=== PATIENT | male | born 1960 | race Caucasian/White ===

== ENCOUNTER 2020-03-31 14:27 | Outpatient (REF) | payer OTHER, SELFPAY | END 2020-03-31 14:28 | disposition home or self-care (01) | LOC: HO.HOSX 14:27 | PROVIDERS: Visit Provider Orthopaedic Surgery | DX: Z13.89 Encounter for screening for other disorder (principal) ==

== ENCOUNTER 2020-04-01 11:14 | Outpatient (REF) | payer OTHER, SELFPAY ==
--- NOTE | 2020-04-01 11:20 | XR_ITS ---
EXAMINATION: XR KNEE, STANDING AP, BILATERAL XR KNEE, LEFT CLINICAL INFORMATION: Bilateral knee pain. COMPARISON: Standing AP knees and left knee 06/15/2016 TECHNIQUE: Standing AP view of both knees is performed along with lateral and axial patellar views of the left knee. FINDINGS: Left knee: There is narrowing medial knee joint compartment with marginal osteophytes medial femoral condyle and tibial plateau. There is no erosive change or chondrocalcinosis. Mild degenerative change present medial patellofemoral joint. No lateralization patella or erosive change. No suprapatellar effusion. No bony destructive process. There is a tiny bone island lateral femoral condyle, stable from prior study. Right knee: No definite knee joint compartment narrowing. No erosive change or chondrocalcinosis. No destructive process. Small bone island medial femoral condyle, stable from prior study 2016. XR/XR knee standing BI IMPRESSION: 1. Left: Osteoarthritis greatest medial knee joint compartment with joint narrowing and osteophytes. No effusion or erosive change. 2. Right: No joint narrowing or erosive change.
--- NOTE | 2020-04-01 11:20 | XR_ITS ---
EXAMINATION: XR KNEE, STANDING AP, BILATERAL XR KNEE, LEFT CLINICAL INFORMATION: Bilateral knee pain. COMPARISON: Standing AP knees and left knee 06/15/2016 TECHNIQUE: Standing AP view of both knees is performed along with lateral and axial patellar views of the left knee. FINDINGS: Left knee: There is narrowing medial knee joint compartment with marginal osteophytes medial femoral condyle and tibial plateau. There is no erosive change or chondrocalcinosis. Mild degenerative change present medial patellofemoral joint. No lateralization patella or erosive change. No suprapatellar effusion. No bony destructive process. There is a tiny bone island lateral femoral condyle, stable from prior study. Right knee: No definite knee joint compartment narrowing. No erosive change or chondrocalcinosis. No destructive process. Small bone island medial femoral condyle, stable from prior study 2016. XR/XR knee LT 2V IMPRESSION: 1. Left: Osteoarthritis greatest medial knee joint compartment with joint narrowing and osteophytes. No effusion or erosive change. 2. Right: No joint narrowing or erosive change.
== END 2020-04-01 11:15 | disposition home or self-care (01) ==
LOC: HO.HOSX 11:14
PROVIDERS: PCP Internal Medicine; Visit Provider Orthopaedic Surgery
DX: M17.12 Unilateral primary osteoarthritis, left knee (principal); M25.562 Pain in left knee; M25.561 Pain in right knee
CPT/HCPCS: 20610; 73560; 73565

== ENCOUNTER 2020-05-06 10:30 | Outpatient (REF) | payer OTHER, SELFPAY ==
[2020-05-06 14:08] LABS: Hematocrit 46.3 % (42-52); Hemoglobin 15.7 g/dl (14.0-18.0)
[2020-05-06 14:14] LABS: Estimated Average Glucose 131 mg/dL; Hemoglobin A1c % 6.2 %
[2020-05-06 14:30] LABS: Alanine Aminotransferase 41 U/L (0-40); Albumin Level 4.5 g/dL (3.5-5.0); Alkaline Phosphatase 80 U/L (39-117); Anion Gap 14 (12-20); Aspartate Amino Transferase 25 U/L (5-37); Bilirubin Direct 0.3 mg/dL (0.0-0.5); Bilirubin Total 0.9 mg/dL (0.0-1.0); Blood Urea Nitrogen 18 mg/dL (9-16); Calcium 9.2 mg/dL (8.4-10.2); Carbon Dioxide 25 mmol/L (22-29); Chloride 105 mmol/L (96-108); Cholesterol 166 mg/dL; Estimated Glomerular Filt Rate > 60; Glucose Fasting 152 mg/dL (60-99); HDL Cholesterol 43 mg/dL; LDL Cholesterol Calculated 90 mg/dl; Potassium 4.2 mmol/L (3.3-5.1); Sodium 140 mmol/L (135-145); Total Protein 6.9 g/dL (6.5-8.0); Triglycerides 168 mg/dL
[2020-05-06 14:36] LABS: Microalbum/Creatinine Ratio Ur 6.9 ug/mg cr
[2020-05-06 14:40] LABS: TSH reflex Free T4 0.57 uIU/mL (0.32-4.0)
== END 2020-05-06 10:31 | disposition home or self-care (01) ==
LOC: HO.HMGCLDS 10:30
PROVIDERS: PCP Internal Medicine; Visit Provider Internal Medicine
DX: E66.9 Obesity, unspecified (principal); R73.9 Hyperglycemia, unspecified; E78.9 Disorder of lipoprotein metabolism, unspecified; J45.40 Moderate persistent asthma, uncomplicated; R00.0 Tachycardia, unspecified; H53.8 Other visual disturbances
CPT/HCPCS: 36415; 80048; 80061; 80076; 82043; 83036; 84443; 85014; 85018

== ENCOUNTER → 2020-08-05 09:59 | Outpatient (BNVA) | payer OTHER, SELFPAY | PROVIDERS: PCP Internal Medicine; Visit Provider Orthopaedic Surgery ==

== ENCOUNTER → 2020-09-09 12:22 | Outpatient (BNVA) | payer OTHER, SELFPAY | PROVIDERS: PCP Internal Medicine; Visit Provider Physician Assistant ==

== ENCOUNTER 2020-09-14 06:01 | Day surgery (SDC) | payer OTHER, SELFPAY ==
--- NOTE | 2020-08-12 12:12 | ECG_ITS ---
Test Reason : PREOP Z01.810 Blood Pressure : / mmHG Vent. Rate : 099 BPM Atrial Rate : 099 BPM P-R Int : 148 ms QRS Dur : 094 ms QT Int : 354 ms P-R-T Axes : 041 -12 072 degrees QTc Int : 454 ms Normal sinus rhythm Nonspecific ST and T wave abnormality Abnormal ECG When compared with ECG of 23-JAN-2013 08:50, No significant change was found Referred By: Megan Banuelos Electronically Signed By:ELMER TATUM MD
[2020-08-12 13:19] LABS: MANUAL DIFF FLAG NO
[2020-08-12 13:22] LABS: Basophils Percent Auto 0.7 % (0-2); Eosinophils Absolute Auto 0.1 X10*3/uL (0.0-0.4); Eosinophils Percent Auto 1.6 % (0-4); Hematocrit 45.3 % (42-52); Hemoglobin 15.5 g/dl (14.0-18.0); Imm Gran Abs Auto 0.01 X10*3/uL (0.00-0.03); Imm Gran Pct Auto 0.2 % (0.0-0.4); Lymphocytes Percent Auto 35.6 % (20-40); Mean Corpuscular HGB Conc 34.2 g/dl (31.0-36.0); Mean Corpuscular Hemoglobin 29.8 pg (27.0-33.0); Mean Corpuscular Volume 86.9 fL (80-98); Mean Platelet Volume 9.6 fL (9.4-12.4); Monocytes Absolute Auto 0.5 X10*3/uL (0.1-1.2); Neutrophils Absolute Auto 3.1 X10*3/uL (2.0-8.3); Neutrophils Percent Auto 53.9 % (45-73); Platelet Count 281 X10*3/uL (160-400); Red Blood Count 5.21 X10*6/uL (4.60-5.80); Red Cell Distribution Width 12.1 % (11.0-16.0); White Blood Count 5.7 X10*3/uL (4.8-10.8)
[2020-08-12 13:45] LABS: Anion Gap 14 (12-20); Blood Urea Nitrogen 18 mg/dL (9-16); Calcium 9.8 mg/dL (8.4-10.2); Carbon Dioxide 28 mmol/L (22-29); Chloride 102 mmol/L (96-108); Estimated Glomerular Filt Rate > 60; Glucose Random 166 mg/dL (60-115); Potassium 3.8 mmol/L (3.3-5.1); Sodium 140 mmol/L (135-145)
[2020-09-03 11:54] VITALS: BP 120/77; PULSE 105; RESP 20; O2SAT 95; BMI 40.1
--- NOTE | 2020-09-03 12:25 | HO.ANESPROP2 ---
Documented by User: Suma Streeter 09/03/20 12:41 HPI - Anesthesia Eval Consult details Narrative: 59yo M for Left TKA PCP cleared - notes abnormal EKG, but no changes from previous [facility] Active Problems Active Problems: All Active Problems (Updated 09/03/20 @ 12:14 by Jacquelin Borrero) Primary osteoarthritis of left knee (Acute) Lipid disorder (Acute) Asthma, moderate (Acute) Elevated blood sugar (Acute) Tachycardia (Acute) Blurring of vision (Acute) Obesity (Acute) Hypertension, essential (Acute) Encounter for general adult medical examination with abnormal findings (Acute) Morbid obesity (Acute) Osteoarthritis of knees, bilateral (Acute) Pre-op evaluation (Acute) Past Medical History Medical History (Updated 09/14/20 @ 09:06 by Taniya Connell) Asthma COVID-19 vaccine series completed Fuchs' syndrome II HTN (hypertension) COLETTE (obstructive sleep apnea) Osteoarthritis of both knees Raynauds disease Rheumatoid arthritis Snores Family History Family History Father Colon cancer Myocardial infarction Mother Colon cancer HTN (hypertension) Diabetes mellitus Sister Breast cancer Crohn's disease Sister Breast cancer Crohn's disease Brother CHF (congestive heart failure) Smoker Rheumatic fever Maternal Grandmother No problems noted. Maternal Grandfather No problems noted. Paternal Grandmother No problems noted. Paternal Grandfather Emphysema, unspecified Brother No problems noted. Sister No problems noted. Daughter No problems noted. Daughter No problems noted. Daughter No problems noted. Daughter No problems noted. Family history of problems with anesthesia: No Surgical History Surgical History History of colonoscopy History of knee surgery History of lipoma History of removal of testicle History of trigger finger History of Problems with Anesthesia: No Social History Social History Are you a primary medicare sales representative to a significant other at home: No Do you presently have visiting nurse or other home services: No Alcohol intake: current Alcohol intake frequency: former alcohol drinker Patient Tobacco Use Status: Former Tobacco user Quit Date: 2000 Tobacco use type: Cigarette Use of substances other than those prescribed or required for medical reasons: No Have you been hit, kicked, punched, or otherwise hurt by someone within the past year? 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 Activity limited to pain. 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 Meds Allergies Allergy/AdvReac Type Severity Reaction Status Date / Time amoxicillin [Augmentin] Allergy Unknown rash Verified 09/09/20 12:38 aspirin [ASPIRIN] Allergy Unknown WHEEZING Verified 09/09/20 12:38 clavulanic acid [Augmentin] Allergy Unknown rash Verified 09/09/20 12:38 Iodinated Contrast Media Allergy Unknown NAUSEA Verified 09/09/20 12:38 [IODINATED CONTRAST MEDIA - IV DYE] shellfish dye Allergy Unknown nausea, Uncoded 09/09/20 12:38 wheezing Home Medications Medication Instructions Recorded Confirmed Last Taken Type cetirizine [Zyrtec] 10 mg PO DAILY 09/03/20 09/03/20 Unknown History fluticasone propion-salmeterol 1 inh INHALATION BID 09/03/20 09/03/20 Unknown History [Advair Diskus] Exam Exam Date and Time: September 03, 2020 1225 Height,Weight and Vital Signs: Height 5 ft 10 in Weight 127.006 kg Last Vital Signs Pulse 105 H 09/03/20 11:54 Resp 20 09/03/20 11:54 BP 120/77 09/03/20 11:54 Pulse Ox 95 09/03/20 11:54 Pertinent Lab Results Pertinent Lab Results: Laboratory Tests 08/12/20 08/12/20 12:15 12:15 WBC 5.7 RBC 5.21 Hgb 15.5 Hct 45.3 MCV 86.9 MCH 29.8 MCHC 34.2 RDW 12.1 Plt Count 281 MPV 9.6 Immature Gran % (Auto) 0.2 Neut % (Auto) 53.9 Lymph % (Auto) 35.6 [place] % (Auto) 8.0 Eos % (Auto) 1.6 Baso % (Auto) 0.7 Lymph # (Auto) 2.0 [place] # (Auto) 0.5 Eos # (Auto) 0.1 Baso # (Auto) 0.0 Abs Immat Gran (auto) 0.01 Absolute Neuts (auto) 3.1 Absolute Nucleated RBC 0.000 Nucleated RBC % (auto) 0.0 Sodium 140 Potassium 3.8 Chloride 102 Carbon Dioxide 28 Anion Gap 14 BUN 18 H Creatinine 0.99 Estim Creat Clear Calc TNP Estimated GFR > 60 Random Glucose 166 H Calcium 9.8 D Narrative Narrative: EKG 07/2020 Vent. Rate : 099 BPM Atrial Rate : 099 BPM P-R Int : 148 ms QRS Dur : 094 ms QT Int : 354 ms P-R-T Axes : 041 -12 072 degrees QTc Int : 454 ms Normal sinus rhythm Nonspecific ST and T wave abnormality Abnormal ECG When compared with ECG of 23-JAN-2013 08:50, No significant change was found Airway Mallampati Class: IV (small mouth, +snores. encouraged COLETTE w/u with PCP) TM Dist: >3cm Neck ROM: Full Loose/Missing/Broken Teeth: Yes (#6 missing) Heart: tachy, RR Lungs: CTAB Assessment and Plan Assessment Anesthesia Assessment: Anesthesia Plan Discussed and PAT Visit Documented by User: Taniya Connell 09/14/20 09:09 [facility] Past Medical History Medical History (Updated 09/14/20 @ 09:06 by Taniya Connell) Asthma COVID-19 vaccine series completed Fuchs' syndrome II HTN (hypertension) COLETTE (obstructive sleep apnea) Osteoarthritis of both knees Raynauds disease Rheumatoid arthritis Snores Family History Family History Father Colon cancer Myocardial infarction Mother Colon cancer HTN (hypertension) Diabetes mellitus Sister Breast cancer Crohn's disease Sister Breast cancer Crohn's disease Brother CHF (congestive heart failure) Smoker Rheumatic fever Maternal Grandmother No problems noted. Maternal Grandfather No problems noted. Paternal Grandmother No problems noted. Paternal Grandfather Emphysema, unspecified Brother No problems noted. Sister No problems noted. Daughter No problems noted. Daughter No problems noted. Daughter No problems noted. Daughter No problems noted. Surgical History Surgical History History of colonoscopy History of knee surgery History of lipoma History of removal of testicle History of trigger finger Social History Social History Are you a primary medicare sales representative to a significant other at home: No Do you presently have visiting nurse or other home services: No Alcohol intake: current Alcohol intake frequency: former alcohol drinker Patient Tobacco Use Status: Former Tobacco user Quit Date: 2000 Tobacco use type: Cigarette Use of substances other than those prescribed or required for medical reasons: No Have you been hit, kicked, punched, or otherwise hurt by someone within the past year? 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 Allergies Allergy/AdvReac Type Severity Reaction Status Date / Time amoxicillin [Augmentin] Allergy Unknown rash Verified 09/09/20 12:38 aspirin [ASPIRIN] Allergy Unknown WHEEZING Verified 09/09/20 12:38 clavulanic acid [Augmentin] Allergy Unknown rash Verified 09/09/20 12:38 Iodinated Contrast Media Allergy Unknown NAUSEA Verified 09/09/20 12:38 [IODINATED CONTRAST MEDIA - IV DYE] shellfish dye Allergy Unknown nausea, Uncoded 09/09/20 12:38 wheezing Home Medications Medication Instructions Recorded Confirmed Last Taken Type cetirizine [Zyrtec] 10 mg PO DAILY 09/03/20 09/03/20 Unknown History fluticasone propion-salmeterol 1 inh INHALATION BID 09/03/20 09/03/20 Unknown History [Advair Diskus] Exam Height,Weight and Vital Signs: Vital Signs Temp Pulse Resp BP Pulse Ox 09/14/20 06:55 98.0 F 89 16 124/79 94 Pertinent Lab Results Pertinent Lab Results: Lab Results 08/12/20 08/12/20 09/03/20 Range/Units 12:15 12:15 00:00 WBC 5.7 (4.8-10.8) X10*3/uL RBC 5.21 (4.60-5.80) X10*6/uL Hgb 15.5 (14.0-18.0) g/dl Hct 45.3 (42-52) % MCV 86.9 (80-98) fL MCH 29.8 (27.0-33.0) pg MCHC 34.2 (31.0-36.0) g/dl RDW 12.1 (11.0-16.0) % Plt Count 281 (160-400) X10*3/uL MPV 9.6 (9.4-12.4) fL Immature Gran % (Auto) 0.2 (0.0-0.4) % Neut % (Auto) 53.9 (45-73) % Lymph % (Auto) 35.6 (20-40) % [place] % (Auto) 8.0 (2-11) % Eos % (Auto) 1.6 (0-4) % Baso % (Auto) 0.7 (0-2) % Lymph # (Auto) 2.0 (1.2-4.9) X10*3/uL [place] # (Auto) 0.5 (0.1-1.2) X10*3/uL Eos # (Auto) 0.1 (0.0-0.4) X10*3/uL Baso # (Auto) 0.0 (0.0-0.2) X10*3/uL Abs Immat Gran (auto) 0.01 (0.00-0.03) X10*3/uL Absolute Neuts (auto) 3.1 (2.0-8.3) X10*3/uL Absolute Nucleated RBC 0.000 (0.0-0.012) X10*3/uL Nucleated RBC % (auto) 0.0 (0.0-0.2) /100WBC Sodium 140 (135-145) mmol/L Potassium 3.8 (3.3-5.1) mmol/L Chloride 102 (96-108) mmol/L Carbon Dioxide 28 (22-29) mmol/L Anion Gap 14 (12-20) BUN 18 H (9-16) mg/dL Creatinine 0.99 (0.5-1.4) mg/dL Estim Creat Clear Calc TNP Estimated GFR > 60 Random Glucose 166 H (60-115) mg/dL Fasting Glucose (60-99) mg/dL Estimat Average Glucose mg/dL Hemoglobin A1c % % Calcium 9.8 D (8.4-10.2) mg/dL Total Bilirubin (0.0-1.0) mg/dL AST (5-37) U/L ALT (0-40) U/L Alkaline Phosphatase (39-117) U/L Total Protein (6.5-8.0) g/dL Albumin (3.5-5.0) g/dL Triglycerides mg/dL Cholesterol mg/dL LDL Cholesterol, Calc mg/dl HDL Cholesterol mg/dL Nasal Screen MRSA (PCR) NEGATIVE (Negative) Nasal S. aureus Screen NEGATIVE (Negative) Nasal MRSA/S.aureus Interp SEE NOTE COVID-19 (STEVIE) (Negative) COVID-19 Clin Com Blood Type Antibody Screen 09/03/20 09/03/20 09/03/20 Range/Units 13:09 13:09 13:09 WBC 7.2 (4.8-10.8) X10*3/uL RBC 5.15 (4.60-5.80) X10*6/uL Hgb 15.3 (14.0-18.0) g/dl Hct 45.2 (42-52) % MCV 87.8 (80-98) fL MCH 29.7 (27.0-33.0) pg MCHC 33.8 (31.0-36.0) g/dl RDW 12.3 (11.0-16.0) % Plt Count 282 (160-400) X10*3/uL MPV 9.5 (9.4-12.4) fL Immature Gran % (Auto) 0.3 (0.0-0.4) % Neut % (Auto) 59.1 (45-73) % Lymph % (Auto) 28.7 (20-40) % [place] % (Auto) 9.5 (2-11) % Eos % (Auto) 1.8 (0-4) % Baso % (Auto) 0.6 (0-2) % Lymph # (Auto) 2.1 (1.2-4.9) X10*3/uL [place] # (Auto) 0.7 (0.1-1.2) X10*3/uL Eos # (Auto) 0.1 (0.0-0.4) X10*3/uL Baso # (Auto) 0.0 (0.0-0.2) X10*3/uL Abs Immat Gran (auto) 0.02 (0.00-0.03) X10*3/uL Absolute Neuts (auto) 4.3 (2.0-8.3) X10*3/uL Absolute Nucleated RBC 0.000 (0.0-0.012) X10*3/uL Nucleated RBC % (auto) 0.0 (0.0-0.2) /100WBC Sodium 138 (135-145) mmol/L Potassium 3.7 (3.3-5.1) mmol/L Chloride 104 (96-108) mmol/L Carbon Dioxide 26 (22-29) mmol/L Anion Gap 12 (12-20) BUN 17 H (9-16) mg/dL Creatinine 0.97 (0.5-1.4) mg/dL Estim Creat Clear Calc 112.4 Estimated GFR > 60 Random Glucose (60-115) mg/dL Fasting Glucose 159 H (60-99) mg/dL Estimat Average Glucose 126 mg/dL Hemoglobin A1c % 6.0 % Calcium 10.2 (8.4-10.2) mg/dL Total Bilirubin 0.4 (0.0-1.0) mg/dL AST 35 (5-37) U/L ALT 56 H (0-40) U/L Alkaline Phosphatase 85 (39-117) U/L Total Protein 6.9 (6.5-8.0) g/dL Albumin 4.6 (3.5-5.0) g/dL Triglycerides 269 mg/dL Cholesterol 170 mg/dL LDL Cholesterol, Calc 75 mg/dl HDL Cholesterol 42 mg/dL Nasal Screen MRSA (PCR) (Negative) Nasal S. aureus Screen (Negative) Nasal MRSA/S.aureus Interp COVID-19 (STEVIE) (Negative) COVID-19 Clin Com Blood Type Antibody Screen 06/10/21 06/21/21 Range/Units 13:26 06:07 WBC (4.8-10.8) X10*3/uL RBC (4.60-5.80) X10*6/uL Hgb (14.0-18.0) g/dl Hct (42-52) % MCV (80-98) fL MCH (27.0-33.0) pg MCHC (31.0-36.0) g/dl RDW (11.0-16.0) % Plt Count (160-400) X10*3/uL MPV (9.4-12.4) fL Immature Gran % (Auto) (0.0-0.4) % Neut % (Auto) (45-73) % Lymph % (Auto) (20-40) % [place] % (Auto) (2-11) % Eos % (Auto) (0-4) % Baso % (Auto) (0-2) % Lymph # (Auto) (1.2-4.9) X10*3/uL [place] # (Auto) (0.1-1.2) X10*3/uL Eos # (Auto) (0.0-0.4) X10*3/uL Baso # (Auto) (0.0-0.2) X10*3/uL Abs Immat Gran (auto) (0.00-0.03) X10*3/uL Absolute Neuts (auto) (2.0-8.3) X10*3/uL Absolute Nucleated RBC (0.0-0.012) X10*3/uL Nucleated RBC % (auto) (0.0-0.2) /100WBC Sodium (135-145) mmol/L Potassium (3.3-5.1) mmol/L Chloride (96-108) mmol/L Carbon Dioxide (22-29) mmol/L Anion Gap (12-20) BUN (9-16) mg/dL Creatinine (0.5-1.4) mg/dL Estim Creat Clear Calc Estimated GFR Random Glucose (60-115) mg/dL Fasting Glucose (60-99) mg/dL Estimat Average Glucose mg/dL Hemoglobin A1c % % Calcium (8.4-10.2) mg/dL Total Bilirubin (0.0-1.0) mg/dL AST (5-37) U/L ALT (0-40) U/L Alkaline Phosphatase (39-117) U/L Total Protein (6.5-8.0) g/dL Albumin (3.5-5.0) g/dL Triglycerides mg/dL Cholesterol mg/dL LDL Cholesterol, Calc mg/dl HDL Cholesterol mg/dL Nasal Screen MRSA (PCR) (Negative) Nasal S. aureus Screen (Negative) Nasal MRSA/S.aureus Interp COVID-19 (STEVIE) Negative (Negative) COVID-19 Clin Com See Note Blood Type O Positive Antibody Screen NEGATIVE Airway Mallampati Class: III TM Dist: >3cm Neck ROM: Full Loose/Missing/Broken Teeth: Yes (Missing bottom right) Heart: RRR Lungs: CTAB Assessment and Plan Assessment Anesthesia Assessment: Anesthesia Plan Discussed and Chart Reviewed Final Anesthetic Review NPO: Yes ASA Class: III Final Preanesthetic Review: No Changes in Pt Med Stat, Meds/Allgs Chart Reviewed, Consent Obtained/Reviewed and Anes Risks/Benef Reviewed Patient Risk: Intermediate Procedure Risk: Intermediate Assessment/Block/Sedation in SS: Assess/Block/Sedation-SS Anesthetic Plan Anesthetic Plan: Spinal and Regional Block Disposition: Inp. Admit - Standard Bed
[2020-09-03 13:38] LABS: MANUAL DIFF FLAG NO
[2020-09-03 13:44] LABS: Basophils Percent Auto 0.6 % (0-2); Eosinophils Absolute Auto 0.1 X10*3/uL (0.0-0.4); Eosinophils Percent Auto 1.8 % (0-4); Hematocrit 45.2 % (42-52); Hemoglobin 15.3 g/dl (14.0-18.0); Imm Gran Abs Auto 0.02 X10*3/uL (0.00-0.03); Imm Gran Pct Auto 0.3 % (0.0-0.4); Lymphocytes Absolute Auto 2.1 X10*3/uL (1.2-4.9); Lymphocytes Percent Auto 28.7 % (20-40); Mean Corpuscular HGB Conc 33.8 g/dl (31.0-36.0); Mean Corpuscular Hemoglobin 29.7 pg (27.0-33.0); Mean Corpuscular Volume 87.8 fL (80-98); Mean Platelet Volume 9.5 fL (9.4-12.4); Monocytes Absolute Auto 0.7 X10*3/uL (0.1-1.2); Monocytes Percent Auto 9.5 % (2-11); Neutrophils Absolute Auto 4.3 X10*3/uL (2.0-8.3); Neutrophils Percent Auto 59.1 % (45-73); Platelet Count 282 X10*3/uL (160-400); Red Blood Count 5.15 X10*6/uL (4.60-5.80); Red Cell Distribution Width 12.3 % (11.0-16.0); White Blood Count 7.2 X10*3/uL (4.8-10.8)
[2020-09-03 13:55] LABS: Estimated Average Glucose 126 mg/dL
[2020-09-03 14:09] LABS: Alanine Aminotransferase 56 U/L (0-40); Albumin Level 4.6 g/dL (3.5-5.0); Alkaline Phosphatase 85 U/L (39-117); Anion Gap 12 (12-20); Aspartate Amino Transferase 35 U/L (5-37); Bilirubin Total 0.4 mg/dL (0.0-1.0); Blood Urea Nitrogen 17 mg/dL (9-16); Calcium 10.2 mg/dL (8.4-10.2); Carbon Dioxide 26 mmol/L (22-29); Chloride 104 mmol/L (96-108); Cholesterol 170 mg/dL; Creatinine Clr Calc Pharmacy 112.4; Estimated Glomerular Filt Rate > 60; Glucose Fasting 159 mg/dL (60-99); HDL Cholesterol 42 mg/dL; LDL Cholesterol Calculated 75 mg/dl; Potassium 3.7 mmol/L (3.3-5.1); Sodium 138 mmol/L (135-145); Total Protein 6.9 g/dL (6.5-8.0); Triglycerides 269 mg/dL
[2020-09-04 08:42] LABS: MRSA Nasal PCR NEGATIVE (Negative); SA Nasal PCR NEGATIVE (Negative)
[2020-09-14] VITALS (13 sets, daily range): BP systolic 92–124; BP diastolic 49–79; PULSE 78–89; RESP 16–20; TEMP 36–36.8; O2SAT 92–95
--- NOTE | ~2020-09-14 | XR_ITS ---
EXAMINATION: XR KNEE, LEFT CLINICAL INFORMATION: Postop left knee COMPARISON: Radiographs left knee 04/01/2020 TECHNIQUE: Portable AP and lateral views of the left knee. FINDINGS: There is been total knee arthroplasty. The hardware is intact. There is no fracture or dislocation or destructive process. As expected, there are overlying skin valerie, anterior soft tissue swelling, effusion, and subcutaneous emphysema. XR/XR knee LT 2V IMPRESSION: Status post total knee arthroplasty. Hardware intact.
[2020-09-14 06:43] LABS: COVID-19 Test Negative (Negative); IDNOW Serial# 08D9AD1C
--- NOTE | 2020-09-14 07:28 | MHC.SHP ---
Pre-Procedural Eval Section A The patient is an INPATIENT: No Changes since office visit: No Cold of Flu in the past 2 weeks, No New Medical Problems, No Changes in Medication and No Patient answered all questions The History & Physical has been completed within 30 days and I have reviewed it.: Yes Section B Chief Complaint: Left Knee Osteoarthritis Allergies: Allergies Allergy/AdvReac Type Severity Reaction Status Date / Time amoxicillin [Augmentin] Allergy Unknown rash Verified 09/09/20 12:38 aspirin [ASPIRIN] Allergy Unknown WHEEZING Verified 09/09/20 12:38 clavulanic acid [Augmentin] Allergy Unknown rash Verified 09/09/20 12:38 Iodinated Contrast Media Allergy Unknown NAUSEA Verified 09/09/20 12:38 [IODINATED CONTRAST MEDIA - IV DYE] shellfish dye Allergy Unknown nausea, Uncoded 09/09/20 12:38 wheezing Plan I have reviewed the history and physical and performed a pertinent physical examination on my patient. No changes have occurred unless specified.
[2020-09-14] MEDS: Lactated Ringers 1,000 ML 80 ML IVCONT ×2 (07:29→15:36)
--- NOTE | 2020-09-14 09:23 | P.OP_ITS ---
Operative Note Operative Note Date of Service: 09/14/20 Narrative: SURGEON: Dr Megan Sparrow) Lakisha FLOWER [employer] FLOOR INSTALLER: Patricia Turner PAC PREOP DIAGNOSIS: OA left knee POSTOP DIAGNOSIS: same OPERATIVE PROCEDURE: Left Total knee arthroplasty - SOWMYA NEXGEN CRFlex size F left femoral component, 6 x 10mm monoblock tibial component, 32m monobock patella component CLINICAL NOTE: This individual comes in today in regards to their knee. Has osteoarthritis. Has failed non operative management. Therefore after explaining the risks benefits and alternatives and answering all the questions it was mutually agreed upon care following procedure OPERATIVE DETAILS With of regional and spinal anesthetic the patient was placed supine on the operating table. Pneumatic tourniquet cuff was placed around the upper thigh and inflated to 300 mm of mercury at the beginning of the case. The leg was then prepped and draped in standard fashion with the leg free. Surgical time-out was then performed. The patient was identified. Procedure confirmed. Site confirmed. Medical and allergy history reviewed. Preoperative antibiotics were given. Standard DVT prophylaxis in place. Tranexamic acid was given as well. All other items were discussed and agreed upon. Standard small midline incision was made. Was taken down through the subcutaneous tissues. Hemostasis achieved along the way using electrocautery. This brought us to the extensor mechanism where a medial parapatellar arthrotomy in a subvastus technique was performed. The patella was retracted into the lateral gutter. The soft tissues were elevated from the anterior aspect of the femur. At the level of the tibia the soft tissue elevated medially excising a portion of the meniscus as well as protecting the medial-sided soft tissues. Similarly on the lateral side a portion of the fat pad, portion of the meniscus were excised. The lateral-sided soft tissues were elevated protecting them as well. The ACL was resected. We turned our attention then to the femur. Standard ex to medullary hole was established. The cutting guide was set for 5 degrees of valgus with a standard cut. It was held in place with pins and the surface resected flat. The sizing guide was then used. The femur was sized to a F. The 3 degree external rotation pins were set. The all in 1 cutting guide for this size was placed the pins and centered over the distal cut. Following this the anterior and anterior chamfer cuts, the posterior and posterior chamfer cuts, the patellar recess cuts, as well as the lug holes were made. The guide was removed. The bony fragments removed and we turned our attention to the tibia. The remainder of the medial and lateral menisci were excised. The extramedullary guide was then used in standard fashion referencing the tibial tubercle, the subcutaneous border of the tibia, and the middle of the ankle. The slope was then set. The cut was referenced from the more worn size for a minimal cut. The surface was then resected. The bony segment removed. The tibia was then trialed to a size 6. It was aligned as the extra medullary guide had been. A 10 mm trial insert was put into place. The femoral trial was also applied with good fit. The alignment of the leg was excellent. The knee was then placed through a range of motion which demonstrated full extension full flexion stable medially and laterally at 0, 30, 60, and 90 degrees of flexion. Patella tracked centrally. Turning our attention to the patella. The soft tissues were elevated circumferentially. The surface was resected flat. It sized to a32mm. A local drilled in standard The trial component was put into place with excellent fit. It tracked nicely through flexion extension. Therefore the trial sizes were appropriate and therefore the permanent components were selected and brought up onto the table. The trial components were then all removed after the peg holes for the tibia were made. The tourniquet was then let down with total tourniquet time of 46 minutes. The area of the lateral geniculate artery was identified and cauterized. Any excessive bleeding points were also cauterized. The knee was then thoroughly irrigated. The permanent components were brought up onto the table. The tibia followed by the femur followed by the patella were all Press- Fit into place. The knee was placed through range of motion. It had full flexion and extension. He was stable medial laterally in all positions. Patella tracked centrally. And therefore we proceeded to closure. Wound was thoroughly irrigated. The extensor mechanism was closed with #2 Quill suture. The skin was approximated with 2-0 Polysorb suture. The skin was closed with valerie. Sterile dressing was then applied. The patient was then transferred supine to the room bed and taken to the recovery room in good condition. Intraoperatively a 2nd unit a transemic acid was given at the time of closure. There was approximately 50mm a blood loss. No intraop transfusions or complications. .
[2020-09-14] MEDS: oxyCODONE HCl Immed Release 5 MG TABLET 10 MG PO ×3 (11:04→22:54)
[2020-09-14] MEDS: Ketorolac Tromethamine 15 MG/ML VIAL IVPUSH ×3 (11:05→22:54)
[2020-09-14] MEDS: Acetaminophen 325 MG TABLET 650 MG PO ×3 (11:05→22:54)
[2020-09-14] MEDS: ceFAZolin Sodium/Dextrose,Iso 2 GM/50 ML PIGGYBACK IV (13:39)
[2020-09-14] MEDS: Morphine Sulfate 4 MG/ML CARTRIDGE 3 MG IVPUSH (14:21)
[2020-09-14] MEDS: 0.9 % Sodium Chloride Flush 3 ML SYRINGE IVFLUSH ×2 (15:36→22:54)
--- NOTE | 2020-09-14 16:19 | PM.IMCN ---
History of Present Illness Data of Consult Service Date: 09/14/20 Requesting physician: Megan Banuelos Primary Care Provider: Papito Dawn MD [facility] Reason for consult: Medical management 59-year-old man admitted by Orthopedic surgery and is status post left total knee arthroplasty. Surgery was unremarkable. he was able to eat and drink without any nausea vomiting. Patient's vital signs are stable. He has no acute medical complaints at this time. Review of Systems Review of Systems: Denies any recent fever chills or decrease in appetite respiratory denies any shortness of breath coverage production cardiovascular is adjustment of any PND or edema gastrointestinal denies any dysphagia abdominal pain nausea vomiting or diarrhea genitourinary denies any dysuria frequency or hematuria musculoskeletal left knee pain, surgical dressing intact neuropsych denies any weakness or seizures all other systems reviewed are negative [facility] Medical History (Updated 09/14/20 @ 09:06 by Taniya Connell) Asthma COVID-19 vaccine series completed Fuchs' syndrome II HTN (hypertension) COLETTE (obstructive sleep apnea) Osteoarthritis of both knees Raynauds disease Rheumatoid arthritis Snores Family History Father Colon cancer Myocardial infarction Mother Colon cancer HTN (hypertension) Diabetes mellitus Sister Breast cancer Crohn's disease Sister Breast cancer Crohn's disease Brother CHF (congestive heart failure) Smoker Rheumatic fever Maternal Grandmother No problems noted. Maternal Grandfather No problems noted. Paternal Grandmother No problems noted. Paternal Grandfather Emphysema, unspecified Brother No problems noted. Sister No problems noted. Daughter No problems noted. Daughter No problems noted. Daughter No problems noted. Daughter No problems noted. Surgical History History of colonoscopy History of knee surgery History of lipoma History of removal of testicle History of trigger finger Social History Are you a primary intensive care unit registered nurse to a significant other at home: No Do you presently have visiting nurse or other home services: No Alcohol intake: current Alcohol intake frequency: former alcohol drinker Patient Tobacco Use Status: Former Tobacco user Quit Date: 2000 Tobacco use type: Cigarette Use of substances other than those prescribed or required for medical reasons: No Currently Displaying Signs/Symptoms of Drug Intoxication Withdrawal: No Have you been hit, kicked, punched, or otherwise hurt by someone within the past year? 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 Allergies Allergy/AdvReac Type Severity Reaction Status Date / Time amoxicillin [Augmentin] Allergy Unknown rash Verified 09/09/20 12:38 aspirin [ASPIRIN] Allergy Unknown WHEEZING Verified 09/09/20 12:38 clavulanic acid [Augmentin] Allergy Unknown rash Verified 09/09/20 12:38 Iodinated Contrast Media Allergy Unknown NAUSEA Verified 09/09/20 12:38 [IODINATED CONTRAST MEDIA - IV DYE] shellfish dye Allergy Unknown nausea, Uncoded 09/09/20 12:38 wheezing Active Medications: Current Medications Generic Name Dose Route Start Last Admin Trade Name Freq PRN Reason Stop Dose Admin Acetaminophen 650 mg 09/14/20 12:00 09/14/20 11:05 Acetaminophen 325 Mg Tablet PO 650 mg Q6H CARLOS Administration Aspirin 325 mg 09/15/20 22:00 Aspirin 325 Mg Tablet PO BID CARLOS Fentanyl 25 mcg 09/14/20 09:23 Fentanyl Citrate/Pf 100 Mcg/2 Ml Vial IVPUSH Q5M PRN Pain, Moderate (Pain Scale 4-6 Hydromorphone HCl 0.25 mg 09/14/20 09:23 Hydromorphone Hcl 0.5 Mg/0.5 Ml Syringe IVPUSH Q5M PRN Pain, Severe (Pain Scale 7-10) Lactated Ringer's 1,000 mls @ 80 mls/hr 09/14/20 06:00 09/14/20 15:36 Lr IVCONT 80 mls/hr .[id number] CARLOS Administration Ketorolac Tromethamine 15 mg 09/14/20 12:00 09/14/20 11:05 Ketorolac Tromethamine 15 Mg/Ml Vial IVPUSH 15 mg Q6H CARLOS Administration Morphine Sulfate 3 mg 09/14/20 10:23 09/14/20 14:21 Morphine Sulfate 4 Mg/Ml Cartridge IVPUSH 3 mg Q2H PRN Administration Pain, Severe (Pain Scale 7-10) Naloxone HCl 0.2 mg 09/14/20 10:23 Naloxone Hcl 0.4 Mg/Ml Vial IVPUSH Q2M PRN Excessive sedation or RR < 8 Ondansetron HCl 4 mg 09/14/20 09:23 Ondansetron Hcl 4 Mg/2 Ml Vial IVPUSH ONCE PRN Nausea and Vomiting Ondansetron HCl 4 mg 09/14/20 10:23 Ondansetron Hcl 4 Mg/2 Ml Vial IVPUSH Q8H PRN Nausea and Vomiting Oxycodone HCl 5 mg 09/14/20 09:23 Oxycodone Hcl Immed Release 5 Mg Tablet PO ONCE PRN Pain, Severe (Pain Scale 7-10) Oxycodone HCl 10 mg 09/14/20 12:00 09/14/20 11:04 Oxycodone Hcl Immed Release 5 Mg Tablet PO 10 mg Q6H CARLOS Administration Sodium Chloride 3 ml 09/14/20 16:00 09/14/20 15:36 0.9 % Sodium Chloride Flush 3 Ml Syringe IVFLUSH 3 ml QSHIFT CARLOS Administration Home Medications Medication Instructions Recorded Confirmed Last Taken Type cetirizine [Zyrtec] 10 mg PO DAILY 09/03/20 09/03/20 Unknown History fluticasone propion-salmeterol 1 inh INHALATION BID 09/03/20 09/03/20 Unknown History [Advair Diskus] Physical Exam Vital Signs and Narrative: Vital Signs: Last Vital Signs Temp 97.6 F 09/14/20 15:24 Pulse 78 09/14/20 15:24 Resp 16 09/14/20 15:24 BP 111/66 09/14/20 15:24 Pulse Ox 93 09/14/20 15:24 Body Mass Index 40.1 Appearing in no acute distress head is normocephalic atraumatic eyes pupils are PERRLA sclera is anicteric mouth throat mucous membranes are intact and moist neck is supple no lymphadenopathy, no JVD noted lung sounds are clear to auscultation heart regular rate rhythm, clear S1, S2 positive bowel sounds, abdomen is soft, nontender neuro patient is alert x3, no focal deficits Results Labs CBC and Chem 7: 09/03/20 13:09 09/03/20 13:09 Labs: Laboratory Results - last 24 hr 09/14/20 06:07 COVID-19 (STEVIE) Negative COVID-19 Clin Com See Note Assessment and Plan (1) Primary osteoarthritis of left knee: Status: Acute 59-year-old man admitted by Orthopedic surgery and is status post left total knee arthroplasty. Left total knee arthroplasty. management as per surgical team - Pain management Hypertension. blood pressure on the softer side -hold medications Obstructive sleep apnea. Asthma. -albuterol as needed DVT prophylaxis with full-dose aspirin Attending: Dr. Mas Full code
[2020-09-14] MEDS: Fluticasone/Vilanterol 100/25 BLST.W.DEV 1 PUFF INHALE (20:10)
[2020-09-15] VITALS (7 sets, daily range): BP systolic 95–137; BP diastolic 66–71; PULSE 78–94; RESP 18–20; TEMP 36.1–36.8; O2SAT 90–95
[2020-09-15] MEDS: Lactated Ringers 1,000 ML 80 ML IVCONT ×2 (03:15→16:32)
[2020-09-15] MEDS: Acetaminophen 325 MG TABLET 650 MG PO ×3 (05:04→17:27)
[2020-09-15] MEDS: Ketorolac Tromethamine 15 MG/ML VIAL IVPUSH ×3 (05:04→17:27)
[2020-09-15] MEDS: oxyCODONE HCl Immed Release 5 MG TABLET 10 MG PO ×3 (05:04→17:27)
[2020-09-15] MEDS: Famotidine 20 MG TABLET PO ×2 (06:20→21:16)
--- NOTE | 2020-09-15 07:32 | P.PNOP_ITS ---
Subjective Subjective Date of Service: 09/15/20 Interval history: POD 1 s/p LT TKA No overnight events Has been out of bed, walking down bae Tolerating pain and meds well Denies cp, sob , palpitations Physical Exam Vital Signs: Vital Signs: Last Vital Signs Temp 97.9 F 09/15/20 03:22 Pulse 93 09/15/20 03:22 Resp 20 09/15/20 03:22 BP 95/66 09/15/20 03:22 Pulse Ox 95 09/15/20 03:23 Body Mass Index 40.1 Const: General: cooperative, healthy appearing and no acute distress Resp: Effort & Inspection: normal respiratory effort and able to speak in complete sentences Cardio: Rate: regular rate Peripheral pulses: Peripheral pulses 2+ thr oughout GI: Palpation (GI): Soft to palpation Skin: General skin exam: no rashes or lesions noted Extrem: Other: bandage clean dry and intact. [place] intact. No erythema or joint effusion. Calf supple nontender. Neurovascularly intact. Progress Note: A&P Assessment and plan (1) Status post total left knee replacement: Status: Acute Assessment and Plan: * Continue pain mgmnt * Begin Lovenox for dvt ppx * begin PT for LT TKA * Dispo planning-Pending PT eval, pain mgmnt Fall Risk Details Current Medications: Current Medications Generic Name Dose Route Start Last Admin Trade Name Freq PRN Reason Stop Dose Admin Acetaminophen 650 mg 09/14/20 12:00 09/15/20 05:04 Acetaminophen 325 Mg Tablet PO 650 mg Q6H CARLOS Administration Albuterol Sulfate 1 puff 09/14/20 17:36 Albuterol Sulfate 90 Mcg 8 Gm Inhaler INHALE QID PRN shortness of breath or wheezing Aspirin 325 mg 09/15/20 22:00 Aspirin 325 Mg Tablet PO BID CARLOS Famotidine 20 mg 09/15/20 09:00 09/15/20 06:20 Famotidine 20 Mg Tablet PO 20 mg BID CARLOS Administration Fentanyl 25 mcg 09/14/20 09:23 Fentanyl Citrate/Pf 100 Mcg/2 Ml Vial IVPUSH Q5M PRN Pain, Moderate (Pain Scale 4-6 Fluticasone/Vilanterol 1 puff 09/14/20 21:00 09/14/20 20:10 Fluticasone/Vilanterol 100/25 Blst.W.Dev INHALE 1 puff DAILY CARLOS Administration Hydromorphone HCl 0.25 mg 09/14/20 09:23 Hydromorphone Hcl 0.5 Mg/0.5 Ml Syringe IVPUSH Q5M PRN Pain, Severe (Pain Scale 7-10) Lactated Ringer's 1,000 mls @ 80 mls/hr 09/14/20 06:00 09/15/20 03:15 Lr IVCONT 80 mls/hr .[id number] CARLOS Administration Ketorolac Tromethamine 15 mg 09/14/20 12:00 09/15/20 05:04 Ketorolac Tromethamine 15 Mg/Ml Vial IVPUSH 15 mg Q6H CARLOS Administration Loratadine 10 mg 09/15/20 09:00 Loratadine 10 Mg Tablet PO DAILY CARLOS Morphine Sulfate 3 mg 09/14/20 10:23 09/14/20 14:21 Morphine Sulfate 4 Mg/Ml Cartridge IVPUSH 3 mg Q2H PRN Administration Pain, Severe (Pain Scale 7-10) Naloxone HCl 0.2 mg 09/14/20 10:23 Naloxone Hcl 0.4 Mg/Ml Vial IVPUSH Q2M PRN Excessive sedation or RR < 8 Ondansetron HCl 4 mg 09/14/20 09:23 Ondansetron Hcl 4 Mg/2 Ml Vial IVPUSH ONCE PRN Nausea and Vomiting Ondansetron HCl 4 mg 09/14/20 10:23 Ondansetron Hcl 4 Mg/2 Ml Vial IVPUSH Q8H PRN Nausea and Vomiting Oxycodone HCl 5 mg 09/14/20 09:23 Oxycodone Hcl Immed Release 5 Mg Tablet PO ONCE PRN Pain, Severe (Pain Scale 7-10) Oxycodone HCl 10 mg 09/14/20 12:00 09/15/20 05:04 Oxycodone Hcl Immed Release 5 Mg Tablet PO 10 mg Q6H CARLOS Administration Sodium Chloride 3 ml 09/14/20 16:00 09/14/20 22:54 0.9 % Sodium Chloride Flush 3 Ml Syringe IVFLUSH 3 ml QSHIFT CARLOS Administration Time Spent With Patient Time: Total time spent is greater than 50% in coordination of care (as documented) at patient's floor/unit and/or counseling patient: Time with patient: less than 15 minutes Procedures Date of Service Date of Service: 09/15/20 Quality Stroke Does the patient have a stroke diagnosis?: No VTE Prior VTE?: No VTE Risk Level:: Surgical - moderate VTE Device Contraindication: Treatment Not Indicated VTE Drug Contraindication: N/A - Med Ordered
[2020-09-15] MEDS: Fluticasone/Vilanterol 100/25 BLST.W.DEV 1 PUFF INHALE (08:20)
[2020-09-15 08:59] LABS: Hematocrit 36.3 % (42-52); Hemoglobin 12.2 g/dl (14.0-18.0)
[2020-09-15] MEDS: Morphine Sulfate 4 MG/ML CARTRIDGE 3 MG IVPUSH (09:10)
--- NOTE | 2020-09-15 11:11 | HO.POSTANES ---
Post Anesthesia Evaluation Post Anesthesia Evaluation Vital Signs: Vital Signs Temp Pulse Resp BP Pulse Ox 09/15/20 08:21 78 09/15/20 08:00 96.9 F 94 19 109/70 93 09/15/20 03:23 95 09/15/20 03:22 97.9 F 93 20 95/66 90 L Anesthesia: Spinal and Nerve Block (Adductor canal block) Mental Status: Awake Pain Control: Satisfactory (C/o pain) Nausea/Vomiting: None Hydration: Adequate Anesthesia-Related Issues: No Anes. Related Issues
--- NOTE | 2020-09-15 13:58 | P.PNIM_ITS ---
Subjective Subjective Date of Service: 09/15/20 Interval History: Complaining of pain in his left knee after surgery denies any difficulty breathing or cough Physical Exam Vital Signs: Vital Signs: Last Vital Signs Temp 97.0 F 09/15/20 11:46 Pulse 79 09/15/20 11:46 Resp 18 09/15/20 11:46 BP 114/71 09/15/20 11:46 Pulse Ox 93 09/15/20 11:46 Body Mass Index 40.1 Const: Other: Constitutional : Alert, oriented, not in distress Neck : Normal inspection, Supple Cardiovascular : RRR, S1 S2, no lower extremity edema Respiratory : Good bilateral air entry, no crackles, wheezes or rhonchi Gastrointestinal: soft, lax, Normal bowel sounds, Non tender Skin : Warm/Dry, knee in dressing with noticeable swelling and tenderness Neurological : Alert & oriented x3, No focal deficit Objective Data Current Medications Generic Name Dose Route Start Last Admin Trade Name Freq PRN Reason Stop Dose Admin Acetaminophen 650 mg 09/14/20 12:00 09/15/20 11:48 Acetaminophen 325 Mg Tablet PO 650 mg Q6H CARLOS Administration Albuterol Sulfate 1 puff 09/14/20 17:36 Albuterol Sulfate 90 Mcg 8 Gm Inhaler INHALE QID PRN shortness of breath or wheezing Aspirin 325 mg 09/15/20 10:00 09/15/20 09:16 Aspirin 325 Mg Tablet PO Not Given BID CARLOS Famotidine 20 mg 09/15/20 09:00 09/15/20 06:20 Famotidine 20 Mg Tablet PO 20 mg BID CARLOS Administration Fentanyl 25 mcg 09/14/20 09:23 Fentanyl Citrate/Pf 100 Mcg/2 Ml Vial IVPUSH Q5M PRN Pain, Moderate (Pain Scale 4-6 Fluticasone/Vilanterol 1 puff 09/14/20 21:00 09/15/20 08:20 Fluticasone/Vilanterol 100/25 Blst.W.Dev INHALE 1 puff DAILY CARLOS Administration Hydromorphone HCl 0.25 mg 09/14/20 09:23 Hydromorphone Hcl 0.5 Mg/0.5 Ml Syringe IVPUSH Q5M PRN Pain, Severe (Pain Scale 7-10) Lactated Ringer's 1,000 mls @ 80 mls/hr 09/14/20 06:00 09/15/20 03:15 Lr IVCONT 80 mls/hr .[id number] CARLOS Administration Ketorolac Tromethamine 15 mg 09/14/20 12:00 09/15/20 11:49 Ketorolac Tromethamine 15 Mg/Ml Vial IVPUSH 15 mg Q6H CARLOS Administration Loratadine 10 mg 09/15/20 09:00 09/15/20 09:16 Loratadine 10 Mg Tablet PO Not Given DAILY [facility] Morphine Sulfate 3 mg 09/14/20 10:23 09/15/20 09:10 Morphine Sulfate 4 Mg/Ml Cartridge IVPUSH 3 mg Q2H PRN Administration Pain, Severe (Pain Scale 7-10) Naloxone HCl 0.2 mg 09/14/20 10:23 Naloxone Hcl 0.4 Mg/Ml Vial IVPUSH Q2M PRN Excessive sedation or RR < 8 Ondansetron HCl 4 mg 09/14/20 09:23 Ondansetron Hcl 4 Mg/2 Ml Vial IVPUSH ONCE PRN Nausea and Vomiting Ondansetron HCl 4 mg 09/14/20 10:23 Ondansetron Hcl 4 Mg/2 Ml Vial IVPUSH Q8H PRN Nausea and Vomiting Oxycodone HCl 5 mg 09/14/20 09:23 Oxycodone Hcl Immed Release 5 Mg Tablet PO ONCE PRN Pain, Severe (Pain Scale 7-10) Oxycodone HCl 10 mg 09/14/20 12:00 09/15/20 11:49 Oxycodone Hcl Immed Release 5 Mg Tablet PO 10 mg Q6H CARLOS Administration Sodium Chloride 3 ml 09/14/20 16:00 09/15/20 07:45 0.9 % Sodium Chloride Flush 3 Ml Syringe IVFLUSH Not Given QSHIFT [facility] Labs CBC & Chem 7: 09/15/20 08:32 09/03/20 13:09 Labs: Laboratory Results - last 24 hr 09/15/20 08:32 Hgb 12.2 L D Hct 36.3 L Quality Stroke Does the patient have a stroke diagnosis?: No VTE Prior VTE?: No VTE Risk Level:: Surgical - moderate VTE Device Contraindication: Treatment Not Indicated VTE Drug Contraindication: N/A - Med Ordered Assessment and Plan (1) Primary osteoarthritis of left knee: Status: Acute Assessment and Plan: 59-year-old man admitted by Orthopedic surgery and is status post left total knee arthroplasty. Left total knee arthroplasty management as per surgical team Pain management Hypertension blood pressure on the softer side Continue to hold medications Obstructive sleep apnea. Not on CPAP at home, has to follow-up for outpatient sleep study Asthma. albuterol as needed DVT prophylaxis full-dose aspirin
--- NOTE | 2020-09-15 15:06 | MHC.CM.PN ---
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 HE IS SELF EMPLOYED AND DENIES ANY FINANCAIL BURDENES IN GETTING HIS SCRIPT FILLED AT THE PHARMACY. HIS CARRIES THE HEALTH INSURANCE.. REVIEWED NURSING AGENCIES WITH HIM AND HE CHOSE THE [facility] DISCHARGE PLAN HOME WITH NEW REFERRAL TO THE [facility] FOR( POSSIBLE RN ) AND HOME PHYSICAL THEAPRY , CAlled to DAVIAN AT THE [facility] FOR REFERRAL PCP DR DONA LUNOG PATIENT TO CALL FOR [facility] FOLLOW UP 'ORTHOPEDIC SURGICAL FOLLOW UP PER DISCHARGE INSTRUCTIONS TRANSPORTATION FAMILY CONFIRMED HE HAS HEALTH CARE PROXY NAMING HIS HIS AGENT , COPY REQUESTED TO BE BROUGHT IN
[2020-09-16] VITALS: BP 118/64; PULSE 88; RESP 18; TEMP 37; O2SAT 94
[2020-09-16] MEDS: Acetaminophen 325 MG TABLET 650 MG PO ×3 (00:08→11:10)
[2020-09-16] MEDS: oxyCODONE HCl Immed Release 5 MG TABLET 10 MG PO ×3 (00:08→11:09)
[2020-09-16] MEDS: Ketorolac Tromethamine 15 MG/ML VIAL IVPUSH ×2 (00:09→05:09)
[2020-09-16 03:49] VITALS: BP 114/62; PULSE 85; RESP 18; TEMP 36.5; O2SAT 93
[2020-09-16 07:54] VITALS: BP 117/69; PULSE 84; RESP 19; TEMP 36.1; O2SAT 92
[2020-09-16] MEDS: Fluticasone/Vilanterol 100/25 BLST.W.DEV 1 PUFF INHALE (08:29)
[2020-09-16 08:30] VITALS: PULSE 84; O2SAT 93
[2020-09-16] MEDS: Famotidine 20 MG TABLET PO (08:50)
[2020-09-16 09:00] VITALS: O2SAT 93
[2020-09-16 09:04] LABS: Hematocrit 34.8 % (42-52); Hemoglobin 11.6 g/dl (14.0-18.0)
--- NOTE | 2020-09-16 10:54 | HO.PM.IMPN ---
Subjective Subjective Date of Service: 09/16/20 Interval History: left knee pain Cardiovascular Cardiovascular: Reports no additional cardiovascular complaints Respiratory Respiratory: Reports no additional respiratory complaints Physical Exam Vital Signs: Vital Signs: Last Vital Signs Temp 97.0 F 09/16/20 07:54 Pulse 84 09/16/20 08:30 Resp 19 09/16/20 07:54 BP 117/69 09/16/20 07:54 Pulse Ox 93 09/16/20 09:00 Body Mass Index 40.1 General: AO X 3, no acute distress Resp: CTA bilateral CVS: S1,S2,RRR GI: soft, non tender, non distended Neuro: motor grossly intact Psych: appropriate affect Objective Data Current Medications Generic Name Dose Route Start Last Admin Trade Name Freq PRN Reason Stop Dose Admin Acetaminophen 650 mg 09/14/20 12:00 09/16/20 05:10 Acetaminophen 325 Mg Tablet PO 650 mg Q6H CARLOS Administration Albuterol Sulfate 1 puff 09/14/20 17:36 Albuterol Sulfate 90 Mcg 8 Gm Inhaler INHALE QID PRN shortness of breath or wheezing Aspirin 325 mg 09/15/20 10:00 09/16/20 08:46 Aspirin 325 Mg Tablet PO Not Given BID CARLOS Atorvastatin Calcium 20 mg 09/16/20 21:00 Atorvastatin Calcium 20 Mg Tablet PO BEDTIME CARLOS Famotidine 20 mg 09/15/20 09:00 09/16/20 08:50 Famotidine 20 Mg Tablet PO 20 mg BID CARLOS Administration Fentanyl 25 mcg 09/14/20 09:23 Fentanyl Citrate/Pf 100 Mcg/2 Ml Vial IVPUSH Q5M PRN Pain, Moderate (Pain Scale 4-6 Fluticasone/Vilanterol 1 puff 09/14/20 21:00 09/16/20 08:29 Fluticasone/Vilanterol 100/25 Blst.W.Dev INHALE 1 puff DAILY CARLOS Administration Hydromorphone HCl 0.25 mg 09/14/20 09:23 Hydromorphone Hcl 0.5 Mg/0.5 Ml Syringe IVPUSH Q5M PRN Pain, Severe (Pain Scale 7-10) Ketorolac Tromethamine 15 mg 09/14/20 12:00 09/16/20 05:09 Ketorolac Tromethamine 15 Mg/Ml Vial IVPUSH 15 mg Q6H CARLOS Administration Loratadine 10 mg 09/15/20 09:00 09/16/20 08:40 Loratadine 10 Mg Tablet PO Not Given DAILY [facility] Morphine Sulfate 3 mg 09/14/20 10:23 09/15/20 09:10 Morphine Sulfate 4 Mg/Ml Cartridge IVPUSH 3 mg Q2H PRN Administration Pain, Severe (Pain Scale 7-10) Naloxone HCl 0.2 mg 09/14/20 10:23 Naloxone Hcl 0.4 Mg/Ml Vial IVPUSH Q2M PRN Excessive sedation or RR < 8 Ondansetron HCl 4 mg 09/14/20 09:23 Ondansetron Hcl 4 Mg/2 Ml Vial IVPUSH ONCE PRN Nausea and Vomiting Ondansetron HCl 4 mg 09/14/20 10:23 Ondansetron Hcl 4 Mg/2 Ml Vial IVPUSH Q8H PRN Nausea and Vomiting Oxycodone HCl 5 mg 09/14/20 09:23 Oxycodone Hcl Immed Release 5 Mg Tablet PO ONCE PRN Pain, Severe (Pain Scale 7-10) Oxycodone HCl 10 mg 09/14/20 12:00 09/16/20 05:19 Oxycodone Hcl Immed Release 5 Mg Tablet PO 10 mg Q6H [facility] Administration Sodium Chloride 3 ml 09/14/20 16:00 09/16/20 08:42 0.9 % Sodium Chloride Flush 3 Ml Syringe IVFLUSH Not Given QSHIFT [facility] Labs CBC & Chem 7: 09/16/20 08:35 09/03/20 13:09 Labs: Laboratory Results - last 24 hr 09/16/20 08:35 Hgb 11.6 L Hct 34.8 L Quality Stroke Does the patient have a stroke diagnosis?: No VTE Prior VTE?: No VTE Risk Level:: Surgical - moderate VTE Device Contraindication: Treatment Not Indicated VTE Drug Contraindication: N/A - Med Ordered Assessment and Plan (1) Primary osteoarthritis of left knee: Status: Acute Assessment and Plan: 59-year-old man admitted by Orthopedic surgery and is status post left total knee arthroplasty. Left total knee arthroplasty management as per surgical team Pain management Hypertension blood pressure on the softer side Continue to hold losartan/hctz Obstructive sleep apnea. Not on CPAP at home, has to follow-up for outpatient sleep study Asthma. albuterol as needed HLD statin DVT prophylaxis full-dose aspirin
--- NOTE | 2020-09-16 11:37 | MHC.INPTTRAN ---
ambulating with walker. VSS. Rj diet. No BM yet, voiding qs. Keep dsg clean and dry until follow up appt. Cont using incentive spir.
--- NOTE | 2020-09-16 12:21 | MHC.CM.PN ---
NURSE CAEE VEGETABLE BUNCHER NOTE ELECTRONIC MEDCIAL RECORD REVIEWED AND VIA TEXT TO [facility]. MET WITH PATIENT HE WILL BE DISCHARGED HOME TODAY DISCHARGE PLAN HOME WITH THE [facility] FOR HOME PHYSICAL THERAPY (NO NURSING IS NEEDED HE IS GOING HOME ON ASA-THIS WAS DISCUSSED WITH ORTHOPEDIC SURGICAL PA)D/C PAPERWORK SENT VIA ALL SCRIPT TO [facility] THEY WILL BE OUT TOMORROW PCP INSTRUCTED PATIENT TO CALL PCP FOR POST HOSPITAL DISCHARGE FOLLOW UP ORTHOPEDIC SURGICAL FOLLOW UP PER DISCHARGE INSTRUCTIONS TRANSPORTATION FAMILY
[2020-09-16] MEDS: Enoxaparin Sodium 40 MG/0.4 ML SYRINGE SUBCUT (13:01)
--- NOTE | 2020-09-16 13:31 | PC.NURSE ---
refusing ASA, THALIA Kenyon aware. Lovenox ordered for discharge. First dose given now. Verbalizes understanding of technique and use. Will get VNA.as well.
--- NOTE | 2020-09-16 14:16 | PC.NURSE ---
Understands discharge instructions. IV removed. Understands Lovenox injection. scripts sent electronically
== END 2020-09-16 14:16 | disposition home or self-care (01) ==
LOC: HO.S3 09-15 08:52 → HO.SSS 09-15 08:52 → HO.SSSA 09-15 08:52
PROVIDERS: Physician Assistant; PCP Internal Medicine; Visit Provider Orthopaedic Surgery
PROC: (CPT 27447; principal; 2020-09-14 07:30)
DX: M17.12 Unilateral primary osteoarthritis, left knee (principal); Z20.822 Contact with and (suspected) exposure to COVID-19; H20.8 Other iridocyclitis; J45.909 Unspecified asthma, uncomplicated; I10 Essential (primary) hypertension; G47.33 Obstructive sleep apnea (adult) (pediatric); E66.9 Obesity, unspecified; M06.9 Rheumatoid arthritis, unspecified; I73.00 Raynaud's syndrome without gangrene; Z79.51 Long term (current) use of inhaled steroids; Z79.899 Other long term (current) drug therapy; Z88.0 Allergy status to penicillin; Z88.8 Allergy status to other drugs, medicaments and biological substances; Z91.041 Radiographic dye allergy status; Z87.891 Personal history of nicotine dependence
CPT/HCPCS: 27447; 36415; 73560; 80048; 80053; 80061; 83036; 85014; 85018; 85025; 86850; 86900; 86901; 87635; 87640; 87641; 88305; 88311; 93005; 94640; 97110; 97116; 97161; 97165; 97530; 97535; C1776; J0690; J1650; J1885; J2250; J2270; J2370; J3010

== ENCOUNTER → 2020-09-30 12:53 | Outpatient (BNVA) | payer OTHER, SELFPAY | PROVIDERS: PCP Internal Medicine; Visit Provider Physician Assistant ==

== ENCOUNTER → 2020-11-03 10:51 | Outpatient (BNVA) | payer OTHER, SELFPAY | PROVIDERS: PCP Internal Medicine; Visit Provider Orthopaedic Surgery ==

== ENCOUNTER 2020-12-01 13:00 | Outpatient (RCR) | payer OTHER, SELFPAY ==
--- NOTE | 2020-10-08 09:40 | MHC.PT.EP ---
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 Pt is deemed an appropriate candidate to receive skilled PT in order to address his physical limitations to improve his functional ability. Frequency and Duration: The patient will be seen 2 x / wk x 8 wks. Short Term Goals: Initiate HEP. L knee extension to neutral achieved; initial 6 degrees flexion. L knee flexion > 124 degrees achieved; initial 110 degrees. Aircraft Electrician Goals: I with HEP. Symmetrical gait achieved. Pt will be able to tolerate walking 1 mile with at most a little difficulty; initial: unable. Treatment Plan: Modalities to reduce pain, spasms and effusion. Manual therapy to restore motion and function. Therapeutic exercise to improve strength and flexibility. Neuromuscular re-education for posture and balance. Therapeutic activities to return to functional activities of daily living. Electronically signed by: Carlos Chan PT. Please sign and return to therapist. Thank you for your referral.
--- NOTE | 2021-07-28 13:40 | MHC.PT.DC ---
[facility] [place] Office [place] [facility] [place] Office [address] Aubrey Pryor [address] [phone] F: [phone] F: [phone] F: [phone] F: [phone] Physical Therapy Discharge Report Diagnosis: L TKA Date of Surgery: 09/14/20 Date of Evaluation: 10/07/20 Date of Discharge: 12/01/20 Treatments to Date: 11 Cancellations to Date: 1 No Shows to Date: Discharge Status: Patient Elected to Stop Discharge Summary: 12/01: pt performed Bike for 15 mins though reports starting to feel minor discomfort/pain towards the end of 15 mins. When asked about which activity has been beneficial to him, pt expressed that bike was helpful. pt expressed concern about still experiencing his pain even though the surgery was on 09/14/20, concern over not being able to return to work, and of his surgeon recently leaving his practice leading it to cancellation of his f/u orthopedic visit. pt states therapy is not working for me and I'm gonna cancel rest of my visits. As he was leaving the clinic pt stated, it's not physical therapy, it's me, something doesn't feel right. 11/24: Pt able to perf full rev on rec bike; tisha lower level exercises well w/o inc sx. no adverse effects; progress tisha for wb exercise. Electronically signed by: Please sign and return to therapist. Thank you for your referral.
== END 2021-07-28 13:40 | disposition home or self-care (01) ==
LOC: HO.PTCHIC 13:00
PROVIDERS: PCP Internal Medicine; Visit Provider Physician Assistant
DX: Z96.652 Presence of left artificial knee joint (principal)
CPT/HCPCS: 97014; 97110; 97140; 97161; 97530

== ENCOUNTER 2020-12-02 08:54 | Outpatient (REF) | payer OTHER, SELFPAY ==
[2020-12-02 11:16] LABS: Hematocrit 44.2 % (42-52); Hemoglobin 14.7 g/dl (14.0-18.0)
[2020-12-02 11:46] LABS: Alanine Aminotransferase 33 U/L (0-40); Albumin Level 4.4 g/dL (3.5-5.0); Alkaline Phosphatase 88 U/L (39-117); Anion Gap 13 (12-20); Aspartate Amino Transferase 24 U/L (5-37); Bilirubin Total 0.8 mg/dL (0.0-1.0); Blood Urea Nitrogen 18 mg/dL (9-16); Calcium 9.7 mg/dL (8.4-10.2); Carbon Dioxide 26 mmol/L (22-29); Chloride 104 mmol/L (96-108); Estimated Glomerular Filt Rate > 60; Glucose Random 115 mg/dL (60-115); Potassium 4.1 mmol/L (3.3-5.1); Sodium 139 mmol/L (135-145); Total Protein 6.9 g/dL (6.5-8.0)
[2020-12-02 12:09] LABS: Ferritin 193 ng/mL (20-250)
== END 2020-12-02 08:55 | disposition home or self-care (01) ==
LOC: HO.HMGCLDS 08:54
PROVIDERS: PCP Internal Medicine; Visit Provider Internal Medicine
DX: D64.9 Anemia, unspecified (principal); E66.9 Obesity, unspecified; I10 Essential (primary) hypertension; J45.909 Unspecified asthma, uncomplicated; M17.0 Bilateral primary osteoarthritis of knee; R73.03 Prediabetes
CPT/HCPCS: 36415; 80053; 82728; 85014; 85018

== ENCOUNTER 2020-12-18 07:58 | Outpatient (REF) | payer OTHER, SELFPAY ==
--- NOTE | ~2020-12-18 | XR_ITS ---
EXAMINATION: X-RAY OF THE LEFT KNEE CLINICAL INFORMATION: 60-year-old male patient with pain in the left knee. COMPARISON: Last x-ray of the left knee done postop on 09/15/2020. TECHNIQUE: AP weightbearing views of both knees, lateral and sunrise views of the left knee. FINDINGS: The total knee arthroplasty on the left is in place. There is no sign of hardware failure. Alignment is well maintained. No joint effusion is seen. The right knee is normal. XR/XR knee LT 2V IMPRESSION: Intact total left knee arthroplasty.
--- NOTE | ~2020-12-18 | XR_ITS ---
EXAMINATION: X-RAY OF THE LEFT KNEE CLINICAL INFORMATION: 60-year-old male patient with pain in the left knee. COMPARISON: Last x-ray of the left knee done postop on 09/15/2020. TECHNIQUE: AP weightbearing views of both knees, lateral and sunrise views of the left knee. FINDINGS: The total knee arthroplasty on the left is in place. There is no sign of hardware failure. Alignment is well maintained. No joint effusion is seen. The right knee is normal. XR/XR knee standing BI IMPRESSION: Intact total left knee arthroplasty.
== END 2020-12-18 07:59 | disposition home or self-care (01) ==
LOC: HO.HOSX 07:58
PROVIDERS: Visit Provider Physician Assistant
DX: Z47.1 Aftercare following joint replacement surgery (principal); Z96.652 Presence of left artificial knee joint; M25.561 Pain in right knee
CPT/HCPCS: 73560; 73565

== ENCOUNTER 2021-05-31 09:48 | Outpatient (REF) | payer BC, SELFPAY ==
[2021-05-31 11:27] LABS: MANUAL DIFF FLAG NO
[2021-05-31 11:39] LABS: Basophils Percent Auto 0.7 % (0-2); Eosinophils Absolute Auto 0.2 X10*3/uL (0.0-0.4); Eosinophils Percent Auto 2.9 % (0-4); Hematocrit 43.6 % (42.0-52.0); Hemoglobin 14.7 g/dl (14.0-18.0); Imm Gran Abs Auto 0.01 X10*3/uL (0.00-0.03); Imm Gran Pct Auto 0.2 % (0.0-0.4); Lymphocytes Absolute Auto 1.7 X10*3/uL (1.2-4.9); Lymphocytes Percent Auto 30.6 % (20-40); Mean Corpuscular HGB Conc 33.7 g/dl (31.0-36.0); Mean Corpuscular Hemoglobin 29.7 pg (27.0-33.0); Mean Corpuscular Volume 88.1 fL (80.0-98.0); Mean Platelet Volume 9.7 fL (9.4-12.4); Monocytes Absolute Auto 0.5 X10*3/uL (0.1-1.2); Monocytes Percent Auto 9.5 % (2-11); Neutrophils Absolute Auto 3.1 x10*3/uL (2.0-8.3); Neutrophils Percent Auto 56.1 % (45-73); Platelet Count 308 X10*3/uL (160-400); Red Blood Count 4.95 X10*6/uL (4.60-5.80); Red Cell Distribution Width 12.1 % (11.0-16.0); White Blood Count 5.6 X10*3/uL (4.8-10.8)
[2021-05-31 11:55] LABS: Alanine Aminotransferase 43 U/L (0-40); Albumin Level 4.3 g/dL (3.5-5.0); Alkaline Phosphatase 76 U/L (39-117); Anion Gap 12 (12-20); Aspartate Amino Transferase 26 U/L (5-37); Bilirubin Total 0.7 mg/dL (0.0-1.0); Blood Urea Nitrogen 14 mg/dL (9-16); Calcium 9.4 mg/dL (8.4-10.2); Carbon Dioxide 29 mmol/L (22-29); Chloride 102 mmol/L (96-108); Cholesterol 159 mg/dL; Estimated Glomerular Filt Rate > 60; Glucose Fasting 154 mg/dL (60-99); HDL Cholesterol 46 mg/dL; LDL Cholesterol Calculated 82 mg/dl; Sodium 139 mmol/L (135-145); Total Protein 6.7 g/dL (6.5-8.0); Triglycerides 156 mg/dL
[2021-05-31 12:15] LABS: Estimated Average Glucose 128 mg/dL; Hemoglobin A1c % 6.1 %
== END 2021-05-31 09:49 | disposition home or self-care (01) ==
LOC: HO.HMGCLDS 09:48
PROVIDERS: PCP Internal Medicine; Visit Provider Internal Medicine
DX: I10 Essential (primary) hypertension (principal); J45.40 Moderate persistent asthma, uncomplicated; E78.9 Disorder of lipoprotein metabolism, unspecified; E66.09 Other obesity due to excess calories; R73.03 Prediabetes; Z91.09 Other allergy status, other than to drugs and biological substances
CPT/HCPCS: 36415; 80053; 80061; 83036; 85025

== ENCOUNTER 2021-07-19 10:45 | Day surgery (SDC) | payer BC, SELFPAY ==
[2021-07-14 10:14] VITALS: BMI 39.3
--- NOTE | 2021-07-19 09:31 | HE.PHANOTE ---
contacted ; confirmed he wants gentamicin and vanco x 1 preop for enterococcus coverage
[2021-07-19 10:51] VITALS: BP 156/87; PULSE 92; RESP 19; TEMP 36.6; O2SAT 96
[2021-07-19] MEDS: Gentamicin Sulfate/NaCl 80 MG/100 ML PIGGYBACK 100 MG IV (11:05)
[2021-07-19] MEDS: vancomycin HCL 1,500 MG in 0.9 % Sodium Chloride 500 ML 333.33 MG IV (11:26)
--- NOTE | 2021-07-19 13:07 | P.CONAN_ITS ---
[facility] Active Problems Active Problems: All Active Problems (Updated 06/01/21 @ 11:20 by Papito Dawn MD) Lipid disorder (Acute) Asthma, moderate (Acute) Elevated blood sugar (Acute) Tachycardia (Acute) Blurring of vision (Acute) Obesity (Acute) Hypertension, essential (Acute) Encounter for general adult medical examination with abnormal findings (Acute) Morbid obesity (Acute) Osteoarthritis of knees, bilateral (Acute) Pre-op evaluation (Acute) Status post total left knee replacement (Acute) Pre-diabetes (Acute) Low hemoglobin (Acute) Obesity due to excess calories (Acute) Environmental allergies (Acute) Sinusitis (Acute) Colon cancer screening (Acute) Knee pain, left (Acute) [place] (obstructive sleep apnea) (Acute) Past Medical History Medical History Asthma COVID-19 vaccine series completed Fuchs' syndrome II HTN (hypertension) [place]TTE (obstructive sleep apnea) Osteoarthritis of both knees Primary osteoarthritis of left knee Raynauds disease Rheumatoid arthritis Snores Functional capacity: independent ambulation Family History Family History Father Colon cancer Myocardial infarction Mother Colon cancer HTN (hypertension) Diabetes mellitus Sister Breast cancer Crohn's disease Sister Breast cancer Crohn's disease Brother CHF (congestive heart failure) Smoker Rheumatic fever Maternal Grandmother No problems noted. Maternal Grandfather No problems noted. Paternal Grandmother No problems noted. Paternal Grandfather Emphysema, unspecified Brother No problems noted. Sister No problems noted. Daughter No problems noted. Daughter No problems noted. Daughter No problems noted. Daughter No problems noted. Family history of problems with anesthesia: No Surgical History Surgical History History of colonoscopy History of knee surgery History of lipoma History of removal of testicle History of trigger finger Hx of total knee replacement History of Problems with Anesthesia: No Social History Social History Housing: House Are you a primary day care home mother to a significant other at home: No Do you presently have visiting nurse or other home services: No Alcohol intake: current Alcohol intake frequency: holidays/special occasions only Patient Tobacco Use Status: Former Tobacco user Quit Date: 2000 Tobacco use type: Cigarette Advance Directives: No (unknown) Advance Directives Information Provided: Yes (brochure mailed) service: No Current occupational status: employed 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 [employer] Meds Allergies Allergy/AdvReac Type Severity Reaction Status Date / Time amoxicillin [Augmentin] Allergy Intermediate rash Verified 07/14/21 10:09 aspirin [ASPIRIN] Allergy Intermediate WHEEZING Verified 07/14/21 10:09 clavulanic acid [Augmentin] Allergy Intermediate rash Verified 07/14/21 10:09 Iodinated Contrast Media Allergy Intermediate NAUSEA Verified 07/14/21 10:09 [IODINATED CONTRAST MEDIA - IV DYE] shellfish dye Allergy Intermediate nausea, Uncoded 07/14/21 10:09 wheezing Active Medications: Current Medications Sodium Biphosphate/Sodium Phosphate (Sodium Phosphate,[place]-Dibasic 133 Ml Enema) 133 ml MN ONCE PRN PRN Reason: Poor Colonoscopy Prep Results Home Medications Medication Instructions Recorded Confirmed Last Taken Type cetirizine 10 mg tablet (Zyrtec) 10 mg PO DAILY 09/03/20 06/01/21 Unknown History clindamycin HCl 300 mg capsule 300 mg PO TID 05/17/21 Unknown History Exam Exam Date and Time: July 19, 2021 1307 Height,Weight and Vital Signs: Height 5 ft 10 in Weight 124.284 kg Last Vital Signs Temp 98 F 07/19/21 10:51 Pulse 92 07/19/21 10:51 Resp 19 07/19/21 10:51 BP 156/87 H 07/19/21 10:51 Pulse Ox 96 07/19/21 10:51 Airway Mallampati Class: IV TM Dist: >3cm Neck ROM: Full Heart: RRR Lungs: CTA Assessment and Plan Final Anesthetic Review Family History of Problems with Anesthesia: No History of Problems with Anesthesia: No ASA Class: III Final Preanesthetic Review: No Changes in Pt Med Stat, Meds/Allgs Chart Reviewed and Consent Obtained/Reviewed Patient Risk: Intermediate Procedure Risk: Low Anesthetic Plan Anesthetic Plan: MAC: Disposition: Standard PACU
[2021-07-19 14:48] VITALS: BP 141/83; PULSE 92; RESP 20; TEMP 36.4; O2SAT 98
--- NOTE | 2021-07-19 14:50 | PM.OP ---
Brief Operative Note Date of Service: 07/19/21 Pre-op diagnosis: Screening Post-op diagnosis: other (Colon polyps) Procedure: Colonoscopy to the cecum with bx/removal of polyps Surgeon: Nino Jewell Anesthesia: MAC Was an Immigration Case Worker used for this Procedure?: No Estimated blood loss (mL): 2.0 Pathology: other (A. Ascending colon polyps) Condition: stable Disposition: PACU
[2021-07-19 15:03] VITALS: BP 132/86; PULSE 77; RESP 20; O2SAT 95
--- NOTE | 2021-07-20 01:35 | OP_ITS ---
SURGEON: Nino Jewell MD INDICATIONS: The patient presents for evaluation of personal history of tubular adenoma of the colon, colorectal cancer screening, family history of colon cancer. Full consent is obtained from him for this, including risks of bleeding and perforation. PREOPERATIVE DIAGNOSIS: POSTOPERATIVE DIAGNOSIS: PROCEDURE PERFORMED: Colonoscopy to the cecum with biopsy and removal of polyps. ESTIMATED BLOOD LOSS: COMPLICATIONS: ANESTHESIA: Monitored anesthesia care. ASSISTANTS: SPECIMENS: PREOPERATIVE DIAGNOSES: Colorectal cancer screening, family history of colon cancer, personal history of tubular adenoma of the colon. POSTOPERATIVE DIAGNOSES: Colorectal cancer screening, family history of colon cancer, personal history of tubular adenoma of the colon, colon polyps, diverticulosis, and internal hemorrhoids. DESCRIPTION OF PROCEDURE: The patient was placed in the left lateral decubitus position. The digital rectal exam revealed no abnormalities. The Olympus video pediatric colonoscope was entered into the rectum and advanced to the cecum with the assistance of abdominal wall pressure. Once in the cecum, I did identify normal-appearing cecal pouch with appendiceal orifice and a normal-appearing ileocecal valve. The entire cecum and ileocecal valve appeared normal. The scope was slowly withdrawn assessing all mucosal surfaces carefully. Preparation was excellent. In the ascending colon were 2 flat, less than 5 mm polyps, which were each biopsied and completely removed and placed in the same container. I did not visualize any other polyps, colitis, nor angiodysplasia. There is a mild amount of sigmoid diverticulosis. At approximately 25-30 cm was an area of previously placed submucosal ink. There was no sign of any lesion in this area. There was a mild amount of sigmoid diverticulosis. In the rectum, the scope was retroflexed visualizing some small internal hemorrhoids, but no other pathology. The rectal mucosa appeared normal. Scope was straightened and withdrawn from the patient. He tolerated the procedure well and was returned to the recovery area in stable condition. IMPRESSION: 1. Small colon polyps, status post biopsy removal. 2. Diverticulosis. 3. Internal hemorrhoids. PLAN: The results of the biopsy will be checked. Given his history and family history, I would recommend a followup colonoscopy in 3 years for further screening purposes. He will otherwise see me on a p.r.n. basis. Nino Jewell MD RMW/MODL / [id number]
== END 2021-07-19 15:38 | disposition home or self-care (01) ==
PROVIDERS: PCP Internal Medicine; Visit Provider Internal Medicine
PROC: 0DJD8ZZ Inspection of Lower Intestinal Tract, Via Natural or Artificial Opening Endoscopic (ICD-10-PCS; CPT 45378; principal; 2021-07-19 12:50)
DX: Z12.11 Encounter for screening for malignant neoplasm of colon (principal); Z86.010 Personal history of colon polyps; Z80.0 Family history of malignant neoplasm of digestive organs; D12.2 Benign neoplasm of ascending colon; K57.30 Diverticulosis of large intestine without perforation or abscess without bleeding; K64.8 Other hemorrhoids; J45.909 Unspecified asthma, uncomplicated; M06.9 Rheumatoid arthritis, unspecified; I10 Essential (primary) hypertension; Z79.1 Long term (current) use of non-steroidal anti-inflammatories (NSAID); Z79.51 Long term (current) use of inhaled steroids; Z79.899 Other long term (current) drug therapy; Z87.891 Personal history of nicotine dependence; Z96.652 Presence of left artificial knee joint
CPT/HCPCS: 45380; 88305; J1580; J3370

== ENCOUNTER 2021-07-26 06:40 | Outpatient (REF) | payer BC, SELFPAY ==
--- NOTE | ~2021-07-26 | XR_ITS ---
EXAMINATION: XR KNEES, STANDING AP XR KNEE, LEFT CLINICAL INFORMATION: Pain knee. M25.569 COMPARISON: Standing AP knees and left knee radiographs 12/18/2020. TECHNIQUE: Standing AP knees is performed along with lateral and axial patella views of the left knee. FINDINGS: Left: Prior total knee arthroplasty. Hardware intact. No fracture, dislocation, osteolysis, or destructive process. Normal bony mineralization. No periostitis. No suprapatellar effusion. Axial view patella again shows borderline lateralization similar to prior axial patella view. Right: No fracture or dislocation or arthropathy. No focal joint narrowing or erosive change or chondrocalcinosis. XR/XR knee standing BI IMPRESSION: Left: -Left total knee arthroplasty. Hardware intact. -Borderline lateralization patella, stable. No effusion. Right: -Unremarkable.
--- NOTE | ~2021-07-26 | XR_ITS ---
EXAMINATION: XR KNEES, STANDING AP XR KNEE, LEFT CLINICAL INFORMATION: Pain knee. M25.569 COMPARISON: Standing AP knees and left knee radiographs 12/18/2020. TECHNIQUE: Standing AP knees is performed along with lateral and axial patella views of the left knee. FINDINGS: Left: Prior total knee arthroplasty. Hardware intact. No fracture, dislocation, osteolysis, or destructive process. Normal bony mineralization. No periostitis. No suprapatellar effusion. Axial view patella again shows borderline lateralization similar to prior axial patella view. Right: No fracture or dislocation or arthropathy. No focal joint narrowing or erosive change or chondrocalcinosis. XR/XR knee LT 2V IMPRESSION: Left: -Left total knee arthroplasty. Hardware intact. -Borderline lateralization patella, stable. No effusion. Right: -Unremarkable.
[2021-07-26 10:43] LABS: Estimated Average Glucose 126 mg/dL; Hemoglobin A1C 161.5131 umol/L
[2021-07-26 10:57] LABS: Alanine Aminotransferase 29 U/L (0-40); Albumin Level 4.2 g/dL (3.5-5.0); Alkaline Phosphatase 79 U/L (39-117); Anion Gap 12 (12-20); Aspartate Amino Transferase 22 U/L (5-37); Bilirubin Total 0.7 mg/dL (0.0-1.0); Blood Urea Nitrogen 15 mg/dL (9-16); C Reactive Protein 0.07 mg/dL (< or = 0.50); Calcium 9.6 mg/dL (8.4-10.2); Carbon Dioxide 27 mmol/L (22-29); Chloride 103 mmol/L (96-108); Estimated Glomerular Filt Rate > 60; Glucose Random 113 mg/dL (60-115); Potassium 4.3 mmol/L (3.3-5.1); Sodium 138 mmol/L (135-145); Total Protein 6.8 g/dL (6.5-8.0)
[2021-07-26 11:07] LABS: Prostate Specific Antigen 0.62 ng/mL (<0.05-4.0)
[2021-07-26 11:16] LABS: Erythrocyte Sedimentation Rate 5 MM/HR (0-15)
== END 2021-07-26 06:41 | disposition home or self-care (01) ==
LOC: HO.HOSX 06:40
PROVIDERS: Internal Medicine; Visit Provider Orthopaedic Surgery
DX: Z00.01 Encounter for general adult medical examination with abnormal findings (principal); Z12.5 Encounter for screening for malignant neoplasm of prostate; Z91.09 Other allergy status, other than to drugs and biological substances; R73.03 Prediabetes; J45.40 Moderate persistent asthma, uncomplicated; E78.9 Disorder of lipoprotein metabolism, unspecified; E66.01 Morbid (severe) obesity due to excess calories; Z96.652 Presence of left artificial knee joint
CPT/HCPCS: 36415; 73560; 73565; 80053; 83036; 84153; 85652; 86140

== ENCOUNTER 2022-06-22 11:52 | Outpatient (REF) | payer BC, SELFPAY ==
--- NOTE | ~2022-06-22 | XR_ITS ---
EXAMINATION: XR CHEST CLINICAL INFORMATION: Unspecified asthma with acute exacerbation. COMPARISON: None available. TECHNIQUE: 2 views of the chest were obtained. FINDINGS: No significant abnormality is noted involving the heart, lungs, mediastinum, bony thorax or soft tissues. XR/XR chest 2V IMPRESSION: Unremarkable chest examination.
[2022-06-22 15:07] LABS: Influenza A PCR NEGATIVE (Negative); Influenza B PCR NEGATIVE (Negative); Resp Syncy Virus RNA Qual PCR NEGATIVE (Negative); SARS COV2 PCR INHOUSE NEGATIVE (Negative)
== END 2022-06-22 11:53 | disposition home or self-care (01) ==
LOC: HO.HMGCX 11:52
PROVIDERS: Visit Provider Nurse Practitioner Family
DX: Z20.822 Contact with and (suspected) exposure to COVID-19 (principal); J45.901 Unspecified asthma with (acute) exacerbation
CPT/HCPCS: 0241U; 71046

== ENCOUNTER 2023-02-02 09:04 | Outpatient (REF) | payer BC, SELFPAY ==
[2023-02-02 11:23] LABS: MANUAL DIFF FLAG NO
[2023-02-02 11:28] LABS: Basophils Percent Auto 0.5 % (0-2); Eosinophils Absolute Auto 0.1 X10*3/uL (0.0-0.4); Eosinophils Percent Auto 0.8 % (0-4); Hematocrit 44.3 % (42.0-52.0); Hemoglobin 14.9 g/dl (14.0-18.0); Imm Gran Abs Auto 0.02 X10*3/uL (0.00-0.03); Imm Gran Pct Auto 0.3 % (0.0-0.4); Lymphocytes Absolute Auto 1.1 X10*3/uL (1.2-4.9); Lymphocytes Percent Auto 17.5 % (20-40); Mean Corpuscular HGB Conc 33.6 g/dl (31.0-36.0); Mean Corpuscular Hemoglobin 30.4 pg (27.0-33.0); Mean Corpuscular Volume 90.4 fL (80.0-98.0); Mean Platelet Volume 10.1 fL (9.4-12.4); Monocytes Absolute Auto 0.6 X10*3/uL (0.1-1.2); Monocytes Percent Auto 9.2 % (2-11); Neutrophils Absolute Auto 4.5 x10*3/uL (2.0-8.3); Neutrophils Percent Auto 71.7 % (45-73); Platelet Count 254 X10*3/uL (160-400); Red Cell Distribution Width 12.6 % (11.0-16.0); White Blood Count 6.3 X10*3/uL (4.8-10.8)
[2023-02-02 11:33] LABS: Estimated Average Glucose 137 mg/dL; Hemoglobin A1c % 6.4 % (<6.0)
[2023-02-02 11:49] LABS: Alanine Aminotransferase 34 U/L (0-40); Albumin Level 4.2 g/dL (3.5-5.0); Alkaline Phosphatase 66 U/L (39-117); Anion Gap 11 (12-20); Aspartate Amino Transferase 25 U/L (5-37); Bilirubin Total 0.6 mg/dL (0.0-1.0); Blood Urea Nitrogen 16 mg/dL (9-16); Calcium 9.5 mg/dL (8.4-10.2); Carbon Dioxide 29 mmol/L (22-29); Chloride 107 mmol/L (96-108); Cholesterol 179 mg/dL (<200); Estimated Glomerular Filt Rate > 60; Glucose Fasting 134 mg/dL (60-99); HDL Cholesterol 57 mg/dL (>40); LDL Cholesterol Calculated 93 mg/dL (<100); Sodium 143 mmol/L (135-145); Triglycerides 147 mg/dL (<150)
== END 2023-02-02 09:05 | disposition home or self-care (01) ==
LOC: HO.HMGCLDS 09:04
PROVIDERS: PCP Internal Medicine; Visit Provider Internal Medicine
DX: M06.9 Rheumatoid arthritis, unspecified (principal); E78.9 Disorder of lipoprotein metabolism, unspecified; J45.40 Moderate persistent asthma, uncomplicated; R73.9 Hyperglycemia, unspecified; E66.01 Morbid (severe) obesity due to excess calories; Z91.09 Other allergy status, other than to drugs and biological substances; Z96.652 Presence of left artificial knee joint
CPT/HCPCS: 36415; 80053; 80061; 83036; 85025

== ENCOUNTER 2023-02-03 12:55 | Outpatient (AMB) | payer BC, SELFPAY ==
--- NOTE | 2023-02-03 12:57 | A.OFFPC_ITS ---
Vital Signs 02/03/23 12:58 Height 5 ft 10 in Weight 289 lb 4 oz BMI 41.5 BP 118/60 Blood Pressure Location Rt brachial Position Sitting Pulse 107 H Pulse Source Pulse Oximeter Pulse Oximetry (%) 90 L Oxygen Delivery Method Room Air Intake Visit Reasons: 3 month follow up HTN Allergies amoxicillin [Augmentin] Allergy (Intermediate, Verified 02/03/23 12:59) rash aspirin [ASPIRIN] Allergy (Intermediate, Verified 02/03/23 12:59) WHEEZING clavulanic acid [Augmentin] Allergy (Intermediate, Verified 02/03/23 12:59) rash Iodinated Contrast Media [IODINATED CONTRAST MEDIA - IV DYE] Allergy (Intermediate, Verified 02/03/23 12:59) NAUSEA shellfish dye Allergy (Intermediate, Uncoded 02/03/23 12:59) nausea, wheezing Medication List - Last Reconciled 02/03/23 by Papito Dawn MD albuterol sulfate 90 mcg/actuation (ProAir HFA) 1 inh inhalation QID PRN 30 days atorvastatin 20 mg PO DAILY 90 days cetirizine (Zyrtec) 10 mg PO DAILY fluticasone propionate 50 mcg/actuation (Flonase Allergy Relief) 1 spray intranasal BID 30 days losartan-hydrochlorothiazide 100-12.5 mg 1 tab PO DAILY 90 days Tobacco use date assessed: 02/03/23 Dental Screening Dental Screen Date: 02/03/23 Did you have a dental visit in the last 12 months?: Yes Did you have a dental problem in the last 6 months where you did not have access to dental care?: No Was dental information given to patient?: Patient has dentist HPI 3 month follow up HTN HPI Details Patient is a 62-year-old gentleman came in today for his regular follow-up visit. Patient has developed corneal dystrophy and is in process to get surgery done he is seeing a doctor at [facility] Rheumatoid arthritis management through rheumatology New once a diabetes mellitus patient is fasting sugar has been above 130 twice, recent labs shows hemoglobin A1c of 6.4% Asthma: Patient is only using ProAir inhaler as he cannot afford Flovent or any other maintenance inhalers Hypertension: Blood pressure is stable he is to continue losartan hydrochlorothiazide 100-12.5 mg. Tolerating medications Allergies stable with cetirizine and Flonase nasal spray. He is also on atorvastatin 20 mg for lipid control. 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 when he was young He is requesting testosterone level Follow-up 3 months Family history surgical history reviewed Our system is not working properly and it is not letting me checked those boxes FORMERLY [facility], [facility] Medical History Asthma COVID-19 vaccine series completed Fuchs' syndrome II HTN (hypertension) COLETTE (obstructive sleep apnea) Osteoarthritis of both knees Primary osteoarthritis of left knee Raynauds disease Rheumatoid arthritis Snores Surgical History History of colonoscopy History of knee surgery History of lipoma History of removal of testicle History of trigger finger Hx of total knee replacement Family History Father Colon cancer Myocardial infarction Mother Colon cancer HTN (hypertension) Diabetes mellitus Sister Breast cancer Crohn's disease Sister Breast cancer Crohn's disease Brother CHF (congestive heart failure) Smoker Rheumatic fever Maternal Grandmother No problems noted. Maternal Grandfather No problems noted. Paternal Grandmother No problems noted. Paternal Grandfather Emphysema, unspecified Brother No problems noted. Sister No problems noted. Daughter No problems noted. Daughter No problems noted. Daughter No problems noted. Daughter No problems noted. 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 Nino Delatorre, Leena Espinosa, Bogdan Flores and colleagues, with an educational lalito from [employer]. Review of Systems Const Denies chills and Denies fever(s) ENT Denies epistaxis and Denies nasal discharge Card Denies chest pain Resp Denies chest congestion, Denies cough and Denies hemoptysis GI Denies diarrhea and Denies nausea Skin/Breast Denies rash Neuro Reports no additional complaints Psych Reports no additional complaints Endo Reports no additional complaints Physical exam (Primary Care) Vital Signs: Last Vital Signs Pulse 107 H 02/03/23 12:58 BP 118/60 02/03/23 12:58 Pulse Ox 90 L 02/03/23 12:58 Oxygen Delivery Method Room Air 02/03/23 12:58 BMI result Body Mass Index 41.5 Tobacco/Smoking Status: Tobacco use Status Tobacco use date assessed 02/03/23 02/03/23 13:03 Patient Tobacco Use Status Former Tobacco user 02/03/23 12:58 Tobacco use type Cigarette 02/03/23 12:58 e-Cigarette/Vaping Use Never Used 02/03/23 12:58 Thrive Assessment: Date of Thrive Assessment Date Thrive assessed 06/01/21 02/03/23 12:58 Const General: cooperative, comfortable and no acute distress Orientation/consciousness: patient oriented x3 HENMT Head: Yes normocephalic Eyes General: appearance normal, both eyes and all related structures Neck Neck: Yes supple Resp Effort & Inspection: normal respiratory effort, no cough and no stridor Cardio Rhythm: regular rhythm Heart sounds: S1 normal heart sound present and S2 normal heart sound present Skin General skin exam: turgor normal Neuro General: patient oriented x3, tone normal and moves all extremities Extrem Right lower extremity: no edema Left lower extremity: no edema Office Procedures Flu Questionnaire Does the patient have a severe egg allergy?: No Does the patient have severe life threatening allergies?: No Does the patient have a fever or illness today?: No Has the patient ever had Guillain-Garvin Syndrome?: No Has the patient ever had any past reaction to a flu shot?: No Immunizations flu vacc [id number] 6mos up(PF) 60 mcg(15 mcgx4)/0.5 mL IM syringe Performing Provider: Papito Dawn MD Performing Location: [facility] Administered by: Brigida Huitron CMA on 02/03/23 13:42 Dose Route Admin Location Dispensed Lot Number Expiration Date NDC Dimension [employer]ar[employer] Super[employer] 0.5 mL IM Left Deltoid 0.5 mL [id number] 09/24/23 13307-342-96 [employer] VIS Given Date VIS Provided VIS Publication Date 02/03/23 Single Vaccine 20 Eligibility Eligibility Date Funding Source Not [facility] Eligible 02/03/23 Private Assessment and Plan Assessment & Plan (1) Hypertension, essential: Code(s): I10 - Essential (primary) hypertension (2) Diabetes mellitus type 2 in obese: Code(s): E11.69 - Type 2 diabetes mellitus with other specified complication; E66.9 - Obesity, unspecified (3) Morbid obesity: Code(s): E66.01 - Morbid (severe) obesity due to excess calories (4) Environmental allergies: Code(s): Z91.09 - Other allergy status, other than to drugs and biological substances (5) Blurring of vision: Code(s): H53.8 - Other visual disturbances (6) Lipid disorder: Code(s): E78.9 - Disorder of lipoprotein metabolism, unspecified (7) Rheumatoid arthritis: Code(s): M06.9 - Rheumatoid arthritis, unspecified Qualifiers: Laterality: bilateral Rheumatoid arthritis location: knee Rheumatoid factor presence: with rheumatoid factor Qualified Code(s): M05.761 - Rheumatoid arthritis with rheumatoid factor of right knee without organ or systems involvement; M05.762 - Rheumatoid arthritis with rheumatoid factor of left knee without organ or systems involvement (8) 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 Patient has developed corneal dystrophy and is in process to get surgery done he is seeing a doctor at [facility] Rheumatoid arthritis management through rheumatology New once a diabetes mellitus patient is fasting sugar has been above 130 twice, recent labs shows hemoglobin A1c of 6.4% Asthma: Patient is only using ProAir inhaler as he cannot afford Flovent or any other maintenance inhalers Hypertension: Blood pressure is stable he is to continue losartan hydrochlorothiazide 100-12.5 mg. Tolerating medications Allergies stable with cetirizine and Flonase nasal spray. He is also on atorvastatin 20 mg for lipid control. 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 when he was young He is requesting testosterone level Follow-up 3 months Family history surgical history reviewed Our system is not working properly and it is not letting me checked those boxes Orders: Orders Complete Blood Count Auto Diff 3 Months E11.69 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, Z91.09 - Other allergy status, other than to drugs and biological substances Hemoglobin A1c 3 Months E11.69 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, Z91.09 - Other allergy status, other than to drugs and biological substances Comprehensive [place]. Panel Fast 3 Months E11.69 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, Z91.09 - Other allergy status, other than to drugs and biological substances Lipid Panel 3 Months E11.69 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, Z91.09 - Other allergy status, other than to drugs and biological substances Testosterone, Total 3 Months E11. 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, Z91.09 - Other allergy status, other than to drugs and biological substances Influenza [id number] Immunization Today Z23 - Encounter for immunization Medications: Refilled albuterol sulfate 90 mcg/actuation (ProAir HFA) 1 inh inhalation QID PRN 18 grams 3RF shortness of breath or wheezing 30 days Coding Level of Care Code Est Pt Level 4 (99764) Diagnoses Hypertension, essential I10 Diabetes mellitus type 2 in obese E11.69; E66.9 Morbid obesity E66.01 Environmental allergies Z91.09 Blurring of vision H53.8 Lipid disorder E78.9 Rheumatoid arthritis involving both knees with positive rheumatoid factor M05.761; M05.762 Laterality: bilateral Rheumatoid arthritis location: knee Rheumatoid factor presence: with rheumatoid factor Monorchism Q55.0 Moderate persistent asthma without complication J45.40 Asthma complication type: uncomplicated Asthma persistence: persistent Status post total left knee replacement Z96.652 Fuchs endothelial corneal dystrophy type 1 H18.519
[2023-02-03 12:58] VITALS: BP 118/60; PULSE 107; O2SAT 90; BMI 41.5
== END 2023-02-03 13:22 | disposition home or self-care (01) ==
PROVIDERS: PCP Internal Medicine; Visit Provider Internal Medicine
DX: Z23 Encounter for immunization (principal)
CPT/HCPCS: 90471; 90686; 99214

== ENCOUNTER 2023-04-04 08:50 | Outpatient (AMB) | payer BC, SELFPAY ==
[2023-04-04 08:55] VITALS: BP 102/54; PULSE 99; O2SAT 94; BMI 43.5
--- NOTE | 2023-04-04 08:55 | MHC.PC.OV ---
Vital Signs 04/04/23 08:55 Height 5 ft 10 in Weight 303 lb 8 oz BMI 43.5 BP 102/54 L Blood Pressure Location Lt brachial Position Sitting Pulse 99 Pulse Source Pulse Oximeter Pulse Oximetry (%) 94 Oxygen Delivery Method Room Air Intake Visit Reasons: 6 month follow up Allergies amoxicillin [Augmentin] Allergy (Intermediate, Verified 04/04/23 08:58) rash aspirin [ASPIRIN] Allergy (Intermediate, Verified 04/04/23 08:58) WHEEZING clavulanic acid [Augmentin] Allergy (Intermediate, Verified 04/04/23 08:58) rash Iodinated Contrast Media [IODINATED CONTRAST MEDIA - IV DYE] Allergy (Intermediate, Verified 04/04/23 08:58) NAUSEA shellfish dye Allergy (Intermediate, Uncoded 02/03/23 12:59) nausea, wheezing Medication List - Last Reconciled 04/04/23 by Papito Dawn MD albuterol sulfate 90 mcg/actuation (ProAir HFA) 1 inh inhalation QID PRN 30 days atorvastatin 20 mg PO DAILY 90 days cetirizine (Zyrtec) 10 mg PO DAILY fluticasone propionate 50 mcg/actuation (Flonase Allergy Relief) 1 spray intranasal BID 30 days losartan-hydrochlorothiazide 100-12.5 mg 1 tab PO DAILY 90 days Tobacco use date assessed: 04/04/23 Dental Screening Dental Screen Date: 04/04/23 Did you have a dental visit in the last 12 months?: Yes Did you have a dental problem in the last 6 months where you did not have access to dental care?: No Was dental information given to patient?: Patient has dentist HPI 6 month follow up HPI Details Patient is a 62-year-old gentleman came in today for his regular follow-up visit. Patient has gained weight, he is aware that he is not controlling his diet as he should be. He is requesting Semaglutide injection for weight loss which I have sent for the patient, if there is any problem he will call me so we can book nursing visit and providing teachings. I have ordered sleep study for him as well to rule out sleep apnea, patient is complaining of falling asleep during the day when he sits down and relax I have also please referral to neurology for evaluation and management Patient has developed corneal dystrophy and is in process to get surgery done he is seeing a doctor at [facility] He is having surgery in May Rheumatoid arthritis management through rheumatology Diabetes mellitus: With stable hemoglobin A1c, diet-controlled Asthma: Patient is only using ProAir inhaler as he cannot afford Flovent or any other maintenance inhalers, I have sent Advair as it seems his insurance is covering it. Examination he is wheezing today Hypertension: Blood pressure is stable he is to continue losartan hydrochlorothiazide 100-12.5 mg. Tolerating medications Allergies : Taking cetirizine and Flonase nasal spray. He has his daughter's dogs at home that he is allergic to patient they are leaving in 1 month. He is also on atorvastatin 20 mg for lipid control. Follow-up 3 months [facility] Medical History COLETTE (obstructive sleep apnea) COVID-19 vaccine series completed Snores Rheumatoid arthritis Fuchs' syndrome II Raynauds disease Osteoarthritis of both knees Asthma HTN (hypertension) Primary osteoarthritis of left knee Surgical History Hx of total knee replacement History of removal of testicle History of knee surgery History of colonoscopy History of trigger finger History of lipoma Family History Father Colon cancer Myocardial infarction Mother Colon cancer HTN (hypertension) Diabetes mellitus Sister Breast cancer Crohn's disease Sister Breast cancer Crohn's disease Brother CHF (congestive heart failure) Smoker Rheumatic fever Maternal Grandmother No problems noted. Maternal Grandfather No problems noted. Paternal Grandmother No problems noted. Paternal Grandfather Emphysema, unspecified Brother No problems noted. Sister No problems noted. Daughter No problems noted. Daughter No problems noted. Daughter No problems noted. Daughter No problems noted. 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 [id number] - PHQ-9 Billing: Patient declined-do not bill Source: Developed by Drs. Nino Delatorre, Leena Espinosa, Bogdan Flores and colleagues, with an educational lalito from [employer]. Thrive Questionnaire Date Thrive assessed: 04/04/23 What is your living situation today?: I choose not to answer this question Within the past 12 months, did the food you bought not last and you didn't have the money to get more?: I choose not to answer this question Within the past 12 months, did you worry whether your food would run out before you got money to buy more?: I choose not to answer this question Do you have trouble paying for medicines?: I choose not to answer this question Do you have trouble getting transportation to medical appointments?: I choose not to answer this question Do you have trouble paying your heating and electricity bill?: I choose not to answer this question Do you have trouble taking care of your child, family member or friend?: I choose not to answer this question Do you have trouble with day-to-day activities such as bathing, preparing meals, shopping, managing finances, etc.?: I choose not to answer this question Are you currently unemployed and looking for a job?: I choose not to answer this question Are you interested in more education?: I choose not to answer this question Please select the resources that you would like help with: None Currently or been in a relationship where the following occur: no concerns reported and I choose not to answer this question JETT-7 AMB Questionnaire JETT-7 Date JETT - 7 assessed: 04/04/23 Source: Developed by Drs. Nino Delatorre, Leena Espinosa, Bogdan Flores and colleagues, with an educational lalito from [employer]. JETT-7 Assessment Billing JETT-7 Assessment Tool: pt declined-do not bill Review of Systems Const Denies chills and Denies fever(s) ENT Denies epistaxis and Denies nasal discharge Card Denies chest pain Resp Denies chest congestion, Denies cough and Denies hemoptysis GI Denies diarrhea and Denies nausea Skin/Breast Denies rash Neuro Reports no additional complaints Psych Reports no additional complaints Endo Reports no additional complaints Physical exam (Primary Care) Vital Signs: Last Vital Signs Pulse 99 04/04/23 08:55 BP 102/54 L 04/04/23 08:55 Pulse Ox 94 04/04/23 08:55 Oxygen Delivery Method Room Air 04/04/23 08:55 BMI result Body Mass Index 43.5 Tobacco/Smoking Status: Tobacco use Status Tobacco use date assessed 04/04/23 04/04/23 09:01 Patient Tobacco Use Status Former Tobacco user 04/04/23 09:01 Tobacco use type Cigarette 04/04/23 09:01 e-Cigarette/Vaping Use Never Used 04/04/23 09:01 Thrive Assessment: Date of Thrive Assessment Date Thrive assessed 04/04/23 04/04/23 09:01 Currently or been in a relationship where the following occur: no concerns reported and I choose not to answer this question Const General: cooperative, comfortable and no acute distress Orientation/consciousness: patient oriented x3 HENMT Head: Yes normocephalic Eyes General: appearance normal, both eyes and all related structures Neck Neck: Yes supple Resp Effort & Inspection: normal respiratory effort, no cough and no stridor Cardio Rhythm: regular rhythm Heart sounds: S1 normal heart sound present and S2 normal heart sound present Skin General skin exam: turgor normal Neuro General: patient oriented x3, tone normal and moves all extremities Extrem Right lower extremity: no edema Left lower extremity: no edema Assessment and Plan Assessment & Plan (1) Hypertension, essential: Code(s): I10 - Essential (primary) hypertension (2) Diabetes mellitus type 2 in obese: Code(s): E11.69 - Type 2 diabetes mellitus with other specified complication; E66.9 - Obesity, unspecified (3) Daytime somnolence: Code(s): R40.0 - Somnolence (4) Difficulty sleeping: Code(s): G47.9 - Sleep disorder, unspecified (5) Snores: Code(s): R06.83 - Snoring (6) Morbid obesity: Code(s): E66.01 - Morbid (severe) obesity due to excess calories (7) Environmental allergies: Code(s): Z91.09 - Other allergy status, other than to drugs and biological substances (8) Blurring of vision: Code(s): H53.8 - Other visual disturbances (9) Lipid disorder: Code(s): E78.9 - Disorder of lipoprotein metabolism, unspecified (10) Rheumatoid arthritis: Code(s): M06.9 - Rheumatoid arthritis, unspecified Qualifiers: Laterality: bilateral Rheumatoid arthritis location: knee Rheumatoid factor presence: with rheumatoid factor Qualified Code(s): M05.761 - Rheumatoid arthritis with rheumatoid factor of right knee without organ or systems involvement; M05.762 - Rheumatoid arthritis with rheumatoid factor of left knee without organ or systems involvement (11) 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 (12) Asthma, moderate: Code(s): J45.909 - Unspecified asthma, uncomplicated Qualifiers: Asthma complication type: uncomplicated Asthma persistence: persistent Qualified Code(s): J45.40 - Moderate persistent asthma, uncomplicated (13) Status post total left knee replacement: Code(s): Z96.652 - Presence of left artificial knee joint (14) Fuchs endothelial corneal dystrophy type 1: Code(s): H18.519 - Endothelial corneal dystrophy, unspecified eye (15) COLETTE (obstructive sleep apnea): Comment: Not documented but exhibits as soon as sedated Code(s): G47.33 - Obstructive sleep apnea (adult) (pediatric) Plan Patient is a 62-year-old gentleman came in today for his regular follow-up visit. Patient has developed corneal dystrophy and is in process to get surgery done he is seeing a doctor at [facility] Rheumatoid arthritis management through rheumatology New once a diabetes mellitus patient is fasting sugar has been above 130 twice, recent labs shows hemoglobin A1c of 6.4% Asthma: Patient is only using ProAir inhaler as he cannot afford Flovent or any other maintenance inhalers Hypertension: Blood pressure is stable he is to continue losartan hydrochlorothiazide 100-12.5 mg. Tolerating medications Allergies stable with cetirizine and Flonase nasal spray. He is also on atorvastatin 20 mg for lipid control. 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 when he was young He is requesting testosterone level Follow-up 3 months Family history surgical history reviewed Our system is not working properly and it is not letting me checked those boxes Orders: Orders RT home sleep study Today G47.9 - Sleep disorder, unspecified, R06.83 - Snoring, R40.0 - Somnolence TSH reflex Free T4 Today E11.69 - Type 2 diabetes mellitus with other specified complication, E66.01 - Morbid (severe) obesity due to excess calories, E66.9 - Obesity, unspecified, E78.9 - Disorder of lipoprotein metabolism, unspecified, G47.33 - Obstructive sleep apnea (adult) (pediatric), I10 - Essential (primary) hypertension, J45.909 - Unspecified asthma, uncomplicated, M06.9 - Rheumatoid arthritis, unspecified, Z91.09 - Other allergy status, other than to drugs and biological substances Hemoglobin A1c Today E11.69 - Type 2 diabetes mellitus with other specified complication, E66.01 - Morbid (severe) obesity due to excess calories, E66.9 - Obesity, unspecified, E78.9 - Disorder of lipoprotein metabolism, unspecified, G47.33 - Obstructive sleep apnea (adult) (pediatric), I10 - Essential (primary) hypertension, J45.909 - Unspecified asthma, uncomplicated, M06.9 - Rheumatoid arthritis, unspecified, Z91.09 - Other allergy status, other than to drugs and biological substances Complete Blood Count Auto Diff Today E11.69 - Type 2 diabetes mellitus with other specified complication, E66.01 - Morbid (severe) obesity due to excess calories, E66.9 - Obesity, unspecified, E78.9 - Disorder of lipoprotein metabolism, unspecified, G47.33 - Obstructive sleep apnea (adult) (pediatric), I10 - Essential (primary) hypertension, J45.909 - Unspecified asthma, uncomplicated, M06.9 - Rheumatoid arthritis, unspecified, Z91.09 - Other allergy status, other than to drugs and biological substances Comprehensive [place]. Panel Fast Today E11.69 - Type 2 diabetes mellitus with other specified complication, E66.01 - Morbid (severe) obesity due to excess calories, E66.9 - Obesity, unspecified, E78.9 - Disorder of lipoprotein metabolism, unspecified, G47.33 - Obstructive sleep apnea (adult) (pediatric), I10 - Essential (primary) hypertension, J45.909 - Unspecified asthma, uncomplicated, M06.9 - Rheumatoid arthritis, unspecified, Z91.09 - Other allergy status, other than to drugs and biological substances Lipid Panel Today E11.69 - Type 2 diabetes mellitus with other specified complication, E66.01 - Morbid (severe) obesity due to excess calories, E66.9 - Obesity, unspecified, E78.9 - Disorder of lipoprotein metabolism, unspecified, G47.33 - Obstructive sleep apnea (adult) (pediatric), I10 - Essential (primary) hypertension, J45.909 - Unspecified asthma, uncomplicated, M06.9 - Rheumatoid arthritis, unspecified, Z91.09 - Other allergy status, other than to drugs and biological substances Microalbumin, Random (w Creat) Today E11.69 - Type 2 diabetes mellitus with other specified complication, E66.01 - Morbid (severe) obesity due to excess calories, E66.9 - Obesity, unspecified, E78.9 - Disorder of lipoprotein metabolism, unspecified, G47.33 - Obstructive sleep apnea (adult) (pediatric), I10 - Essential (primary) hypertension, J45.909 - Unspecified asthma, uncomplicated, M06.9 - Rheumatoid arthritis, unspecified, Z91.09 - Other allergy status, other than to drugs and biological substances Medications: New fluticasone propion-salmeterol 250-50 mcg/dose (Advair Diskus) 1 inh inhalation Q12H 60 ea 0RF 30 days semaglutide for 4 weeks 0.25 mg (0.368 mL) subcut QWEEK 2 mL 2RF 30 days E11.69 - Type 2 diabetes mellitus with other specified complication, E66.01 - Morbid (severe) obesity due to excess calories, E66.9 - Obesity, unspecified Refilled albuterol sulfate 90 mcg/actuation (ProAir HFA) 1 inh inhalation QID PRN 18 grams 3RF shortness of breath or wheezing 30 days Coding Level of Care Code Est Pt Level 5 (57383) Diagnoses Hypertension, essential I10 Diabetes mellitus type 2 in obese E11.69; E66.9 Daytime somnolence R40.0 Difficulty sleeping G47.9 Snores R06.83 Morbid obesity E66.01 Environmental allergies Z91.09 Blurring of vision H53.8 Lipid disorder E78.9 Rheumatoid arthritis involving both knees with positive rheumatoid factor M05.761; M05.762 Laterality: bilateral Rheumatoid arthritis location: knee Rheumatoid factor presence: with rheumatoid factor Monorchism 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
== END 2023-04-04 09:59 | disposition home or self-care (01) ==
PROVIDERS: PCP Internal Medicine; Visit Provider Internal Medicine
DX: E11.69 Type 2 diabetes mellitus with other specified complication (principal); E66.01 Morbid (severe) obesity due to excess calories; M05.761 Rheumatoid arthritis with rheumatoid factor of right knee without organ or systems involvement; Z68.41 Body mass index [BMI] 40.0-44.9, adult; M05.762 Rheumatoid arthritis with rheumatoid factor of left knee without organ or systems involvement; I10 Essential (primary) hypertension; E66.9 Obesity, unspecified; G47.9 Sleep disorder, unspecified; R06.83 Snoring; Z91.09 Other allergy status, other than to drugs and biological substances; H53.8 Other visual disturbances; E78.9 Disorder of lipoprotein metabolism, unspecified
CPT/HCPCS: 99215

== ENCOUNTER → 2023-05-10 10:10 | Outpatient (REF) | payer BC, SELFPAY | LOC: HO.SL 10:10 | PROVIDERS: PCP Internal Medicine; Visit Provider Internal Medicine | DX: G47.33 Obstructive sleep apnea (adult) (pediatric) (principal); R06.83 Snoring; R40.0 Somnolence | CPT/HCPCS: 95806 ==

== ENCOUNTER → 2023-05-10 10:27 | Outpatient (BNV) | payer BC, SELFPAY | PROVIDERS: PCP Internal Medicine; Visit Provider Internal Medicine | DX: G47.33 Obstructive sleep apnea (adult) (pediatric) (principal) | CPT/HCPCS: 95806 ==

== ENCOUNTER 2023-06-06 08:28 | Outpatient (AMB) | payer BC, SELFPAY ==
[2023-06-06 08:34] VITALS: BP 136/82; PULSE 98; TEMP 36.8; O2SAT 93; BMI 43.4
--- NOTE | 2023-06-06 08:34 | A.OFFPC_ITS ---
Vital Signs 3 06/06/23 08:34 Height 5 ft 10 in Weight 302 lb 8 oz BMI 43.4 BP 136/82 Blood Pressure Location Lt brachial Position Sitting Pulse 98 Pulse Source Pulse Oximeter Temp 98.2 F Temp Source Oral Pulse Oximetry (%) 93 Oxygen Delivery Method Room Air Intake Visit Reasons: Annual PE Allergies amoxicillin [Augmentin] Allergy (Intermediate, Verified 06/06/23 08:35) rash aspirin [ASPIRIN] Allergy (Intermediate, Verified 06/06/23 08:35) WHEEZING clavulanic acid [Augmentin] Allergy (Intermediate, Verified 06/06/23 08:35) rash Iodinated Contrast Media [IODINATED CONTRAST MEDIA - IV DYE] Allergy (Intermediate, Verified 06/06/23 08:35) NAUSEA shellfish dye Allergy (Intermediate, Uncoded 02/03/23 12:59) nausea, wheezing Medication List - Last Reconciled 06/06/23 by Papito Dawn MD albuterol sulfate 90 mcg/actuation (ProAir HFA) 1 inh inhalation QID PRN 30 days atorvastatin 20 mg PO DAILY 90 days cetirizine (Zyrtec) 10 mg PO DAILY fluticasone propion-salmeterol 250-50 mcg/dose (Advair Diskus) 1 inh inhalation Q12H 30 days fluticasone propionate 50 mcg/actuation (Flonase Allergy Relief) 1 spray intranasal BID 30 days losartan-hydrochlorothiazide 100-12.5 mg 1 tab PO DAILY 90 days semaglutide 0.25 mg (0.368 mL) subcut QWEEK 30 days Tobacco use date assessed: 06/06/23 Dental Screening Dental Screen Date: 06/06/23 Did you have a dental visit in the last 12 months?: Yes Did you have a dental problem in the last 6 months where you did not have access to dental care?: No Was dental information given to patient?: Patient has dentist HPI Annual PE 2 HPI0 Dee Dee Dickens he is here today for physical examination Colonoscopy was June of [address] Jewell Patient is going in for corneal surgeries in 2 weeks He suffering from upper respiratory tract infection mainly sinus pressure and headache along with dry cough and watering of eyes for the past 10 days Patient isn't know if he had fever there is no nausea vomiting COVID RSV test taken Labs still not done reminded patient He has large lipoma right buttock that he would like removed after his eyes healed He has also developed a cyst plantar aspect of left 2nd distal phalanx which is also causing problem with gripping things and patient would like to see a hand surgeon after the eyes are healed We will talk about that further at his next visit in 3 months BMI is still elevated at 43.4, insurance did not approved Semaglutide injection that I prescribed in March [facility] Medical History COLETTE (obstructive sleep apnea) COVID-19 vaccine series completed Snores Rheumatoid arthritis Fuchs' syndrome II Raynauds disease Osteoarthritis of both knees Asthma HTN (hypertension) Primary osteoarthritis of left knee Surgical History Hx of total knee replacement History of removal of testicle History of knee surgery History of colonoscopy History of trigger finger History of lipoma Family History Father Colon cancer Myocardial infarction Mother Colon cancer HTN (hypertension) Diabetes mellitus Sister Breast cancer Crohn's disease Sister Breast cancer Crohn's disease Brother CHF (congestive heart failure) Smoker Rheumatic fever Maternal Grandmother No problems noted. Maternal Grandfather No problems noted. Paternal Grandmother No problems noted. Paternal Grandfather Emphysema, unspecified Brother No problems noted. Sister No problems noted. Daughter No problems noted. Daughter No problems noted. Daughter No problems noted. Daughter No problems noted. 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 How often do you have a drink containing alcohol?: 2-3 times a week 2. How many drinks containing alcohol do you have on a typical day when you are drinking?: 1 or 2 3. How often do you have six or more drinks on one occasion?: Never Total Score: 3 JETT-7 AMB Questionnaire JETT-7 Date JETT - 7 assessed: 04/04/23 Source: Developed by Drs. Nino Delatorre, Leena Espinosa, Bogdan Flores and colleagues, with an educational lalito from [employer]. Review of Systems Const Denies chills and Denies fever(s) ENT Denies odynophagia Card Denies chest pain at rest and Denies chest pain with activity Resp Denies hemoptysis GI Denies diarrhea, Denies odynophagia, Denies vomiting and Denies hematemesis Reports as per HPI Musc Denies abnormal gait Skin/Breast Reports as per HPI Neuro Denies Neuro-related abnormal movements, Denies Abnormal speech present, Denies abnormal gait and Denies Sensory deficit (Neuro) Psych Denies mood swings and Denies paranoia Endo Reports as per HPI Rusty/Lymph Reports as per HPI Aller/Immun Reports as per HPI Physical exam (Primary Care) Vital Signs: Last Vital Signs Temp 98.2 F 06/06/23 08:34 Pulse 98 06/06/23 08:34 BP 136/82 06/06/23 08:34 Pulse Ox 93 06/06/23 08:34 Oxygen Delivery Method Room Air 06/06/23 08:34 BMI result Body Mass Index 43.4 Tobacco/Smoking Status: Tobacco use Status Tobacco use date assessed 06/06/23 06/06/23 08:37 Patient Tobacco Use Status Former Tobacco user 06/06/23 08:37 Tobacco use type Cigarette 06/06/23 08:37 e-Cigarette/Vaping Use Never Used 06/06/23 08:37 Thrive Assessment: Date of Thrive Assessment Date Thrive assessed 04/04/23 06/06/23 08:37 Const General: cooperative, comfortable and no acute distress Orientation/consciousness: patient oriented x3 HENMT Head: Yes normocephalic and Yes atraumatic Eyes General: appearance normal, both eyes and all related structures Pupils: Equal, round and reactive pupils present EOM: EOMs intact bilaterally Neck Neck: Yes supple and No lymphadenopathy Thyroid: Thyroid normal Lymphatic: no lymphadenopathy noted Resp Other: Mild wheezing right lower base with deep breath Effort & Inspection: normal respiratory effort and able to speak in complete sentences Cardio Heart sounds: S1 normal heart sound present and S2 normal heart sound present GI Palpation (GI): Soft to palpation and nontender Auscultation: normal bowel sounds General: Yes no CVA tenderness Back/Spine/Pelvis Back: no CVA tenderness Back/spine/pelvis image: 2 1. almost round firm lump, no pain , no skin findings, size of 3 in by 4 in Skin General skin exam: elasticity normal and turgor normal Neuro General: patient oriented x3 and gait normal Cranial nerves: Yes Equal, round and reactive pupils present Speech: No Abnormal speech present Sensory Exam: No Sensory deficit (Neuro) Extrem General: Yes normal exam except as noted and No edema Hand/finger images: 2 1. Small cyst round about 1 cm Assessment and Plan Assessment & Plan (1) Encounter for general adult medical examination with abnormal findings: Code(s): Z00.01 - Encounter for general adult medical examination with abnormal findings (2) Lipoma of buttock: Code(s): D17.1 - Benign lipomatous neoplasm of skin and subcutaneous tissue of trunk (3) Morbid obesity: Code(s): E66.01 - Morbid (severe) obesity due to excess calories (4) Epidermoid cyst of finger of left hand: Code(s): L72.0 - Epidermal cyst (5) Environmental allergies: Code(s): Z91.09 - Other allergy status, other than to drugs and biological substances (6) Sinusitis: Code(s): J32.9 - Chronic sinusitis, unspecified (7) COLETTE (obstructive sleep apnea): Comment: Not documented but exhibits as soon as sedated Code(s): G47.33 - Obstructive sleep apnea (adult) (pediatric) (8) Blurring of vision: Code(s): H53.8 - Other visual disturbances (9) Lipid disorder: Code(s): E78.9 - Disorder of lipoprotein metabolism, unspecified (10) Asthma, moderate: Code(s): J45.909 - Unspecified asthma, uncomplicated Qualifiers: Asthma complication type: uncomplicated Asthma persistence: persistent Qualified Code(s): J45.40 - Moderate persistent asthma, uncomplicated (11) Rheumatoid arthritis: Code(s): M06.9 - Rheumatoid arthritis, unspecified Qualifiers: Laterality: bilateral Rheumatoid arthritis location: knee Rheumatoid factor presence: with rheumatoid factor Qualified Code(s): M05.761 - Rheumatoid arthritis with rheumatoid factor of right knee without organ or systems involvement; M05.762 - Rheumatoid arthritis with rheumatoid factor of left knee without organ or systems involvement (12) Diabetes mellitus type 2 in obese: Code(s): E11.69 - Type 2 diabetes mellitus with other specified complication; E66.9 - Obesity, unspecified (13) Fuchs endothelial corneal dystrophy type 1: Code(s): H18.519 - Endothelial corneal dystrophy, unspecified eye Plan Maninder he is here today for physical examination Colonoscopy was June of [address] Jewell Patient is going in for corneal surgeries in 2 weeks He suffering from upper respiratory tract infection mainly sinus pressure and headache along with dry cough and watering of eyes for the past 10 days Patient isn't know if he had fever there is no nausea vomiting COVID RSV test taken Labs still not done reminded patient He has large lipoma right buttock that he would like removed after his eyes healed He has also developed a cyst plantar aspect of left 2nd distal phalanx which is also causing problem with gripping things and patient would like to see a hand surgeon after the eyes are healed We will talk about that further at his next visit in 3 months BMI is still elevated at 43.4, insurance did not approved Semaglutide injection that I prescribed in March Orders: Orders 2 SARS-CoV2/FLU/RSV Today R09.89 - Other specified symptoms and signs involving the circulatory and respiratory systems Coding Level of Care Code Est Pt Prev Care 40-64y(00227) Diagnoses Encounter for general adult medical examination with abnormal findings Z00.01 Lipoma of buttock D17.1 Morbid obesity E66.01 Epidermoid cyst of finger of left hand L72.0 Environmental allergies Z91.09 Sinusitis J32.9 COLETTE (obstructive sleep apnea) G47.33 Blurring of vision H53.8 Lipid disorder E78.9 Moderate persistent asthma without complication J45.40 Asthma complication type: uncomplicated Asthma persistence: persistent Rheumatoid arthritis involving both knees with positive rheumatoid factor M05.761; M05.762 Laterality: bilateral Rheumatoid arthritis location: knee Rheumatoid factor presence: with rheumatoid factor Diabetes mellitus type 2 in obese E11.69; E66.9 Fuchs endothelial corneal dystrophy type 1 H18.519
== END 2023-06-06 09:00 | disposition home or self-care (01) ==
PROVIDERS: PCP Internal Medicine; Visit Provider Internal Medicine
DX: Z00.00 Encounter for general adult medical examination without abnormal findings (principal); M05.762 Rheumatoid arthritis with rheumatoid factor of left knee without organ or systems involvement; M05.761 Rheumatoid arthritis with rheumatoid factor of right knee without organ or systems involvement; E11.69 Type 2 diabetes mellitus with other specified complication; E66.01 Morbid (severe) obesity due to excess calories; D17.1 Benign lipomatous neoplasm of skin and subcutaneous tissue of trunk; L72.0 Epidermal cyst; Z91.09 Other allergy status, other than to drugs and biological substances; J32.9 Chronic sinusitis, unspecified; G47.33 Obstructive sleep apnea (adult) (pediatric); H53.8 Other visual disturbances; E78.9 Disorder of lipoprotein metabolism, unspecified
CPT/HCPCS: 99396

== ENCOUNTER 2023-06-06 11:57 | Outpatient (REF) | payer BC, SELFPAY ==
[2023-06-06 12:57] LABS: Influenza A PCR NEGATIVE (Negative); Influenza B PCR NEGATIVE (Negative); Resp Syncy Virus RNA Qual PCR NEGATIVE (Negative); SARS COV2 PCR INHOUSE NEGATIVE (Negative)
== END 2023-06-06 11:58 | disposition home or self-care (01) ==
LOC: HO.LNP 11:57
PROVIDERS: Visit Provider Internal Medicine
DX: Z11.52 Encounter for screening for COVID-19 (principal); Z20.822 Contact with and (suspected) exposure to COVID-19; R09.89 Other specified symptoms and signs involving the circulatory and respiratory systems
CPT/HCPCS: 0241U

== ENCOUNTER 2023-08-24 08:50 | Outpatient (AMB) | payer BC, SELFPAY ==
[2023-08-24 08:57] VITALS: BP 130/80; PULSE 103; TEMP 36.6; O2SAT 98; BMI 43.6
--- NOTE | 2023-08-24 08:57 | AM.OFFWIN_ITS ---
Intake Vital Signs 08/24/23 08:57 Height 5 ft 10 in Weight 304 lb BMI 43.6 BP 130/80 Blood Pressure Location Lt brachial Position Sitting Pulse 103 H Pulse Source Pulse Oximeter Temp 97.8 F Temp Source Temporal Artery Scan Pulse Oximetry (%) 98 Oxygen Delivery Method Room Air Intake Visit Reasons: EP upper/lower respiratory issues ~ fever Intake Note: pt is here today for upper lower respiratory issues started 9 days ago Patient Tobacco Use Status: Former Tobacco user Quit Date: 2000 Allergies amoxicillin [Augmentin] Allergy (Intermediate, Verified 08/24/23 09:13) rash aspirin [ASPIRIN] Allergy (Intermediate, Verified 08/24/23 09:13) WHEEZING clavulanic acid [Augmentin] Allergy (Intermediate, Verified 08/24/23 09:13) rash Iodinated Contrast Media [IODINATED CONTRAST MEDIA - IV DYE] Allergy (Intermediate, Verified 08/24/23 09:13) NAUSEA shellfish dye Allergy (Intermediate, Uncoded 02/03/23 12:59) nausea, wheezing Do you need a note to return to daycare/school/sports/work: Yes HPI HPI Comments History of Present Illness Details This is a 62-year-old male with a past medical history of hypertension, hyperlipidemia, asthma, diabetes and obstructive sleep apnea presenting for evaluation of left ear pain, sore throat and cough that he has had for the past 9 days. Patient denies having any fevers, chills, hemoptysis, orthopnea, headache or lightheadedness. Patient states he has been using his albuterol inhaler with increased frequency but has not taken any antipyretic medications. [facility] Medical History COLETTE (obstructive sleep apnea) COVID-19 vaccine series completed Snores Rheumatoid arthritis Fuchs' syndrome II Raynauds disease Osteoarthritis of both knees Asthma HTN (hypertension) Primary osteoarthritis of left knee Surgical History Hx of total knee replacement History of removal of testicle History of knee surgery History of colonoscopy History of trigger finger History of lipoma Family History Father Colon cancer Myocardial infarction Mother Colon cancer HTN (hypertension) Diabetes mellitus Sister Breast cancer Crohn's disease Sister Breast cancer Crohn's disease Brother CHF (congestive heart failure) Smoker Rheumatic fever Maternal Grandmother No problems noted. Maternal Grandfather No problems noted. Paternal Grandmother No problems noted. Paternal Grandfather Emphysema, unspecified Brother No problems noted. Sister No problems noted. Daughter No problems noted. Daughter No problems noted. Daughter No problems noted. Daughter No problems noted. 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 Cognitive needs: No Hearing needs: No Vision needs: Yes Review of Systems Const All systems reviewed & are unremarkable except as noted in HPI and below Denies chills, Reports fatigue, Denies fever(s), Reports lethargy and Reports malaise Eyes Reports no additional complaints ENT Reports otalgia (left), Reports post nasal drip, Reports sinus pain and Reports sore throat Card Reports no additional complaints and Reports dyspnea Resp Reports change in phlegm color, Reports chest congestion, Reports cough, Denies hemoptysis, Reports dyspnea and Denies wheezing Skin/Breast Reports system reviewed and no additional complaints, except as documented Endo Reports fatigue Rusty/Lymph Reports no additional complaints Aller/Immun Reports no additional complaints and Denies wheezing Physical Exam Vital Signs: Last Vital Signs Temp 97.8 F 08/24/23 08:57 Pulse 103 H 08/24/23 08:57 BP 130/80 08/24/23 08:57 Pulse Ox 98 08/24/23 08:57 Oxygen Delivery Method Room Air 08/24/23 08:57 BMI result Body Mass Index 43.6 Patient is afebrile. Const General: cooperative, comfortable, no acute distress and well developed Nutritional Appearance: well nourished and overweight Orientation/consciousness: patient oriented x3 Limitations: no limitations HEENT Head: Yes normal to inspection Ears: TM normal on the right and left TM abnormal (erythematous, bulging) General nose exam: Normal external nose present Face and sinus: Yes sinus tenderness (maxillary) Mouth: oropharynx abnormals (erythema without edema or exudates) and moist mucous membranes Teeth and gingiva: dentition normal Throat: No posterior oropharynx normal and Yes postnasal drainage Eyes Conjunctivae: conjunctival abnormal (injected bilaterally) EOM: EOMs intact bilaterally Neck Lymphatic: lymphadenopathy (cervical anterior L > R) Resp Effort & Inspection: normal respiratory effort, able to speak in complete sentences, no audible wheezes, Actively coughing, respiratory effort not decreased, not labored, no pursed lip breathing and no respiratory distress Auscultation: wheezes expiratory wheezes and lung sounds not diminished Cardio Rate: regular rate Rhythm: regular rhythm Skin General skin exam: no rashes or lesions noted Neuro General: patient oriented x3 Psych Appearance: grossly normal Mental Status: mental status grossly normal Insight: Good insight present (Psych) Judgement: Good judgement present (Psych) Results AMB Rapid Strep AMB Rapid Strep Negative Last Edit by Perez Diop MA on 08/24/23 10:03 Results Reviewed Results Reviewed: CXR reviewed Assessment & Plan Assessment & Plan (1) Cough in adult: Comment: CXR; SARS testing performed and results pending. Code(s): R05.9 - Cough, unspecified Plan: Antibiotic therapy as prescribed. (2) Otitis media of left ear: Comment: no evidence of exudative pharyngitis Code(s): H66.92 - Otitis media, unspecified, left ear Qualifiers: Otitis media type: unspecified Qualified Code(s): H66.92 - Otitis media, unspecified, left ear Plan: Cefpodoxime b.i.d. x7 days.; ibuprofen or Tylenol as needed. Orders: Orders XR chest 2V Today R05.9 - Cough, unspecified SARS-CoV2/FLU/RSV Today R05.9 - Cough, unspecified Medications: New cefpodoxime must administer with a meal/food 200 mg PO BID 14 tabs 0RF Coding Level of Care Code Est Pt Level 3 (37833) Diagnoses Cough in adult R05.9 Left otitis media, unspecified otitis media type H66.92 Otitis media type: unspecified Time Spent (min) 25
== END 2023-08-24 10:06 | disposition home or self-care (01) ==
PROVIDERS: PCP Internal Medicine; Visit Provider Physician Assistant
DX: R05.9 Cough, unspecified (principal); H66.92 Otitis media, unspecified, left ear
CPT/HCPCS: 99213

== ENCOUNTER 2023-08-24 09:45 | Outpatient (REF) | payer BC, SELFPAY ==
--- NOTE | ~2023-08-24 | XR_ITS ---
EXAMINATION: XR CHEST CLINICAL INFORMATION: Cough COMPARISON: 06/22/2022 TECHNIQUE: 2 views of the chest were obtained. FINDINGS: No significant abnormality is noted involving the heart, lungs, mediastinum, bony thorax or soft tissues. XR/XR chest 2V IMPRESSION: Unremarkable examination, without interval change.
== END 2023-08-24 09:46 | disposition home or self-care (01) ==
LOC: HO.HMGCX 09:45
PROVIDERS: PCP Internal Medicine; Visit Provider Physician Assistant
DX: R05.9 Cough, unspecified (principal)
CPT/HCPCS: 71046

== ENCOUNTER 2023-08-24 13:12 | Outpatient (REF) | payer BC, SELFPAY ==
[2023-08-24 15:12] LABS: Influenza A PCR NEGATIVE (Negative); Influenza B PCR NEGATIVE (Negative); Resp Syncy Virus RNA Qual PCR NEGATIVE (Negative); SARS COV2 PCR INHOUSE NEGATIVE (Negative)
== END 2023-08-24 13:13 | disposition home or self-care (01) ==
LOC: HO.LNP 13:12
PROVIDERS: Visit Provider Physician Assistant
DX: R05.9 Cough, unspecified (principal)
CPT/HCPCS: 0241U

== ENCOUNTER 2023-08-28 09:53 | Outpatient (AMB) | payer BC, SELFPAY ==
[2023-08-28 11:40] VITALS: BP 130/80; PULSE 108; TEMP 36.3; O2SAT 95; BMI 44.0
--- NOTE | 2023-08-28 11:40 | AM.OFFWIN_ITS ---
Intake Vital Signs 08/28/23 11:40 Height 5 ft 10 in Weight 307 lb BMI 44.0 BP 130/80 Blood Pressure Location Lt brachial Position Sitting Pulse 108 H Pulse Source Pulse Oximeter Temp 97.3 F Temp Source Temporal Artery Scan Pulse Oximetry (%) 95 Intake Visit Reasons: EP sinus congestion [phone] Intake Note: pt is here today for sinus congestion started 08/23 Patient Tobacco Use Status: Former Tobacco user Quit Date: 2000 Allergies amoxicillin [Augmentin] Allergy (Intermediate, Verified 08/28/23 11:42) rash aspirin [ASPIRIN] Allergy (Intermediate, Verified 08/28/23 11:42) WHEEZING clavulanic acid [Augmentin] Allergy (Intermediate, Verified 08/28/23 11:42) rash Iodinated Contrast Media [IODINATED CONTRAST MEDIA - IV DYE] Allergy (Intermediate, Verified 08/28/23 11:42) NAUSEA shellfish dye Allergy (Intermediate, Uncoded 08/28/23 11:42) nausea, wheezing Do you need a note to return to daycare/school/sports/work: No HPI HPI Comments History of Present Illness Details Patient presents to the walk-in today for sick visit Complaining of left ear pain and congestion Was seen here 5 days ago for similar. Started on cefpodoxime for left otitis media, reports worsening pain and feeling like he has water in the ear Denies hearing loss, drainage from ear, dizziness, syncope. Endorses congestion and wheezing. Has been using albuterol MDI minimally, reports was given updraft in the past with good effect. States when he has upper respiratory infection with wheezing his albuterol MDI is not effective. [facility] Medical History COLETTE (obstructive sleep apnea) COVID-19 vaccine series completed Snores Rheumatoid arthritis Fuchs' syndrome II Raynauds disease Osteoarthritis of both knees Asthma HTN (hypertension) Primary osteoarthritis of left knee Surgical History Hx of total knee replacement History of removal of testicle History of knee surgery History of colonoscopy History of trigger finger History of lipoma Family History Father Colon cancer Myocardial infarction Mother Colon cancer HTN (hypertension) Diabetes mellitus Sister Breast cancer Crohn's disease Sister Breast cancer Crohn's disease Brother CHF (congestive heart failure) Smoker Rheumatic fever Maternal Grandmother No problems noted. Maternal Grandfather No problems noted. Paternal Grandmother No problems noted. Paternal Grandfather Emphysema, unspecified Brother No problems noted. Sister No problems noted. Daughter No problems noted. Daughter No problems noted. Daughter No problems noted. Daughter No problems noted. 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 Answers questions appropriately. Fully engaged in examination. Skin: warm, dry, intact HEENT: Normocephalic. Hearing intact. Left TM erythematous, cloudy, bulging. Right TM normal to visual inspection. Posterior pharynx without erythema or exudate. Sclera without injection bilaterally Cardiac: External chest normal in appearance. Respiratory: Dry cough. Bibasilar faint expiratory wheezing Abdomen: without gross distension. MS: No obvious swelling or deformities. Neurological: Oriented to person, place, time and situation. Thought process intact. Psychiatric: Appropriate mood and affect. Good judgment and insight. Assessment & Plan Assessment & Plan (1) Wheezing: Code(s): R06.2 - Wheezing (2) Otitis media of left ear: Code(s): H66.92 - Otitis media, unspecified, left ear Qualifiers: Otitis media type: unspecified Qualified Code(s): H66.92 - Otitis media, unspecified, left ear Plan DuoNeb given in office, patient tolerated well. Wheezing resolved after DuoNeb, continue with albuterol MDI at home as needed Refill sent on an albuterol MDI, patient advised on use. Patient no longer taking Advair Diskus due to cost. He has not on maintenance inhaler. Will try Symbicort 80-4.5 mcg per actuation, 1 inhalation twice daily. Left otitis media, discontinue cefpodoxime. New Rx: Bactrim DS 1 tab p.o. b.i.d. x7 days Benzonatate 100 mg p.o. b.i.d. as needed Follow up with PCP or return here for any new or worsening symptoms Orders: Orders AMB Nebulizer Treatment Today R06.2 - Wheezing Medications: New albuterol sulfate 2.5 mg (3 mL) inhalation ONCE 3 mL 0RF R06.2 - Wheezing ipratropium-albuterol 0.5 mg-3 mg(2.5 mg base)/3 mL 3 mL inhalation ONCE 3 mL 0RF R06.2 - Wheezing sulfamethoxazole-trimethoprim 800-160 mg (Bactrim DS) Discontinue cefpodoxime 1 tab PO BID 7 days 14 tabs 0RF benzonatate 100 mg PO BID PRN 20 caps 0RF cough budesonide-formoterol 80-4.5 mcg/actuation 1 inh inhalation BID 10.2 grams 1RF Changed From albuterol sulfate 90 mcg/actuation (ProAir HFA) 1 inh inhalation QID 30 days PRN 18 grams 3RF shortness of breath or wheezing To albuterol sulfate 90 mcg/actuation (ProAir HFA) 1 inh inhalation QID PRN 8.5 grams 0RF shortness of breath or wheezing Discontinued cefpodoxime must administer with a meal/food Discontinued Reason: More recent result 200 mg PO BID 14 tabs 0RF Coding Level of Care Code Est Pt Level 3 (83619) Diagnoses Wheezing R06.2 Left otitis media, unspecified otitis media type H66.92 Otitis media type: unspecified
== END 2023-08-28 13:39 | disposition home or self-care (01) ==
PROVIDERS: PCP Internal Medicine; Visit Provider Registered Nurse Emergency
DX: R06.2 Wheezing (principal); H66.92 Otitis media, unspecified, left ear
CPT/HCPCS: 99213

== ENCOUNTER 2023-08-30 10:50 | Outpatient (AMB) | payer BC, SELFPAY ==
--- NOTE | 2023-08-30 11:27 | MHC.PC.OV ---
Intake Visit Reasons: 3 month follow up Allergies amoxicillin [Augmentin] Allergy (Intermediate, Verified 08/30/23 11:27) rash aspirin [ASPIRIN] Allergy (Intermediate, Verified 08/30/23 11:27) WHEEZING clavulanic acid [Augmentin] Allergy (Intermediate, Verified 08/30/23 11:27) rash Iodinated Contrast Media [IODINATED CONTRAST MEDIA - IV DYE] Allergy (Intermediate, Verified 08/30/23 11:27) NAUSEA shellfish dye Allergy (Intermediate, Uncoded 08/28/23 11:42) nausea, wheezing Medication List - Last Reconciled 08/30/23 by Papito Dawn MD albuterol sulfate 90 mcg/actuation (ProAir HFA) 1 inh inhalation QID PRN atorvastatin 20 mg PO DAILY 90 days benzonatate 100 mg PO BID PRN budesonide-formoterol 80-4.5 mcg/actuation 1 inh inhalation BID cetirizine (Zyrtec) 10 mg PO DAILY fluticasone propion-salmeterol 250-50 mcg/dose (Advair Diskus) 1 inh inhalation Q12H 30 days fluticasone propionate 50 mcg/actuation (Flonase Allergy Relief) 1 spray intranasal BID 30 days losartan-hydrochlorothiazide 100-12.5 mg 1 tab PO DAILY 90 days prednisolone acetate 1% drps ophthalmic (eye) tofacitinib (Xeljanz) 5 mg PO BID Tobacco use date assessed: 08/30/23 Dental Screening Dental Screen Date: 08/30/23 Did you have a dental visit in the last 12 months?: Yes Did you have a dental problem in the last 6 months where you did not have access to dental care?: No Was dental information given to patient?: Patient has dentist HPI 3 month follow up HPI Details Patient is a 62-year-old gentleman this is telemed f.u apt he still has not done labs, reminded again 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 He had second transplant done and that healed well. He is doing well, has slight double vision but other than that patient says that he can see clearly. He will be going in for right eye cornea transplant surgery on October 16 of this year. Currently patient is recovering from respiratory tract infection, he was evaluated in our walk in clinic and was given antibiotic twice. He also had a chest X-ray done which did not show any pneumonia. Rheumatoid arthritis management through rheumatology diabetes mellitus, diet controlled, hemoglobin A1c of 6.4% Asthma: Patient is only using ProAir inhaler as he cannot afford Flovent or any other maintenance inhalers Hypertension: Blood pressure is stable he is to continue losartan hydrochlorothiazide 100-12.5 mg. Tolerating medications Allergies stable with cetirizine and Flonase nasal spray. He is also on atorvastatin 20 mg for lipid control. 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 when he was young Follow-up 3 months [facility] Medical History COLETTE (obstructive sleep apnea) COVID-19 vaccine series completed Snores Rheumatoid arthritis Fuchs' syndrome II Raynauds disease Osteoarthritis of both knees Asthma HTN (hypertension) Primary osteoarthritis of left knee Surgical History Hx of total knee replacement History of removal of testicle History of knee surgery History of colonoscopy History of trigger finger History of lipoma Family History Father Colon cancer Myocardial infarction Mother Colon cancer HTN (hypertension) Diabetes mellitus Sister Breast cancer Crohn's disease Sister Breast cancer Crohn's disease Brother CHF (congestive heart failure) Smoker Rheumatic fever Maternal Grandmother No problems noted. Maternal Grandfather No problems noted. Paternal Grandmother No problems noted. Paternal Grandfather Emphysema, unspecified Brother No problems noted. Sister No problems noted. Daughter No problems noted. Daughter No problems noted. Daughter No problems noted. Daughter No problems noted. 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 How often do you have a drink containing alcohol?: 2-3 times a week 2. How many drinks containing alcohol do you have on a typical day when you are drinking?: 1 or 2 3. How often do you have six or more drinks on one occasion?: Never Total Score: 3 Score Reviewed/Action Taken: Yes JETT-7 AMB Questionnaire JETT-7 Date JETT - 7 assessed: 04/04/23 Source: Developed by Drs. Nino Delatorre, Leena Espinosa, Bogdan Flores and colleagues, with an educational lalito from [employer]. Review of Systems Const Denies chills and Denies fever(s) ENT Denies epistaxis and Denies nasal discharge Card Denies chest pain Resp Denies hemoptysis GI Denies diarrhea and Denies nausea Skin/Breast Denies rash Neuro Reports no additional complaints Psych Reports no additional complaints Endo Reports no additional complaints Physical exam (Primary Care) Tobacco/Smoking Status: Tobacco use Status Tobacco use date assessed 08/30/23 08/30/23 11:29 Patient Tobacco Use Status Former Tobacco user 08/30/23 11:29 Tobacco use type Cigarette 08/30/23 11:29 e-Cigarette/Vaping Use Never Used 08/30/23 11:29 Thrive Assessment: Date of Thrive Assessment Date Thrive assessed 04/04/23 08/30/23 11:29 Telehealth Telehealth Telehealth Platform: [facility] Location of provider rendering services: practice address Location of patient: address on file Patient Identification confirmed using: Name, : Yes Telehealth method: video (attempted) Patient verbally consented to treatment: Yes Patient verbally consented to billing insurance company: Yes Patient informed of any privacy concerns related to visit: Yes Assessment and Plan Assessment & Plan (1) Diabetes mellitus type 2 in obese: Code(s): E11.69 - Type 2 diabetes mellitus with other specified complication; E66.9 - Obesity, unspecified (2) Hypertension, essential: Code(s): I10 - Essential (primary) hypertension (3) Asthma, moderate: Code(s): J45.909 - Unspecified asthma, uncomplicated Qualifiers: Asthma complication type: uncomplicated Asthma persistence: persistent Qualified Code(s): J45.40 - Moderate persistent asthma, uncomplicated (4) Environmental allergies: Code(s): Z91.09 - Other allergy status, other than to drugs and biological substances (5) COLETTE (obstructive sleep apnea): Comment: Not documented but exhibits as soon as sedated Code(s): G47.33 - Obstructive sleep apnea (adult) (pediatric) (6) Lipid disorder: Code(s): E78.9 - Disorder of lipoprotein metabolism, unspecified (7) Rheumatoid arthritis: Code(s): M06.9 - Rheumatoid arthritis, unspecified Qualifiers: Laterality: bilateral Rheumatoid arthritis location: knee Rheumatoid factor presence: with rheumatoid factor Qualified Code(s): M05.761 - Rheumatoid arthritis with rheumatoid factor of right knee without organ or systems involvement; M05.762 - Rheumatoid arthritis with rheumatoid factor of left knee without organ or systems involvement (8) Fuchs endothelial corneal dystrophy type 1: Code(s): H18.519 - Endothelial corneal dystrophy, unspecified eye Plan Patient is a 62-year-old gentleman this is telemed f.u apt he still has not done labs, reminded again 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 He had second transplant done and that healed well. He is doing well, has slight double vision but other than that patient says that he can see clearly. He will be going in for right eye cornea transplant surgery on October 16 of this year. Currently patient is recovering from respiratory tract infection, he was evaluated in our walk in clinic and was given antibiotic twice. He also had a chest X-ray done which did not show any pneumonia. Rheumatoid arthritis management through rheumatology diabetes mellitus, diet controlled, hemoglobin A1c of 6.4% Asthma: Patient is only using ProAir inhaler as he cannot afford Flovent or any other maintenance inhalers Hypertension: Blood pressure is stable he is to continue losartan hydrochlorothiazide 100-12.5 mg. Tolerating medications Allergies stable with cetirizine and Flonase nasal spray. He is also on atorvastatin 20 mg for lipid control. 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 when he was young Follow-up 3 months 30 min spent in care of this patient including discussion about his eyes and other health issues reviewing previous labs, notes, charting Coding Level of Care Code Tele Est Pt Level 4 (95097) Diagnoses Diabetes mellitus type 2 in obese E11.69; E66.9 Hypertension, essential I10 Moderate persistent asthma without complication J45.40 Asthma complication type: uncomplicated Asthma persistence: persistent Environmental allergies Z91.09 COLETTE (obstructive sleep apnea) G47.33 Lipid disorder E78.9 Rheumatoid arthritis involving both knees with positive rheumatoid factor M05.761; M05.762 Laterality: bilateral Rheumatoid arthritis location: knee Rheumatoid factor presence: with rheumatoid factor Fuchs endothelial corneal dystrophy type 1 H18.519
== END 2023-08-30 12:18 | disposition home or self-care (01) ==
LOC: HO.HMGC 10:50
PROVIDERS: PCP Internal Medicine; Visit Provider Internal Medicine
DX: E11.69 Type 2 diabetes mellitus with other specified complication (principal); M05.761 Rheumatoid arthritis with rheumatoid factor of right knee without organ or systems involvement; M05.762 Rheumatoid arthritis with rheumatoid factor of left knee without organ or systems involvement; E66.9 Obesity, unspecified; I10 Essential (primary) hypertension; J45.40 Moderate persistent asthma, uncomplicated; Z91.09 Other allergy status, other than to drugs and biological substances; G47.33 Obstructive sleep apnea (adult) (pediatric); E78.9 Disorder of lipoprotein metabolism, unspecified; H18.511 Endothelial corneal dystrophy, right eye
CPT/HCPCS: 99214

== ENCOUNTER 2023-09-29 11:02 | Outpatient (AMB) | payer BC, SELFPAY ==
[2023-09-29 12:13] VITALS: BP 126/80; PULSE 98; TEMP 37; O2SAT 98; BMI 44.0
--- NOTE | 2023-09-29 12:13 | MHC.OFFWIV ---
Intake Vital Signs 09/29/23 12:13 Height 5 ft 10 in Weight 307 lb BMI 44.0 BP 126/80 Blood Pressure Location Lt brachial Position Sitting Pulse 98 Pulse Source Pulse Oximeter Temp 98.6 F Temp Source Oral Pulse Oximetry (%) 98 Oxygen Delivery Method Room Air Intake Visit Reasons: EP ear/sinus infection Intake Note: pt is here for ear and sinus infection. has been here 2 times and had 2 sets of antibiotics and no reflief Patient Tobacco Use Status: Former Tobacco user Allergies amoxicillin [Augmentin] Allergy (Intermediate, Verified 09/29/23 12:16) rash aspirin [ASPIRIN] Allergy (Intermediate, Verified 09/29/23 12:16) WHEEZING clavulanic acid [Augmentin] Allergy (Intermediate, Verified 09/29/23 12:16) rash Iodinated Contrast Media [IODINATED CONTRAST MEDIA - IV DYE] Allergy (Intermediate, Verified 09/29/23 12:16) NAUSEA shellfish dye Allergy (Intermediate, Uncoded 08/28/23 11:42) nausea, wheezing Do you need a note to return to daycare/school/sports/work: No HPI EP ear/sinus infection HPI Details This is a 62-year-old male patient who presents today with ongoing left ear pain/pressure, postnasal drip, and sinus pressure. He was seen twice at the clinic, on 08/23, and 08/27, for similar symptoms. He was treated initially with cefpodoxime, and subsequently with Bactrim and benzonatate. He continues to take cetirizine and Flonase for his seasonal allergies. Chest x-ray was previously negative. Patient states he was somewhat improved following Bactrim, however was never completely alleviated of symptoms. Left ear is increasingly bothersome. He denies any fever or chills. He is having eye surgery in several weeks, and is hoping to be improved prior to that. [facility] Medical History COLETTE (obstructive sleep apnea) COVID-19 vaccine series completed Snores Rheumatoid arthritis Fuchs' syndrome II Raynauds disease Osteoarthritis of both knees Asthma HTN (hypertension) Primary osteoarthritis of left knee Surgical History Hx of total knee replacement History of removal of testicle History of knee surgery History of colonoscopy History of trigger finger History of lipoma Family History Father Colon cancer Myocardial infarction Mother Colon cancer HTN (hypertension) Diabetes mellitus Sister Breast cancer Crohn's disease Sister Breast cancer Crohn's disease Brother CHF (congestive heart failure) Smoker Rheumatic fever Maternal Grandmother No problems noted. Maternal Grandfather No problems noted. Paternal Grandmother No problems noted. Paternal Grandfather Emphysema, unspecified Brother No problems noted. Sister No problems noted. Daughter No problems noted. Daughter No problems noted. Daughter No problems noted. Daughter No problems noted. 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 Cognitive needs: No Hearing needs: No Vision needs: Yes Review of Systems Const All systems reviewed & are unremarkable except as noted in HPI and below Physical Exam Vital Signs: Last Vital Signs Temp 98.6 F 09/29/23 12:13 Pulse 98 09/29/23 12:13 BP 126/80 09/29/23 12:13 Pulse Ox 98 09/29/23 12:13 Oxygen Delivery Method Room Air 09/29/23 12:13 BMI result Body Mass Index 44.0 Const General: cooperative and no acute distress Nutritional Appearance: obese HEENT Head: Yes normal to inspection Ears: hearing grossly normal bilaterally, external ears normal, TM normal on the right and TM abnormal (left TM erythematous with purulent effusion) General nose exam: Normal external nose present and Nasal discharge present mucoid Face and sinus: Yes sinus tenderness (maxillary) Throat: Yes posterior oropharynx normal Neck Neck: Yes no lymphadenopathy Resp Effort & Inspection: normal respiratory effort and Actively coughing Quality: dry Auscultation: wheezes (mild) expiratory wheezes and upper bilaterally Cardio Rate: regular rate Rhythm: regular rhythm Heart sounds: S1 normal heart sound present and S2 normal heart sound present Skin General skin exam: no rashes or lesions noted Extrem General: Yes capillary refill normal and Yes no clubbing, cyanosis or edema Psych Appearance: grossly normal Mental Status: mental status grossly normal Speech and movement: Normal speech and movement present Assessment & Plan Assessment & Plan (1) Otitis media of left ear: Code(s): H66.92 - Otitis media, unspecified, left ear Qualifiers: Otitis media type: unspecified Qualified Code(s): H66.92 - Otitis media, unspecified, left ear Plan: Patient has been treated previously x2 for this. Will try Doxy BID 7 days, in addition to a short course of PO Prednisone. Patient states he has done well on this in previous years. Reviewed indications, use, possible side effects of medication. Patient states he no longer is taking Xeljanz. Advised to continue taking cetirizine and Flonase for allergies. He states there has been some issue with his albuterol inhaler refill at the pharmacy. I recent prescription for this and advised him to call office if he is having trouble obtaining prescription. Recommended continued respiratory exercises with coughing and deep breathing, adequate hydration and healthy food/vitamin intake. If patient is not improved with treatment, or if symptoms worsen/new symptoms develop, he should return to the clinic for further evaluation. Verbalizes understanding and agrees to plan Medications: New doxycycline hyclate 100 mg PO BID 7 days 14 caps 0RF H66.92 - Otitis media, unspecified, left ear prednisone 20 mg PO BID 3 days 6 tabs 0RF H66.92 - Otitis media, unspecified, left ear Changed From albuterol sulfate 90 mcg/actuation (ProAir HFA) 1 inh inhalation QID PRN 8.5 grams 0RF shortness of breath or wheezing J45.40 - Moderate persistent asthma, uncomplicated, R06.2 - Wheezing To albuterol sulfate 90 mcg/actuation 1 inh inhalation QID PRN 6.7 grams 1RF shortness of breath or wheezing J45.40 - Moderate persistent asthma, uncomplicated, R06.2 - Wheezing Coding Level of Care Code Est Pt Level 4 (27546) Diagnoses Left otitis media, unspecified otitis media type H66.92 Otitis media type: unspecified
== END 2023-09-29 13:29 | disposition home or self-care (01) ==
PROVIDERS: PCP Internal Medicine; Visit Provider Nurse Practitioner Family
DX: H66.92 Otitis media, unspecified, left ear (principal)
CPT/HCPCS: 99214

== ENCOUNTER 2023-10-10 09:22 | Outpatient (REF) | payer BC, SELFPAY ==
[2023-10-10 12:59] LABS: MANUAL DIFF FLAG NO
[2023-10-10 13:06] LABS: Basophils Absolute Auto 0.1 X10*3/uL (0.0-0.2); Basophils Percent Auto 1.1 % (0-2); Eosinophils Absolute Auto 0.1 X10*3/uL (0.0-0.4); Eosinophils Percent Auto 0.9 % (0-4); Hematocrit 42.6 % (42.0-52.0); Hemoglobin 14.5 g/dl (14.0-18.0); Imm Gran Abs Auto 0.05 X10*3/uL (0.00-0.03); Imm Gran Pct Auto 0.8 % (0.0-0.4); Lymphocytes Absolute Auto 1.4 X10*3/uL (1.2-4.9); Lymphocytes Percent Auto 21.4 % (20-40); Mean Corpuscular Hemoglobin 30.2 pg (27.0-33.0); Mean Corpuscular Volume 88.8 fL (80.0-98.0); Mean Platelet Volume 9.6 fL (9.4-12.4); Monocytes Absolute Auto 0.8 X10*3/uL (0.1-1.2); Monocytes Percent Auto 11.8 % (2-11); Neutrophils Absolute Auto 4.1 x10*3/uL (2.0-8.3); Platelet Count 277 X10*3/uL (160-400); Red Cell Distribution Width 13.1 % (11.0-16.0); White Blood Count 6.5 X10*3/uL (4.8-10.8)
[2023-10-10 13:31] LABS: Estimated Average Glucose 148 mg/dL; Hemoglobin A1c % 6.8 % (<6.0)
[2023-10-10 13:33] LABS: Alanine Aminotransferase 27 U/L (0-40); Albumin Level 4.2 g/dL (3.5-5.0); Alkaline Phosphatase 78 U/L (39-117); Anion Gap 13 (12-20); Aspartate Amino Transferase 20 U/L (5-37); Bilirubin Total 0.7 mg/dL (0.0-1.0); Blood Urea Nitrogen 14 mg/dL (9-16); Calcium 9.4 mg/dL (8.4-10.2); Carbon Dioxide 26 mmol/L (22-29); Chloride 103 mmol/L (96-108); Cholesterol 162 mg/dL (<200); Estimated Glomerular Filt Rate > 60; Glucose Fasting 159 mg/dL (60-99); HDL Cholesterol 45 mg/dL (>40); LDL Cholesterol Calculated 89 mg/dL (<100); Sodium 138 mmol/L (135-145); Total Protein 6.8 g/dL (6.5-8.0); Triglycerides 144 mg/dL (<150)
[2023-10-10 13:39] LABS: TSH reflex Free T4 0.51 uIU/mL (0.32-4.0)
[2023-10-10 13:43] LABS: Microalbum/Creatinine Ratio Ur 4.4 ug/mg cr (<30)
[2023-10-15 20:43] LABS: Testosterone, Total 139 ng/dL (250-1100)
== END 2023-10-10 09:23 | disposition home or self-care (01) ==
LOC: HO.HMGCLDS 09:22
PROVIDERS: PCP Internal Medicine; Visit Provider Internal Medicine
DX: Z91.09 Other allergy status, other than to drugs and biological substances (principal); I10 Essential (primary) hypertension; H53.8 Other visual disturbances; E78.9 Disorder of lipoprotein metabolism, unspecified; M06.9 Rheumatoid arthritis, unspecified; E66.01 Morbid (severe) obesity due to excess calories; E11.69 Type 2 diabetes mellitus with other specified complication; E66.9 Obesity, unspecified; Q55.0 Absence and aplasia of testis; J45.909 Unspecified asthma, uncomplicated; G47.33 Obstructive sleep apnea (adult) (pediatric)
CPT/HCPCS: 36415; 80053; 80061; 82043; 82570; 83036; 84403; 84443; 85025

== ENCOUNTER 2023-12-06 12:58 | Outpatient (AMB) | payer BC, SELFPAY ==
[2023-12-06 12:59] VITALS: BP 128/80; PULSE 91; O2SAT 96; BMI 43.9
--- NOTE | 2023-12-06 12:59 | MHC.PC.OV ---
Vital Signs 12/06/23 12:59 Height 5 ft 10 in Weight 306 lb BMI 43.9 BP 128/80 Blood Pressure Location Rt brachial Position Sitting Pulse 91 Pulse Source Pulse Oximeter Pulse Oximetry (%) 96 Intake Visit Reasons: 14Wk F/u~ Allergies amoxicillin [Augmentin] Allergy (Intermediate, Verified 12/06/23 12:59) rash aspirin [ASPIRIN] Allergy (Intermediate, Verified 12/06/23 12:59) WHEEZING clavulanic acid [Augmentin] Allergy (Intermediate, Verified 12/06/23 12:59) rash Iodinated Contrast Media [IODINATED CONTRAST MEDIA - IV DYE] Allergy (Intermediate, Verified 12/06/23 12:59) NAUSEA shellfish dye Allergy (Intermediate, Uncoded 08/28/23 11:42) nausea, wheezing Medication List - Last Reconciled 12/06/23 by Papito Dawn MD albuterol sulfate 90 mcg/actuation 1 inh inhalation QID PRN atorvastatin 20 mg PO DAILY 90 days budesonide-formoterol 80-4.5 mcg/actuation 1 inh inhalation BID cetirizine (Zyrtec) 10 mg PO DAILY fluticasone propion-salmeterol 250-50 mcg/dose (Advair Diskus) 1 inh inhalation Q12H 30 days fluticasone propionate 50 mcg/actuation (Flonase Allergy Relief) 1 spray intranasal BID 30 days losartan-hydrochlorothiazide 100-12.5 mg 1 tab PO DAILY 90 days prednisolone acetate 1% drps ophthalmic (eye) tofacitinib (Xeljanz) 5 mg PO BID Tobacco use date assessed: 08/30/23 Dental Screening Dental Screen Date: 08/30/23 HPI 14Wk F/u~ HPI Details Patient is a 62-year-old gentleman came in for his regular follow-up appointment Complaining of feeling tired all the time He had testosterone level done which came back low he has appointment with the Urology coming up Rheumatoid arthritis management through rheumatology diabetes mellitus, diet controlled, hemoglobin A1c of 6.8% September of this year Asthma: Patient is only using ProAir inhaler as he cannot afford Flovent or any other maintenance inhalers Hypertension: Blood pressure is stable he is to continue losartan hydrochlorothiazide 100-12.5 mg. Tolerating medications Allergies stable with cetirizine and Flonase nasal spray. He is also on atorvastatin 20 mg for lipid control. 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 He is doing well, especially after the cataract surgery left eye Right eye will be done in December, the cataract surgery and then the cornea Follow-up 3 months [facility] Medical History COLETTE (obstructive sleep apnea) COVID-19 vaccine series completed Snores Rheumatoid arthritis Fuchs' syndrome II Raynauds disease Osteoarthritis of both knees Asthma HTN (hypertension) Primary osteoarthritis of left knee Surgical History Hx of total knee replacement History of removal of testicle History of knee surgery History of colonoscopy History of trigger finger History of lipoma Family History Father Colon cancer Myocardial infarction Mother Colon cancer HTN (hypertension) Diabetes mellitus Sister Breast cancer Crohn's disease Sister Breast cancer Crohn's disease Brother CHF (congestive heart failure) Smoker Rheumatic fever Maternal Grandmother No problems noted. Maternal Grandfather No problems noted. Paternal Grandmother No problems noted. Paternal Grandfather Emphysema, unspecified Brother No problems noted. Sister No problems noted. Daughter No problems noted. Daughter No problems noted. Daughter No problems noted. Daughter No problems noted. 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 Nino Delatorre, Leena Espinosa, Bogdan Flores and colleagues, with an educational lalito from [employer]. Review of Systems Const Denies chills and Denies fever(s) ENT Denies epistaxis and Denies nasal discharge Card Denies chest pain Resp Denies chest congestion, Denies cough and Denies hemoptysis GI Denies diarrhea and Denies nausea Skin/Breast Denies rash Neuro Reports no additional complaints Psych Reports no additional complaints Endo Reports no additional complaints Physical exam (Primary Care) Vital Signs: Last Vital Signs Pulse 91 12/06/23 12:59 BP 128/80 12/06/23 12:59 Pulse Ox 96 12/06/23 12:59 BMI result Body Mass Index 43.9 Tobacco/Smoking Status: Tobacco use Status Tobacco use date assessed 08/30/23 12/06/23 13:02 Patient Tobacco Use Status Former Tobacco user 12/06/23 13:02 Tobacco use type Cigarette 12/06/23 13:02 e-Cigarette/Vaping Use Never Used 12/06/23 13:02 Thrive Assessment: Date of Thrive Assessment Date Thrive assessed 04/04/23 12/06/23 13:02 Const General: cooperative, comfortable and no acute distress Orientation/consciousness: patient oriented x3 HENMT Head: Yes normocephalic Eyes General: appearance normal, both eyes and all related structures Neck Neck: Yes supple Resp Effort & Inspection: normal respiratory effort, no cough and no stridor Cardio Rhythm: regular rhythm Heart sounds: S1 normal heart sound present and S2 normal heart sound present Skin General skin exam: turgor normal Neuro General: patient oriented x3, tone normal and moves all extremities Extrem Right lower extremity: no edema Left lower extremity: no edema Assessment and Plan Assessment & Plan (1) Diabetes mellitus type 2 in obese: Code(s): E11.69 - Type 2 diabetes mellitus with other specified complication; E66.9 - Obesity, unspecified (2) Hypertension, essential: Code(s): I10 - Essential (primary) hypertension (3) Asthma, moderate: Code(s): J45.909 - Unspecified asthma, uncomplicated Qualifiers: Asthma complication type: uncomplicated Asthma persistence: persistent Qualified Code(s): J45.40 - Moderate persistent asthma, uncomplicated (4) Environmental allergies: Code(s): Z91.09 - Other allergy status, other than to drugs and biological substances (5) COLETTE (obstructive sleep apnea): Comment: Not documented but exhibits as soon as sedated Code(s): G47.33 - Obstructive sleep apnea (adult) (pediatric) (6) Lipid disorder: Code(s): E78.9 - Disorder of lipoprotein metabolism, unspecified (7) Rheumatoid arthritis: Code(s): M06.9 - Rheumatoid arthritis, unspecified Qualifiers: Laterality: bilateral Rheumatoid arthritis location: knee Rheumatoid factor presence: with rheumatoid factor Qualified Code(s): M05.761 - Rheumatoid arthritis with rheumatoid factor of right knee without organ or systems involvement; M05.762 - Rheumatoid arthritis with rheumatoid factor of left knee without organ or systems involvement (8) Fuchs endothelial corneal dystrophy type 1: Code(s): H18.519 - Endothelial corneal dystrophy, unspecified eye (9) Eustachian tube disorder: Code(s): H69.90 - Unspecified Eustachian tube disorder, unspecified ear Qualifiers: Laterality: left Qualified Code(s): H69.92 - Unspecified Eustachian tube disorder, left ear (10) Low testosterone in male: Code(s): R79.89 - Other specified abnormal findings of blood chemistry Plan Patient is a 62-year-old gentleman came in for his regular follow-up appointment Complaining of feeling tired all the time He had testosterone level done which came back low he has appointment with the Urology coming up Patient also continued to have feeling of blockage left ear, at this time he has no erythema or signs of infection Patient says that at this time it does not have the feeding a blockage either. Rheumatoid arthritis management through rheumatology diabetes mellitus, diet controlled, hemoglobin A1c of 6.8% September of this year Asthma: Patient is only using ProAir inhaler as he cannot afford Flovent or any other maintenance inhalers Hypertension: Blood pressure is stable he is to continue losartan hydrochlorothiazide 100-12.5 mg. Tolerating medications Allergies stable with cetirizine and Flonase nasal spray. He is also on atorvastatin 20 mg for lipid control. 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 He is doing well, especially after the cataract surgery left eye Right eye will be done in December, the cataract surgery and then the cornea Follow-up 3 months Coding Level of Care Code Est Pt Level 4 (65787) Diagnoses Diabetes mellitus type 2 in obese E11.69; E66.9 Hypertension, essential I10 Moderate persistent asthma without complication J45.40 Asthma complication type: uncomplicated Asthma persistence: persistent Environmental allergies Z91.09 COLETTE (obstructive sleep apnea) G47.33 Lipid disorder E78.9 Rheumatoid arthritis involving both knees with positive rheumatoid factor M05.761; M05.762 Laterality: bilateral Rheumatoid arthritis location: knee Rheumatoid factor presence: with rheumatoid factor Fuchs endothelial corneal dystrophy type 1 H18.519 Disorder of left eustachian tube H69.92 Laterality: left Low testosterone in male R79.89
== END 2023-12-06 13:37 | disposition home or self-care (01) ==
PROVIDERS: PCP Internal Medicine; Visit Provider Internal Medicine
DX: E11.69 Type 2 diabetes mellitus with other specified complication (principal); M05.761 Rheumatoid arthritis with rheumatoid factor of right knee without organ or systems involvement; Z68.41 Body mass index [BMI] 40.0-44.9, adult; E66.9 Obesity, unspecified; M05.762 Rheumatoid arthritis with rheumatoid factor of left knee without organ or systems involvement; I10 Essential (primary) hypertension; J45.40 Moderate persistent asthma, uncomplicated; Z91.09 Other allergy status, other than to drugs and biological substances; G47.33 Obstructive sleep apnea (adult) (pediatric); E78.9 Disorder of lipoprotein metabolism, unspecified; H18.512 Endothelial corneal dystrophy, left eye; H69.92 Unspecified Eustachian tube disorder, left ear
CPT/HCPCS: 99214

== ENCOUNTER 2023-12-18 08:47 | Outpatient (AMB) | payer BC, SELFPAY ==
--- NOTE | 2023-12-18 08:52 | MHC.OFFVIS ---
Intake Visit Reasons: low testosterone Intake Note: Patient is present for low testosterone Urology Medication:none Antibiotic Allergy:amoxicillin, Blood Thinner:none Assignment Desk Editor Required: No Allergies amoxicillin [Augmentin] Allergy (Intermediate, Verified 12/18/23 08:53) rash aspirin [ASPIRIN] Allergy (Intermediate, Verified 12/18/23 08:53) WHEEZING clavulanic acid [Augmentin] Allergy (Intermediate, Verified 12/18/23 08:53) rash Iodinated Contrast Media [IODINATED CONTRAST MEDIA - IV DYE] Allergy (Intermediate, Verified 12/18/23 08:53) NAUSEA shellfish dye Allergy (Intermediate, Uncoded 12/18/23 08:53) nausea, wheezing Medication List - Last Reconciled 12/18/23 by Sherrie Godfrey MD albuterol sulfate 90 mcg/actuation 1 inh inhalation QID PRN atorvastatin 20 mg PO DAILY 90 days budesonide-formoterol 80-4.5 mcg/actuation 1 inh inhalation BID cetirizine (Zyrtec) 10 mg PO DAILY fluticasone propion-salmeterol 250-50 mcg/dose (Advair Diskus) 1 inh inhalation Q12H 30 days fluticasone propionate 50 mcg/actuation (Flonase Allergy Relief) 1 spray intranasal BID 30 days losartan-hydrochlorothiazide 100-12.5 mg 1 tab PO DAILY 90 days prednisolone acetate 1% drps ophthalmic (eye) tofacitinib (Xeljanz) 5 mg PO BID HPI Comments Details: Maninder is a 63-year-old male who is here for evaluation due to low testosterone. 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 He has a prosthesis. He has 3 daughters. Obesity, he states he has been inactive for the last few years due to multiple medical issues including eye surgeries and a knee replacement UC in the ER for and gained alot of weight. I have discussed medical reasons that low testosterone may occur as well as some risks related to testosterone replacement. Pamphlet given. I have discussed repeat labs including FSH LH. [facility] Medical History COLETTE (obstructive sleep apnea) COVID-19 vaccine series completed Snores Rheumatoid arthritis Fuchs' syndrome II Raynauds disease Osteoarthritis of both knees Asthma HTN (hypertension) Primary osteoarthritis of left knee Surgical History Hx of total knee replacement History of removal of testicle History of knee surgery History of colonoscopy History of trigger finger History of lipoma Family History Father Colon cancer Myocardial infarction Mother Colon cancer HTN (hypertension) Diabetes mellitus Sister Breast cancer Crohn's disease Sister Breast cancer Crohn's disease Brother CHF (congestive heart failure) Smoker Rheumatic fever Maternal Grandmother No problems noted. Maternal Grandfather No problems noted. Paternal Grandmother No problems noted. Paternal Grandfather Emphysema, unspecified Brother No problems noted. Sister No problems noted. Daughter No problems noted. Daughter No problems noted. Daughter No problems noted. Daughter No problems noted. 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 Cognitive needs: No Hearing needs: No Vision needs: Yes Review of Systems Const All systems reviewed & are unremarkable except as noted in HPI and below Reports no additional complaints Eyes Reports no additional complaints ENT Reports no additional complaints Card Reports no additional complaints Resp Reports no additional complaints GI Reports no additional complaints Reports as per HPI Musc Reports no additional complaints Skin/Breast Reports system reviewed and no additional complaints, except as documented Neuro Reports no additional complaints Psych Reports no additional complaints Endo Reports no additional complaints Rusty/Lymph Reports no additional complaints Aller/Immun Reports no additional complaints Physical Exam Const General: healthy appearing, no acute distress and well developed Nutritional Appearance: overweight Orientation/consciousness: patient oriented x3 HEENT Head: Yes normocephalic and Yes atraumatic Eyes Conjunctivae: conjunctivae normal Neck Neck: Yes normal visual inspection Chest Chest palpation & inspection: normal inspection of the chest Resp Effort & Inspection: normal respiratory effort Cardio Rate: regular rate GI Inspection: Yes normal to inspection Palpation (GI): Soft to palpation Neuro General: patient oriented x3 Extrem General: No pedal edema Psych Appearance: grossly normal Affect: normal affect Results AMB Urinalysis, Automated UA Leukoctes 0 Marychuy/uL Last Edit by Perez Diop CCM on 12/18/23 09:16 UA Nitrite Negative Last Edit by Perez Diop [facility] on 12/18/23 09:16 UA Urobilinogen 0.2 mg/dL Last Edit by Perez Diop [facility] on 12/18/23 09:16 UA Protein 0 mg/dL Last Edit by Perez Diop [facility] on 12/18/23 09:16 UA pH 6.0 Last Edit by Perez Diop [facility] on 12/18/23 09:16 UA Blood 0 Mark/uL Last Edit by Perez Diop [facility] on 12/18/23 09:16 UA Specific [place] 1.025 Last Edit by Perez Diop [facility] on 12/18/23 09:16 UA Ketone Negative Last Edit by Perez Diop [facility] on 12/18/23 09:16 UA Bilirubin 0 mg/dL Last Edit by Perez Diop [facility] on 12/18/23 09:16 UA Glucose 0 mg/dL Last Edit by Perez Diop [facility] on 12/18/23 09:16 Results Reviewed Results Reviewed: Laboratory Last Values Urine pH (Auto) 6.0 12/18/23 09:15 Specific [place] (Auto) 1.025 12/18/23 09:15 Urine Protein (Auto) 0 mg/dL 12/18/23 09:15 Glucose (UA)(Auto) 0 mg/dL 12/18/23 09:15 Urine Ketones (Auto) Negative 12/18/23 09:15 Urine Blood (Auto) 0 Mark/uL 12/18/23 09:15 Urine Nitrite (Auto) Negative 12/18/23 09:15 Urine Bilirubin (Auto) 0 mg/dL 12/18/23 09:15 Urine Urobilinogen (Auto) 0.2 mg/dL 12/18/23 09:15 Leukocyte Esterase (Auto) 0 Marychuy/uL 12/18/23 09:15 Assessment & Plan Assessment & Plan (1) Low testosterone in male: Code(s): R79.89 - Other specified abnormal findings of blood chemistry Category: Medical (2) Fatigue: Code(s): R53.83 - Other fatigue Category: Medical (3) Screening PSA (prostate specific antigen): Code(s): Z12.5 - Encounter for screening for malignant neoplasm of prostate Category: Medical (4) Undescended testicle: Code(s): Q53.9 - Undescended testicle, unspecified Category: Medical Plan Repeat labs Orders: Orders AMB Urinalysis Automated Today Z13.9 - Encounter for screening, unspecified PSA,Total (Free>4and<10) Today Z12.5 - Encounter for screening for malignant neoplasm of prostate Prolactin Today R79.89 - Other specified abnormal findings of blood chemistry Testosterone, Free/Total Today R79.89 - Other specified abnormal findings of blood chemistry Glucose Fasting Today Q53.9 - Undescended testicle, unspecified, R79.89 - Other specified abnormal findings of blood chemistry Lutenizing Hormone Today R79.89 - Other specified abnormal findings of blood chemistry Follicle Stimulating Hormone Today R79.89 - Other specified abnormal findings of blood chemistry Hemoglobin A1c Today R79.89 - Other specified abnormal findings of blood chemistry Patient Instructions: The patient had an opportunity to ask questions regarding treatment plan. The patient expressed understanding and agreement with the above treatment plan. The patient is aware they should contact our office by phone for worsening of their current condition or the appearance of new symptoms. Compliance is encouraged with any medications and followup testing that is ordered. It is a privilege to be allowed the opportunity to participate in the urologic care of your patient. If you have any questions or concerns regarding treatment for the above conditions please do not hesitate to contact me. The office telephone contact is [phone]. This note is constructed in part using voice recognition software. While every effort has been made to ensure accuracy paint mixer errors may have been included. Yours sincerely, Sherrie Godfrey MD Coding Level of Care Code New Pt Level 4 (27520) Diagnoses Low testosterone in male R79.89 Fatigue R53.83 Screening PSA (prostate specific antigen) Z12.5 Undescended testicle Q53.9
== END 2023-12-18 09:49 | disposition home or self-care (01) ==
PROVIDERS: PCP Internal Medicine; Visit Provider Urology
DX: R79.89 Other specified abnormal findings of blood chemistry (principal); R53.83 Other fatigue; Z12.5 Encounter for screening for malignant neoplasm of prostate; Q53.9 Undescended testicle, unspecified; Z13.9 Encounter for screening, unspecified
CPT/HCPCS: 99204

== ENCOUNTER → 2023-12-18 08:47 | Outpatient (BNVA) | payer BC, SELFPAY | PROVIDERS: PCP Internal Medicine; Visit Provider Urology | DX: E29.1 Testicular hypofunction (principal); R53.83 Other fatigue; Q53.9 Undescended testicle, unspecified | CPT/HCPCS: 81003 ==

== ENCOUNTER 2024-01-01 10:14 | Outpatient (REF) | payer BC, SELFPAY ==
[2024-01-01 13:48] LABS: Estimated Average Glucose 154 mg/dL; Hemoglobin A1C 183.1952 umol/L; Total Hemoglobin (HGBA1C) 3492.5172 umol/L
[2024-01-01 14:01] LABS: Glucose Fasting 139 mg/dL (60-99)
[2024-01-01 14:16] LABS: PSA,Total (Free>4and<10) 0.72 ng/mL (0.00-4.00)
[2024-01-02 10:08] LABS: Follicle Stimulating Hormone 4.6 mIU/mL (1.4-12.8); Lutenizing Hormone 1.5 mIU/mL (1.6-15.2); Prolactin 4.4 ng/mL (2.0-18.0)
[2024-01-05 16:44] LABS: Testosterone, Total 132 ng/dL (250-1100)
== END 2024-01-01 10:15 | disposition home or self-care (01) ==
LOC: HO.HMGCLDS 10:14
PROVIDERS: PCP Internal Medicine; Visit Provider Urology
DX: R79.89 Other specified abnormal findings of blood chemistry (principal); Z12.5 Encounter for screening for malignant neoplasm of prostate; Q53.9 Undescended testicle, unspecified
CPT/HCPCS: 36415; 82947; 83001; 83002; 83036; 84146; 84153; 84402; 84403

== ENCOUNTER 2024-01-08 13:14 | Outpatient (AMB) | payer BC, SELFPAY ==
--- NOTE | 2024-01-08 13:20 | MHC.OFFWIV ---
Intake Vital Signs 01/08/24 13:21 Height 5 ft 10 in Weight 312 lb BMI 44.8 BP 120/86 Blood Pressure Location Lt brachial Position Sitting Pulse 85 Pulse Source Pulse Oximeter Pulse Oximetry (%) 93 Oxygen Delivery Method Room Air Intake Visit Reasons: EP-rt knee burning pain & swollen Intake Note: Patient here for left knee pain that he started to feel again this weekend. He states he had a total right knee replacement. Patient Tobacco Use Status: Former Tobacco user Allergies amoxicillin [Augmentin] Allergy (Intermediate, Verified 01/08/24 13:22) rash aspirin [ASPIRIN] Allergy (Intermediate, Verified 01/08/24 13:22) WHEEZING clavulanic acid [Augmentin] Allergy (Intermediate, Verified 01/08/24 13:22) rash Iodinated Contrast Media [IODINATED CONTRAST MEDIA - IV DYE] Allergy (Intermediate, Verified 01/08/24 13:22) NAUSEA shellfish dye Allergy (Intermediate, Uncoded 01/08/24 13:22) nausea, wheezing Do you need a note to return to daycare/school/sports/work: No HPI HPI Comments History of Present Illness Details Patient is a 63-year-old male complaining of right knee pain since last weekend. He states he hosted his daughter's wedding at his house and was repetitively going up and down the stairs, carrying heavy paint cans. He states he felt a sudden burning sensation in his right knee with pain. He tells me he thinks he tore his meniscus. He states it is worse when he goes up and downstairs. He tells me when he had his left knee replacement that he had MRIs of both knees and the he was told that his right meniscus was very thin and to expect it to tear at some point. He tells me he never had any pain in the knee until this past weekend. He has used ice with some relief. He has been taking Advil without much relief. He does not have a knee brace at home. He tells me he had his left total knee replaced in August of 2020 at [facility] Medical History COLETTE (obstructive sleep apnea) COVID-19 vaccine series completed Snores Rheumatoid arthritis Fuchs' syndrome II Raynauds disease Osteoarthritis of both knees Asthma HTN (hypertension) Primary osteoarthritis of left knee Surgical History Hx of total knee replacement History of removal of testicle History of knee surgery History of colonoscopy History of trigger finger History of lipoma Family History Father Colon cancer Myocardial infarction Mother Colon cancer HTN (hypertension) Diabetes mellitus Sister Breast cancer Crohn's disease Sister Breast cancer Crohn's disease Brother CHF (congestive heart failure) Smoker Rheumatic fever Maternal Grandmother No problems noted. Maternal Grandfather No problems noted. Paternal Grandmother No problems noted. Paternal Grandfather Emphysema, unspecified Brother No problems noted. Sister No problems noted. Daughter No problems noted. Daughter No problems noted. Daughter No problems noted. Daughter No problems noted. 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 Cognitive needs: No Hearing needs: No Vision needs: Yes Review of Systems Const All systems reviewed & are unremarkable except as noted in HPI and below Physical Exam Vital Signs: Last Vital Signs Pulse 85 01/08/24 13:21 BP 120/86 01/08/24 13:21 Pulse Ox 93 01/08/24 13:21 Oxygen Delivery Method Room Air 01/08/24 13:21 BMI result Body Mass Index 44.8 Const General: cooperative, healthy appearing, comfortable and no acute distress Orientation/consciousness: patient oriented x3 Limitations: no limitations HEENT Head: Yes normal to inspection Resp Effort & Inspection: normal respiratory effort and able to speak in complete sentences Neuro General: patient oriented x3 Extrem Right lower extremity: knee Details: normal to inspection, tenderness Location: of the medial joint line, normal ROM (extension with pain) and knee ligament exam abnormal Details: varus stress test normal; anterior drawer test abnormal, posterior drawer test abnormal and valgus stress test abnormal; no abrasions, no lacerations, no ecchymosis, no deformity and no unusual warmth Assessment & Plan Assessment & Plan (1) Right medial knee pain: Code(s): M25.561 - Pain in right knee Plan: Question ligamentous injury or meniscus injury. We will get an x-ray today and put stat referral in for orthopedics. Fitted patient for a knee brace and recommended he rest it, use ice and Aleve. (2) Right knee sprain: Code(s): S83.91XA - Sprain of unspecified site of right knee, initial encounter Qualifiers: Encounter type: initial encounter Involved ligament of knee: medial collateral ligament Qualified Code(s): S83.411A - Sprain of medial collateral ligament of right knee, initial encounter Plan: see above Plan see above Orders: Orders XR knee RT 4V Today M25.561 - Pain in right knee, S83.91XA - Sprain of unspecified site of right knee, initial encounter Referrals Orthopedics Referral M25.561 - Pain in right knee Coding Level of Care Code Est Pt Level 4 (74931) Diagnoses Right medial knee pain M25.561 Sprain of medial collateral ligament of right knee, initial encounter S83.411A Encounter type: initial encounter Involved ligament of knee: medial collateral ligament
[2024-01-08 13:21] VITALS: BP 120/86; PULSE 85; O2SAT 93; BMI 44.8
== END 2024-01-08 14:41 | disposition home or self-care (01) ==
PROVIDERS: PCP Internal Medicine; Visit Provider Physician Assistant
DX: M25.561 Pain in right knee (principal); S83.411A Sprain of medial collateral ligament of right knee, initial encounter

== ENCOUNTER → 2024-01-08 13:14 | Outpatient (BNVA) | payer BC, SELFPAY | PROVIDERS: PCP Internal Medicine ==

== ENCOUNTER 2024-01-08 13:44 | Outpatient (REF) | payer BC, SELFPAY ==
--- NOTE | ~2024-01-08 | XR_ITS ---
EXAMINATION: XR KNEE, RIGHT CLINICAL INFORMATION: Pain right knee COMPARISON: AP standing knees 07/26/2021 TECHNIQUE: Four views of the right knee. FINDINGS: No fracture. Small joint effusion Alignment is anatomic. Joint spaces are maintained. Soft tissue swelling is seen along the infrapatellar tendon. XR/XR knee RT 4V IMPRESSION: 1. No bony abnormality. 2. Small joint effusion. Electronically signed by: Brenda Broderick MD 01/08/2024 03:46 PM EDT
== END 2024-01-08 13:45 | disposition home or self-care (01) ==
LOC: HO.HMGCX 13:44
PROVIDERS: PCP Internal Medicine; Visit Provider Physician Assistant
DX: M25.561 Pain in right knee (principal); S83.91XA Sprain of unspecified site of right knee, initial encounter
CPT/HCPCS: 73564

== ENCOUNTER 2024-01-22 15:00 | Outpatient (AMB) | payer BC, SELFPAY ==
--- NOTE | 2024-01-22 12:52 | A.OFFVIS_ITS ---
Intake Visit Reasons: 5w/labs Intake Note: Patient is present for 5W/LABS Urology Medication:NONE Antibiotic Allergy:AMOXICILLIN Blood Thinner:NONE Cardiac Cath Rn Required: No Allergies amoxicillin [Augmentin] Allergy (Intermediate, Verified 01/22/24 14:58) rash aspirin [ASPIRIN] Allergy (Intermediate, Verified 01/22/24 14:58) WHEEZING clavulanic acid [Augmentin] Allergy (Intermediate, Verified 01/22/24 14:58) rash Iodinated Contrast Media [IODINATED CONTRAST MEDIA - IV DYE] Allergy (Intermediate, Verified 01/22/24 14:58) NAUSEA shellfish dye Allergy (Intermediate, Uncoded 01/22/24 14:58) nausea, wheezing Medication List - Last Reconciled 01/22/24 by Sherrie Godfrey MD albuterol sulfate 90 mcg/actuation 1 inh inhalation QID PRN atorvastatin 20 mg PO DAILY 90 days budesonide-formoterol 80-4.5 mcg/actuation 1 inh inhalation BID cetirizine (Zyrtec) 10 mg PO DAILY fluticasone propion-salmeterol 250-50 mcg/dose (Advair Diskus) 1 inh inhalation Q12H 30 days fluticasone propionate 50 mcg/actuation (Flonase Allergy Relief) 1 spray intranasal BID 30 days losartan-hydrochlorothiazide 100-12.5 mg 1 tab PO DAILY 90 days testosterone enanthate (Xyosted) 75 mg (0.5 mL) subcut QWEEK 4 weeks HPI Comments Details: 01/22/24-- Telehealth FU. Initial evaluation on 12/18/23--for low testosterone. Maninder is a 63-year-old male who is here for evaluation due to low testosterone. 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 He has a prosthesis. He has 3 daughters. Obesity, he states he has been inactive for the last few years due to multiple medical issues including eye surgeries and a knee replacement UC in the ER for and gained alot of weight. I have discussed medical reasons that low testosterone may occur as well as some risks related to testosterone replacement. I have reviewed labs today 01/22/24--PSA 0.72 ng/mL, total and free testosterone remains low at 132 and 24; FSH and LH are within normal limits. Plan will prescribe testosterone injection weekly repeat free and total testosterone in 3 months. [facility] Medical History COLETTE (obstructive sleep apnea) COVID-19 vaccine series completed Snores Rheumatoid arthritis Fuchs' syndrome II Raynauds disease Osteoarthritis of both knees Asthma HTN (hypertension) Primary osteoarthritis of left knee Surgical History Hx of total knee replacement History of removal of testicle History of knee surgery History of colonoscopy History of trigger finger History of lipoma Family History Father Colon cancer Myocardial infarction Mother Colon cancer HTN (hypertension) Diabetes mellitus Sister Breast cancer Crohn's disease Sister Breast cancer Crohn's disease Brother CHF (congestive heart failure) Smoker Rheumatic fever Maternal Grandmother No problems noted. Maternal Grandfather No problems noted. Paternal Grandmother No problems noted. Paternal Grandfather Emphysema, unspecified Brother No problems noted. Sister No problems noted. Daughter No problems noted. Daughter No problems noted. Daughter No problems noted. Daughter No problems noted. 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 Cognitive needs: No Hearing needs: No Vision needs: Yes Review of Systems Const All systems reviewed & are unremarkable except as noted in HPI and below Reports no additional complaints Eyes Reports no additional complaints ENT Reports no additional complaints Card Reports no additional complaints Resp Reports no additional complaints GI Reports no additional complaints Reports as per HPI Musc Reports no additional complaints Skin/Breast Reports system reviewed and no additional complaints, except as documented Neuro Reports no additional complaints Psych Reports no additional complaints Endo Reports no additional complaints Rusty/Lymph Reports no additional complaints Aller/Immun Reports no additional complaints Telehealth Telehealth Telehealth Platform: [employer] Location of provider rendering services: practice address Location of patient: address on file Patient Identification confirmed using: Name, : Yes Telehealth method: video Patient verbally consented to treatment: Yes Patient verbally consented to billing insurance company: Yes Patient informed of any privacy concerns related to visit: Yes Assessment & Plan Assessment & Plan (1) Low testosterone in male: Code(s): R79.89 - Other specified abnormal findings of blood chemistry Category: Medical (2) Fatigue: Code(s): R53.83 - Other fatigue Category: Medical (3) Undescended testicle: Code(s): Q53.9 - Undescended testicle, unspecified Category: Medical Plan Testosterone replacement. Xyosted 75 mg subQ, inject weekly Medications: New testosterone enanthate (Xyosted) 75 mg (0.5 mL) subcut QWEEK 4 weeks 2 mL 2RF hypogonadism Patient Instructions: The patient had an opportunity to ask questions regarding treatment plan. The patient expressed understanding and agreement with the above treatment plan. The patient is aware they should contact our office by phone for worsening of their current condition or the appearance of new symptoms. Compliance is encouraged with any medications and followup testing that is ordered. It is a privilege to be allowed the opportunity to participate in the urologic care of your patient. If you have any questions or concerns regarding treatment for the above conditions please do not hesitate to contact me. The office telephone contact is [phone]. This note is constructed in part using voice recognition software. While every effort has been made to ensure accuracy regional vice president surgical sales errors may have been included. Yours sincerely, Sherrie Godfrey MD Coding Level of Care Code Tele Est Pt Level 4 (07766) Diagnoses Low testosterone in male R79.89 Fatigue R53.83 Undescended testicle Q53.9
== END 2024-01-22 15:28 | disposition home or self-care (01) ==
LOC: HO.HUSH 15:00
PROVIDERS: PCP Internal Medicine; Visit Provider Urology
DX: R79.89 Other specified abnormal findings of blood chemistry (principal); R53.83 Other fatigue; Q53.9 Undescended testicle, unspecified
CPT/HCPCS: 99214

== ENCOUNTER → 2024-01-22 15:00 | Outpatient (BNVA) | payer BC, SELFPAY | PROVIDERS: PCP Internal Medicine; Visit Provider Urology ==

== ENCOUNTER 2024-02-06 11:45 | Outpatient (REF) | payer BC, SELFPAY ==
[2024-02-06 17:43] LABS: Influenza A PCR NEGATIVE (Negative); Influenza B PCR NEGATIVE (Negative); Resp Syncy Virus RNA Qual PCR NEGATIVE (Negative); SARS COV2 PCR INHOUSE NEGATIVE (Negative)
== END 2024-02-06 11:46 | disposition home or self-care (01) ==
LOC: HO.LAB 11:45
PROVIDERS: PCP Internal Medicine; Visit Provider Physician Assistant
DX: J22 Unspecified acute lower respiratory infection (principal)
CPT/HCPCS: 0241U; 94640

== ENCOUNTER 2024-02-06 11:45 | Outpatient (AMB) | payer BC, SELFPAY ==
--- NOTE | 2024-02-06 13:13 | MHC.OFFWIV ---
Intake Vital Signs 02/06/24 13:21 Weight 306 lb BP 130/70 Blood Pressure Location Rt brachial Position Sitting Pulse 93 Pulse Source Pulse Oximeter Temp 98.2 F Temp Source Oral Pulse Oximetry (%) 94 Oxygen Delivery Method Room Air Intake Visit Reasons: EP Chest cold [phone] Intake Note: Patient here for cough, congestion, SOB, chest tightness and fatigue that has been present for about 3 weeks. pts did recently test positive for covid. Patient Tobacco Use Status: Former Tobacco user Allergies amoxicillin [Augmentin] Allergy (Intermediate, Verified 02/06/24 13:14) rash aspirin [ASPIRIN] Allergy (Intermediate, Verified 02/06/24 13:14) WHEEZING clavulanic acid [Augmentin] Allergy (Intermediate, Verified 02/06/24 13:14) rash Iodinated Contrast Media [IODINATED CONTRAST MEDIA - IV DYE] Allergy (Intermediate, Verified 02/06/24 13:14) NAUSEA shellfish dye Allergy (Intermediate, Uncoded 02/06/24 13:14) nausea, wheezing Do you need a note to return to daycare/school/sports/work: No HPI HPI Comments History of Present Illness Details Patient is a 63-year-old male with a past medical history of asthma on Advair complaining of 3 weeks of chest tightness, a sometimes productive and sometimes dry cough, shortness of breath, fatigue and wheezing. He tells me he did have a low-grade fever and ear pain but those have both resolved. He denies any sinus pain, nausea vomiting or diarrhea. He tells me he has been using his albuterol inhaler and actually ran out of the medication. He tells me he does not have a nebulizer at home and he does not take Symbicort because it is too expensive. He tells me he did test for COVID 3 times in all 3 times he was negative however his is currently positive with COVID at home. He tells me he has been taking decongestants on and off, zinc, Sudafed and Robitussin. He tells me that the last time he felt like this, he needed 3 different antibiotics to finally feel better. He tells me that he had a respi-click and that worked really well for him with his breathing in the past [facility] Medical History COLETTE (obstructive sleep apnea) COVID-19 vaccine series completed Snores Rheumatoid arthritis Fuchs' syndrome II Raynauds disease Osteoarthritis of both knees Asthma HTN (hypertension) Primary osteoarthritis of left knee Surgical History Hx of total knee replacement History of removal of testicle History of knee surgery History of colonoscopy History of trigger finger History of lipoma Family History Father Colon cancer Myocardial infarction Mother Colon cancer HTN (hypertension) Diabetes mellitus Sister Breast cancer Crohn's disease Sister Breast cancer Crohn's disease Brother CHF (congestive heart failure) Smoker Rheumatic fever Maternal Grandmother No problems noted. Maternal Grandfather No problems noted. Paternal Grandmother No problems noted. Paternal Grandfather Emphysema, unspecified Brother No problems noted. Sister No problems noted. Daughter No problems noted. Daughter No problems noted. Daughter No problems noted. Daughter No problems noted. 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 Cognitive needs: No Hearing needs: No Vision needs: Yes Review of Systems Const All systems reviewed & are unremarkable except as noted in HPI and below Physical Exam Vital Signs: Last Vital Signs Temp 98.2 F 02/06/24 13:21 Pulse 110 H 02/06/24 13:21 BP 130/70 02/06/24 13:21 Pulse Ox 94 02/06/24 13:21 Oxygen Delivery Method Room Air 02/06/24 13:21 Const General: cooperative, healthy appearing, comfortable and no acute distress Orientation/consciousness: patient oriented x3 Limitations: no limitations HEENT Head: Yes normal to inspection Ears: hearing grossly normal bilaterally, external ears normal and TM's normal bilaterally General nose exam: Normal external nose present, Normal nares present and No nasal discharge present Face and sinus: Yes normal facial exam and Yes sinuses nontender Mouth: Normal oral and palatal mucosa present and moist mucous membranes Throat: Yes tonsils normal, Yes uvula midline and Yes posterior oropharynx abnormal (Erythema) Eyes General: appearance normal, both eyes and all related structures Neck Neck: Yes normal visual inspection Resp Effort & Inspection: normal respiratory effort, able to speak in complete sentences, Actively coughing, no respiratory distress, not tachypneic, no tripod positioning and no use of accessory muscles Auscultation: wheezes expiratory wheezes and throughout Cardio Rate: regular rate Rhythm: regular rhythm Heart sounds: normal S1 and S2 Skin General skin exam: no rashes or lesions noted Neuro General: patient oriented x3 Extrem General: Yes normal to inspection and Yes no clubbing, cyanosis or edema Office Procedures Nebulizer Treatment Nebulizer Treatment [id number] RX initial, or Nebulizer Subsequent Treatment Office Meds ipratropium 0.5 mg-albuterol 3 mg (2.5 mg base)/3 mL nebulization soln Performing Provider: Anika Scott PA-C Performing Location: [facility] [place] [facility] Administered by: Anika Scott PA-C on 02/06/24 13:46 Dose Route Admin Location Dispensed Lot Number Expiration Date [facility] Manager [employer] 3 mL inhalation 3 mL [id number] 05/24/25 62490-627-60 [employer] Assessment & Plan Assessment & Plan (1) Lower respiratory infection (e.g., bronchitis, pneumonia, pneumonitis, pulmonitis): Code(s): J22 - Unspecified acute lower respiratory infection Plan: Patient is satting 93% on room air, gave nebulizer treatment in office, lung sounds dim with expiratory wheezes prior to treatment, slightly improved after treatment. We will get a chest x-ray. Tested for flu COVID and RSV; sent Pro Air respi-click inhaler and zpak for anti-inflammatory effects as well as low-dose prednisone to his pharmacy. If there is a pneumonia, we will have to add a cephalosporin. Plan See above Orders: Orders SARS-CoV2/FLU/RSV Today J22 - Unspecified acute lower respiratory infection AMB Nebulizer Treatment Today J22 - Unspecified acute lower respiratory infection XR chest 2V Today R05.9 - Cough, unspecified Medications: New albuterol sulfate 90 mcg/actuation (ProAir RespiClick) 2 inhalations inhalation Q4-6H PRN 1 ea 0RF shortness of breath or wheezing azithromycin For 250 mg dose pack: take 500 mg today (day 1), then 250 mg for 4 days (days 2-5) PO 6 tabs 0RF prednisone 20 mg PO QAM 5 tabs 0RF Coding Level of Care Code Est Pt Level 4 (51408) Diagnoses Lower respiratory infection (e.g., bronchitis, pneumonia, pneumonitis, pulmonitis) J22 CPT Codes Nebulizer Treatment - Nebulizer Treatment, initial or subsequent: [id number] RX initial, or Nebulizer Subsequent Treatment ([id number])
[2024-02-06 13:21] VITALS: BP 130/70; PULSE 93; TEMP 36.8; O2SAT 94
== END 2024-02-06 14:19 | disposition home or self-care (01) ==
PROVIDERS: PCP Internal Medicine; Visit Provider Physician Assistant
DX: J22 Unspecified acute lower respiratory infection (principal)

== ENCOUNTER 2024-02-06 13:53 | Outpatient (REF) | payer BC, SELFPAY ==
--- NOTE | ~2024-02-06 | XR_ITS ---
EXAMINATION: XR CHEST CLINICAL INFORMATION: Cough COMPARISON: 08/24/2023 TECHNIQUE: 2 views of the chest were obtained. FINDINGS: No significant abnormality is noted involving the heart, lungs, mediastinum, bony thorax or soft tissues. XR/XR chest 2V IMPRESSION: Unremarkable examination. Electronically signed by: Sheree Prasad MD 02/06/2024 02:54 PM [facility] [place]
== END 2024-02-06 13:54 | disposition home or self-care (01) ==
LOC: HO.HMGCX 13:53
PROVIDERS: PCP Internal Medicine; Visit Provider Physician Assistant
DX: R05.9 Cough, unspecified (principal)
CPT/HCPCS: 71046

== ENCOUNTER 2024-04-09 09:11 | Outpatient (REF) | payer BC, SELFPAY ==
[2024-04-09 13:09] LABS: MANUAL DIFF FLAG NO
[2024-04-09 13:20] LABS: Basophils Percent Auto 0.5 % (0-2); Eosinophils Absolute Auto 0.2 X10*3/uL (0.0-0.4); Eosinophils Percent Auto 2.5 % (0-4); Hematocrit 45.8 % (42.0-52.0); Hemoglobin 15.3 g/dl (14.0-18.0); Imm Gran Abs Auto 0.02 X10*3/uL (0.00-0.03); Imm Gran Pct Auto 0.3 % (0.0-0.4); Lymphocytes Absolute Auto 1.6 X10*3/uL (1.2-4.9); Lymphocytes Percent Auto 26.3 % (20-40); Mean Corpuscular HGB Conc 33.4 g/dl (31.0-36.0); Mean Corpuscular Volume 89.8 fL (80.0-98.0); Mean Platelet Volume 9.8 fL (9.4-12.4); Monocytes Absolute Auto 0.6 X10*3/uL (0.1-1.2); Monocytes Percent Auto 9.6 % (2-11); Neutrophils Absolute Auto 3.7 x10*3/uL (2.0-8.3); Neutrophils Percent Auto 60.8 % (45-73); Platelet Count 270 X10*3/uL (160-400); Red Cell Distribution Width 12.9 % (11.0-16.0); White Blood Count 6.1 X10*3/uL (4.8-10.8)
[2024-04-09 13:43] LABS: Creatinine Urine 354.66 mg/dL; Microalbum/Creatinine Ratio Ur 5.3 ug/mg cr (<30)
[2024-04-09 13:49] LABS: Estimated Average Glucose 154 mg/dL; Hemoglobin A1C 214.3789 umol/L
[2024-04-09 13:56] LABS: Alanine Aminotransferase 35 U/L (0-40); Albumin Level 4.4 g/dL (3.5-5.0); Alkaline Phosphatase 74 U/L (39-117); Anion Gap 11 (12-20); Aspartate Amino Transferase 26 U/L (5-37); Bilirubin Total 0.5 mg/dL (0.0-1.0); Blood Urea Nitrogen 15 mg/dL (9-16); Carbon Dioxide 29 mmol/L (22-29); Chloride 105 mmol/L (96-108); Estimated Glomerular Filt Rate > 60; Glucose Random 157 mg/dL (60-115); Potassium 3.9 mmol/L (3.3-5.1); Sodium 141 mmol/L (135-145); Total Protein 7.1 g/dL (6.5-8.0)
[2024-04-10 20:18] LABS: LDL Cholesterol Direct 87 mg/dL (<100)
[2024-04-15 13:53] LABS: Testosterone, Free 13.4 pg/mL (35.0-155.0); Testosterone, Total 93 ng/dL (250-1100)
== END 2024-04-09 09:12 | disposition home or self-care (01) ==
LOC: HO.HMGCLDS 09:11
PROVIDERS: Urology; PCP Internal Medicine; Visit Provider Internal Medicine
DX: Z01.818 Encounter for other preprocedural examination (principal); S83.241A Other tear of medial meniscus, current injury, right knee, initial encounter; I10 Essential (primary) hypertension; M17.0 Bilateral primary osteoarthritis of knee; E78.9 Disorder of lipoprotein metabolism, unspecified; E11.69 Type 2 diabetes mellitus with other specified complication; E66.9 Obesity, unspecified; Z68.41 Body mass index [BMI] 40.0-44.9, adult; J45.909 Unspecified asthma, uncomplicated; E29.1 Testicular hypofunction; Z79.899 Other long term (current) drug therapy
CPT/HCPCS: 36415; 80053; 82043; 82570; 83036; 83721; 84402; 84403; 85025; 96127

== ENCOUNTER 2024-04-09 09:11 | Outpatient (AMB) | payer BC, SELFPAY ==
[2024-04-09 09:24] VITALS: BP 120/82; PULSE 107; O2SAT 95; BMI 44.5
--- NOTE | 2024-04-09 09:24 | A.OFFPC_ITS ---
Vital Signs 04/09/24 09:24 Height 5 ft 10 in Weight 310 lb BMI 44.5 BP 120/82 Blood Pressure Location Lt brachial Position Sitting Pulse 107 H Pulse Source Pulse Oximeter Pulse Oximetry (%) 95 Oxygen Delivery Method Room Air Intake Visit Reasons: 4 month follow up Allergies amoxicillin [Augmentin] Allergy (Intermediate, Verified 04/09/24 09:27) rash aspirin [ASPIRIN] Allergy (Intermediate, Verified 04/09/24 09:27) WHEEZING clavulanic acid [Augmentin] Allergy (Intermediate, Verified 04/09/24 09:27) rash Iodinated Contrast Media [IODINATED CONTRAST MEDIA - IV DYE] Allergy (Inter mediate, Verified 04/09/24 09:27) NAUSEA shellfish dye Allergy (Intermediate, Uncoded 02/06/24 13:14) nausea, wheezing Medication List - Last Reconciled 04/09/24 by Papito Dawn MD albuterol sulfate 90 mcg/actuation 2 puffs inhalation Q6-8H PRN albuterol sulfate 90 mcg/actuation 1 inh inhalation QID PRN atorvastatin 20 mg PO DAILY 90 days budesonide-formoterol 80-4.5 mcg/actuation 1 inh inhalation BID cetirizine (Zyrtec) 10 mg PO DAILY fluticasone propion-salmeterol 250-50 mcg/dose (Advair Diskus) 1 inh inhalation Q12H 30 days fluticasone propionate 50 mcg/actuation (Flonase Allergy Relief) 1 spray intranasal BID 30 days losartan-hydrochlorothiazide 100-12.5 mg 1 tab PO DAILY 90 days testosterone 2 pumps topical DAILY 30 days Tobacco use date assessed: 04/09/24 Dental Screening Dental Screen Date: 04/09/24 Did you have a dental visit in the last 12 months?: Yes Did you have a dental problem in the last 6 months where you did not have access to dental care?: No Was dental information given to patient?: Patient has dentist HPI 4 month follow up HPI Details - The patient is a 63-year-old male pres enting with the need for preoperative evaluation and clearance for right knee arthroscopic partial meniscectomy. - The right knee medial meniscus tear wa s confirmed by MRI in February, with plans for surgery on the of the current month. - Osteoarthritis complicates management due to joint effusion and patellar chondromalacia. - The patient has previously received co rtisone shots for pain relief. - There is a history of hypertension, m anaged with Losartan, and anemia previously identified via lab work. - patient also suffers from asthma howev er he is not using maintenance inhaler as he can not afford that Only using albuterol inhaler I have sent medication for his [employer] machine Problem List - Right knee medial meniscus tear - Osteoarthritis of the right knee - Hypertension - asthma - Anemia - lipid disorder - allergies - testosterone deficiency Diagnostic results - MRI in February: Right knee medial men iscus tear - Lab tests September: Anemia noted, Kidney f unctions normal [facility] Urology client relation specialist Patient Instructions - Follow the preoperative instructions p rovided for the knee surgery. - Continue with current medications as p rescribed. - Coordinate insurance details to ensure coverage pre and post-surgery. - Attend follow-up appointments for pulm onary concerns if symptoms worsen. Patient is stable for meniscal surgery knee Review of Systems - Musculoskeletal: Reports right knee kalpana int pain and swelling. - Cardiovascular: Denies chest pain or p alpitations. - Respiratory: Reports past pulmonary co ncerns. - Endocrine: Denies any symptoms indicat heriberto of endocrine dysfunction. - Hematologic: Denies overt bleeding or bruising but anemia noted in past labs. General: No fever no chills neurological: No headaches no dizziness ear nose throat: No sore throat no hearing difficulty no ear pain cardiovascular: No syncope, no chest pain, no palpitations gastrointestinal: No nausea vomiting or diarrhea endocrine: No polyuria polydipsia no heat intolerance genitourinary: No dysuria skin: No new complaints Physical Exam general: No acute distress HEENT: No acute findings neck: Supple respiratory system: Able to talk in full sentences, no audible wheeze no stridor cardiovascular: S1-S2, blood pressure 120/82 gastrointestinal: No pain extremities: Right knee with posterior horn and body medial meniscus tear, osteoarthritis, patellar chondromalacia, and joint effusion 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: Alert awake oriented x3 motor sensory intact skin: Normal turgor [facility] Medical History COLETTE (obstructive sleep apnea) COVID-19 vaccine series completed Snores Rheumatoid arthritis Fuchs' syndrome II Raynauds disease Osteoarthritis of both knees Asthma HTN (hypertension) Primary osteoarthritis of left knee Surgical History Hx of total knee replacement History of removal of testicle History of knee surgery History of colonoscopy History of trigger finger History of lipoma Family History Father Colon cancer Myocardial infarction Mother Colon cancer HTN (hypertension) Diabetes mellitus Sister Breast cancer Crohn's disease Sister Breast cancer Crohn's disease Brother CHF (congestive heart failure) Smoker Rheumatic fever Maternal Grandmother No problems noted. Maternal Grandfather No problems noted. Paternal Grandmother No problems noted. Paternal Grandfather Emphysema, unspecified Brother No problems noted. Sister No problems noted. Daughter No problems noted. Daughter No problems noted. Daughter No problems noted. Daughter No problems noted. 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 1. Little interest or pleasure in doing things: not at all 2. Feeling down, depressed, or hopeless: not at all 3. Trouble falling or staying asleep, or sleeping too much: not at all 4. Feeling tired or having little energy: not at all 5. Poor appetite or overeating: not at all 6. Feeling bad about yourself - or that you are a failure or have let yourself or your family down: not at all 7. Trouble concentrating on things, such as reading the newspaper or watching television: not at all 8. Moving or speaking so slowly that other people could have noticed. Or the opposite - being so fidgety or restless that you have been moving around a lot more than usual: not at all 9. Thoughts that you would be better off or of hurting yourself in some way: not at all Total score: 0 Depression Screening Interpretation: Negative Depression Screening Done: Yes 26078 - PHQ-9 Billing: Yes Source: Developed by Drs. Nino Delatorre, Leena Espinosa, Bogdan Flores and colleagues, with an educational lalito from [employer]. Thrive Questionnaire Date Thrive assessed: 04/09/24 I am a: Patient What is your living situation today?: I have a steady place to live Within the past 12 months, did the food you bought not last and you didn't have the money to get more?: Never true Within the past 12 months, did you worry whether your food would run out before you got money to buy more?: Never true Do you have trouble paying for medicines?: No Do you have trouble getting transportation to medical appointments?: No Do you have trouble paying your heating and electricity bill?: No Do you have trouble taking care of your child, family member or friend?: No Do you have trouble with day-to-day activities such as bathing, preparing meals, shopping, managing finances, etc.?: Yes Are you currently unemployed and looking for a job?: No Are you interested in more education?: No Please select the resources that you would like help with: None Currently or been in a relationship where the following occur: No concerns reported THRIVE Score: 0 AUDIT C Alcohol Use Questionnaire (AUDIT-C) 1. How often do you have a drink containing alcohol?: 2-3 times a week 2. How many drinks containing alcohol do you have on a typical day when you are drinking?: 3 or 4 3. How often do you have six or more drinks on one occasion?: Monthly Total Score: 6 Score Reviewed/Action Taken: Yes JETT-7 AMB Questionnaire JETT-7 Date JETT - 7 assessed: 04/09/24 Feeling nervous, anxious, or on edge: 0 = Not at all Not being able to stop or control worryin = Not at all Worrying too much about different things: 0 = Not at all Trouble relaxin = Not at all Being so restless that it is hard to sit still: 0 = Not at all Becoming easily annoyed or irritable: 0 = Not at all Feeling afraid as if something awful might happen: 0 = Not at all Total JETT-7 score (0-4 normal; 5-9 mild; 10-14 moderate; 15-21 severe): 0 Source: Developed by Drs. Nino Delatorre, Leena Espinosa, Bogdan Flores and colleagues, with an educational lalito from [employer]. JETT-7 Assessment Billing JETT-7 Assessment Tool: JETT-7 Assessment 98578 Physical exam (Primary Care) Vital Signs: Last Vital Signs Pulse 107 H 04/09/24 09:24 BP 120/82 04/09/24 09:24 Pulse Ox 95 04/09/24 09:24 Oxygen Delivery Method Room Air 04/09/24 09:24 BMI result Body Mass Index 44.5 Tobacco/Smoking Status: Tobacco use Status Tobacco use date assessed 04/09/24 04/09/24 09:28 Patient Tobacco Use Status Former Tobacco user 04/09/24 09:28 Tobacco use type Cigarette 04/09/24 09:28 e-Cigarette/Vaping Use Never Used 04/09/24 09:28 PHQ-9: PHQ-9 Score PHQ-9: Total score 0 04/09/24 10:07 Depression Screening Interpretation: Negative Thrive Assessment: Date of Thrive Assessment Date Thrive assessed 04/09/24 04/09/24 09:28 Currently or been in a relationship where the following occur: No concerns reported Results Reviewed Results Reviewed: Laboratory Tests 04/09/24 10:22 WBC 6.1 RBC 5.10 Hgb 15.3 Hct 45.8 Plt Count 270 Sodium 141 Potassium 3.9 Chloride 105 Carbon Dioxide 29 Anion Gap 11 L BUN 15 Creatinine 0.95 Estimated GFR > 60 Random Glucose 157 H Hemoglobin A1c % 7.0 H Total Bilirubin 0.5 AST 26 ALT 35 Alkaline Phosphatase 74 Albumin 4.4 Coding Level of Care Code Est Pt Level 5 (60051) Diagnoses Hypertension, essential I10 Primary osteoarthritis of both knees M17.0 Osteoarthritis type: primary Lipid disorder E78.9 Diabetes mellitus type 2 in obese E11.69; E66.9 Additional Codes JETT-7 Assessment Billing - JETT-7 Assessment Tool: JETT-7 Assessment 39482 ([id number]) PHQ-9 - 66257 - PHQ-9 Billing: Yes ([id number]) Assessment & Plan Assessment & Plan (1) Hypertension, essential: Code(s): I10 - Essential (primary) hypertension Category: Medical (2) Osteoarthritis of knees, bilateral: Code(s): M17.0 - Bilateral primary osteoarthritis of knee Category: Medical Qualifiers: Osteoarthritis type: primary Qualified Code(s): M17.0 - Bilateral primary osteoarthritis of knee (3) Lipid disorder: Code(s): E78.9 - Disorder of lipoprotein metabolism, unspecified Category: Medical (4) Diabetes mellitus type 2 in obese: Code(s): E11.69 - Type 2 diabetes mellitus with other specified complication; E66.9 - Obesity, unspecified Category: Medical Plan Preop appointment - The patient is a 63-year-old male presenting with the need for preoperative evaluation and clearance for right knee arthroscopic partial meniscectomy. - The right knee medial meniscus tear was confirmed by MRI in February, with plans for surgery on the of the current month. - Osteoarthritis complicates management due to joint effusion and patellar chondromalacia. - The patient has previously received cortisone shots for pain relief. - There is a history of hypertension, managed with Losartan, and anemia previously identified via lab work. - patient also suffers from asthma however he is not using maintenance inhaler as he can not afford that Only using albuterol inhaler I have sent medication for his [employer] machine - diabetes mellitus stable EKG done today shows normal sinus rhythm minimal voltage criteria for LVH non specific T-wave abnormality prolonged QT interval at 464 millisecond Echocardiogram ordered Problem List - Right knee medial meniscus tear - Osteoarthritis of the right knee - Hypertension - asthma - Anemia - lipid disorder - allergies - testosterone deficiency Diagnostic results - MRI in February: Right knee medial meniscus tear - Lab tests September: Anemia noted, Kidney functions normal [facility] Urology client relation specialist Patient Instructions - Follow the preoperative instructions provided for the knee surgery. - Continue with current medications as prescribed. - Coordinate insurance details to ensure coverage pre and post-surgery. - Attend follow-up appointments for pulmonary concerns if symptoms worsen. Patient is stable for meniscal surgery knee 45 minute appointment including EKG evaluation and coordination of care Orders: Orders Complete Blood Count Auto Diff Today E11.69 - Type 2 diabetes mellitus with other specified complication, E66.9 - Obesity, unspecified, E78.9 - Disorder of lipoprotein metabolism, unspecified, I10 - Essential (primary) hypertension, M17.0 - Bilateral primary osteoarthritis of knee Comprehensive Met. Panel Today E11.69 - Type 2 diabetes mellitus with other specified complication, E66.9 - Obesity, unspecified, E78.9 - Disorder of lipoprotein metabolism, unspecified, I10 - Essential (primary) hypertension, M17.0 - Bilateral primary osteoarthritis of knee LDL Cholesterol Direct Today E11.69 - Type 2 diabetes mellitus with other specified complication, E66.9 - Obesity, unspecified, E78.9 - Disorder of lipoprotein metabolism, unspecified, I10 - Essential (primary) hypertension, M17.0 - Bilateral primary osteoarthritis of knee Hemoglobin A1c Today E11.69 - Type 2 diabetes mellitus with other specified complication, E66.9 - Obesity, unspecified, E78.9 - Disorder of lipoprotein metabolism, unspecified, I10 - Essential (primary) hypertension, M17.0 - Bilateral primary osteoarthritis of knee Microalbumin, Random (w Creat) Today .69 - Type 2 diabetes mellitus with other specified complication, E66.9 - Obesity, unspecified, E78.9 - Disorder of lipoprotein metabolism, unspecified, I10 - Essential (primary) hypertension, M17.0 - Bilateral primary osteoarthritis of knee CA echo transthoracic complete Today R94.31 - Abnormal electrocardiogram [ECG] [EKG] Medications: New ipratropium-albuterol 0.5 mg-3 mg(2.5 mg base)/3 mL 3 mL inhalation BID 30 days PRN 90 mL 0RF wheezing
--- OUTSIDE RECORDS SUMMARY | 2024-04-09 09:55 | XMS_ITS ---
Author Name [facility] Organization Unknown History of Medication Use Medication Directions Dispensed Refills Start Date End Date Stat us meloxicam (MOBIC) 15 MG tablet Take 1 tablet (15 mg total) by mouth daily. Take with food in the morning 01/24/2024 03/26/9999 active betamethasone acetate-betamethason e sodium phosphate (CELESTONE) injection 12 mg 12 mg, Intra-articular, Once PRN Procedure, Starting on 01/22/24 at 0915, For 1 dose 01/24/2024 03/26/9999 completed Problems Problem Status Onset Date Problem Type Date of Resoluti on Source Old peripheral tear of medial meniscus of right knee active [facility]
== END 2024-04-09 10:07 | disposition home or self-care (01) ==
PROVIDERS: PCP Internal Medicine; Visit Provider Internal Medicine
DX: I10 Essential (primary) hypertension (principal); M17.0 Bilateral primary osteoarthritis of knee; E78.9 Disorder of lipoprotein metabolism, unspecified; E11.69 Type 2 diabetes mellitus with other specified complication; E66.9 Obesity, unspecified

== ENCOUNTER → 2024-04-22 09:35 | Outpatient (REF) | payer BC, SELFPAY ==
--- NOTE | 2024-04-22 09:38 | CA_ITS ---
Transthoracic Echocardiogram Amended Patient (Last, First, Middle): Maninder Foley B Gender: Male Date of : 1960 Age: 63 Procedure Date: 04/22/2024 Procedure Type: Transthoracic Echocardiogram Location: OP Height: 177.8 cm Weight: 140.62 kg BSA: 2.51 m2 Heart Rate: bpm BP: 120 / 82 mmHg Plater Helper: ANURAG Referring MD: Papito Dawn MD Symptoms: R94.31 - Abnormal electrocardiogram [ECG] [EKG] Study Quality: Fair ECG Rhythm: Sinus Conclusions: - The left ventricular systolic function is low normal. The calculated ejection fraction is 53% by biplane method. - Possible basal inferior hypokinesis. - No obvious valvular pathology seen on this study. Findings Left Ventricle Normal left ventricular cavity size. There is mildly increased left ventricular wall thickness. The left ventricular systolic function is low normal. The calculated ejection fraction is 53% by biplane method. Regional wall motion abnormalities can not be excluded due to suboptimal endocardial definition. Evidence suggests grade I (mild) diastolic dysfunction. Possible basal inferior hypokinesis. Right Ventricle Normal right ventricular cavity size and systolic function. Atria Both atria are normal in size. Aortic Valve There is a normal trileaflet aortic valve. There is no aortic valve stenosis. There is no aortic valve regurgitation. Mitral Valve The mitral valve appears normal. There is trace mitral valve regurgitation. There is no mitral valve stenosis. Pulmonic Valve The pulmonic valve is likely normal. There is trace pulmonic valve regurgitation. Tricuspid Valve Normal tricuspid valve structure. There is no tricuspid valve regurgitation. Tricuspid regurgitation envelope is inadequate for calculation of right ventricular systolic pressure. Great Vessels The asc aorta is normal in size. Venous The inferior vena cava is normal in size and collapses greater than 50% with inspiration. Pericardium/Pleural There is no evidence of pericardial effusion. Prior Study Comparison No prior study available for comparison. Recommendations, Care & Conclusions No obvious valvular pathology seen on this study. Measurements 2D Linear Measurements IVSd: 1.11 0.6-0.9/0.6-1.0 cm LVIDd: 5.46 3.9-5.3/4.2-5.9 cm LVIDd Index: 2.18 2.4-3.2/2.2-3.1 cm/m2 LVIDs: 3.50 2.0-3.6 cm LVPWd: 1.09 0.7-1.1 cm LA Diam: 4.00 2.7-3.8/3.0-4.0 cm LAIDs Index: 1.59 1.5-2.3 cm/m2 LV Mass: 298.15 67-162/88-224 g LV Mass Index: 118.79 43-95/49-115 g/m2 LVOT Diam: 2.50 3.0+(-)1.3 cm 2D Volumes LA Vol: 21.60 2D Systolic Function EF 4C: 56.00 >55% EF 2C: 50.60 >55% EF BiP: 52.70 >55% Mitral Valve MV Pk E: 0.64 MV PK A: 0.92 MV Decel Time: 224.00 E/A: 0.70 E'Lateral: 8.27 E'Medial: 5.00 E/E' Med: 12.80 E/E' Lat: 7.70 PHT: 66.00 MVA PHT: 3.33 Decel [place]: 2.85 Aortic Valve AoV Pk Efra: 1.21 AoV Mn Efra: 0.97 AoV VTI: 0.26 AoV Pk Grad: 6.00 Aov Mn Grad: 4.00 JESSICA Cont.VTI: 3.22 LVOT LVOT Pk Efra: 0.82 LVOT Mn Efra: 0.54 LVOT VTI: 0.17 LVOT Pk Grad: 3.00 LVOT Mn Grad: 1.00 LVOT Diam: 2.50 LVOT Area: 4.91 Diastolic Function MV Pk E: 0.64 MV Pk A: 0.92 E/A: 0.70 E'Medial: 5.00 E/E' Med: 12.80 E' Laterial: 8.27 E/E' Lat: 7.70 Right Ventricle TAPSE (mm): 21.40 TVS' Efra: 13.10 Tricuspid Valve RA Press: 3.00 Great Vessels Aorta Sinus of Valsalva: 4.09 2.0-3.[address] [place]: 3.24 1.7-3.4 cm Ao Asc: 3.90 2.1-3.4 cm Updated in Other Vendor System with Status of Final Pacheco Lynch MD electronically signed on 04/22/2024 12:04:46 PM with status of Final
--- OUTSIDE RECORDS SUMMARY | 2024-04-22 13:57 | XMS_ITS | Patient Health Record ---
Author Organization [facility] Address [address] [place] [phone] Care Team Providers Care Hand Almond Blancher Name Role Phone L[facility]pez FLOWER[facility] Primary [facility] Provider Nino Sy [phone] ALLERGIES Allergen (clinical drug ingredient) Drug/Non Drug Allergy documented on EMR Reaction Allergy Type Onset Date Status amoxicillin / clavulanate Augmentin Unknown Drug Allergy Active aspirin Aspirin Unknown Drug Allergy Active REASON FOR REFERRAL No Information MEDICATIONS Medication SIG (Take, Route, Frequency, Duration) Notes Start Date End Date Status Advil 200 MG 1 tablet with food o r milk as needed Orally Three times a day/prn Active Losartan Potassium-HCTZ 100-12.5 MG Oral for 90 Active ProAir HFA 108 (90 Base) MCG/ACT 2 puffs as needed Inhalation every 4 hrs Active Atorvastatin Calcium 20 MG TAKE 1 TABLET BY MOUTH EVERY DAY Oral for 90 Active Fluticasone Propionate 50 MCG/ACT USE 1 SPRAY IN EACH NOSTRIL TWICE DAILY Nasal for 30 Active IMMUNIZATIONS Vaccine Route Administration Date Status Comme nts Influenza Unknown 11/25/2020 Administered SOCIAL HISTORY Sex Assigned At : Social History Observation Description Sex Assigned At Unknown Alcohol Screen Question Answer Notes Did you have a drink contain ing alcohol in the past year? Yes How often did you have a dri nk containing alcohol in the past year? 2 to 3 times a week (3 points) How many drinks did you have on a typical day when you were drinking in the past year? 5 or 6 drinks (2 points) How often did you have 6 or more drinks on one occasion in the past year? Never (0 point) Points 5 Interpretation Positive PROBLEMS Problem Type ICD Code Onset Dates Problem Status W/U Status Risk SNOMED Code Notes Problem Encounter for screening for malignant neoplasm of colon (Z12.11) Active confirmed 321491352 Problem Preprocedural examination (Z01.818) Active confirmed [id number] Problem Family history of colon cancer (Z80.0) Active confirmed 456592230 Problem Hx of adenomatous colonic polyps (Z86.010) Active confirmed 646305533 Problem Diverticulosis of colon (K57.30) Active confirmed Diverticulosi s of colon (321774582) PLAN OF TREATMENT Pending Test Test Name Order Date Pathology 07/19/2021 Future Test Test Name Order Date COLONOSCOPY 01/08/2014 COLONOSCOPY 09/12/2017 COLONOSCOPY 06/24/2021 Insurance Providers Payer Name Payer Address Payer Phone Subscriber Number Group Number Insured Name Patient Relationship to Insured Coverage Start Date Coverage End Date [facility] [employer] PROF[employer]AL CLAIMS [address] [place] [address] [id number] NIKKO MONTES Self - patient is the insured MEDICAL (GENERAL) HISTORY Medical History History ICD Code Tubular adenomas removed in 2004--one was a 1.5 cm sigmoid tubular adenoma and the other was a small tubular adenoma in the same area--neg colonoscopy in 04/2009 except for hyperplastic polyps; colonoscopy in 04/2014 with a > 1.0 cm serrated adenoma removed form the ascending colon, as well as a small tubular adenoma Denies CT,DM,CVA,renal disease Asthma---inhaler prn Rheumatoid arthritis--had to stop Methot rexate and Enbrel due to pneumonia Hypertension Negative colonoscopy in 03/2017 Surgical History Surgery Date(Month/Year) 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 Banuelos Hand surgery Left knee replacement 08/2020
--- OUTSIDE RECORDS SUMMARY | 2024-04-22 13:57 | XMS_ITS | Encounter Summary ---
Author Organization [facility] Address [address] [place] [address] Care Team Providers Care Special Order Jeweler Name Role Phone Papito Dawn MD Primary Care Provider [phone] Encounter Details Date Type Department Care Team (Late st Contact Info) Description 04/10/2024 Scanned Document [facility] [address] [phone] Fer Sanchez MD [address] [place] [phone] Social History Tobacco Use Types Packs/Day Years Used Date Smoking Tobacco: Never Assessed Sex and Gender Information Value Date Recorded Sex Assigned at Male 04/02/2024 3:34 PM EST Gender Identity Male 04/02/2024 3:34 PM EST Sexual Orientation Choose not to disclose 2024 3:34 PM EST documented as of this encounter Plan of Treatment Upcoming Encounters Date Type Department Care Team (Late st Contact Info) Description 04/24/2024 2:30 PM EST Appointment [address] [phone] Fer Sanchez MD [address] [place] [phone] 04/29/2024 2:00 PM EST Office Visit [facility] [address] [phone] Bibi Guidry APRN [address] [phone] documented as of this encounter Visit Diagnoses Not on filedocumented in this encounter Care Teams Special Order Jeweler Relationship Specialty Start Date End Date Papito Dawn MD [facility] [place] [address] PCP - General Internal Medicine 01/18/24 documented as of this encounter
--- OUTSIDE RECORDS SUMMARY | 2024-04-22 13:57 | XMS_ITS | Encounter Summary ---
Author Organization [facility] Address [address] [place] [address] Care Team Providers Care Saloonkeeper Name Role Phone Papito Dawn MD Primary Care Provider [phone] Reason for Referral * Outpatient Surgery (Routine) - Pending Review Specialty Diagnoses / Procedures Referred By Staci delgado Referred To Contact Orthopedic Surgery Diagnoses Old peripheral tear of medial meniscus of right knee Fer Sanchez MD [address] [place] [address] Referral ID Status Reason Start Date Expiration Date V isits Requested Visits Authorized [id number] Pending Review 04/02/2024 04/03/2025 1 1 Question Answer Primary Procedure: 15485 - ARTHROSC KNEE WITH Additional Procedure(s): None Procedure: RIGHT KNEE ARTHROSCOPIC PARTIAL MENISCECTOMY Surgery Date 04/24/2024 Laterality: Right [place] [facility] [place] Admission: Outpatient Anesthesia: GENERAL Workers Comp? No Equipment: STANDARD KNEE SCOPE SET UP PA Assist: BIBI HUBBARD Reason for Visit * Reason Comments Pain * Sports Medicine (Routine) - Pending Review Specialty Diagnoses / Procedures Referred By Staci delgado Referred To Contact Sports Medicine Diagnoses Primary osteoarthritis of right knee Daniel Telles PA-C [address] [facility] [address] [place] [address] Fer Sanchez MD [address] [address] Referral ID Status Reason Start Date Expiration Date Visits Requested Visits Authorized [id number] Pending Review Consult 03/13/2024 03/14/2025 1 1 Encounter Details Date Type Department Care Team (Late st Contact Info) Description 04/02/2024 1:45 PM EST Consult Orthopedic [address] [phone] Fre Sanchez MD 31 [facility] [address] [place] [address] Old peripheral tear of medial meniscus of right knee (Primary Dx) Social History Tobacco Use Types Packs/Day Years Used Date Smoking Tobacco: Never Assessed Sex and Gender Information Value Date Recorded Sex Assigned at Male 04/02/2024 3:34 PM EST Gender Identity Male 04/02/2024 3:34 PM EST Sexual Orientation Choose not to disclose 2024 3:34 PM EST documented as of this encounter Progress Notes * Fer Sanchez MD - 04/02/2024 1:45 PM EST Images from the original note were not included. [facility] [address] [facility] [address] [phone] Encounter Date: 04/02/2024 History of Present Illness: Maninder Foley is a very pleasant 63 y.o. male who presents today for sports medicine consultation for right knee medial meniscus tear. He reports that 3 months ago he injured his knee resulting in severe pain in the medial aspect of his knee. He underwent conservative management. He had a corticosteroid injection with only a few days of improvement. His symptoms have been getting worse. He is severely functionally limited. He has been using a cane. He was seen by Daniel Telles and referred for an MRI to rule out meniscus tear. Physical Exam Pertinent findings from physical examination include: He ambulates with a antalgic gait. He is using a cane. His skin is intact. There is no erythema or warmth. He has a moderate effusion. He has medial joint line tenderness. Positive Mariella test. Knee range of motion is 0 to 90 degrees of flexion. He is able perform a straight leg raise. Distal neurovascular examination is normal. Imaging/ Diagnostic Data Imaging Impression: We reviewed his MRI. He has a tear of the medial meniscus with a displaced flapinto the meniscotibial recess. He has early patellofemoral arthritis. Assessment & Plan 1. Old peripheral tear of medial meniscus of right knee Maninder Foley has a medial meniscus tear. He has failed conservative management. We discussed consideration for an arthroscopic partial meniscectomy. We discussed how the surgery is performed as well as reasonable risks that include infection, recurrent tear, persistence of pain, blood clots, and risks of anesthesia. He acknowledged understanding and does wish to proceed with surgery. Will plan for arthroscopic partial meniscectomy in the near future. Please excuse any minor typos or inconsistencies you may find as this note was dictated using voicerecognition software. Visit Orders. 1. Old peripheral tear of medial meniscus of right knee Past Medical History No past medical history on file. No past surgical history on file. No family history on file. Medication List Current Outpatient Medications: meloxicam (MOBIC) 15 MG tablet, Take 1 tablet (15 mg total) by mouth daily. Take with food in the morning, Disp: 14 tablet, Rfl: 0 Allergies No Known Allergies Carlito Sanchez MD, DPT Office phone: [phone] Email: [email or web address] documented in this encounter Miscellaneous Notes * Addendum Note - Veronica Fitzpatrick MA - 04/02/2024 1:45 PM ESTAddended by: VERONICA FITZPATRICK on: 04/02/2024 03:38 PM Modules accepted: Orders documented in this encounter Plan of Treatment Upcoming Encounters Date Type Department Care Team (Late st Contact Info) Description 04/24/2024 2:30 PM EST Appointment [address] [phone] Fer Sanchez MD [address] [address] 04/29/2024 2:00 PM EST [facility] [address] [phone] Bibi Hubbard APRN [address] [place] [address] [place] [phone] Scheduled Referrals Name Type Priority Associated Diagnoses Order Schedule RIGHT KNEE ARTHROSCOPIC PARTIAL MENISCECTOMY Outpatient Referral Routine Old peripheral tear of medial meniscus of right knee Ordered: 04/02/2024 documented as of this encounter Visit Diagnoses Diagnosis Old peripheral tear of medial meniscus of right knee- Primary documented in this encounter Care Teams Saloonkeeper Relationship Specialty Start Date End Date Papito Dawn MD [address] [place] [address] PCP - General Internal Medicine 01/18/24 documented as of this encounter
--- OUTSIDE RECORDS SUMMARY | 2024-04-22 13:57 | XMS_ITS | Clinical Summary ---
Author Organization [facility] Address [address] [place] [address] Care Team Providers Care Aerial Erector Name Role Phone Papito Dawn MD Primary Care Provider [phone] Allergies Active Allergy Reactions Criticality Noted Date Comments Amoxicillin Hives Medium 04/22/2024 Aspirin Anaphylaxis High 04/22/2024 Medications Medication Sig Dispensed Refills Start Date End Date Status meloxicam (MOBIC) 15 MG tabletIndications:St atus post left knee replacement Take 1 tablet (15 mg total) by mouth daily. Take with food in the morning 14 tablet 01/22/2024 Active ibuprofen (MOTRIN) 800 mg tabletIndications:Ol d peripheral tear of medial meniscus of right knee Take 1 tablet (800 mg total) by mouth 3 times daily (every 8 hours) as needed for mild pain. 60 tablet 04/22/2024 Active oxyCODONE (ROXICODONE) 5 MG immediate release tabletIndications:Ol d peripheral tear of medial meniscus of right knee Take 1-2 tablets (5-10 mg total) by mouth every 4 (four) hours as needed for moderate pain or severe pain. Max Daily Amount: 60 mg 10 tablet 04/22/2024 04/25/2024 Active Encounters Date Type Department Care Team Description 04/22/2024 Orders Only Orthopedic [address] [phone] Bibi Guidry APRN Old peripheral tear of medial meniscus of right knee (Primary Dx) 04/10/2024 Scanned Document Orthopedic [address] [phone] Fer Sanchez MD 04/02/2024 1:45 PM EST Consult Orthopedic [address] [place] [address] Fer Sanchez MD Old peripheral tear of medial meniscus of right knee (Primary Dx) 03/13/2024 Telephone [facility] [address] [phone] Daniel Telles PA-C 03/13/2024 Orders Only [facility] [address] [phone] Daniel Telles PA-C 02/26/2024 11:00 AM EST Office Visit [facility] [address] [phone] Daniel Telles PA-C Primary osteoarthritis of right knee (Primary Dx) 02/26/2024 10:55 AM EST Ancillary Procedure [facility] [address] [phone] 02/20/2024 Telephone [facility] [address] [phone] Daniel Telles PA-C 01/22/2024 9:15 AM EDT Office Visit [facility] [address] [phone] Daniel Telles PA-C Status post left knee replacement (Primary Dx); Primary osteoarthritis of right knee from Last 3 Months Social History Tobacco Use Types Packs/Day Years Used Date Smoking Tobacco: Never Assessed Sex and Gender Information Value Date Recorded Sex Assigned at Male 04/02/2024 3:34 PM EST Gender Identity Male 04/02/2024 3:34 PM EST Sexual Orientation Choose not to disclose 2024 3:34 PM EST Plan of Treatment Upcoming Encounters Date Type Department Care Team (Late st Contact Info) Description 04/24/2024 2:30 PM EST Appointment [facility] [address] [place] [address] Fer Sanchez MD [address] [facility] [address] [place] [address] 04/29/2024 2:00 PM EST [facility] [address] [phone] Bibi Guidry APRN [address] [facility] [address] [place] [address] Health Maintenance Due Date Last Done Comments Hepatitis C Virus Screening 1962 HIV Screening 10/29/1975 DTaP/Tdap/Td Vaccines (1 - Tdap) 1981 Colonoscopy 10/29/2007 Pneumococcal Vaccines 50+ (1 of 1 - PCV) 2012 Zoster (Shingles) Vaccine (1 of 2) 2012 RSV Vaccine 60 years and old er and Patients (1 - Risk 60-74 years 1-dose series) 2022 Influenza Vaccine 10/26/2023 11/25/2020 COVID-19 Vaccine ( - 2023-2 5 season) 2023 Hepatitis B Vaccines Aged Out No long er eligible based on patient's age to complete this topic Procedures Procedure Name Priority Date/Time Associated Diagnosis Comments MRI KNEE W/O CONTRAST-RIGHT Routine 03/08/2024 1:14 PM EST Primary osteoarthritis of right knee XR KNEE 4+ VIEWS-RIGHT Routine 10:58 AM EST Primary osteoarthritis of right knee RI ARTHROCENTESIS ASPIR&/INJ MAJOR JT/BURSA W/O US Routine 01/22/2024 9:15 AM EDT Primary osteoarthritis of right knee from Last 3 Months Results * MRI Knee w/o contrast-Right (03/08/2024 1:14 PM EST) Anatomical Region Laterality Modality Knee Right Magnetic Resonan ce 03/08/2024 12:4 5 PM EST 03/08/2024 12:45 PM EST Impressions 03/11/2024 10:31 AM EST 1. ??Posterior horn and body medial meniscal tear. 2. ??Osteoarthritis with grade 4 patellar chondromalacia. 3. ??Joint effusion. RECOMMENDATIONS: ?? Electronically signed by: ??Tom Burk MD ??03/11/2024 10:31 AM EST Thank you for referring your patient to us, Tom Burk MD [phone] (Electronically Signed - 03/11/2024 10:31) Copy: ARIELLE BURNETTE [facility] [address] [place] [address] PATIENT , ?? Narrative 03/11/2024 10:31 AM EST EXAMINATION: MR RT KNEE WITHOUT CONTRAST CLINICAL HISTORY: Unilateral primary osteoarthritis, right knee COMPARISON: January 08, 2024 TECHNIQUE: Multiplanar, multisequence imaging of the right knee was performed without intravenous gadolinium. ?? FINDINGS: MENISCI: Oblique tear posterior horn of the medial meniscus extending to the inferior articular margin and posterior free edge. The tear extends to involve the posterior body of the medial meniscus. The anterior horn is intact. The lateral meniscus is intact. CRUCIATE LIGAMENTS: The anterior and posterior cruciate ligaments are normal in signal, morphology and course. EXTENSOR MECHANISM: The quadriceps and patellar tendons are intact. The medial and lateral patellar retinacular fibers are intact. LATERAL COLLATERAL LIGAMENT COMPLEX: The popliteus tendon, biceps femoris tendon, fibular collateral ligament and iliotibial band are intact. MEDIAL COLLATERAL LIGAMENT COMPLEX: The superficial and deep components of the medial collateral ligament are intact. KNEE JOINT: Small joint effusion with no significant communicating Bakers cyst. No synovitis or intra-articular body. Mild arthritic changes asymmetrically to involve the patellofemoral joint space. The lateral patellar facet demonstrates full-thickness cartilage loss with fissuring and chondral flap at the apex. The lateral and medial compartment cartilage are generally maintained. BONE MARROW: The bone marrow signal is commensurate with the degree of arthritic change and chondral loss. Procedure Note Tom Burk MD - 03/11/2024 EXAMINATION: MR RT KNEE WITHOUT CONTRAST CLINICAL HISTORY: Unilateral primary osteoarthritis, right knee COMPARISON: January 08, 2024 TECHNIQUE: Multiplanar, multisequence imaging of the right knee wasperformed without intravenous gadolinium. FINDINGS: MENISCI: Oblique tear posterior horn of the medial meniscus extending tothe inferior articular margin and posterior free edge. The tear extends toinvolve the posterior body of the medial meniscus. The anterior horn isintact. The lateral meniscus is intact. CRUCIATE LIGAMENTS: The anterior and posterior cruciate ligaments arenormal in signal, morphology and course. EXTENSOR MECHANISM: The quadriceps and patellar tendons are intact. Themedial and lateral patellar retinacular fibers are intact. LATERAL COLLATERAL LIGAMENT COMPLEX: The popliteus tendon, biceps femoristendon, fibular collateral ligament and iliotibial band are intact. MEDIAL COLLATERAL LIGAMENT COMPLEX: The superficial and deep components ofthe medial collateral ligament are intact. KNEE JOINT: Small joint effusion with no significant communicating Bakerscyst. No synovitis or intra-articular body. Mild arthritic changesasymmetrically to involve the patellofemoral joint space. The lateralpatellar facet demonstrates full- thickness cartilage loss with fissuring and chondral flap at the apex. The later[place] medial compartment cartilage are generally maintained. BONE MARROW: The bone marrow signal is commensurate with the degree ofarthritic change and chondral loss. IMPRESSION: 1. Posterior horn and body medial meniscal tear. 2. Osteoarthritis with grade 4 patellar chondromalacia. 3. Joint effusion. RECOMMENDATIONS: Electronically signed by: Tom Burk MD 03/11/2024 10:31 AM EST RPWorkstation: [id number] Thank you for referring your patient to us, Tom Burk MD [id number] (Electronically Signed - 03/11/2024 10:31) Copy: ARIELLE BURNETTE [facility] [address] [place] [address] PATIENT , Daniel Telles PA-C [facility] MRI ORDERABLES * XR Knee 4+ views-Right (02/26/2024 10:58 AM EST) Narrative [facility] - 02/26/2024 10:58 AM EST This exam was performed in office at [facility] and images reviewed by orthopedic provider. ??Any findings are documented within ambulatory encounter note on date of service. Daniel Telles PA-C IMG DIAGNOSTIC MAXIMUS GING ORDERABLES OAH * RI ARTHROCENTESIS ASPIR&/INJ MAJOR JT/BURSA W/O US (01/22/2024 9:15 AM EDT) Narrative Daniel Telles PA-C - 01/22/2024 9:15 AM EDT Daniel Telles PA-C ? 01/22/2024 12:46 PM Lg Joint Arthro: R knee on 01/22/2024 9:15 AM Indications: pain Details: 22 G needle, anterolateral approach Medications: 12 mg betamethasone acetate-betamethasone sodium phosphate 6 (3-3) MG/ML Outcome: tolerated well, no immediate complications We discussed that diabetic patients may experience elevation in blood sugars with steroid injection and that the patient should monitor their blood sugars accordingly. Risks of infection, bleeding, injury, failure of the injection to work were reviewed and understood. They understand the injection may take a few days to work and will last for a variable amount of time, typically between 3-6 months for most patients. It will not relieve all pain but can improve symptoms. Procedure, treatment alternatives, risks and benefits explained, specific risks discussed. Consent was given by the patient. Immediately prior to procedure a time out was called to verify the correct patient, procedure, equipment, ground support equipment fitter and site/side marked as required. Daniel Telles PA-C PROCEDURE/MINOR REIS RGICAL ORDERABLES from Last 3 Months Care Teams Aerial Erector Relationship Specialty Start Date End Date Papito Dawn MD [address] [place] [address] PCP - General Internal Medicine 01/18/24
--- OUTSIDE RECORDS SUMMARY | 2024-04-22 13:57 | XMS_ITS | Encounter Summary ---
Author Organization [facility] Address [address] [place] [address] Care Team Providers Care Printing Assistant Name Role Phone Papito Dawn MD Primary Care Provider [phone] Encounter Details Date Type Department Care Team (Late st Contact Info) Description 04/22/2024 Orders Only [facility] [address] [phone] Bibi Guidry APRN [address] [address] Old peripheral tear of medial meniscus of [...] Info) Description 04/24/2024 2:30 PM EST Appointment [facility] [address] [place] [address] Fer Sanchez MD [address] [address] 04/29/2024 2:00 PM EST [facility] [address] [phone] Bibi Guidry APRN [address] [address] documented as of this encounter Visit Diagnoses Diagnosis Old peripheral tear of medial meniscus of right knee- Primary documented in this encounter Care Teams Printing Assistant Relationship Specialty Start Date End Date Papito Dawn MD [address] [place] [address] PCP - General Internal Medicine 01/18/24 documented as of this encounter
== END ==
LOC: HO.CARD 09:35
PROVIDERS: PCP Internal Medicine; Visit Provider Internal Medicine
DX: R94.31 Abnormal electrocardiogram [ECG] [EKG] (principal)
CPT/HCPCS: 93306

== ENCOUNTER 2024-05-06 15:29 | Outpatient (AMB) | payer BC, SELFPAY ==
--- NOTE | 2024-05-06 15:29 | MHC.OFFVIS ---
Intake Visit Reasons: 3m/Testo Intake Note: Patient is present for 3m Testosterone Urology Medication:TESTOSTERONE Antibiotic Allergy:AMOXICILLIN Blood Thinner:NONE Rn Liaison Required: No Allergies amoxicillin [Augmentin] Allergy (Intermediate, Verified 05/06/24 15:30) rash aspirin [ASPIRIN] Allergy (Intermediate, Verified 05/06/24 15:30) WHEEZING clavulanic acid [Augmentin] Allergy (Intermediate, Verified 05/06/24 15:30) rash Iodinated Contrast Media [IODINATED CONTRAST MEDIA - IV DYE] Allergy (Intermediate, Verified 05/06/24 15:30) NAUSEA shellfish dye Allergy (Intermediate, Uncoded 05/06/24 15:30) nausea, wheezing Medication List - Last Reconciled 05/06/24 by Sherrie Godfrey MD albuterol sulfate 90 mcg/actuation 2 puffs inhalation Q6-8H PRN albuterol sulfate 90 mcg/actuation 1 inh inhalation QID PRN atorvastatin 20 mg PO DAILY 90 days budesonide-formoterol 80-4.5 mcg/actuation 1 inh inhalation BID cetirizine (Zyrtec) 10 mg PO DAILY fluticasone propion-salmeterol 250-50 mcg/dose (Advair Diskus) 1 inh inhalation Q12H 30 days fluticasone propionate 50 mcg/actuation (Flonase Allergy Relief) 1 spray intranasal BID 30 days ipratropium-albuterol 0.5 mg-3 mg(2.5 mg base)/3 mL 3 mL inhalation BID PRN 30 days losartan-hydrochlorothiazide 100-12.5 mg 1 tab PO DAILY 90 days testosterone cypionate (Depo-Testosterone) 200 mg IM QWEEK 4 weeks HPI Comments Details: 05/06/2024--telehealth follow-up: Maninder is a 63-year-old male who I am following for low testosterone he was started on testosterone replacement. He states that since he was last seen in the office he had right knee surgery at [facility]. He had blood work ---testosterone level 04/09/2024 total testosterone 93 free testosterone 13.4 also noted hemoglobin A1c elevated 7.0. Serum testosterone levels remain very low on testosterone gel replacement. Patient continues to have symptoms of fatigue and low libido. Will change testosterone replacement therapy delivery to Depo-Testosterone 200 mg IM q.week Repeat labs in 1 month. 10/28/24-- Telehealth FU. Initial evaluation on 12/18/23--for low testosterone. Maninder is a 63-year-old male who is here for evaluation due to low testosterone. 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 He has a prosthesis. He has 3 daughters. Obesity, he states he has been inactive for the last few years due to multiple medical issues including eye surgeries and a knee replacement UC in the ER for and gained alot of weight. I have discussed medical reasons that low testosterone may occur as well as some risks related to testosterone replacement. I have reviewed labs today 01/22/24--PSA 0.72 ng/mL, total and free testosterone remains low at 132 and 24; FSH and LH are within normal limits. Plan will prescribe testosterone injection weekly repeat free and total testosterone in 3 months. [facility] Medical History COLETTE (obstructive sleep apnea) COVID-19 vaccine series completed Snores Rheumatoid arthritis Fuchs' syndrome II Raynauds disease Osteoarthritis of both knees Asthma HTN (hypertension) Primary osteoarthritis of left knee Surgical History Hx of total knee replacement History of removal of testicle History of knee surgery History of colonoscopy History of trigger finger History of lipoma Family History Father Colon cancer Myocardial infarction Mother Colon cancer HTN (hypertension) Diabetes mellitus Sister Breast cancer Crohn's disease Sister Breast cancer Crohn's disease Brother CHF (congestive heart failure) Smoker Rheumatic fever Maternal Grandmother No problems noted. Maternal Grandfather No problems noted. Paternal Grandmother No problems noted. Paternal Grandfather Emphysema, unspecified Brother No problems noted. Sister No problems noted. Daughter No problems noted. Daughter No problems noted. Daughter No problems noted. Daughter No problems noted. 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 Cognitive needs: No Hearing needs: No Vision needs: Yes Review of Systems Const All systems reviewed & are unremarkable except as noted in HPI and below Reports no additional complaints Eyes Reports no additional complaints ENT Reports no additional complaints Card Reports no additional complaints Resp Reports no additional complaints GI Reports no additional complaints Reports as per HPI Musc Reports no additional complaints Skin/Breast Reports system reviewed and no additional complaints, except as documented Neuro Reports no additional complaints Psych Reports no additional complaints Endo Reports no additional complaints Rusty/Lymph Reports no additional complaints Aller/Immun Reports no additional complaints Assessment & Plan Assessment & Plan (1) Low testosterone: Code(s): R79.89 - Other specified abnormal findings of blood chemistry Category: Medical (2) Long-term current use of testosterone replacement therapy: Code(s): Z79.890 - Hormone replacement therapy Category: Medical Plan Serum testosterone levels remain very low on testosterone gel replacement. Patient continues to have symptoms of fatigue and low libido. Will change testosterone replacement therapy delivery to Depo-Testosterone 200 mg IM q.week Repeat labs in 1 month. Orders: Orders Testosterone, Free/Total 4 Weeks R79.89 - Other specified abnormal findings of blood chemistry Hematocrit 4 Weeks Z79.890 - Hormone replacement therapy Medications: New testosterone cypionate (Depo-Testosterone) 200 mg IM QWEEK 4 weeks 4 mL 1RF Discontinued testosterone Discontinued Reason: Doctor's Order 2 pumps topical DAILY 30 days 75 grams 2RF Patient Instructions: The patient had an opportunity to ask questions regarding treatment plan. The patient expressed understanding and agreement with the above treatment plan. The patient is aware they should contact our office by phone for worsening of their current condition or the appearance of new symptoms. Compliance is encouraged with any medications and followup testing that is ordered. It is a privilege to be allowed the opportunity to participate in the urologic care of your patient. If you have any questions or concerns regarding treatment for the above conditions please do not hesitate to contact me. The office telephone contact is [phone]. This note is constructed in part using voice recognition software. While every effort has been made to ensure accuracy chief diversity officer errors may have been included. Yours sincerely, Sherrie Godfrey MD Coding Level of Care Code Tele Est Pt Level 4 (18455) Complex EM visit Add On G2211 Diagnoses Low testosterone R79.89 Long-term current use of testosterone replacement therapy Z79.890
--- OUTSIDE RECORDS SUMMARY | 2024-05-06 16:23 | XMS_ITS | Encounter Summary ---
Author Organization [facility] Address [address] [place] [address] Care Team Providers Care Automation Lead Name Role Phone Papito Dawn MD Primary Care Provider [phone] Encounter Details Date Type Department Care Team (Late st Contact Info) Description 04/25/2024 Scanned Document [facility] [address] [phone] Fer Sanchez MD [address] [place] [address] Social History Tobacco Use Types Packs/Day Years [...] Care Team (Late st Contact Info) Description 06/10/2024 3:30 PM EDT [facility] Visit [facility] [address] [phone] Bibi Guidry APRN [address] [address] documented as of this encounter Visit Diagnoses Not on filedocumented in this encounter Care Teams Automation Lead Relationship Specialty Start Date End Date Papito Dawn MD [address] [place] [address] PCP - General Internal Medicine 01/18/24 documented as of this encounter
--- OUTSIDE RECORDS SUMMARY | 2024-05-06 16:23 | XMS_ITS | Encounter Summary ---
Author Organization [facility] Address [address] [place] [address] Care Team Providers Care Technical Services Assistant Name Role Phone Papito Dawn MD Primary Care Provider [phone] Encounter Details Date Type Department Care Team (Late Contact Info) Description 04/24/2024 Scanned Document [facility] [address] [phone] Fer Sanchez MD [address] [place] [address] Social History Tobacco Use Types Packs/Day Years Used Date Smoking Tobacco: Never Assessed Sex and Gender Information Value Date Recorded Sex Assigned at Male 04/02/2024 3:34 PM EST Gender Identity Male 04/02/2024 3:34 PM EST Sexual Orientation Choose not to disclose 2024 3:34 PM EST documented as of this encounter Plan of Treatment Upcoming Encounters Date Type Department Care Team (Late Contact Info) Description 06/10/2024 3:30 PM EDT [facility] Visit [facility] [address] [phone] Bibi Guidry APRN [address] [place] [phone] documented as of this encounter Visit Diagnoses Not on filedocumented in this encounter Care Teams Technical Services Assistant Relationship Specialty Start Date End Date Papito Dawn MD [facility] [place] [address] PCP - General Internal Medicine 01/18/24 documented as of this encounter
--- OUTSIDE RECORDS SUMMARY | 2024-05-06 16:23 | XMS_ITS | Encounter Summary ---
Author Organization [facility] Address [address] [place] [address] Care Team Providers Care Chef Name Role Phone Papito Dawn MD Primary Care Provider [phone] Encounter Details Date Type Department Care Team (Late st Contact Info) Description 04/25/2024 Scanned Document [facility] [address] [phone] Fer Sanchez MD [address] [place] [address] Social History Tobacco Use Types Packs/Day Years [...] 3:30 PM EDT [facility] Visit [facility] [address] [phone] Bibi Guidry APRN [address] [address] documented as of this encounter Visit Diagnoses Not on filedocumented in this encounter Care Teams Chef Relationship Specialty Start Date End Date Papito Dawn MD [address] [place] [address] PCP - General Internal Medicine 01/18/24 documented as of this encounter
--- OUTSIDE RECORDS SUMMARY | 2024-05-06 16:23 | XMS_ITS | Encounter Summary ---
Author Organization [facility] Address [address] [place] [address] Care Team Providers Care Storage Center Manager Name Role Phone Papito Dawn MD Primary Care Provider [phone] Encounter Details Date Type Department Care Team (Late st Contact Info) Description 04/22/2024 Orders Only [facility] [address] [phone] Bibi Guidry APRN [address] [place] [address] Old peripheral tear of medial meniscus of [...] 3:30 PM EDT [facility] Visit [facility] [address] [phone] Bibi Guidry, MELTER SUPERVISOR [address] [address] documented as of this encounter Visit Diagnoses Diagnosis Old peripheral tear of medial meniscus of right knee- Primary documented in this encounter Care Teams Storage Center Manager Relationship Specialty Start Date End Date Papito Dawn MD [address] [place] [address] PCP - General Internal Medicine 01/18/24 documented as of this encounter
--- OUTSIDE RECORDS SUMMARY | 2024-05-06 16:23 | XMS_ITS | Encounter Summary ---
Author Organization [facility] Address [address] [place] [address] Care Team Providers Care Painter And Paperhanger Apprentice Name Role Phone Papito Dawn MD Primary Care Provider [phone] Reason for Visit * Reason Comments Post-op Encounter Details Date Type Department Care Team ([facility] st Contact Info) Description 04/29/2024 2:00 PM EST Office Visit [facility] [address] [phone] Bibi Guidry APRN [address] [place] [address] [place] [address] Old peripheral tear of medial meniscus of [...] as of this encounter Progress Notes * Bibi Guidry APRN - 04/29/2024 2:00 PM EST Images from the original note were not included. [address] [facility] [address] [phone] 04/29/2024 History of Present Illness: Maninder returns to the office 1 week after a knee arthroscopy. Status post a right knee arthroscopic partial medial meniscectomy performed on April 24, 2024. Pain is controlled. They have no chest pain, shortness of breath, and have had no fevers, chills, or problems with the incision. He has been taking ibuprofen and Tylenol. Today he reports he has been most sore and has been using his cane. Physical Exam Portal sites are closed with steristrips in place. Mild effusion. Satisfactory knee ROM. Neurovascularly intact. Calf is soft and nontender. Assessment & Plan Maninder is doing well, now 1 weeks status post surgery. Instructions were given to continue with range of motion exercises emphasizing flexion and terminal extension, icing and elevating, as well as the use of anti-inflammatories if patient is safely able to take them. Physical therapy will be beneficial at this point to help with progressing range of motion and decreasing swelling. We will plan for follow up in 4-6 weeks. Bibi Guidry APRN documented in this encounter Plan of Treatment Upcoming Encounters Date Type Department Care Team (Late st Contact Info) Description 06/10/2024 3:30 PM EDT [facility] [address] [phone] Bibi Guidry APRN [address] [address] documented as of this encounter Visit Diagnoses Diagnosis Old peripheral tear of medial meniscus of right knee- Primary documented in this encounter Care Teams Painter And Paperhanger Apprentice Relationship Specialty Start Date End Date Papito Dawn MD [address] [place] [address] PCP - General Internal Medicine 01/18/24 documented as of this encounter
--- OUTSIDE RECORDS SUMMARY | 2024-05-06 16:23 | XMS_ITS | Encounter Summary ---
Author Organization [facility] Address [address] [place] [address] Care Team Providers Care Corporate Technical Recruiter Name Role Phone Papito Dawn MD Primary Care Provider [phone] Encounter Details Date Type Department Care Team (Late Contact Info) Description 04/10/2024 Scanned Document [facility] [address] [phone] Fer Sanchez MD [address] [place] [address] Social History Tobacco Use Types Packs/Day Years [...] 3:30 PM EDT [facility] Visit [facility] [address] [phone] Bibi Guidry APRN [address] [phone] documented as of this encounter Visit Diagnoses Not on filedocumented in this encounter Care Teams Corporate Technical Recruiter Relationship Specialty Start Date End Date Papito Dawn MD [address] [place] [address] PCP - General Internal Medicine 01/18/24 documented as of this encounter
--- OUTSIDE RECORDS SUMMARY | 2024-05-06 16:24 | XMS_ITS | Clinical Summary ---
Author Organization [facility] Address [address] [place] [address] Care Team Providers Care Railroad Car Cleaning Supervisor Name Role Phone Papito Dawn MD Primary Care Provider [phone] Allergies Active Allergy Reactions Criticality Noted Date Comments Amoxicillin Hives Medium 04/22/2024 Aspirin Anaphylaxis High 04/22/2024 Medications Medication Sig Dispensed Refills Start Date End Date Status meloxicam (MOBIC) 15 MG tabletIndications:Sta tus post left knee replacement Take 1 tablet (15 mg total) by mouth daily. Take with food in the morning 14 tablet 01/22/2024 Active ibuprofen (MOTRIN) 800 mg tabletIndications:Old peripheral tear of medial meniscus of right knee Take 1 tablet (800 mg total) by mouth 3 times daily (every 8 hours) as needed for mild pain. 60 tablet 04/22/2024 Active oxyCODONE (ROXICODONE) 5 MG immediate release tabletIndications:Old peripheral tear of medial meniscus of right knee Take 1-2 tablets (5-10 mg total) by mouth every 4 (four) hours as needed for moderate pain or severe pain. Max Daily Amount: 60 mg 10 tablet 04/22/2024 Active Encounters Date Type Department Care Team Description 04/29/2024 2:00 PM EST Office Visit [facility] [address] [phone] Bibi Guidry APRN Old peripheral tear of medial meniscus of right knee (Primary Dx) 04/25/2024 Scanned Document [facility] [address] [phone] Fer Sanchez MD 04/25/2024 Scanned Document [facility] [address] [phone] Fer Sanchez MD 04/24/2024 Scanned Document [facility] [address] [place] [address] Fer Sanchez MD 04/22/2024 Orders Only [facility] [address] [phone] Bibi Guidry APRN Old peripheral tear of medial meniscus of right knee (Primary Dx) 04/10/2024 Scanned Document [facility] [address] [phone] Fer Sanchez MD 04/02/2024 1:45 PM EST Consult [facility] [address] [phone] Fer Sanchez MD Old peripheral tear of medial meniscus of right knee (Primary Dx) 03/13/2024 Telephone [facility] [address] [phone] Daniel Telles PA-C 03/13/2024 Orders Only [facility] [address] [phone] Daniel Telles PA-C 02/26/2024 11:00 AM EST Office Visit [facility] [address] [phone] Daniel Telles, THALIA-C Primary osteoarthritis of right knee (Primary Dx) 02/26/2024 10:55 AM EST Ancillary Procedure [facility] [address] [phone] 02/20/2024 Telephone [facility] [address] [phone] Daniel Telles PA-C from Last 3 Months Social History Tobacco [...] 3:30 PM EDT [facility] Visit [facility] [address] [phone] Bibi Guidry APRN [address] [place] [address] [address] [place] [address] Health Maintenance Due Date Last Done Comments [...] right knee XR KNEE 4+ VIEWS-RIGHT Routine 02/26/2024 10:58 AM EST Primary osteoarthritis of right knee from Last [...] your patient to us, Tom Burk MD [id number] (Electronically Signed - 03/11/2024 10:31) Copy: ARIELLE BURNETTE MD [facility] [address] [place] [address] PATIENT , ?? Narrative 03/11/2024 10:31 [...] Burk MD 03/11/2024 10:31 AM EST RPWorkstation: [id number] Thank you for referring your patient to us, Tom Burk MD [id number] (Electronically Signed - 03/11/2024 10:31) Copy: ARIELLE BURNETTE MD [facility] [address] [place] [address] PATIENT , Daniel HARVEY MRI ORDERABLES * XR Knee 4+ views-Right (02/26/2024 10:58 AM EST) Narrative [facility] - 02/26/2024 10:58 AM EST This exam was performed in office at [facility] and images reviewed by orthopedic provider. ??Any findings are documented within ambulatory encounter note on date of service. Daniel J Elfego PA-C IMG DIAGNOSTIC MAXIMUS GING ORDERABLES OAH from Last 3 Months Care Teams Railroad Car Cleaning Supervisor Relationship Specialty Start Date End Date Papito Dawn MD [address] [place] [address] PCP - General Internal Medicine 01/18/24
--- OUTSIDE RECORDS SUMMARY | 2024-05-06 16:24 | XMS_ITS | Patient Health Record ---
Author Organization [facility] Address [address] [place] [address] Care Team Providers Care Range Aid Name Role Phone López FLOWER, [facility] Primary Care Provider Nino Sy [phone] ALLERGIES Allergen (clinical drug ingredient) Drug/Non Drug [...] malignant neoplasm of colon (Z12.11) Active confirmed 961822894 Problem Preprocedural examination (Z01.818) Active confirmed [id number] Problem Family history of colon cancer (Z80.0) Active confirmed 857858251 Problem Hx of adenomatous colonic polyps (Z86.010) Active confirmed 009897039 Problem Diverticulosis of colon (K57.30) Active confirmed Diverticulosi s of colon (075457362) PLAN OF TREATMENT Pending Test Test Name Order Date Pathology 07/19/2021 Future Test Test Name Order Date COLONOSCOPY 01/08/2014 COLONOSCOPY 09/12/2017 COLONOSCOPY 06/24/2021 Next Appt Details Provider Name:Nino Zachary Jewell , 08/28/2024 02:00:00 PM, [address] [place] [address], [address], [place], [address], Insurance Providers Payer Name Payer Address Payer Phone Subscriber Number Group Number Insured Name Patient Relationship to Insured Coverage Start Date Coverage End Date [facility] [employer] [address] [place] [address] [id number] SIMON NIKKO Self - patient is the insured MEDICAL [...] well as a small tubular adenoma Denies [place],DM,CVA,renal disease Asthma---inhaler prn Rheumatoid arthritis--had to stop Methot rexate and Enbrel due to pneumonia Hypertension Negative colonoscopy in 03/2017 Surgical History Surgery Date(Month/Year) 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 Banuelos Hand surgery Left knee replacement 08/2020
== END 2024-05-06 16:07 | disposition home or self-care (01) ==
LOC: HO.HUSH 15:29
PROVIDERS: PCP Internal Medicine; Visit Provider Urology
DX: R79.89 Other specified abnormal findings of blood chemistry (principal); Z79.890 Hormone replacement therapy
CPT/HCPCS: 99214

== ENCOUNTER → 2024-05-06 15:29 | Outpatient (BNVA) | payer BC, SELFPAY | PROVIDERS: PCP Internal Medicine; Visit Provider Urology ==

== ENCOUNTER 2024-06-11 11:00 | Outpatient (RCR) | payer BC, SELFPAY | END 2024-07-10 14:27 | disposition home or self-care (01) | LOC: HO.PTCHIC 11:00 | PROVIDERS: PCP Internal Medicine; Visit Provider Orthopaedic Surgery | DX: S83.206A Unspecified tear of unspecified meniscus, current injury, right knee, initial encounter (principal); X58.XXXA Exposure to other specified factors, initial encounter | CPT/HCPCS: 97110; 97162 ==

== ENCOUNTER 2024-06-11 11:39 | Outpatient (REF) | payer BC, SELFPAY ==
[2024-06-11 13:26] LABS: Hematocrit 46.4 % (42.0-52.0)
[2024-06-16 13:08] LABS: Testosterone, Free 266.5 pg/mL (35.0-155.0); Testosterone, Total 954 ng/dL (250-1100)
== END 2024-06-11 11:40 | disposition home or self-care (01) ==
LOC: HO.HMGCLDS 11:39
PROVIDERS: PCP Internal Medicine; Visit Provider Urology
DX: R79.89 Other specified abnormal findings of blood chemistry (principal); Z79.890 Hormone replacement therapy
CPT/HCPCS: 36415; 84402; 84403; 85014

== ENCOUNTER 2024-06-14 08:49 | Outpatient (AMB) | payer BC, SELFPAY ==
--- NOTE | 2024-06-14 08:50 | MHC.PC.OV ---
Vital Signs 06/14/24 08:51 Height 5 ft 10 in Weight 318 lb 2 oz BMI 45.6 BP 136/90 H Blood Pressure Location Lt brachial Position Sitting Respiration 18 Pulse 106 H Pulse Source Pulse Oximeter Temp 98.1 F Temp Source Oral Pulse Oximetry (%) 96 Oxygen Delivery Method Room Air Intake Visit Reasons: f/u Meds review Allergies amoxicillin [Augmentin] Allergy (Intermediate, Verified 06/14/24 08:51) rash aspirin [ASPIRIN] Allergy (Intermediate, Verified 06/14/24 08:51) WHEEZING clavulanic acid [Augmentin] Allergy (Intermediate, Verified 06/14/24 08:51) rash Iodinated Contrast Media [IODINATED CONTRAST MEDIA - IV DYE] Allergy (Intermediate, Verified 06/14/24 08:51) NAUSEA shellfish dye Allergy (Intermediate, Uncoded 05/06/24 15:30) nausea, wheezing Medication List - Last Reconciled 06/14/24 by Papito Dawn MD albuterol sulfate 90 mcg/actuation 2 puffs inhalation Q6-8H PRN albuterol sulfate 90 mcg/actuation 1 inh inhalation QID PRN atorvastatin 20 mg PO DAILY 90 days budesonide-formoterol 80-4.5 mcg/actuation 1 inh inhalation BID cetirizine (Zyrtec) 10 mg PO DAILY fluticasone propion-salmeterol 250-50 mcg/dose (Advair Diskus) 1 inh inhalation Q12H 30 days fluticasone propionate 50 mcg/actuation (Flonase Allergy Relief) 1 spray intranasal BID 30 days ipratropium-albuterol 0.5 mg-3 mg(2.5 mg base)/3 mL 3 mL inhalation BID PRN 30 days losartan-hydrochlorothiazide 100-12.5 mg 1 tab PO DAILY 90 days needle (disp) 18 G (BD Regular Bevel [place]) As directed - draw up testosterone needle (disp) 23 gauge (BD Regular Bevel [place]) Inject testosterone subcutaneous syringe (disposable) (BD Luer-[place]y Syringe) Testosterone injection weekly testosterone cypionate (Depo-Testosterone) 200 mg IM QWEEK 4 weeks Tobacco use date assessed: 06/14/24 Dental Screening Dental Screen Date: 06/14/24 Did you have a dental visit in the last 12 months?: Yes Did you have a dental problem in the last 6 months where you did not have access to dental care?: No Was dental information given to patient?: Patient has dentist HPI f/u Meds review HPI Details History - The patient is a 63-year-old male presenting with weight management and diabetes management. - Notable weight gain reported due to inability to exercise post-surgery; patient currently weighs 318 pounds. - Underwent right knee surgery 7 weeks ago for meniscus removal; recovery compromised, and knee remains painful. Patient have a knee replacement left side, and it took 2 years to heal - Reports Rheumatoid Arthritis history, potentially reactivated post-surgery. - A1c elevated at 7.8, indicating poor diabetes management in the absence of medication. - Alcohol consumption noted, potentially impacting weight management. Drinking about 12-14 beers a week - Asthma stable; rescue inhalers and nebulizer utilized as needed. - Reports mild allergic rhinitis with symptoms managed by Zyrtec use. 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 - Begin tapering off alcohol consumption to reduce calorie intake. - Resume appropriate exercises upon clearance by the product distribution specialist. - Follow a diet emphasizing portion control and slow chewing to help control weight. - Monitor for potential side effects of weight management medication once started and follow-up as advised. - Use the cane for safer mobility around the house. - Continue using rescue inhaler and nebulizer as needed for asthma control. Review of Systems General: No fever no chills neurological: No headaches no dizziness ear nose throat: No sore throat no hearing difficulty no ear pain cardiovascular: No syncope, no chest pain, no palpitations gastrointestinal: No nausea vomiting or diarrhea endocrine: No polyuria polydipsia no heat intolerance genitourinary: No dysuria skin: No new complaints Physical Exam general: No acute distress HEENT: No acute findings neck: Supple respiratory system: Able to talk in full sentences, no audible wheeze no stridor cardiovascular: S1-S2 gastrointestinal: No pain extremities: Right knee surgery 6-7 weeks ago, patient unable to walk, using a cane UX CONSULTANT: Alert awake oriented x3 motor sensory intact skin: Normal turgor PFSH Medical History COLETTE (obstructive sleep apnea) COVID-19 vaccine series completed Snores Rheumatoid arthritis Fuchs' syndrome II Raynauds disease Osteoarthritis of both knees Asthma HTN (hypertension) Primary osteoarthritis of left knee Surgical History Hx of total knee replacement History of removal of testicle History of knee surgery History of colonoscopy History of trigger finger History of lipoma Family History Father Colon cancer Myocardial infarction Mother Colon cancer HTN (hypertension) Diabetes mellitus Sister Breast cancer Crohn's disease Sister Breast cancer Crohn's disease Brother CHF (congestive heart failure) Smoker Rheumatic fever Maternal Grandmother No problems noted. Maternal Grandfather No problems noted. Paternal Grandmother No problems noted. Paternal Grandfather Emphysema, unspecified Brother No problems noted. Sister No problems noted. Daughter No problems noted. Daughter No problems noted. Daughter No problems noted. Daughter No problems noted. 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 91976 - PHQ-9 Billing: Patient declined-do not bill Source: Developed by Drs. Nino Delatorre, Leena Espinosa, Bogdan Flores and colleagues, with an educational lalito from [employer]. Thrive Questionnaire Date Thrive assessed: 06/14/24 I am a: Patient What is your living situation today?: I have a steady place to live Within the past 12 months, did the food you bought not last and you didn't have the money to get more?: Never true Within the past 12 months, did you worry whether your food would run out before you got money to buy more?: Never true Do you have trouble paying for medicines?: No Do you have trouble getting transportation to medical appointments?: No Do you have trouble paying your heating and electricity bill?: No Do you have trouble taking care of your child, family member or friend?: No Do you have trouble with day-to-day activities such as bathing, preparing meals, shopping, managing finances, etc.?: Yes Are you currently unemployed and looking for a job?: No Are you interested in more education?: No Please select the resources that you would like help with: None Currently or been in a relationship where the following occur: No concerns reported THRIVE Score: 0 AUDIT C Alcohol Use Questionnaire (AUDIT-C) 1. How often do you have a drink containing alcohol?: 2-3 times a week 2. How many drinks containing alcohol do you have on a typical day when you are drinking?: 3 or 4 3. How often do you have six or more drinks on one occasion?: Monthly Total Score: 6 Score Reviewed/Action Taken: Yes JETT-7 AMB Questionnaire JETT-7 Date JETT - 7 assessed: 06/14/24 Feeling nervous, anxious, or on edge: 0 = Not at all Not being able to stop or control worryin = Not at all Worrying too much about different things: 0 = Not at all Trouble relaxin = Not at all Being so restless that it is hard to sit still: 0 = Not at all Becoming easily annoyed or irritable: 0 = Not at all Feeling afraid as if something awful might happen: 0 = Not at all Total JETT-7 score (0-4 normal; 5-9 mild; 10-14 moderate; 15-21 severe): 0 Source: Developed by Drs. Nion Delatorre, Leena Espinosa, Bogdan Flores and colleagues, with an educational lalito from [employer] JETT-7 Assessment Billing JETT-7 Assessment Tool: JETT-7 Assessment 77158 Physical exam (Primary Care) Vital Signs: Last Vital Signs Temp 98.1 F 06/14/24 08:51 Pulse 106 H 06/14/24 08:51 Resp 18 06/14/24 08:51 BP 136/90 H 06/14/24 08:51 Pulse Ox 96 06/14/24 08:51 Oxygen Delivery Method Room Air 06/14/24 08:51 BMI result Body Mass Index 45.6 Tobacco/Smoking Status: Tobacco use Status Tobacco use date assessed 06/14/24 06/14/24 08:54 Patient Tobacco Use Status Former Tobacco user 06/14/24 08:54 Tobacco use type Cigarette 06/14/24 08:54 e-Cigarette/Vaping Use Never Used 06/14/24 08:54 Thrive Assessment: Date of Thrive Assessment Date Thrive assessed 06/14/24 06/14/24 08:54 Currently or been in a relationship where the following occur: No concerns reported Results AMB Hemoglobin A1c AMB Hemoglobin A1c 7.8 % Last Edit by Jairo Mei CMA on 06/14/24 09:19 Results Reviewed Results Reviewed: Laboratory Last Values Hgb A1c (Clinic) 7.8 % (4.0-6.0) H 06/14/24 09:18 Coding Level of Care Code Est Pt Level 5 (50267) Diagnoses Diabetes mellitus type 2 in obese E11.69; E66.9 Hypertension, essential I10 Lipid disorder E78.9 Rheumatoid arthritis involving both knees with positive rheumatoid factor M05.761; M05.762 Laterality: bilateral Rheumatoid arthritis location: knee Rheumatoid factor presence: with rheumatoid factor Moderate persistent asthma without complication J45.40 Asthma complication type: uncomplicated Allergic rhinitis, unspecified seasonality, unspecified trigger J30.9 Allergic rhinitis trigger: unspecified Allergic rhinitis seasonality: unspecified Long-term current use of testosterone replacement therapy Z79.890 Morbid obesity due to excess calories E66.01 Additional Codes JETT-7 Assessment Billing - JETT-7 Assessment Tool: JETT-7 Assessment 12446 ([id number]) Time Spent (min) 40 Assessment & Plan Assessment & Plan (1) Diabetes mellitus type 2 in obese: Code(s): E11.69 - Type 2 diabetes mellitus with other specified complication; E66.9 - Obesity, unspecified Category: Medical (2) Hypertension, essential: Code(s): I10 - Essential (primary) hypertension Category: Medical (3) Lipid disorder: Code(s): E78.9 - Disorder of lipoprotein metabolism, unspecified Category: Medical (4) Rheumatoid arthritis: Code(s): M06.9 - Rheumatoid arthritis, unspecified Category: Medical Qualifiers: Laterality: bilateral Rheumatoid arthritis location: knee Rheumatoid factor presence: with rheumatoid factor Qualified Code(s): M05.761 - Rheumatoid arthritis with rheumatoid factor of right knee without organ or systems involvement; M05.762 - Rheumatoid arthritis with rheumatoid factor of left knee without organ or systems involvement (5) Asthma, moderate persistent: Code(s): J45.40 - Moderate persistent asthma, uncomplicated Category: Medical Qualifiers: Asthma complication type: uncomplicated Qualified Code(s): J45.40 - Moderate persistent asthma, uncomplicated (6) Allergic rhinitis: Code(s): J30.9 - Allergic rhinitis, unspecified Category: Medical Qualifiers: Allergic rhinitis trigger: unspecified Allergic rhinitis seasonality: unspecified Qualified Code(s): J30.9 - Allergic rhinitis, unspecified (7) Long-term current use of testosterone replacement therapy: Code(s): Z79.890 - Hormone replacement therapy Category: Medical (8) Morbid obesity due to excess calories: Code(s): E66.01 - Morbid (severe) obesity due to excess calories Category: Medical Plan History - The patient is a 63-year-old male presenting with weight management and diabetes management. - Notable weight gain reported due to inability to exercise post-surgery; patient currently weighs 318 pounds. - Underwent right knee surgery 7 weeks ago for meniscus removal; recovery compromised, and knee remains painful. Patient have a knee replacement left side, and it took 2 years to heal - Reports Rheumatoid Arthritis history, potentially reactivated post-surgery. - A1c elevated at 7.8, indicating poor diabetes management in the absence of medication. - Alcohol consumption noted, potentially impacting weight management. Drinking about 12-14 beers a week - Asthma stable; rescue inhalers and nebulizer utilized as needed. - Reports mild allergic rhinitis with symptoms managed by Zyrtec use. 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 - Begin tapering off alcohol consumption to reduce calorie intake. - Resume appropriate exercises upon clearance by the product distribution specialist. - Follow a diet emphasizing portion control and slow chewing to help control weight. - Monitor for potential side effects of weight management medication once started and follow-up as advised. - Use the cane for safer mobility around the house. - Continue using rescue inhaler and nebulizer as needed for asthma control. Orders: Orders Hemoglobin A1c 2 Months E11.69 - Type 2 diabetes mellitus with other specified complication, E66.09 - Other obesity due to excess calories, E66.9 - Obesity, unspecified, E78.9 - Disorder of lipoprotein metabolism, unspecified, I10 - Essential (primary) hypertension, J30.9 - Allergic rhinitis, unspecified, J45.40 - Moderate persistent asthma, uncomplicated, M05.761 - Rheumatoid arthritis with rheumatoid factor of right knee without organ or systems involvement, M05.762 - Rheumatoid arthritis with rheumatoid factor of left knee without organ or systems involvement, Z79.890 - Hormone replacement therapy Lipid Panel 2 Months E11.69 - Type 2 diabetes mellitus with other specified complication, E66.09 - Other obesity due to excess calories, E66.9 - Obesity, unspecified, E78.9 - Disorder of lipoprotein metabolism, unspecified, I10 - Essential (primary) hypertension, J30.9 - Allergic rhinitis, unspecified, J45.40 - Moderate persistent asthma, uncomplicated, M05.761 - Rheumatoid arthritis with rheumatoid factor of right knee without organ or systems involvement, M05.762 - Rheumatoid arthritis with rheumatoid factor of left knee without organ or systems involvement, Z79.890 - Hormone replacement therapy AMB Hemoglobin A1c Today Z13.9 - Encounter for screening, unspecified Microalbumin, Random (w Creat) 2 Months E11.69 - Type 2 diabetes mellitus with other specified complication, E66.09 - Other obesity due to excess calories, E66.9 - Obesity, unspecified, E78.9 - Disorder of lipoprotein metabolism, unspecified, I10 - Essential (primary) hypertension, J30.9 - Allergic rhinitis, unspecified, J45.40 - Moderate persistent asthma, uncomplicated, M05.761 - Rheumatoid arthritis with rheumatoid factor of right knee without organ or systems involvement, M05.762 - Rheumatoid arthritis with rheumatoid factor of left knee without organ or systems involvement, Z79.890 - Hormone replacement therapy Complete Blood Count Auto Diff 2 Months E11.69 - Type 2 diabetes mellitus with other specified complication, E66.09 - Other obesity due to excess calories, E66.9 - Obesity, unspecified, E78.9 - Disorder of lipoprotein metabolism, unspecified, I10 - Essential (primary) hypertension, J30.9 - Allergic rhinitis, unspecified, J45.40 - Moderate persistent asthma, uncomplicated, M05.761 - Rheumatoid arthritis with rheumatoid factor of right knee without organ or systems involvement, M05.762 - Rheumatoid arthritis with rheumatoid factor of left knee without organ or systems involvement, Z79.890 - Hormone replacement therapy Comprehensive [place]. Panel Fast 2 Months E11.69 - Type 2 diabetes mellitus with other specified complication, E66.09 - Other obesity due to excess calories, E66.9 - Obesity, unspecified, E78.9 - Disorder of lipoprotein metabolism, unspecified, I10 - Essential (primary) hypertension, J30.9 - Allergic rhinitis, unspecified, J45.40 - Moderate persistent asthma, uncomplicated, M05.761 - Rheumatoid arthritis with rheumatoid factor of right knee without organ or systems involvement, M05.762 - Rheumatoid arthritis with rheumatoid factor of left knee without organ or systems involvement, Z79.890 - Hormone replacement therapy Medications: New tirzepatide (weight loss) (Zepbound) for 4 weeks 2.5 mg (0.5 mL) subcut QWEEK 2 mL 0RF glipizide 5 mg PO DAILY 90 tabs 0RF Refilled albuterol sulfate 90 mcg/actuation 2 puffs inhalation Q6-8H PRN 8.5 grams 0RF shortness of breath or wheezing Discontinued albuterol sulfate 90 mcg/actuation Discontinued Reason: Duplicate 1 inh inhalation QID PRN 6.7 grams 1RF shortness of breath or wheezing J45.40 - Moderate persistent asthma, uncomplicated, R06.2 - Wheezing
[2024-06-14 08:51] VITALS: BP 136/90; PULSE 106; RESP 18; TEMP 36.7; O2SAT 96; BMI 45.6
--- OUTSIDE RECORDS SUMMARY | 2024-06-14 09:12 | XMS_ITS | Encounter Summary ---
Author Organization [facility] Address [address] [place] [address] Care Team Providers Care Clinical Engineering Director Name Role Phone Papito Dawn MD Primary Care Provider Encounter Details Date Type Department Care Team (Late st Contact Info) Description 04/24/2024 Scanned Document [facility] [address] [phone] Fer Sanchez MD [address] [place] [address] [phone] Social History Tobacco Use Types Packs/Day Years Used Date Smoking Tobacco: Never Assessed Sex and Gender Information Value Date Recorded Sex Assigned at Male 04/02/2024 3:34 PM EST Gender Identity Male 04/02/2024 3:34 PM EST Sexual Orientation Heterosexual (straight) 05/29 12:11 PM EST documented as of this encounter Plan of Treatment Upcoming Encounters Date Type Department Care Team (Late st Contact Info) Description 07/15/2024 1:45 PM EDT Office Visit [facility] [address] [phone] Fer Sanchez MD [address] [place] [address] [phone] documented as of this encounter Visit Diagnoses Not on filedocumented in this encounter Care Teams Clinical Engineering Director Relationship Specialty Start Date End Date Papito Dawn MD [facility] [place] [address] PCP - General Internal Medicine 01/18/24 documented as of this encounter
--- OUTSIDE RECORDS SUMMARY | 2024-06-14 09:12 | XMS_ITS | Encounter Summary ---
Author Organization [facility] Address [address] [place] [address] Care Team Providers Care Box Spring Frame Builder Name Role Phone Papito Dawn MD Primary Care Provider [phone] Reason for Visit * Reason Comments Pain Encounter Details Date Type Department Care Team ([facility] st Contact Info) Description 05/29/2024 2:45 PM EST [facility] [address] [phone] Bibi Guidry APRN [address] [place] [address] [place] [address] Old peripheral tear of medial meniscus of [...] Progress Notes * Bibi Guidry APRN - 05/29/2024 2:45 PM ESTAssociated Order(s): Large Joint Arthrocentesis: R knee Post-Procedure Diagnose(s): Old peripheral tear of medial meniscus of right knee Images from the original note were not included. [address] [facility] [address] [phone] Encounter Date: 05/29/2024 History of Present Illness: Maninder Foley is a 63 y.o. male who presents today for second knee post operative follow up appointment. Status Post a right knee arthroscopic partial medial meniscectomy performed on April 24, 2024. He reports he has not had significant relief of his symptoms. He reports physical therapy was initially helping but now he feels as though he needs to go back to his cane. He is having medial pain and burning and clicking and he is very frustrated. Physical Exam Exam: Right knee knee: Skin intact. Well healed portal incisions. Moderate swelling. Mild effusion. Knee ROM 0-90. He has tenderness to his medial knee. He is able to perform a straight leg raise. Calf is soft and non-tender. Neurovascular examination is normal. Visit Orders. 1. Old peripheral tear of medial meniscus of right knee Assessment & Plan 1. Old peripheral tear of medial meniscus of right knee Patient is 6 weeks post above procedure he continues having pain. He has been taking ibuprofen and does not have significant improvement of his symptoms. He is asking what else can be done. He is very frustrated and wants to know if he should just have a knee replacement. I discussed with him I do think this may be an inflammatory response hide he does have a large amount of arthritis in his patellofemoral compartment but he did have a significant meniscal flap that we removed. I offered him a repeat cortisone injection he has not had 1 prior to surgery. He is interested in trying this today.He will take 1 week off of physical therapy and then return I like him to see Dr. Sanchez in 6 weeks to see what improvement he makes. All of his questions were answered. Large Joint Arthrocentesis: R knee on 05/29/2024 2:45 PM Indications: pain Details: 22 G needle, anterolateral approach Medications: 12 mg betamethasone acetate-betamethasone sodium phosphate 6 (3-3) MG/ML Outcome: tolerated well, no immediate complications Procedure note: I reviewed with the patient the possible benefits of the injection including diminishing pain and improving function. I also discussed the reasonable risks of the injection including,but not limited to, infection, pain, swelling, failure to alleviate symptoms, skin depigmentation, and subcutaneous fat atrophy. Diabetic patients may see a transient, but significant elevation in blood glucose levels and are encouraged to watch for this. The patient elected to proceed. The anterolateral region of the affected knee was prepared with alcohol. Using sterile technique, the knee was injected using a 22 gauge needle with a mixture containing 2cc betamethasone and 3cc's of 0.5% bupivicaine. There were no immediate complications noted. I instructed the patient to apply ice to the knee for 20 minutes of each hour, several times per day for the next 1-2 days. Procedure, treatment alternatives, risks and benefits explained, specific risks discussed. Consent was given by the patient. Immediately prior to procedure a time out was called to verify the correctpatient, procedure, equipment, presidential support specialist and site/side marked as required. Patient was prepped and draped in the usual sterile fashion. Bibi Guidry APRN documented in this encounter Plan of Treatment Upcoming Encounters Date Type Department Care Team (Late st Contact Info) Description 07/15/2024 1:45 PM EDT [facility] Visit [facility] [address] [phone] Fer Sanchez MD [address] [place] [address] documented as of this encounter Procedures Procedure Name Priority Date/Time Associated Diagnosis Comments [place] ARTHROCENTESIS ASPIR&/INJ MAJOR JT/BURSA W/O US Routine 05/29/2024 2:45 PM EST Old peripheral tear of medial meniscus of right knee documented in this encounter Results * UT ARTHROCENTESIS ASPIR&/INJ MAJOR JT/BURSA W/O US (05/29/2024 2:45 PM EST) Narrative Bibi Guidry APRN - 05/29/2024 2:45 PM EST Bibi Guidry APRN ? 05/29/2024 ??5:15 PM Large Joint Arthrocentesis: R knee on 05/29/2024 2:45 PM Indications: pain Details: 22 G needle, anterolateral approach Medications: 12 mg betamethasone acetate-betamethasone sodium phosphate 6 (3-3) MG/ML Outcome: tolerated well, no immediate complications Procedure note: ??I reviewed with the patient the possible benefits of the injection including diminishing pain and improving function. ??I also discussed the reasonable risks of the injection including, but not limited to, infection, pain, swelling, failure to alleviate symptoms, skin depigmentation, and subcutaneous fat atrophy. ??Diabetic patients may see a transient, but significant elevation in blood glucose levels and are encouraged to watch for this. ??The patient elected to proceed. ??The anterolateral region of the affected knee was prepared with alcohol. Using sterile technique, the knee was injected using a 22 gauge needle with a mixture containing 2cc betamethasone and 3cc's of 0.5% bupivicaine. ??There were no immediate complications noted. ??I instructed the patient to apply ice to the knee for 20 minutes of each hour, several times per day for the next 1-2 days. Procedure, treatment alternatives, risks and benefits explained, specific risks discussed. Consent was given by the patient. Immediately prior to procedure a time out was called to verify the correct patient, procedure, equipment, presidential support specialist and site/side marked as required. Patient was prepped and draped in the usual sterile fashion. Bibi Guidry APRN PROCEDURE/MINOR SURG ICAL ORDERABLES documented in this encounter Visit Diagnoses Diagnosis Old peripheral tear of medial meniscus of right knee- Primary documented in this encounter Administered Medications Inactive Administered Medications - up to 1 most recent administrations Medication Order MAR Action Action Date Dose Rate Site betamethasone acetate-betamethasone sodium phosphate (CELESTONE) injection 12 mg 12 mg, Intra-articular, Once PRN Procedure, Starting on Mon05/29/24 at 1445, For 1 dose Given 05/29/2024 2:45 PM EST 12 mg documented in this encounter Care Teams Box Spring Frame Builder Relationship Specialty Start Date End Date Papito Dawn MD [place] [address] PCP - General Internal Medicine 01/18/24 documented as of this encounter
--- OUTSIDE RECORDS SUMMARY | 2024-06-14 09:12 | XMS_ITS | Encounter Summary ---
Author Organization [facility] Address [address] [place] [address] Care Team Providers Care Emergency Crew Supervisor Name Role Phone Papito Dawn MD Primary Care Provider [phone] Encounter Details Date Type Department Care Team (Late Contact Info) Description 05/08/2024 Scanned Document [facility] [address] [phone] Fer Sanhcez MD [address] [place] [phone] Social History Tobacco Use Types Packs/Day Years Used Date Smoking Tobacco: Never Assessed Sex and Gender Information Value Date Recorded Sex Assigned at Male 04/02/2024 3:34 PM EST Gender Identity Male 04/02/2024 3:34 PM EST Sexual Orientation Heterosexual (straight) 05/29 12:11 PM EST documented as of this encounter Plan of Treatment Upcoming Encounters Date Type Department Care Team (Late Contact Info) Description 07/15/2024 1:45 PM EDT [facility] Visit [facility] [address] [phone] Fer Sanchez MD [address] [place] [phone] documented as of this encounter Visit Diagnoses Not on filedocumented in this encounter Care Teams Emergency Crew Supervisor Relationship Specialty Start Date End Date Papito Dawn MD [facility] [place] [address] PCP - General Internal Medicine 01/18/24 documented as of this encounter
--- OUTSIDE RECORDS SUMMARY | 2024-06-14 09:12 | XMS_ITS | Encounter Summary ---
Author Organization [facility] Address [address] [place] [address] Care Team Providers Care Retread Technician Name Role Phone Papito Dawn MD Primary Care Provider [phone] Encounter Details Date Type Department Care Team (Late st Contact Info) Description 04/25/2024 Scanned Document [facility] [address] [phone] Fer Sanchez MD [address] [place] [address] Social History Tobacco Use Types Packs/Day Years [...] 1:45 PM EDT [facility] Visit [facility] [address] [phone] Fer Sanchez MD [address] [place] [phone] documented as of this encounter Visit Diagnoses Not on filedocumented in this encounter Care Teams Retread Technician Relationship Specialty Start Date End Date Papito Dawn MD [address] [place] [address] PCP - General Internal Medicine 01/18/24 documented as of this encounter
--- OUTSIDE RECORDS SUMMARY | 2024-06-14 09:12 | XMS_ITS | Encounter Summary ---
Author Organization [facility] Address [address] [place] [address] Care Team Providers Care Building Construction Supervisor Name Role Phone Papito Dawn MD Primary Care Provider [phone] Encounter Details Date Type Department Care Team (Late Contact Info) Description 04/10/2024 Scanned Document [facility] [address] [phone] Fer Sanchez MD [address] [place] [address] Social History Tobacco Use Types Packs/Day Years [...] 1:45 PM EDT [facility] Visit [facility] [address] [phone] Fer Sanchez MD [address] [place] [phone] documented as of this encounter Visit Diagnoses Not on filedocumented in this encounter Care Teams Building Construction Supervisor Relationship Specialty Start Date End Date Papito Dawn MD [place] [address] PCP - General Internal Medicine 01/18/24 documented as of this encounter
--- OUTSIDE RECORDS SUMMARY | 2024-06-14 09:12 | XMS_ITS | Encounter Summary ---
Author Organization [facility] Address [address] [place] [address] Care Team Providers Care Motor Bike Mechanic Name Role Phone Papito Dawn MD Primary Care Provider [phone] Encounter Details Date Type Department Care Team (Late st Contact Info) Description 04/25/2024 Scanned Document [facility] [address] [phone] Fer Sanchez MD [address] [place] [address] Social History Tobacco Use Types Packs/Day Years [...] 1:45 PM EDT [facility] [address] [phone] Fer Sanchez MD [address] [place] [phone] documented as of this encounter Visit Diagnoses Not on filedocumented in this encounter Care Teams Motor Bike Mechanic Relationship Specialty Start Date End Date Papito Dawn MD [address] [place] [address] PCP - General Internal Medicine 01/18/24 documented as of this encounter
--- OUTSIDE RECORDS SUMMARY | 2024-06-14 09:13 | XMS_ITS | Patient Health Record ---
Author Organization [facility] Address [address] [place] [address] Care Team Providers Care Bi Manager Name Role Phone L[facility]pez FLOWER[facility] Primary Care Provider Nino Sy [phone] Allergies Allergen (clinical drug ingredient) Drug/Non Drug Allergy documented on EMR Reaction Allergy Type Onset Date Status amoxicillin / clavulanate Augmentin Unknown Drug Allergy Active aspirin Aspirin Unknown Drug Allergy Active Reason For Referral No Information Medications Medication SIG (Take, Route, Frequency, Duration) Notes [...] NOSTRIL TWICE DAILY Nasal for 30 Active Immunizations Vaccine Route Administration Date Status Comme nts Influenza Unknown 11/25/2020 Administered Social History Alcohol Screen Question Answer Notes Did you [...] Never (0 point) Points 5 Interpretation Positive Section Notes: Nonsmoker since 2000; occasi onal beer Nonsmoker since 2000; occasi onal beer Nonsmoker since 2000; occasi onal beer Problems Problem Type SNOMED Code ICD Code Onset Dates Problem Status W/U Status Risk Notes Problem [id number] Encounter for screening for malignant neoplasm of colon (Z12.11) Active confirmed Problem 494401908387389 Preprocedural examination (Z01.818) Active confirmed Problem [id number] Family history o f colon cancer (Z80.0) Active confirmed Problem 693698369 Hx of adenomatou s colonic polyps (Z86.010) Active confirmed Problem Diverticulosis of colon (435680925) Diverticulosis of colon (K57.30) Active confirmed Plan Of Treatment Pending Test Test Name Order Date Pathology 07/19/2021 Future Test Test Name Order Date COLONOSCOPY 01/08/2014 COLONOSCOPY 09/12/2017 COLONOSCOPY 06/24/2021 Next Appt Details Provider Name:Nino Sharma Fanta , 08/28/2024 02:00:00 PM, [address] [place] [address], [address], [place], [address], Insurance Providers Payer Name Payer Address Payer Phone Subscriber Number Group Number Insured Name Patient Relationship to Insured Coverage Start Date Coverage End Date [email or web address] CLAIM[employer] [address] [place] [address] [id number] NIKKO MONTES Self - patient is the insured Medical (General) History Medical History History ICD Code Tubular adenomas removed in 2004--one was a 1.5 cm sigmoid tubular adenoma and the other was a small tubular adenoma in the same area--neg colonoscopy in 04/2009 except for hyperplastic polyps; colonoscopy in 04/2014 with a > 1.0 cm serrated adenoma removed form the ascending colon, as well as a small tubular adenoma Denies [place],DM,CVA,renal disease Asthma---inhaler prn Rheumatoid arthritis--had to stop Methot rexate and Enbrel due to pneumonia Hypertension Negative colonoscopy in 03/2017 Surgical History Surgery Date(Month/Year) 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 Banuelos Hand surgery Left knee replacement 08/2020
--- OUTSIDE RECORDS SUMMARY | 2024-06-14 09:13 | XMS_ITS | Clinical Summary ---
Author Organization [facility] Address [address] [place] [address] Care Team Providers Care Building Construction Superintendent Name Role Phone Papito aDwn MD Primary Care Provider [phone] Allergies Active Allergy Reactions Criticality Noted Date [...] Encounters Date Type Department Care Team Description 05/29/2024 2:45 PM EST Office Visit [facility] [address] [phone] Bibi Guidry APRN Old peripheral tear of medial meniscus of right knee (Primary Dx) 05/08/2024 Scanned Document [facility] [address] [phone] Fer Sanchez MD 04/29/2024 2:00 PM EST [facility] [address] [phone] Bibi Guidry APRN Old peripheral tear of medial meniscus of right knee (Primary Dx) 04/25/2024 Scanned Document [facility] [address] [phone] Fer Sanchez MD 04/25/2024 Scanned Document [facility] [address] [phone] Fer Sanchez MD 04/24/2024 Scanned Document [facility] [address] [phone] Fer Sanchez MD 04/22/2024 Orders Only [facility] [address] [phone] Bibi Guidry APRN Old peripheral tear of medial meniscus of right knee (Primary Dx) 04/10/2024 Scanned Document [facility] [address] [phone] Fer Sanchez MD 04/02/2024 1:45 PM EST Consult [facility] [address] [phone] Fer Sanchez MD Old peripheral tear of medial meniscus of right knee (Primary Dx) from Last 3 Months Social History Tobacco Use Types Packs/Day Years Used Date Smoking Tobacco: Never Assessed Sex and Gender Information Value Date Recorded Sex Assigned at Male 04/02/2024 3:34 PM EST Gender Identity Male 04/02/2024 3:34 PM EST Sexual Orientation Heterosexual (straight) 05/29 12:11 PM EST Plan of Treatment Upcoming Encounters Date Type Department Care Team ([facility] st Contact Info) Description 07/15/2024 1:45 PM EDT [facility] Visit [facility] [address] [phone] Fer Sanchez MD [address] [place] [address] [address] [place] [address] Health Maintenance Due Date Last Done Comments Hepatitis C Virus Screening 1962 HIV Screening 10/29/1975 DTaP/Tdap/Td Vaccines (1 - Tdap) 1981 Colonoscopy 10/29/2007 Pneumococcal Vaccines 50+ (1 of 1 - PCV) 2012 Zoster (Shingles) Vaccine (1 of 2) 2012 RSV Vaccine 60 years and old er and Patients (1 - Risk 60-74 years 1-dose series) 2022 Influenza Vaccine 10/26/2023 11/25/2020 COVID-19 Vaccine (1 - 2023-2 5 season) 2023 Hepatitis B Vaccines Aged Out No long er eligible based on patient's age to complete this topic Procedures Procedure Name Priority Date/Time Associated Diagnosis Comments [place] ARTHROCENTESIS ASPIR&/INJ MAJOR JT/BURSA W/O US Routine 05/29/2024 2:45 PM EST Old peripheral tear of medial meniscus of right knee from Last 3 Months Results * [place] ARTHROCENTESIS ASPIR&/INJ MAJOR JT/BURSA W/O US (05/29/2024 [...] to verify the correct patient, procedure, equipment, support worker and site/side marked as required. Patient was prepped and draped in the usual sterile fashion. Bibi Guidry APRN PROCEDURE/MINOR SURG ICAL ORDERABLES from Last 3 Months Care Teams Building Construction Superintendent Relationship Specialty Start Date End Date Papito Dawn MD [address] [place] [address] PCP - General Internal Medicine 01/18/24
== END 2024-06-14 09:15 | disposition home or self-care (01) ==
LOC: HO.HMCC 08:50
PROVIDERS: PCP Internal Medicine; Visit Provider Internal Medicine
DX: E11.69 Type 2 diabetes mellitus with other specified complication (principal); E66.01 Morbid (severe) obesity due to excess calories; I10 Essential (primary) hypertension; E78.9 Disorder of lipoprotein metabolism, unspecified; M05.761 Rheumatoid arthritis with rheumatoid factor of right knee without organ or systems involvement; M05.762 Rheumatoid arthritis with rheumatoid factor of left knee without organ or systems involvement; J45.40 Moderate persistent asthma, uncomplicated; J30.9 Allergic rhinitis, unspecified; Z79.890 Hormone replacement therapy; Z13.9 Encounter for screening, unspecified; Z68.42 Body mass index [BMI] 45.0-49.9, adult

== ENCOUNTER → 2024-06-14 08:49 | Outpatient (BNVA) | payer BC, SELFPAY | PROVIDERS: PCP Internal Medicine; Visit Provider Internal Medicine | DX: E11.69 Type 2 diabetes mellitus with other specified complication (principal); E66.01 Morbid (severe) obesity due to excess calories; I10 Essential (primary) hypertension; E78.9 Disorder of lipoprotein metabolism, unspecified; M05.761 Rheumatoid arthritis with rheumatoid factor of right knee without organ or systems involvement; M05.762 Rheumatoid arthritis with rheumatoid factor of left knee without organ or systems involvement; J45.40 Moderate persistent asthma, uncomplicated; J30.9 Allergic rhinitis, unspecified; Z79.890 Hormone replacement therapy | CPT/HCPCS: 83036; 96127 ==

== ENCOUNTER 2024-06-17 15:19 | Outpatient (AMB) | payer BC, SELFPAY ==
--- NOTE | 2024-06-17 15:19 | A.OFFVIS_ITS ---
Intake Visit Reasons: 6 week follow up/ testo Intake Note: Patient is present via telehealth-video for a 6 week follow up/Testosterone Urology Medication:Testosterone Antibiotic Allergy:Amoxicillin Blood Thinner:none Silver Buffer Required: No Allergies amoxicillin [Augmentin] Allergy (Intermediate, Verified 06/17/24 15:22) rash aspirin [ASPIRIN] Allergy (Intermediate, Verified 06/17/24 15:22) WHEEZING clavulanic acid [Augmentin] Allergy (Intermediate, Verified 06/17/24 15:22) rash Iodinated Contrast Media [IODINATED CONTRAST MEDIA - IV DYE] Allergy (Intermediate, Verified 06/17/24 15:22) NAUSEA shellfish dye Allergy (Intermediate, Uncoded 05/06/24 15:30) nausea, wheezing Medication List - Last Reconciled 07/05/24 by Sherrie Godfrey MD albuterol sulfate 90 mcg/actuation 2 puffs inhalation Q6-8H PRN atorvastatin 20 mg PO DAILY 90 days blood sugar diagnostic (FreeStyle Lite Strips) Check blood sugar once daily as directed blood-glucose meter (FreeStyle Lite Meter kit) Check blood sugar once daily as directed budesonide-formoterol 80-4.5 mcg/actuation 1 inh inhalation BID cetirizine (Zyrtec) 10 mg PO DAILY fluticasone propion-salmeterol 250-50 mcg/dose (Advair Diskus) 1 inh inhalation Q12H 30 days fluticasone propionate 50 mcg/actuation (Flonase Allergy Relief) 1 spray intranasal BID 30 days glipizide 5 mg PO DAILY ipratropium-albuterol 0.5 mg-3 mg(2.5 mg base)/3 mL 3 mL inhalation BID PRN 30 days lancets (FreeStyle Lancets) Check blood sugar once daily as directed losartan-hydrochlorothiazide 100-12.5 mg 1 tab PO DAILY 90 days needle (disp) 18 G (BD Regular Bevel Arnold) As directed - draw up testosterone needle (disp) 23 gauge (BD Regular Bevel Arnold) Inject testosterone subcutaneous syringe (disposable) (BD Luer-Rocky Syringe) Testosterone injection weekly testosterone cypionate (Depo-Testosterone) 200 mg IM QWEEK 4 weeks tirzepatide (weight loss) (Zepbound) 2.5 mg (0.5 mL) subcut QWEEK HPI Comments Details: 06/17/24--Maninder is a 63-year-old male who I am following for low testosterone he was started on testosterone replacement. He states that since he was last seen in the office he had [facility]. He had blood work ---testosterone level 06/11/2024 total testosterone 954 free testosterone 266.5. Patient continues to have symptoms of fatigue but states since his knee surgery he has not been very active. will monitor testosterone levels, will refill testosterone replacement therapy. 05/06/2024--telehealth follow-up: Maninder is a 63-year-old male who I am following for low testosterone he was started on testosterone replacement. He states that since he was last seen in the office he had right knee surgery at [facility]. He had blood work ---testosterone level 04/09/2024 total testosterone 93 free testosterone 13.4 also noted hemoglobin A1c elevated 7.0. Serum testosterone levels remain very low on testosterone gel replacement. Patient continues to have symptoms of fatigue and low libido. Will change testosterone replacement therapy delivery to Depo-Testosterone 200 mg IM q.week. 01/22/24-- Telehealth FU. Initial evaluation on 12/18/23--for low testosterone. Maninder is a 63-year-old male who is here for evaluation due to low testosterone. 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 He has a prosthesis. He has 3 daughters. Obesity, he states he has been inactive for the last few years due to multiple medical issues including eye surgeries and a knee replacement UC in the ER for and gained alot of weight. I have discussed medical reasons that low testosterone may occur as well as some risks related to testosterone replacement. I have reviewed labs today 01/22/24--PSA 0.72 ng/mL, total and free testosterone remains low at 132 and 24; FSH and LH are within normal limits. Plan will prescribe testosterone injection weekly repeat free and total testosterone in 3 months. [facility] Medical History COLETTE (obstructive sleep apnea) COVID-19 vaccine series completed Snores Rheumatoid arthritis Fuchs' syndrome II Raynauds disease Osteoarthritis of both knees Asthma HTN (hypertension) Primary osteoarthritis of left knee Surgical History Hx of total knee replacement History of removal of testicle History of knee surgery History of colonoscopy History of trigger finger History of lipoma Family History Father Colon cancer Myocardial infarction Mother Colon cancer HTN (hypertension) Diabetes mellitus Sister Breast cancer Crohn's disease Sister Breast cancer Crohn's disease Brother CHF (congestive heart failure) Smoker Rheumatic fever Maternal Grandmother No problems noted. Maternal Grandfather No problems noted. Paternal Grandmother No problems noted. Paternal Grandfather Emphysema, unspecified Brother No problems noted. Sister No problems noted. Daughter No problems noted. Daughter No problems noted. Daughter No problems noted. Daughter No problems noted. 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 Cognitive needs: No Hearing needs: No Vision needs: Yes Telehealth Telehealth Telehealth Platform: [employer] Location of provider rendering services: practice address Location of patient: address on file Patient Identification confirmed using: Name, : Yes Telehealth method: video Patient verbally consented to treatment: Yes Patient verbally consented to billing insurance company: Yes Patient informed of any privacy concerns related to visit: Yes Assessment & Plan Assessment & Plan (1) Low testosterone: Code(s): R79.89 - Other specified abnormal findings of blood chemistry Category: Medical (2) Long-term current use of testosterone replacement therapy: Code(s): Z79.890 - Hormone replacement therapy Category: Medical Plan Repeat labs, cont testosterone replacement therapy Orders: Orders Testosterone, Free/Total 4 Weeks Z79.890 - Hormone replacement therapy, R79.89 - Other specified abnormal findings of blood chemistry Hematocrit 4 Weeks Z79.890 - Hormone replacement therapy Patient Instructions: The patient had an opportunity to ask questions regarding treatment plan. The patient expressed understanding and agreement with the above treatment plan. The patient is aware they should contact our office by phone for worsening of their current condition or the appearance of new symptoms. Compliance is encouraged with any medications and followup testing that is ordered. It is a privilege to be allowed the opportunity to participate in the urologic care of your patient. If you have any questions or concerns regarding treatment for the above conditions please do not hesitate to contact me. The office telephone contact is [phone]. This note is constructed in part using voice recognition software. While every effort has been made to ensure accuracy supervisor air conditioning installer errors may have been included. Yours sincerely, Sherrie Godfrey MD Coding Level of Care Code Tele Est Pt Level 4 (56739) Diagnoses Low testosterone R79.89 Long-term current use of testosterone replacement therapy Z79.890
== END 2024-06-17 16:16 | disposition home or self-care (01) ==
LOC: HO.HUSH 15:19
PROVIDERS: PCP Internal Medicine; Visit Provider Urology
DX: R79.89 Other specified abnormal findings of blood chemistry (principal); Z79.890 Hormone replacement therapy
CPT/HCPCS: 99214

== ENCOUNTER → 2024-07-18 08:51 | Outpatient (BNVA) | payer BC, SELFPAY | PROVIDERS: PCP Internal Medicine; Visit Provider Internal Medicine | DX: Z13.89 Encounter for screening for other disorder (principal) ==

== ENCOUNTER 2024-08-06 09:18 | Outpatient (REF) | payer BC, SELFPAY ==
--- OUTSIDE RECORDS SUMMARY | 2024-08-06 09:49 | XMS_ITS | Encounter Summary ---
Author Organization [facility] Address [address] [place] [address] Care Team Providers Care Jig Hand Name Role Phone Papito Dawn MD Primary Care Provider [phone] Panda Balderrama MD Unavailable [phone] Encounter Details Date Type Department Care Team (Late st Contact Info) Description 04/10/2024 Scanned Document [facility] [address] [place] [address] Fer Sanchez MD [address] [place] [address] [address] [place] [address] Social History Tobacco Use Types Packs/Day Years Used Date Smoking Tobacco: Never Assessed Sex and Gender Information Value Date Recorded Sex Assigned at Male 04/02/2024 3:34 PM EST Legal Sex Male 4:19 PM EDT Gender Identity Male 04/02/2024 3:34 PM EST Sexual Orientation Heterosexual (straight) 05/29 12:11 PM EST documented as of this encounter Plan of Treatment Upcoming Encounters Date Type Department Care Team (Late st Contact Info) Description 10/07/2024 11:00 AM EDT Office Visit [facility] [address] [place] [phone] Daniel Telles PA-C [address] [facility] [address] [place] [address] 10/15/2024 9:45 AM EDT Pre-Admission Testing [facility] [address] [place] [address] 2nd Floor [address] [place] [address] Rebecca Malave PA-C [address] [facility] [place] [place] [address] [place] [address] 10/29/2024 8:15 AM EDT Hospital Encounter [facility] at [address] [phone] Panda Balderrama MD [facility] [address] [place], [place] [id number] 10/29/2024 8:15 AM EDT - 10/29/2024 10:45 AM EDT Surgery [facility] at [address] [phone] Panda Balderrama MD [address] [facility] [address] [place], [place] [id number] ARTHROPLASTY TOTAL KNEE Scheduled Procedures Name Priority Associated Diagnoses Date/Ti me ARTHROPLASTY TOTAL KNEE Primary osteoarthritis of right knee 10/29/2024 8:15 AM EDT documented as of this encounter Visit Diagnoses Not on filedocumented in this encounter Care Teams Jig Hand Relationship Specialty Start Date End Date Papito Dawn MD [address] [place] [address] PCP - General Internal Medicine 01/18/24 Panda Balderrama MD [facility] [address] [address] Surgery, Orthopedic 07/23/24 documented as of this encounter
--- OUTSIDE RECORDS SUMMARY | 2024-08-06 09:49 | XMS_ITS | Encounter Summary ---
Author Organization [facility] Address [address] [place] [address] Care Team Providers Care Sports Athletic Trainer Name Role Phone Papito Dawn MD Primary Care Provider [phone] Panda Balderrama MD Unavailable [phone] Encounter Details Date Type Department Care Team (Late st Contact Info) Description 04/25/2024 Scanned Document Orthopedic [address] [phone] Fer Sanchez MD [address] [place] [address] [address] [place] [address] Social History Tobacco Use Types Packs/Day Years [...] 11:00 AM EDT [facility] [address] [phone] Daniel Telles PA-C [address] [place] [address] [address] [place] [address] 10/15/2024 9:45 AM EDT Pre-Admission Testing [facility] [address] [place] [address] 2nd [address] [place] [address] Rebecca Malave PA-C 31 [facility] [address] [place] [address] 10/29/2024 8:15 AM EDT Hospital Encounter [facility] at [address] [phone] Panda Balderrama MD [address] [place], [place] [id number] 10/29/2024 8:15 AM EDT - 10/29/2024 10:45 AM EDT Surgery [facility] at [address] [phone] Panda Balderrama MD 499 [facility] [address] [place] [address] ARTHROPLASTY TOTAL KNEE Scheduled Procedures Name Priority Associated Diagnoses Date/Ti me ARTHROPLASTY TOTAL KNEE Primary osteoarthritis of right knee 10/29/2024 8:15 AM EDT documented as of this encounter Visit Diagnoses Not on filedocumented in this encounter Care Teams Sports Athletic Trainer Relationship Specialty Start Date End Date Papito Dawn MD [address] [place] [address] PCP - General Internal Medicine 01/18/24 Panda Balderrama MD [address] [phone] Surgery, Orthopedic 07/23/24 documented as of this encounter
--- OUTSIDE RECORDS SUMMARY | 2024-08-06 09:49 | XMS_ITS | Patient Health Record ---
Author Organization [facility] Address [address] [place] [address] Care Team Providers Care Weatherization And Housing Inspector Name Role Phone López FLOWER, [facility] Primary Care Provider Nino Sy Unavailable [phone] Allergies Allergen (clinical drug ingredient) Drug/Non Drug Allergy documented on EMR Reaction Allergy Type Onset Date Status amoxicillin / clavulanate Augmentin Unknown Drug Allergy Active aspirin Aspirin Unknown Drug Allergy Active Reason For Referral Referring Provider First Name Papito Referring Provider Last Name López Referring Provider Speciality Internal M edicine Referred Organization [facility] Referred Provider Nino Jewell Referred Address [address] [place] [address], [address],[place], [place],[address], Referred Provider Specialty Gastroentero logy Referral Priority Routine Medications Medication SIG (Take, Route, Frequency, Duration) [...] Problem Status W/U Status Risk Notes Problem [id number] Encounter for screening for malignant neoplasm of colon (Z12.11) Active confirmed Problem [id number] Preprocedural examination (Z01.818) Active confirmed Problem 895599485 Family history o f colon cancer (Z80.0) Active confirmed Problem [id number] Hx of adenomatou s colonic polyps (Z86.010) Active confirmed Problem Diverticulosis of colon (896844739) Diverticulosis of colon (K57.30) Active confirmed Plan Of Treatment Pending Test Test Name Order Date Pathology 07/19/2021 Future Test Test Name Order Date COLONOSCOPY 01/08/2014 COLONOSCOPY 09/12/2017 COLONOSCOPY 06/24/2021 Next Appt Details Provider Name:Nino Sharma Jewell , 08/28/2024 02:00:00 PM, [address] [place] [address], [address], [place], [address], Insurance Providers Payer Name Payer Address Payer Phone Subscriber Number Group Number Insured Name Patient Relationship to Insured Coverage Start Date Coverage End Date [facility] [address] [place] [address] [id number] NIKKO MONTES Self - patient is [...] well as a small tubular adenoma Denies NM,DM,CVA,renal disease Asthma---inhaler prn Rheumatoid arthritis--had to stop Methot rexate and Enbrel due to pneumonia Hypertension Negative colonoscopy in 03/2017 Surgical History Surgery Date(Month/Year) 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 Banuelos Hand surgery Left knee replacement 08/2020
--- OUTSIDE RECORDS SUMMARY | 2024-08-06 09:49 | XMS_ITS | Encounter Summary ---
Author Organization [facility] Address [address] [place] [address] Care Team Providers Care Clinical Cytogeneticist Name Role Phone Papito Dawn MD Primary Care Provider [phone] Panda Balderrama MD Unavailable [phone] Encounter Details Date Type Department Care Team (Late st Contact Info) Description 04/25/2024 Scanned Document Orthopedic [address] [phone] Fer Sanchez MD [address] [place] [address] [address] [place] [address] Social History Tobacco Use Types Packs/Day Years [...] 11:00 AM EDT [facility] [address] [phone] Daniel Telles PA-C [address] [place] [address] [address] [place] [address] 10/15/2024 9:45 AM EDT Pre-Admission Testing [facility] [address] [place] [address] 2nd [address] [place] [address] Rebecca Malave PA-C 31 [facility] [address] [place] [address] 10/29/2024 8:15 AM EDT Hospital Encounter [facility] at [address] [phone] Panda Balderrama MD [address] [place], [place] [phone] 10/29/2024 8:15 AM EDT - 10/29/2024 10:45 AM EDT Surgery [facility] at [address] [phone] Panda Balderrama MD [facility] [address] [place] [address] ARTHROPLASTY TOTAL KNEE Scheduled Procedures Name Priority Associated Diagnoses Date/Ti me ARTHROPLASTY TOTAL KNEE Primary osteoarthritis of right knee 10/29/2024 8:15 AM EDT documented as of this encounter Visit Diagnoses Not on filedocumented in this encounter Care Teams Clinical Cytogeneticist Relationship Specialty Start Date End Date Papito Dawn MD [address] [place] [address] PCP - General Internal Medicine 01/18/24 Panda Balderrama MD [address] [phone] Surgery, Orthopedic 07/23/24 documented as of this encounter
--- OUTSIDE RECORDS SUMMARY | 2024-08-06 09:49 | XMS_ITS | Clinical Summary ---
Author Organization [facility] Address [address] [place] [address] Care Team Providers Care Highway Engineer Name Role Phone Papito Dawn MD Primary Care Provider [phone] Panda Balderrama MD Unavailable Allergies Active Allergy Reactions Criticality Noted Date Comments Amoxicillin Hives Medium 04/22/2024 Aspirin Anaphylaxis High 04/22/2024 Medications ibuprofen (MOTRIN) 800 mg tabletIndicatio ns:Old peripheral tear of medial meniscus of right knee Take 1 tablet (800 mg total) by mouth 3 times daily (every 8 hours) as needed for mild pain. 60 tablet 04/22/19 25 Active meloxicam (MOBIC) 15 MG tabletIndicatio ns:Status post left knee replacement Take 1 tablet (15 mg total) by mouth daily. Take with food in the morning 14 tablet 01/22/20 24 025 Discontinued oxyCODONE (ROXICODONE) 5 MG immediate release tabletIndicatio ns:Old peripheral tear of medial meniscus of right knee Take 1-2 tablets (5-10 mg total) by mouth every 4 (four) hours as needed for moderate pain or severe pain. Max Daily Amount: 60 mg 10 tablet 04/22/19 25 025 Discontinued Encounters Date Type Department Care Team Description 07/22/2024 2:40 PM EDT Ancillary Procedure Orthopedic [address] [phone] 07/22/2024 2:30 PM EDT Office Visit Orthopedic [address] [phone] Panda Balderrama MD Primary osteoarthritis of right knee (Primary Dx); Status post left knee replacement 07/15/2024 2:10 PM EDT Ancillary Procedure [facility] [address] [phone] 07/15/2024 1:45 PM EDT [facility] [address] [phone] Fer Sanchez MD Acute pain of right knee (Primary Dx) 07/11/2024 Scanned Document [facility] [address] [phone] Fer Sanchez MD 07/08/2024 Scanned Document [facility] [address] [phone] Panda Balderrama MD 07/08/2024 Orders Only [facility] [address] [phone] Daniel Telles PA-C 06/14/2024 Refill [facility] [address] [phone] Bibi Guidry APRN Old peripheral tear of medial meniscus of right knee 05/29/2024 2:45 PM EST [facility] [address] [phone] Bibi Guidry APRN Old peripheral tear of [...] 11:00 AM EDT [facility] [address] [phone] Daniel Telles PA-C [address] [facility] [address] [place] [address] 10/15/2024 9:45 AM EDT Pre-Admission Testing [facility] [place] [address] [place] [address] 2nd [address] [place] [phone] Rebecca Malave PA-C 31 [facility] [address] [place], [place] [phone] 10/29/2024 8:15 AM EDT Hospital Encounter [facility] [place] at [address] [phone] Panda Balderrama MD [address] [facility] [address] [place], [place] [phone] 10/29/2024 8:15 AM EDT - 10/29/2024 10:[address] [facility] [place] at [address] [phone] Panda Balderrama MD [address] [facility] [address] [place] [phone] ARTHROPLASTY TOTAL KNEE Scheduled Procedures Name Priority Associated Diagnoses Date/Ti me ARTHROPLASTY TOTAL KNEE Primary osteoarthritis of right knee 10/29/2024 8:15 AM EDT Health Maintenance Due Date Last Done Comments Hepatitis C Virus Screening 1962 HIV Screening 10/29/1975 DTaP/Tdap/Td Vaccines (1 - Tdap) 1981 Colonoscopy 10/29/2007 Pneumococcal Vaccines 50+ (1 of 1 - PCV) 2012 Zoster (Shingles) Vaccine (1 of 2) 2012 RSV Vaccine 60 years and old er and Patients (1 - Risk 60-74 years 1-dose series) 2022 COVID-19 Vaccine (1 2023-2 5 season) 2023 Influenza Vaccine 10/25/2024 Hepatitis B Vaccines Aged Out No long er eligible based on patient's age to complete this topic Goals Goal Patient Goal Type Associated Problems Recent Progress Patient-Stated? Author Autogenerat ed Goal Care Plan Autogenerated Problem No Niesha Zamudio MA Procedures Procedure Name Priority Date/Time Associated Diagnosis Comments XR KNEE 1 OR 2 VIEWS-RIGHT Routine 07/22/2024 3:02 PM EDT Primary osteoarthritis of right knee XR LEG LENGTH-BILATERAL Routine 07/22/2024 3:02 PM EDT Primary osteoarthritis of right knee XR KNEE 4+ VIEWS-RIGHT Routine 2:13 PM EDT Acute pain of right knee VA ARTHROCENTESIS ASPIR&/INJ MAJOR JT/BURSA W/O US Routine 05/29/2024 2:45 PM EST Old peripheral tear of medial meniscus of right knee from Last 3 Months Results * XR Leg length-Bilateral (07/22/2024 3:02 PM EDT) Narrative [facility] - 07/22/2024 3:02 PM EDT This exam was performed in office at [facility] and images reviewed by orthopedic provider. ??Any findings are documented within ambulatory encounter note on date of service. Panda Balderrama MD [facility] DIAGNOSTIC IMAGING ORDERA BLES Final Result Performing Organization Address City/[facility]/ZIP Co de Phone Number OAH * XR Knee 1 or 2 views-Right (07/22/2024 3:02 PM EDT) Narrative [facility] - 07/22/2024 3:02 PM EDT [facility] and images reviewed by orthopedic provider. ??Any findings are documented within ambulatory encounter note on date of service. Panda Balderrama MD [facility] DIAGNOSTIC IMAGING ORDERA BLES Final Result [facility] * XR Knee 4+ views-Right (07/15/2024 2:13 PM EDT) Narrative [facility] - 07/15/2024 2:13 PM EDT This exam was performed in office at [facility] and images reviewed by orthopedic provider. ??Any findings are documented within ambulatory encounter note on date of service. Fer Sanchez MD [facility] DI[facility]NOSTIC IMAGING ORDERABLES Final Result [facility] * VA ARTHROCENTESIS ASPIR&/INJ MAJOR JT/BURSA W/O US (05/29/2024 [...] to verify the correct patient, procedure, equipment, desktop support consultant and site/side marked as required. Patient was prepped and draped in the usual sterile fashion. Bibi Guidry APRN PROCEDURE/MINOR SURGICAL ORD ERABLES Final Result from Last 3 Months Additional Health Concerns Active Problems Noted Date Diagnosed Date Autogenerated Problem 07/23/2024 Insurance - [facility] - [facility] Care Teams Highway Engineer Relationship Specialty Start Date End Date Papito Dawn MD [address] [place] [address] PCP - General Internal Medicine 01/18/24 Panda Balderrama MD [address] [facility] [address] [place] [address] Surgery, Orthopedic 07/23/24
--- OUTSIDE RECORDS SUMMARY | 2024-08-06 09:49 | XMS_ITS | Encounter Summary ---
Author Organization [facility] Address [address] [place] [address] Care Team Providers Care Office Secretary Name Role Phone Papito Dawn MD Primary Care Provider [phone] Panda Balderrama MD Unavailable [phone] Encounter Details Date Type Department Care Team (Late st Contact Info) Description 05/08/2024 Scanned [address] [facility] [address] [place] [address] Fer Sanchez MD [address] [place] [address] [address] [place] [address] Social History Tobacco Use Types Packs/Day Years [...] 11:00 AM EDT Office Visit [facility] [address] [place] [phone] Daniel Telles PA-C 499 [facility] [address] [place] [address] 10/15/2024 9:45 AM EDT Pre-Admission Testing [facility] [address] [place] [address] 2nd Floor [address] [place] [address] Rebecca Malave PA-C 31 [facility] [address] [place] [address] 10/29/2024 8:15 AM EDT Hospital Encounter [facility] at [address] [phone] Panda Balderrama MD 499 [facility] [address] [place], [place] [phone] 10/29/2024 8:15 AM EDT - 10/29/2024 10:45 AM EDT Surgery [facility] at [address] [phone] Panda Balderrama MD [address] [facility] [address] [place], [place] [phone] ARTHROPLASTY TOTAL KNEE Scheduled Procedures Name Priority Associated Diagnoses Date/Ti me ARTHROPLASTY TOTAL KNEE Primary osteoarthritis of right knee 10/29/2024 8:15 AM EDT documented as of this encounter Visit Diagnoses Not on filedocumented in this encounter Care Teams Office Secretary Relationship Specialty Start Date End Date Papito Dawn MD [address] [place] [address] PCP - General Internal Medicine 01/18/24 Panda Balderrama MD [address] [facility] [address] [address] Surgery, Orthopedic 07/23/24 documented as of this encounter
--- OUTSIDE RECORDS SUMMARY | 2024-08-06 09:50 | XMS_ITS | Encounter Summary ---
Author Organization [facility] Address [address] [place] [address] Care Team Providers Care Show Jumping Instructor Name Role Phone Papito Dawn MD Primary Care Provider [phone] Panda Balderrama MD Unavailable [phone] Encounter Details Date Type Department Care Team (Late st Contact Info) Description 04/24/2024 Scanned Document [facility] [address] [place] [phone] Fer Sanchez MD [address] [place] [address] 100 [place] [address] Social History Tobacco Use Types Packs/Day Years [...] 11:00 AM EDT [facility] [address] [phone] Daniel Telles PA-C [address] [place] [address] [address] [place] [address] 10/15/2024 9:45 AM EDT Pre-Admission Testing [facility] [address] [place] [address] 2nd [address] [place] [address] Rebecca Malave PA-C 31 [facility] [address] [place] [address] 10/29/2024 8:15 AM EDT Hospital Encounter [facility] at [address] [phone] Panda Balderrama MD [address] [place] [address] 10/29/2024 8:15 AM EDT - 10/29/2024 10:45 AM EDT Surgery [facility] at [address] [phone] Panda Balderrama MD [address] [place] [address] ARTHROPLASTY TOTAL KNEE Scheduled Procedures Name Priority Associated Diagnoses Date/Ti me ARTHROPLASTY TOTAL KNEE Primary osteoarthritis of right knee 10/29/2024 8:15 AM EDT documented as of this encounter Visit Diagnoses Not on filedocumented in this encounter Care Teams Show Jumping Instructor Relationship Specialty Start Date End Date Papito Dawn MD [address] [place] [address] PCP - General Internal Medicine 01/18/24 Panda Balderrama MD [address] [place] [address] Surgery, Orthopedic 07/23/24 documented as of this encounter
--- OUTSIDE RECORDS SUMMARY | 2024-08-06 09:50 | XMS_ITS | Encounter Summary ---
Author Organization [facility] Address [address] [place] [address] Care Team Providers Care Cartridge Maker Name Role Phone Papito Dawn MD Primary Care Provider [phone] Panda Balderrama MD Unavailable [phone] Encounter Details Date Type Department Care Team (Late st Contact Info) Description 07/11/2024 Scanned Document [facility] [address] [place] [address] Fer Sanchez MD [address] [place] [address] [address] [place] [address] Social History Tobacco Use Types Packs/Day Years [...] Department Care Team (Late Contact Info) Description 10/07/2024 11:00 AM EDT Office Visit [facility] 150 [place] [phone] Daniel Telles PA-C 499 [facility] [address] [place] [address] 10/15/2024 9:45 AM EDT Pre-Admission Testing [facility] [address] [place] [address] 2nd [address] [place] [address] Rebecca Malave PA-C 31 [facility] [address] [place] [address] 10/29/2024 8:15 AM EDT Hospital Encounter [facility] [place] at [address] [phone] Panda Balderrama MD 499 [facility] [address] [place], [place] [id number] 10/29/2024 8:15 AM EDT - 10/29/2024 10:45 AM EDT Surgery [facility] [place] at [address] [phone] Panda Balderrama MD 499 [facility] [address] [place], [place] [phone] ARTHROPLASTY TOTAL KNEE Scheduled Procedures Name Priority Associated Diagnoses Date/Ti me ARTHROPLASTY TOTAL KNEE Primary osteoarthritis of right knee 10/29/2024 8:15 AM EDT documented as of this encounter Visit Diagnoses Not on filedocumented in this encounter Care Teams Cartridge Maker Relationship Specialty Start Date End Date Papito Dawn MD [address] [place] [address] PCP - General Internal Medicine 01/18/24 Panda Balderrama MD [address] [facility] [address] [address] Surgery, Orthopedic 07/23/24 documented as of this encounter
--- OUTSIDE RECORDS SUMMARY | 2024-08-06 09:50 | XMS_ITS | Encounter Summary ---
Author Organization [facility] Address [address] [place] [address] Care Team Providers Care Commercial Administrator Name Role Phone Papito Dawn MD Primary Care Provider [phone] Panda Balderrama MD Unavailable [phone] Encounter Details Date Type Department Care Team (Late st Contact Info) Description 07/08/2024 Scanned Document Orthopedic [address] [address] Panda Balderrama MD 499 [facility] [address] [place] [address] Social History Tobacco Use Types Packs/Day Years [...] 10/07/2024 11:00 AM EDT Office Visit [facility] 150 [place] [phone] Daniel Telles PA-C 499 [facility] [address] [place] [address] 10/15/2024 9:45 AM EDT Pre-Admission Testing [facility] [address] [place] [address] 2nd [address] [place] [address] Rebecca Malave PA-C 31 [facility] [address] [place] [address] 10/29/2024 8:15 AM EDT Hospital Encounter [facility] [place] at [address] [phone] Panda Balderrama MD 499 [facility] [address] [place], [place] [phone] 10/29/2024 8:15 AM EDT - 10/29/2024 10:45 AM EDT Surgery [facility] [place] at [address] [phone] Panda Balderrama MD 499 [facility] [address] [place], [place] [phone] ARTHROPLASTY TOTAL KNEE Scheduled Procedures Name Priority Associated Diagnoses Date/Ti me ARTHROPLASTY TOTAL KNEE Primary osteoarthritis of right knee 10/29/2024 8:15 AM EDT documented as of this encounter Visit Diagnoses Not on filedocumented in this encounter Care Teams Commercial Administrator Relationship Specialty Start Date End Date Papito Dawn MD [address] [place] [address] PCP - General Internal Medicine 01/18/24 Panda Balderrama MD [address] [facility] [address] [address] Surgery, Orthopedic 07/23/24 documented as of this encounter
[2024-08-06 13:07] LABS: MANUAL DIFF FLAG NO
[2024-08-06 13:14] LABS: Basophils Absolute Auto 0.1 X10*3/uL (0.0-0.2); Basophils Percent Auto 0.8 % (0-2); Eosinophils Absolute Auto 0.1 X10*3/uL (0.0-0.4); Eosinophils Percent Auto 0.9 % (0-4); Hemoglobin 18.1 g/dl (14.0-18.0); Imm Gran Abs Auto 0.01 X10*3/uL (0.00-0.03); Imm Gran Pct Auto 0.2 % (0.0-0.4); Lymphocytes Absolute Auto 1.2 X10*3/uL (1.2-4.9); Lymphocytes Percent Auto 17.9 % (20-40); Mean Corpuscular HGB Conc 32.9 g/dl (31.0-36.0); Mean Corpuscular Hemoglobin 30.2 pg (27.0-33.0); Mean Corpuscular Volume 91.7 fL (80.0-98.0); Mean Platelet Volume 10.2 fL (9.4-12.4); Monocytes Absolute Auto 0.8 X10*3/uL (0.1-1.2); Monocytes Percent Auto 12.7 % (2-11); Neutrophils Absolute Auto 4.5 x10*3/uL (2.0-8.3); Neutrophils Percent Auto 67.5 % (45-73); Platelet Count 268 X10*3/uL (160-400); Red Cell Distribution Width 13.1 % (11.0-16.0); White Blood Count 6.6 X10*3/uL (4.8-10.8)
[2024-08-06 13:16] LABS: Hematocrit 54.6 % (42.0-52.0)
[2024-08-06 13:31] LABS: Alanine Aminotransferase 48 U/L (0-40); Albumin Level 4.3 g/dL (3.5-5.0); Alkaline Phosphatase 61 U/L (39-117); Anion Gap 15 (12-20); Aspartate Amino Transferase 49 U/L (5-37); Bilirubin Total 0.6 mg/dL (0.0-1.0); Blood Urea Nitrogen 13 mg/dL (9-16); C Reactive Protein 0.14 mg/dL (< or = 0.50); Calcium 9.6 mg/dL (8.4-10.2); Carbon Dioxide 29 mmol/L (22-29); Chloride 102 mmol/L (96-108); Cholesterol 126 mg/dL (<200); Estimated Glomerular Filt Rate > 60; Glucose Fasting 119 mg/dL (60-99); HDL Cholesterol 41 mg/dL (>40); LDL Cholesterol Calculated 69 mg/dL (<100); Potassium 3.7 mmol/L (3.3-5.1); Sodium 142 mmol/L (135-145); Total Protein 6.9 g/dL (6.5-8.0); Triglycerides 82 mg/dL (<150)
[2024-08-06 14:13] LABS: Creatinine Urine 271.55 mg/dL; Erythrocyte Sedimentation Rate 1 MM/HR (0-15); Microalbum/Creatinine Ratio Ur 8.1 ug/mg cr (<30)
[2024-08-06 15:12] LABS: Estimated Average Glucose 126 mg/dL; Hemoglobin A1C 192.1787 umol/L; Total Hemoglobin (HGBA1C) 4510.8468 umol/L
== END 2024-08-06 09:19 | disposition home or self-care (01) ==
LOC: HO.HMGCLDS 09:18
PROVIDERS: Urology; PCP Internal Medicine; Referring Provider Internal Medicine Rheumatology; Visit Provider Internal Medicine
DX: M06.9 Rheumatoid arthritis, unspecified (principal); M19.90 Unspecified osteoarthritis, unspecified site; Z79.899 Other long term (current) drug therapy; Z79.890 Hormone replacement therapy; R79.89 Other specified abnormal findings of blood chemistry; I10 Essential (primary) hypertension; E78.9 Disorder of lipoprotein metabolism, unspecified; M05.761 Rheumatoid arthritis with rheumatoid factor of right knee without organ or systems involvement; M05.762 Rheumatoid arthritis with rheumatoid factor of left knee without organ or systems involvement; E11.69 Type 2 diabetes mellitus with other specified complication; E66.9 Obesity, unspecified; E66.09 Other obesity due to excess calories; J45.40 Moderate persistent asthma, uncomplicated; J30.9 Allergic rhinitis, unspecified
CPT/HCPCS: 36415; 80053; 80061; 82043; 82570; 83036; 84402; 84403; 85014; 85025; 85652; 86140

== ENCOUNTER → 2024-08-13 09:49 | Outpatient (BNVA) | payer BC, SELFPAY | PROVIDERS: PCP Internal Medicine; Visit Provider Internal Medicine | DX: Z13.89 Encounter for screening for other disorder (principal) ==

== ENCOUNTER → 2024-08-26 09:11 | Outpatient (BNVA) | payer BC, SELFPAY | PROVIDERS: PCP Internal Medicine; Visit Provider Urology ==

== ENCOUNTER 2024-08-30 11:40 | Outpatient (REF) | payer BC, SELFPAY ==
--- OUTSIDE RECORDS SUMMARY | 2024-08-30 12:23 | XMS_ITS | Encounter Summary ---
Author Organization [facility] Address [address] [place] [address] Care Team Providers Care Media Buyer Name Role Phone Papito Dawn MD Primary Care Provider [phone] Panda Balderrama MD Unavailable [phone] Encounter Details Date Type Department Care Team (Late st Contact Info) Description 04/25/2024 Scanned Document Orthopedic [address] [phone] Fer Sanchez MD [address] [place] [address] 100 [place] [address] Social History Tobacco Use Types Packs/Day Years [...] 11:00 AM EDT [facility] [address] [phone] Daniel Telles PA-C [address] [place] [address] [address] [place] [address] 10/15/2024 9:45 AM EDT Pre-Admission Testing [facility] [place] [address] [place] [address] 2nd [address] [place] [address] Rebecca Malave PA-C 31 [facility] [place] [address] [place] [address] 10/29/2024 8:15 AM EDT Hospital Encounter [facility] [place] at [address] [phone] Panda Balderrama MD [address] [place], [place] [phone] 10/29/2024 8:15 AM EDT - 10/29/2024 10:45 AM EDT Surgery [facility] [place] at [address] [phone] Panda Balderrama MD 499 [facility] [address] [place] [address] ARTHROPLASTY TOTAL KNEE Scheduled Procedures Name Priority Associated Diagnoses Date/Ti me ARTHROPLASTY TOTAL KNEE Primary osteoarthritis of right knee 10/29/2024 8:15 AM EDT documented as of this encounter Visit Diagnoses Not on filedocumented in this encounter Care Teams Media Buyer Relationship Specialty Start Date End Date Papito Dawn MD [address] [place] [address] PCP - General Internal Medicine 01/18/24 Panda Balderrama MD [address] [phone] Surgery, Orthopedic 07/23/24 documented as of this encounter
[2024-08-30 13:26] LABS: MANUAL DIFF FLAG NO
[2024-08-30 13:33] LABS: Basophils Percent Auto 0.6 % (0-2); Eosinophils Percent Auto 0.6 % (0-4); Hematocrit 54.3 % (42.0-52.0); Hemoglobin 18.2 g/dl (14.0-18.0); Imm Gran Abs Auto 0.01 X10*3/uL (0.00-0.03); Imm Gran Pct Auto 0.1 % (0.0-0.4); Lymphocytes Absolute Auto 1.2 X10*3/uL (1.2-4.9); Lymphocytes Percent Auto 16.9 % (20-40); Mean Corpuscular HGB Conc 33.5 g/dl (31.0-36.0); Mean Corpuscular Hemoglobin 29.5 pg (27.0-33.0); Mean Platelet Volume 10.3 fL (9.4-12.4); Monocytes Absolute Auto 0.9 X10*3/uL (0.1-1.2); Monocytes Percent Auto 13.2 % (2-11); Neutrophils Absolute Auto 4.8 x10*3/uL (2.0-8.3); Neutrophils Percent Auto 68.6 % (45-73); Platelet Count 254 X10*3/uL (160-400); Red Blood Count 6.17 X10*6/uL (4.60-5.80); Red Cell Distribution Width 12.7 % (11.0-16.0)
== END 2024-08-30 11:41 | disposition home or self-care (01) ==
LOC: HO.HMGCLDS 11:40
PROVIDERS: Urology; PCP Internal Medicine; Visit Provider Internal Medicine
DX: E78.9 Disorder of lipoprotein metabolism, unspecified (principal); Z79.890 Hormone replacement therapy; J30.9 Allergic rhinitis, unspecified; J45.40 Moderate persistent asthma, uncomplicated; E66.09 Other obesity due to excess calories; E66.9 Obesity, unspecified; E11.69 Type 2 diabetes mellitus with other specified complication; M05.762 Rheumatoid arthritis with rheumatoid factor of left knee without organ or systems involvement; M05.761 Rheumatoid arthritis with rheumatoid factor of right knee without organ or systems involvement; I10 Essential (primary) hypertension
CPT/HCPCS: 36415; 85025

== ENCOUNTER 2024-09-10 08:54 | Outpatient (REF) | payer BC, SELFPAY ==
[2024-09-17 17:23] LABS: Testosterone, Free 95.4 pg/mL (35.0-155.0); Testosterone, Total 585 ng/dL (250-1100)
== END 2024-09-10 08:55 | disposition home or self-care (01) ==
LOC: HO.HMGCLDS 08:54
PROVIDERS: PCP Internal Medicine; Referring Provider Urology; Visit Provider Internal Medicine
DX: L72.0 Epidermal cyst (principal); E11.69 Type 2 diabetes mellitus with other specified complication; E66.01 Morbid (severe) obesity due to excess calories; Z68.41 Body mass index [BMI] 40.0-44.9, adult; I10 Essential (primary) hypertension; E78.9 Disorder of lipoprotein metabolism, unspecified; M05.761 Rheumatoid arthritis with rheumatoid factor of right knee without organ or systems involvement; M05.762 Rheumatoid arthritis with rheumatoid factor of left knee without organ or systems involvement; J45.40 Moderate persistent asthma, uncomplicated; J30.9 Allergic rhinitis, unspecified; I25.10 Atherosclerotic heart disease of native coronary artery without angina pectoris; H54.61 Unqualified visual loss, right eye, normal vision left eye; Z79.84 Long term (current) use of oral hypoglycemic drugs; Z79.890 Hormone replacement therapy; Z79.899 Other long term (current) drug therapy; Z96.651 Presence of right artificial knee joint; R79.89 Other specified abnormal findings of blood chemistry
CPT/HCPCS: 36415; 84402; 84403

== ENCOUNTER 2024-09-10 08:54 | Outpatient (AMB) | payer BC, MEDICARE, SELFPAY ==
--- NOTE | 2024-09-10 08:56 | A.OFFPC_ITS ---
Vital Signs 09/10/24 09:00 Height 5 ft 10 in Weight 295 lb 2 oz BMI 42.3 BP 132/82 Blood Pressure Location Rt brachial Position Sitting Pulse 106 H Pulse Source Pulse Oximeter Temp 98.8 F Temp Source Oral Pulse Oximetry (%) 93 Oxygen Delivery Method Room Air Intake Visit Reasons: 3 month f/u Meds review Allergies amoxicillin [Augmentin] Allergy (Intermediate, Verified 09/10/24 09:01) rash aspirin [ASPIRIN] Allergy (Intermediate, Verified 09/10/24 09:01) WHEEZING clavulanic acid [Augmentin] Allergy (Intermediate, Verified 09/10/24 09:01) rash Iodinated Contrast Media [IODINATED CONTRAST MEDIA - IV DYE] Allergy (Intermediate, Verified 09/10/24 09:01) NAUSEA shellfish dye Allergy (Intermediate, Uncoded 05/06/24 15:30) nausea, wheezing Medication List - Last Reconciled 09/10/24 by Papito Dawn MD albuterol sulfate 90 mcg/actuation 2 puffs inhalation Q6-8H PRN atorvastatin 20 mg PO DAILY 90 days blood sugar diagnostic (FreeStyle Lite Strips) Check blood sugar once daily as directed blood-glucose meter (FreeStyle Lite Meter kit) Check blood sugar once daily as directed budesonide-formoterol 80-4.5 mcg/actuation 1 inh inhalation BID cetirizine (Zyrtec) 10 mg PO DAILY fluticasone propion-salmeterol 250-50 mcg/dose (Advair Diskus) 1 inh inhalation Q12H 30 days fluticasone propionate 50 mcg/actuation (Flonase Allergy Relief) 1 spray intranasal BID 30 days glipizide 5 mg PO DAILY ipratropium-albuterol 0.5 mg-3 mg(2.5 mg base)/3 mL 3 mL inhalation BID PRN 30 days lancets (FreeStyle Lancets) Check blood sugar once daily as directed losartan-hydrochlorothiazide 100-12.5 mg 1 tab PO DAILY 90 days needle (disp) 18 G (BD Regular Bevel [place]) As directed - draw up testosterone needle (disp) 23 gauge (BD Regular Bevel [place]) Inject testosterone subcutaneous syringe (disposable) (BD Luer-Rocky Syringe) Testosterone injection weekly testosterone cypionate (Depo-Testosterone) 200 mg IM QWEEK 4 weeks tirzepatide (weight loss) 5 mg (0.5 mL) subcut QWEEK 30 days Tobacco use date assessed: 09/10/24 Dental Screening Dental Screen Date: 09/10/24 Did you have a dental visit in the last 12 months?: Yes Did you have a dental problem in the last 6 months where you did not have access to dental care?: No Was dental information given to patient?: Patient has dentist HPI 3 month f/u Meds review HPI Details History - The patient is a 63-year-old male pres enting with regular follow-up for diabetes management and evaluation of a new mass on the buttocks. - Diabetes: A1c decreased from 7.8 in [facility] to 6.0 in July with the help of increased vegetable intake including salads, and reduced carbohydrate consumption. Desires to reach 280 pounds by October 29; current weight reduction progress documented from 318 pounds in May to 290-295 pounds noted during current visit. Episode of hypoglycemia reported with blood glucose of 51, managed with peanut butter crackers. - Mass on buttocks: Described as large, right-sided, with a golf ball-sized dimension, noted presence of veins by spouse, and reported increased size and occasional pain; present for a long-term duration. No drainage noted from the mass. 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) - Bilateral cataract surgeries - Laser procedures for eye pressure shira dubon Social History: - Drives independently despite visual im pairment; drives to [place] for medical appointments - Recently diagnosed as disabled, receiv ing Social Security Disability, covered under Medicare - Made significant dietary changes, incl uding increased salad intake and reduced carbohydrates - Experiences nausea from medication, co ntrolled with an [id number] remedy Medications - Atorvastatin (dose not specified; for dyslipidemia) - Inhaled budesonide-formoterol (mainten ance inhaler, dose not specified; for respiratory condition) - Albuterol (as needed; for respiratory condition) - Glipizide (current dose to be decrease d from 5 mg; for diabetes) - Losartan/hydrochlorothiazide (dose not specified; for hypertension) - Testosterone supplement (dose not spec ified; for androgen replacement) - Zepbound (current dose 5 mg; for weigh t management) Problem List - Type 2 Diabetes Mellitus - Hypertension - Mass on Right Buttock - Visual impairment - Recent corneal transplant - History of hypoglycemia - moderate persistent asthma - allergies - morbid obesity Diagnostic results - Labs: A1c at 6.0 as of July [place] [facility] - Referral mentioned to Dr. Petty for surgical evaluation of the mass on the buttocks Patient Instructions - Monitor blood sugar regularly and be c autious of hypoglycemia; incorporate dietary snack if needed to prevent crashes. - Continue dietary management, focus on low carbohydrate intake. - Start using maintenance inhaler twice daily as directed. - Reduce glipizide dose to 2.5 mg. - Increase Zepbound to 7.5 mg as soon as current dose is finished. - Book a surgery consultation with Dr. Zachary mackey for cyst removal. - Report any significant changes or new symptoms promptly. Follow-up 2 months on weight loss Review of Systems General: No fever no chills neurological: No headaches no dizziness ear nose throat: No sore throat no hearing difficulty no ear pain cardiovascular: No syncope, no chest pain, no palpitations gastrointestinal: No nausea vomiting or diarrhea endocrine: No polyuria polydipsia no heat intolerance genitourinary: No dysuria skin: No new complaints Physical Exam general: No acute distress HEENT: No acute findings neck: Supple respiratory system: Able to talk in full sentences, no audible wheeze no stridor, both lungs sound clear cardiovascular: S1-S2 RRR gastrointestinal: No pain extremities: No new findings COLLECTION SYSTEMS FOREMAN: Alert awake oriented x3 motor sensory intact skin: Normal turgor, acne present, increased hair growth on arms and legs Large cyst right gluteus brenden size of ping-pong ball round movable nontender [facility] Medical History COLETTE (obstructive sleep apnea) COVID-19 vaccine series completed Snores Rheumatoid arthritis Fuchs' syndrome II Raynauds disease Osteoarthritis of both knees Asthma HTN (hypertension) Primary osteoarthritis of left knee Surgical History Hx of total knee replacement History of removal of testicle History of knee surgery History of colonoscopy History of trigger finger History of lipoma Family History Father Colon cancer Myocardial infarction Mother Colon cancer HTN (hypertension) Diabetes mellitus Sister Breast cancer Crohn's disease Sister Breast cancer Crohn's disease Brother CHF (congestive heart failure) Smoker Rheumatic fever Maternal Grandmother No problems noted. Maternal Grandfather No problems noted. Paternal Grandmother No problems noted. Paternal Grandfather Emphysema, unspecified Brother No problems noted. Sister No problems noted. Daughter No problems noted. Daughter No problems noted. Daughter No problems noted. Daughter No problems noted. 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 Cognitive needs: No Hearing needs: No Vision needs: Yes Questionnaire Thrive Questionnaire Date Thrive assessed: 04/09/24 I am a: Patient What is your living situation today?: I have a steady place to live Within the past 12 months, did the food you bought not last and you didn't have the money to get more?: Never true Within the past 12 months, did you worry whether your food would run out before you got money to buy more?: Never true Do you have trouble paying for medicines?: No Do you have trouble getting transportation to medical appointments?: No Do you have trouble paying your heating and electricity bill?: No Do you have trouble taking care of your child, family member or friend?: No Do you have trouble with day-to-day activities such as bathing, preparing meals, shopping, managing finances, etc.?: Yes Are you currently unemployed and looking for a job?: No Are you interested in more education?: No Please select the resources that you would like help with: None Currently or been in a relationship where the following occur: No concerns reported THRIVE Score: 0 JETT-7 AMB Questionnaire JETT-7 Date JETT - 7 assessed: 06/14/24 Source: Developed by Drs. Nino Delatorre, Leena Espinosa, Bogdan Flores and colleagues, with an educational lalito from [employer]. Physical exam (Primary Care) Vital Signs: Last Vital Signs Temp 98.8 F 09/10/24 09:00 Pulse 106 H 09/10/24 09:00 BP 132/82 09/10/24 09:00 Pulse Ox 93 09/10/24 09:00 Oxygen Delivery Method Room Air 09/10/24 09:00 BMI result Body Mass Index 42.3 Tobacco/Smoking Status: Tobacco use Status Tobacco use date assessed 09/10/24 09/10/24 09:06 Patient Tobacco Use Status Former Tobacco user 09/10/24 08:56 Tobacco use type Cigarette 09/10/24 08:56 e-Cigarette/Vaping Use Never Used 09/10/24 08:56 Thrive Assessment: Date of Thrive Assessment Date Thrive assessed 04/09/24 09/10/24 08:56 Currently or been in a relationship where the following occur: No concerns reported Coding Level of Care Code Est Pt Level 4 (52197) Complex EM visit Add On G2211 Diagnoses Epidermal cyst L72.0 Diabetes mellitus type 2 in obese E11.69; E66.9 Hypertension, essential I10 Lipid disorder E78.9 Rheumatoid arthritis involving both knees with positive rheumatoid factor M05.761; M05.762 Rheumatoid arthritis location: knee Rheumatoid factor presence: with rheumatoid factor Laterality: bilateral Moderate persistent asthma without complication J45.40 Asthma complication type: uncomplicated Allergic rhinitis, unspecified seasonality, unspecified trigger J30.9 Allergic rhinitis trigger: unspecified Allergic rhinitis seasonality: unspecified Long-term current use of testosterone replacement therapy Z79.890 Morbid obesity due to excess calories E66.01 Assessment & Plan Assessment & Plan (1) Epidermal cyst: Code(s): L72.0 - Epidermal cyst Category: Medical (2) Diabetes mellitus type 2 in obese: Code(s): E11.69 - Type 2 diabetes mellitus with other specified complication; E66.9 - Obesity, unspecified Category: Medical (3) Hypertension, essential: Code(s): I10 - Essential (primary) hypertension Category: Medical (4) Lipid disorder: Code(s): E78.9 - Disorder of lipoprotein metabolism, unspecified Category: Medical (5) Rheumatoid arthritis: Code(s): M06.9 - Rheumatoid arthritis, unspecified Category: Medical Qualifiers: Rheumatoid arthritis location: knee Rheumatoid factor presence: with rheumatoid factor Laterality: bilateral Qualified Code(s): M05.761 - Rheumatoid arthritis with rheumatoid factor of right knee without organ or systems involvement; M05.762 - Rheumatoid arthritis with rheumatoid factor of left knee without organ or systems involvement (6) Asthma, moderate persistent: Code(s): J45.40 - Moderate persistent asthma, uncomplicated Category: Medical Qualifiers: Asthma complication type: uncomplicated Qualified Code(s): J45.40 - Moderate persistent asthma, uncomplicated (7) Allergic rhinitis: Code(s): J30.9 - Allergic rhinitis, unspecified Category: Medical Qualifiers: Allergic rhinitis trigger: unspecified Allergic rhinitis seasonality: unspecified Qualified Code(s): J30.9 - Allergic rhinitis, unspecified (8) Long-term current use of testosterone replacement therapy: Code(s): Z79.890 - Hormone replacement therapy Category: Medical (9) Morbid obesity due to excess calories: Code(s): E66.01 - Morbid (severe) obesity due to excess calories Category: Medical Plan History - The patient is a 63-year-old male presenting with regular follow-up for diabetes management and evaluation of a new mass on the buttocks. - Diabetes: A1c decreased from 7.8 in May to 6.0 in July with the help of increased vegetable intake including salads, and reduced carbohydrate consumption. Desires to reach 280 pounds by October 29; current weight reduction progress documented from 318 pounds in May to 290-295 pounds noted during current visit. Episode of hypoglycemia reported with blood glucose of 51, managed with peanut butter crackers. - Mass on buttocks: Described as large, right-sided, with a golf ball-sized dimension, noted presence of veins by spouse, and reported increased size and occasional pain; present for a long-term duration. No drainage noted from the mass. 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) - Bilateral cataract surgeries - Laser procedures for eye pressure management Social History: - Drives independently despite visual impairment; drives to [place] for medical appointments - Recently diagnosed as disabled, receiving Social Security Disability, covered under Medicare - Made significant dietary changes, including increased salad intake and reduced carbohydrates - Experiences nausea from medication, controlled with an lvjg-vaf-cvdkwkz remedy Medications - Atorvastatin (dose not specified; for dyslipidemia) - Inhaled budesonide-formoterol (maintenance inhaler, dose not specified; for respiratory condition) - Albuterol (as needed; for respiratory condition) - Glipizide (current dose to be decreased from 5 mg; for diabetes) - Losartan/hydrochlorothiazide (dose not specified; for hypertension) - Testosterone supplement (dose not specified; for androgen replacement) - Zepbound (current dose 5 mg; for weight management) Problem List - Type 2 Diabetes Mellitus - Hypertension - Mass on Right Buttock - Visual impairment - Recent corneal transplant - History of hypoglycemia - moderate persistent asthma - allergies - morbid obesity Diagnostic results - Labs: A1c at 6.0 as of July [place] of Care - Referral mentioned to Dr. Petty for surgical evaluation of the mass on the buttocks Patient Instructions - Monitor blood sugar regularly and be cautious of hypoglycemia; incorporate dietary snack if needed to prevent crashes. - Continue dietary management, focus on low carbohydrate intake. - Start using maintenance inhaler twice daily as directed. - Reduce glipizide dose to 2.5 mg. - Increase Zepbound to 7.5 mg as soon as current dose is finished. - Book a surgery consultation with Dr. Petty for cyst removal. - Report any significant changes or new symptoms promptly. Follow-up 2 months on weight loss Orders: Referrals General Surgery Referral L72.0 - Epidermal cyst Medications: Changed From tirzepatide (weight loss) for 4 weeks 5 mg (0.5 mL) subcut QWEEK 30 days 2.5 mL 0RF To tirzepatide (weight loss) for 4 weeks 7.5 mg (0.5 mL) subcut QWEEK 2.5 mL 0RF 30 days Discontinued fluticasone propion-salmeterol 250-50 mcg/dose (Advair Diskus) Discontinued Reason: Doctor's Order 1 inh inhalation Q12H 30 days 60 ea 0RF
[2024-09-10 09:00] VITALS: BP 132/82; PULSE 106; TEMP 37.1; O2SAT 93; BMI 42.3
--- OUTSIDE RECORDS SUMMARY | 2024-09-10 09:29 | XMS_ITS | Encounter Summary ---
Author Organization [facility] Address [address] [place] [id number] Care Team Providers Care Isolation Washer Name Role Phone Papito Dawn MD Primary Care Provider [phone] Panda Balderrama MD Unavailable [phone] Encounter Details Date Type Department Care Team (Late st Contact Info) Description 04/25/2024 Scanned Document Orthopedic [address] [phone] Fer Sanchez MD [address] [place] [address] [address] [place] [address] Social History Tobacco Use Types Packs/Day Years [...] 11:00 AM EDT [facility] [address] [phone] Daniel Telles PA-C [address] [place] [address] [address] [place] [address] 10/15/2024 9:45 AM EDT Pre-Admission Testing [facility] [address] [place] [address] 2nd [address] [place] [phone] Rebecca Malave PA-C [address] [facility] [address] [place] [address] 10/29/2024 8:15 AM EDT Hospital Encounter [facility] at [address] [phone] Panda Balderrama MD [address] [place], [place] [id number] 10/29/2024 8:15 AM EDT - 10/29/2024 10:45 AM EDT Surgery [facility] at [address] [phone] Panda Balderrama MD [address] [facility] [address] [place] [address] ARTHROPLASTY TOTAL KNEE Scheduled Procedures Name Priority Associated Diagnoses Date/Ti me ARTHROPLASTY TOTAL KNEE Primary osteoarthritis of right knee 10/29/2024 8:15 AM EDT documented as of this encounter Visit Diagnoses Not on filedocumented in this encounter Care Teams Isolation Washer Relationship Specialty Start Date End Date Papito Dawn MD [address] [place] [id number] PCP - General Internal Medicine 01/18/24 Panda Balderrama MD [address] [id number] Surgery, Orthopedic 07/23/24 documented as of this encounter
== END 2024-09-10 09:27 | disposition home or self-care (01) ==
PROVIDERS: PCP Internal Medicine; Visit Provider Internal Medicine
DX: E11.69 Type 2 diabetes mellitus with other specified complication (principal); M05.761 Rheumatoid arthritis with rheumatoid factor of right knee without organ or systems involvement; M05.762 Rheumatoid arthritis with rheumatoid factor of left knee without organ or systems involvement; E66.01 Morbid (severe) obesity due to excess calories; Z68.41 Body mass index [BMI] 40.0-44.9, adult; L72.0 Epidermal cyst; I10 Essential (primary) hypertension; E78.9 Disorder of lipoprotein metabolism, unspecified; J45.40 Moderate persistent asthma, uncomplicated; J30.9 Allergic rhinitis, unspecified; Z79.890 Hormone replacement therapy

== ENCOUNTER 2024-09-23 11:22 | Outpatient (AMB) | payer MEDICARE, BC, SELFPAY ==
--- NOTE | 2024-09-23 11:23 | MHC.OFFVIS ---
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: No Allergies amoxicillin (Augmentin) Allergy (Intermediate, Verified 11/14/24 13:26) rash aspirin (ASPIRIN) Allergy (Intermediate, Verified 11/14/24 13:26) WHEEZING clavulanic acid (Augmentin) Allergy (Intermediate, Verified 11/14/24 13:26) rash Iodinated Contrast Media (IODINATED CONTRAST MEDIA - IV DYE) Allergy (Intermediate, Verified 11/14/24 13:26) NAUSEA shellfish dye Allergy (Intermediate, Uncoded 11/14/24 13:26) nausea, wheezing HPI Comments Details: 09/23/24 History of Present Illness - The patient is a 63-year-old male presenting for management of low testosterone and its associated side effects. - The patient has been on testosterone replacement therapy for low testosterone. - Recent blood work shows total testosterone at 585 and free testosterone at 95, indicating stable levels. - The patient reports acne as a side effect, which has worsened with increased dosage. - The patient has previously been on testosterone gel, which was ineffective, leading to a switch to injectable testosterone. - The patient has experienced oily skin and acne, particularly on the face, as side effects of the therapy. Results - Total testosterone: 585 - Free testosterone: 95 Plan - Continue monitoring testosterone levels and side effects. - Adjust testosterone dosage - Consider further reduction in dosage if acne persists. - Follow up with labs to evaluate testosterone levels and side effects. 06/17/24--Maninder is a 63-year-old male who I am following for low testosterone he was started on testosterone replacement. He states that since he was last seen in the office he had right knee surgery at [facility]. He had blood work ---testosterone level 06/11/2024 total testosterone 954 free testosterone 266.5. Patient continues to have symptoms of fatigue but states since his knee surgery he has not been very active. will monitor testosterone levels, will refill testosterone replacement therapy. 05/06/2024--telehealth follow-up: Maninder is a 63-year-old male who I am following for low testosterone he was started on testosterone replacement. He states that since he was last seen in the office he had right knee surgery at [facility]. He had blood work ---testosterone level 04/09/2024 total testosterone 93 free testosterone 13.4 also noted hemoglobin A1c elevated 7.0. Serum testosterone levels remain very low on testosterone gel replacement. Patient continues to have symptoms of fatigue and low libido. Will change testosterone replacement therapy delivery to Depo-Testosterone 200 mg IM q.week. 01/22/24-- Telehealth FU. Initial evaluation on 12/18/23--for low testosterone. Maninder is a 63-year-old male who is here for evaluation due to low testosterone. 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 He has a prosthesis. He has 3 daughters. Obesity, he states he has been inactive for the last few years due to multiple medical issues including eye surgeries and a knee replacement UC in the ER for and gained alot of weight. I have discussed medical reasons that low testosterone may occur as well as some risks related to testosterone replacement. I have reviewed labs today 01/22/24--PSA 0.72 ng/mL, total and free testosterone remains low at 132 and 24; FSH and LH are within normal limits. Plan will prescribe testosterone injection weekly repeat free and total testosterone in 3 months. [facility] Medical History COLETTE (obstructive sleep apnea) COVID-19 vaccine series completed Snores Rheumatoid arthritis Fuchs' syndrome II Raynauds disease Osteoarthritis of both knees Asthma HTN (hypertension) Primary osteoarthritis of left knee Surgical History Hx of total knee replacement History of removal of testicle History of knee surgery History of colonoscopy History of trigger finger History of lipoma Family History Father Colon cancer Myocardial infarction Mother Colon cancer HTN (hypertension) Diabetes mellitus Sister Breast cancer Crohn's disease Sister Breast cancer Crohn's disease Brother CHF (congestive heart failure) Smoker Rheumatic fever Maternal Grandmother No problems noted. Maternal Grandfather No problems noted. Paternal Grandmother No problems noted. Paternal Grandfather Emphysema, unspecified Brother No problems noted. Sister No problems noted. Daughter No problems noted. Daughter No problems noted. Daughter No problems noted. Daughter No problems noted. 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 Cognitive needs: No Hearing needs: No Vision needs: Yes Review of Systems Const All systems reviewed & are unremarkable except as noted in HPI and below Reports no additional complaints Eyes Reports no additional complaints ENT Reports no additional complaints Card Reports no additional complaints Resp Reports no additional complaints GI Reports no additional complaints Reports as per HPI Musc Reports no additional complaints Skin/Breast Reports system reviewed and no additional complaints, except as documented Neuro Reports no additional complaints Psych Reports no additional complaints Endo Reports no additional complaints Rusty/Lymph Reports no additional complaints Aller/Immun Reports no additional complaints Telehealth Telehealth Telehealth Platform: Revivn Location of provider rendering services: practice address Location of patient: address on file Patient Identification confirmed using: Name, : Yes Telehealth method: video Patient verbally consented to treatment: Yes Patient verbally consented to billing insurance company: Yes Patient informed of any privacy concerns related to visit: Yes Assessment & Plan Assessment & Plan (1) Low testosterone: Code(s): R79.89 - Other specified abnormal findings of blood chemistry Category: Medical (2) Long-term current use of testosterone replacement therapy: Code(s): Z79.890 - Hormone replacement therapy Category: Medical Plan Repeat labs, cont testosterone replacement therapy Plan - Continue monitoring testosterone levels and side effects. - Adjust testosterone dosage - Consider further reduction in dosage if acne persists. - Follow up with labs to evaluate testosterone levels and side effects. Patient Instructions: The patient had an opportunity to ask questions regarding treatment plan. The patient expressed understanding and agreement with the above treatment plan. The patient is aware they should contact our office by phone for worsening of their current condition or the appearance of new symptoms. Compliance is encouraged with any medications and followup testing that is ordered. It is a privilege to be allowed the opportunity to participate in the urologic care of your patient. If you have any questions or concerns regarding treatment for the above conditions please do not hesitate to contact me. The office telephone contact is [phone]. This note is constructed in part using voice recognition software. While every effort has been made to ensure accuracy manager port errors may have been included. Yours sincerely, Sherrie Godfrey MD Scribe Plan - Not visible on output: Patient was informed and verbally consented to the use of an ambient scribe for clinic note documentation during this visit. Coding Level of Care Code Est Pt Level 3 (94726) Complex EM visit Add On G2211 Diagnoses Low testosterone R79.89 Long-term current use of testosterone replacement therapy Z79.890
== END 2024-09-23 13:31 | disposition home or self-care (01) ==
LOC: HO.HUSH 11:22
PROVIDERS: PCP Internal Medicine; Visit Provider Urology
DX: R79.89 Other specified abnormal findings of blood chemistry (principal); Z79.890 Hormone replacement therapy
CPT/HCPCS: 99213; G2211

== ENCOUNTER → 2024-09-23 11:22 | Outpatient (BNVA) | payer MEDICARE, BC, SELFPAY | PROVIDERS: PCP Internal Medicine; Visit Provider Urology | DX: R79.89 Other specified abnormal findings of blood chemistry (principal); Z79.890 Hormone replacement therapy | CPT/HCPCS: 99212 ==

== ENCOUNTER 2024-10-10 12:45 | Outpatient (AMB) | payer MEDICARE, BC, SELFPAY ==
--- NOTE | 2024-10-10 13:07 | MHC.OFFVIS ---
Vital Signs 10/10/24 13:22 Height 5 ft 10 in Weight 286 lb BMI 41.0 BP 145/77 H Blood Pressure Location Lt brachial Position Sitting Pulse 121 H Intake Visit Reasons: Epidermal cyst Intake Note: Patient is seen in office for evaluation of an epidermal cyst. Pt c/o: onset 15 yrs, increase in size, currently size of a golf ball, denies redness, discharge, or infections, had other removed in the past (benign) Diamond Mounter Required: No Accompanied by: Self / Same As Patient Allergies amoxicillin (Augmentin) Allergy (Intermediate, Verified 10/10/24 13:21) rash aspirin (ASPIRIN) Allergy (Intermediate, Verified 10/10/24 13:21) WHEEZING clavulanic acid (Augmentin) Allergy (Intermediate, Verified 10/10/24 13:21) rash Iodinated Contrast Media (IODINATED CONTRAST MEDIA - IV DYE) Allergy (Intermediate, Verified 10/10/24 13:21) NAUSEA shellfish dye Allergy (Intermediate, Uncoded 10/10/24 13:21) nausea, wheezing Medication List - Last Reconciled 10/10/24 by Elmo Petty MD albuterol sulfate 90 mcg/actuation 2 puffs inhalation Q6-8H PRN atorvastatin 20 mg PO DAILY 90 days blood sugar diagnostic (FreeStyle Lite Strips) Check blood sugar once daily as directed blood-glucose meter (FreeStyle Lite Meter kit) Check blood sugar once daily as directed budesonide-formoterol 80-4.5 mcg/actuation 1 inh inhalation BID cetirizine (Zyrtec) 10 mg PO DAILY fluticasone propionate 50 mcg/actuation (Flonase Allergy Relief) 1 spray intranasal BID 30 days glipizide 5 mg PO DAILY ipratropium-albuterol 0.5 mg-3 mg(2.5 mg base)/3 mL 3 mL inhalation BID PRN 30 days lancets (FreeStyle Lancets) Check blood sugar once daily as directed losartan-hydrochlorothiazide 100-12.5 mg 1 tab PO DAILY 90 days needle (disp) 18 G (BD Regular Bevel [place]) As directed - draw up testosterone needle (disp) 23 gauge (BD Regular Bevel [place]) Inject testosterone subcutaneous prednisolone acetate 1% 1 drp ophthalmic-Right QID syringe (disposable) (BD Luer-Rocky Syringe) Testosterone injection weekly testosterone cypionate (Depo-Testosterone) 200 mg IM QWEEK 4 weeks tirzepatide (weight loss) 7.5 mg (0.5 mL) subcut QWEEK 30 days HPI Comments Details: 63-year-old male patient presenting for evaluation of a lump located in the posterior right buttock. This has been present for least 15 years and has gradually increased in size. He reports a previous history of lipomas in the arm which have been excised. He denies any significant pain, redness or discharge from the site. He is requesting excision of this enlarging lesion. [facility] Medical History COLETTE (obstructive sleep apnea) COVID-19 vaccine series completed Snores Rheumatoid arthritis Fuchs' syndrome II Raynauds disease Osteoarthritis of both knees Asthma HTN (hypertension) Primary osteoarthritis of left knee Surgical History Hx of total knee replacement History of removal of testicle History of knee surgery History of colonoscopy History of trigger finger History of lipoma Family History Father Colon cancer Myocardial infarction Mother Colon cancer HTN (hypertension) Diabetes mellitus Sister Breast cancer Crohn's disease Sister Breast cancer Crohn's disease Brother CHF (congestive heart failure) Smoker Rheumatic fever Maternal Grandmother No problems noted. Maternal Grandfather No problems noted. Paternal Grandmother No problems noted. Paternal Grandfather Emphysema, unspecified Brother No problems noted. Sister No problems noted. Daughter No problems noted. Daughter No problems noted. Daughter No problems noted. Daughter No problems noted. 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 Cognitive needs: No Hearing needs: No Vision needs: Yes Review of Systems Const All systems reviewed & are unremarkable except as noted in HPI and below Musc Reports arthralgias Physical Exam Const General: cooperative and no acute distress Nutritional Appearance: well nourished Orientation/consciousness: patient oriented x3 Limitations: no limitations HEENT Head: Yes normocephalic and Yes atraumatic Ears: hearing grossly normal bilaterally Resp Effort & Inspection: normal respiratory effort, no audible wheezes, no cough and no respiratory distress Cardio Jugular venous distension: no JVD GI Inspection: Yes normal to inspection Back/Spine/Pelvis Back/spine/pelvis image:  1. 3.5 cm round subcutaneous mass suggestive of a lipoma or inclusion cyst, nontender to palpation. No erythema or ecchymosis. Skin Other: Warm, dry, no rash Neuro General: patient oriented x3 Extrem General: Yes no clubbing, cyanosis or edema Assessment & Plan Assessment & Plan (1) Mass of buttock: Code(s): R22.2 - Localized swelling, mass and lump, trunk Category: Medical Plan 63-year-old male patient presenting with a 3.5 cm buttock mass on the right side which is gradually increasing in size. Patient has requested excision. On examination there is a subcutaneous mass either a lipoma or inclusion cyst. I recommended an excision under local anesthesia in minor surgery. After discussion of the procedure, risks, and alternatives, he consents to the excision of right buttock mass. Coding Level of Care Code New Pt Level 4 (65878) Diagnoses Mass of buttock R22.2
--- OUTSIDE RECORDS SUMMARY | 2024-10-10 13:10 | XMS_ITS | Patient Health Record ---
Author Organization [facility] Address [address] [place] [address] Care Team Providers Care Manager Application Name Role Phone L[facility]pez FLOWER, [facility] Primary Care Provider Nino Sy Unavailable [phone] Allergies Allergen (clinical drug ingredient) Drug/Non Drug Allergy documented on EMR Reaction Allergy Type Onset Date Status Shellfish (FN) Shellfish-derived Products Unknown Drug Allergy Active amoxicillin / clavulanate Augmentin Unknown Drug Allergy Active aspirin Aspirin Unknown Drug Allergy Active Reason For Referral Referring Provider First Name Papito Referring Provider Last Name López Referring Provider Speciality Internal M edicine Referred Organization [facility] Referred Provider Nino Jewell Referred Address [address] [place] [address],[address],[place], [place],[address], Referred Provider Specialty Gastroentero logy Referral Priority Routine Medications Medication SIG (Take, Route, Frequency, Duration) Notes Start Date End Date Status ProAir HFA 108 (90 Base) MCG/ACT 2 puffs as needed Inhalation every 4 hrs Active Advil 200 MG 1 tablet with food o r milk as needed Orally Three times a day/prn Active ZyrTEC 10 MG 1 tablet Orally Once a day Active Testosterone Cypionate 200 MG/ML 1 mL Intramuscular Active Atorvastatin Calcium 20 MG TAKE 1 TABLET BY MOUTH EVERY DAY Oral for 90 Active Fluticasone Propionate 50 MCG/ACT USE 1 SPRAY IN EACH NOSTRIL TWICE DAILY Nasal for 30 Active Losartan Potassium-HCTZ 100-12.5 MG Oral for 90 Active glipiZIDE 5 MG 1 tablet 30 minutes before breakfast Orally Once a day 08/28/2024 Active Zepbound 5 MG/0.5ML 0.5 mL Subcutaneous weekly 06/2024 Active Immunizations Vaccine Route Administration Date Status Comme nts Influenza Unknown 11/25/2020 Administered Social History AUDIT-C (Standard) Question Answer Notes Did you have a drink contain ing alcohol in the past year? Yes How often did you have a dri nk containing alcohol in the past year? 2 to 4 times a month (2 points) How many drinks did you have on a typical day when you were drinking in the past year? 3 or 4 drinks (1 point) How often did you have six o r more drinks on one occasion in the past year? Never (0 point) Points 3 Interpretation Negative Section Notes: Nonsmoker since 2000; occasi onal beer Nonsmoker since 2000; occasi onal beer Nonsmoker since 2000; occasi onal beer Nonsmoker since 2000; occasi onal beer Problems Problem Type SNOMED Code ICD Code Onset Dates Problem Status W/U Status Risk Notes Problem 968531875 Encounter for screening for malignant neoplasm of colon (Z12.11) Active confirmed Problem 466841978066590 Preprocedural examination (Z01.818) Active confirmed Problem 358410598 Family history o f colon cancer (Z80.0) Active confirmed Problem 317926830 Hx of adenomatou s colonic polyps (Z86.010) Active confirmed Problem Diverticulosis of colon (006275969) Diverticulosis of colon (K57.30) Active confirmed Vital Signs Temperature 96.8 degrees Fahrenheit 08/28/2024 Blood pressure diastolic 01 mm Hg 08/28/2024 Height 70 in 08/28/2024 Blood pressure systolic 001 mm Hg 08/28/2024 Weight 256.8 lbs 08/28/2024 BMI 36.84 kg/m2 08/28/2024 Procedures Procedure Date Ordered Date Performed Result Body Sit e COLONOSCOPY 08/28/2024 N/A Encounters Encounter Location Date Provider Diagnosis [facility] [address] [place] [address] 08/28/2024 Nino Jewell Hx of adenomatous colonic polyps Z86.010 ; Preprocedural examination Z01.818 ; Family history of colon cancer Z80.0 and Encounter for screening for malignant neoplasm of colon Z12.11 Assessments Encounter Date Diagnosis (ICD Code) Assessment Notes Treatment Notes Treatment Clinical Notes Section Notes 08/28/2024 Preprocedural examination (ICD-10 - Z01.818) Overall, Maninder appears to be doing well from a GI standpoint.. He is not having any new nor worrisome GI complaints at the present time. I have recommended a follow-up colonoscopy for further screening given his history of tubular adenomas, his significant family history of both parents having had colon cancer, and his last colonoscopy being over 3 years ago. We did review the rationale for this in regard to colorectal cancer prevention and/or early detection. Full consent has been obtained for this, including risks of bleeding and perforation. He was given the below instructions regarding adjustment of his medications for the procedure. The procedure will be done with monitored anesthesia care. I did review with Maninder that if indeed he does have his knee replacement in October then he will need to speak to the orthopedic surgeon as to whether or not he would want Maninder to receive prophylactic IV antibiotics for the colonoscopy later this year as that will only be several months after the knee replacement surgery..Of note, I did schedule the procedure toward the end of this year so as to give him time to recuperate from his knee replacement surgery. Maninder was comfortable with this plan. Thank you again for allowing me to participate in Maninder's care. I shall continue to keep you advised of his progress. 08/28/2024 Hx of adenomatous colonic polyps (ICD-10 - Z86.010) Overall, Maninder appears to be doing well from a GI standpoint.. He is not having any new nor worrisome GI complaints at the present time. I have recommended a follow-up colonoscopy for further screening given his history of tubular adenomas, his significant family history of both parents having had colon cancer, and his last colonoscopy being over 3 years ago. We did review the rationale for this in regard to colorectal cancer prevention and/or early detection. Full consent has been obtained for this, including risks of bleeding and perforation. He was given the below instructions regarding adjustment of his medications for the procedure. The procedure will be done with monitored anesthesia care. I did review with Maninder that if indeed he does have his knee replacement in October then he will need to speak to the orthopedic surgeon as to whether or not he would want Maninder to receive prophylactic IV antibiotics for the colonoscopy later this year as that will only be several months after the knee replacement surgery..Of note, I did schedule the procedure toward the end of this year so as to give him time to recuperate from his knee replacement surgery. Maninder was comfortable with this plan. Thank you again for allowing me to participate in Maninder's care. I shall continue to keep you advised of his progress. 08/28/2024 Family history of colon cancer (ICD-10 - Z80.0) Overall, Maninder appears to be doing well from a GI standpoint.. He is not having any new nor worrisome GI complaints at the present time. I have recommended a follow-up colonoscopy for further screening given his history of tubular adenomas, his significant family history of both parents having had colon cancer, and his last colonoscopy being over 3 years ago. We did review the rationale for this in regard to colorectal cancer prevention and/or early detection. Full consent has been obtained for this, including risks of bleeding and perforation. He was given the below instructions regarding adjustment of his medications for the procedure. The procedure will be done with monitored anesthesia care. I did review with Maninder that if indeed he does have his knee replacement in October then he will need to speak to the orthopedic surgeon as to whether or not he would want Maninder to receive prophylactic IV antibiotics for the colonoscopy later this year as that will only be several months after the knee replacement surgery..Of note, I did schedule the procedure toward the end of this year so as to give him time to recuperate from his knee replacement surgery. Maninder was comfortable with this plan. Thank you again for allowing me to participate in Maninder's care. I shall continue to keep you advised of his progress. 08/28/2024 Encounter for screening for malignant neoplasm of colon (ICD-10 - Z12.11) Overall, Maninder appears to be doing well from a GI standpoint.. He is not having any new nor worrisome GI complaints at the present time. I have recommended a follow-up colonoscopy for further screening given his history of tubular adenomas, his significant family history of both parents having had colon cancer, and his last colonoscopy being over 3 years ago. We did review the rationale for this in regard to colorectal cancer prevention and/or early detection. Full consent has been obtained for this, including risks of bleeding and perforation. He was given the below instructions regarding adjustment of his medications for the procedure. The procedure will be done with monitored anesthesia care. I did review with Maninder that if indeed he does have his knee replacement in October then he will need to speak to the orthopedic surgeon as to whether or not he would want Maninder to receive prophylactic IV antibiotics for the colonoscopy later this year as that will only be several months after the knee replacement surgery..Of note, I did schedule the procedure toward the end of this year so as to give him time to recuperate from his knee replacement surgery. Maninder was comfortable with this plan. Thank you again for allowing me to participate in Maninder's care. I shall continue to keep you advised of his progress. Plan Of Treatment Pending Test Test Name Order Date COLONOSCOPY 08/28/2024 Future Test Test Name Order Date COLONOSCOPY 01/08/2014 COLONOSCOPY 09/12/2017 COLONOSCOPY 06/24/2021 Next Appt Details Provider Name:Nino Sharma Fanta , 02/03/2025 08:30:00 AM, [address] [place] [address], [phone], Insurance Providers Payer Name Payer Address Payer Phone Subscriber Number Group Number Insured Name Patient Relationship to Insured Coverage Start Date Coverage End Date [facility] Must See [place] PROFESSIONAL CLAIMS [address] [place] [address] [id number] MANINDER MONTES Self - patient is the insured [...] well as a small tubular adenoma Denies [place],CVA,renal disease Asthma---inhaler prn Rheumatoid arthritis--had to stop Methot rexate and Enbrel due to pneumonia Hypertension Negative colonoscopy in 03/2017 Fuch's disease--corneal dystrophy Diabetes Colonoscopy in June 2021 with removal o f small tubular adenomas Surgical History Surgery Date(Month/Year) Right knee replacement tenta tively scheduled for 10/2024.Maninder advised me at the August 2024 office visit that if he loses more weight and his knee begins to feel better he may hold off on the knee replacement surgery altogether. 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
--- OUTSIDE RECORDS SUMMARY | 2024-10-10 13:10 | XMS_ITS | Encounter Summary ---
Author Organization [facility] Address [address] [place] [address] Care Team Providers Care Spiral Spring Winder Name Role Phone Papito Dawn MD Primary Care Provider [phone] Panda Balderrama MD Unavailable [phone] Encounter Details Date Type Department Care Team (Late st Contact Info) Description 04/25/2024 Scanned Document Orthopedic [address] [phone] Fer Sanchez MD [address] [place] [address] [address] [place] [address] Social History Tobacco Use Types Packs/Day Years [...] Care Team (Late st Contact Info) Description 12/10/2024 10:45 AM EDT Pre-Admission Testing [facility] [address] [place] [address] 2nd [address] [place] [phone] Rebecca Malave PA-C [address] [place] [address] [address] [place] [address] 12/23/2024 1:00 PM EDT [facility] [address] [address] Daniel Telles PA-C [address] [facility] [address] [place] [phone] 12/31/2024 12:15 PM EDT Hospital Encounter [facility] [place] at [address] [phone] Panda Balderrama MD [address] [facility] [address] [place] [address] 12/31/2024 12:15 PM EDT - 12/31/2024 2:45 PM EDT Surgery [facility] [place] at [address] [phone] Panda Balderrama MD [address] [place] [address] ARTHROPLASTY TOTAL KNEE Scheduled Procedures Name Priority Associated Diagnoses Date/Ti me ARTHROPLASTY TOTAL KNEE Primary osteoarthritis of right knee 12/31/2024 12:15 PM EDT documented as of this encounter Visit Diagnoses Not on filedocumented in this encounter Care Teams Spiral Spring Winder Relationship Specialty Start Date End Date Papito Dawn MD [address] [place] [address] PCP - General Internal Medicine 01/18/24 Panda Balderrama MD [address] [id number] Surgery, Orthopedic 07/23/24 documented as of this encounter
--- OUTSIDE RECORDS SUMMARY | 2024-10-10 13:11 | XMS_ITS ---
Author Name [facility] Organization Unknown History of Medication Use Medication Directions Dispensed Refills Start Date End Date Stat us ibuprofen (MOTRIN) 800 mg tablet Take 1 tablet (800 mg total) by mouth 3 times daily (every 8 hours) as needed for mild pain. 04/22/2024 active oxyCODONE (ROXICODONE) 5 MG immediate release tablet Take 1-2 tablets (5-10 mg total) by mouth every 4 (four) hours as needed for moderate pain or severe pain. Max Daily Amount: 60 mg 04/22/2024 active meloxicam (MOBIC) 15 MG tablet Take 1 tablet (15 mg total) by mouth daily. Take with food in the morning 01/22/2024 active Allergies Allergen Reaction Severity Comment Documented Date Source Statu s ASPIRIN ANAPHYLAXIS 04/22/2024 [facility] active AMOXICILLIN HIVES CCT Problems Problem Status Onset Date Problem Type Date of Resolution Source Status post left knee replacement [facility] Primary osteoarthritis of right knee active [facility] Encounters Encounter Type Encounter Reason Primary Diagnosis Location Date Ambulatory [facility] 07/22/2024 Ambulatory Unilateral primary osteoarthritis, right knee Unilateral primary osteoarthritis, right knee [facility] 07/22/2024 Ambulatory [facility] 07/15/2024 Ambulatory Pain Pain [facility] 07/15/2024 Ambulatory Pain Pain [facility] 05/29/2024 Ambulatory Derangement of unspecified medial meniscus due to old tear or injury, right knee Derangement of unspecified medial meniscus due to old tear or injury, right knee [facility] 04/29/2024 Ambulatory MODIFY Derangement of unspecified medial meniscus due to old tear or injury, right knee [facility] 04/24/2024 Ambulatory [facility] 04/02/2024 Ambulatory [facility] 02/26/2024 Ambulatory Unilateral primary osteoarthritis, right knee Unilateral primary osteoarthritis, right knee [facility] 02/26/2024 Ambulatory Presence of left artificial knee joint Presence of left artificial knee joint [facility] 01/22/2024 Care Team Organization Name Specialty Phone Email Start Date End Da kael [facility] 04/03/2024 [facility] Senior Recruiter 01/25/2024 08/21/2024 [facility] DONA LUONG Primary [facility] 01/18/2024 [facility] 01/12/2024
[2024-10-10 13:22] VITALS: BP 145/77; PULSE 121; BMI 41.0
== END 2024-10-10 13:26 | disposition home or self-care (01) ==
LOC: HO.HGS 12:46
PROVIDERS: PCP Internal Medicine; Visit Provider Surgery
DX: R22.2 Localized swelling, mass and lump, trunk (principal)
CPT/HCPCS: 99204

== ENCOUNTER → 2024-10-10 12:45 | Outpatient (BNVA) | payer MEDICARE, BC, SELFPAY | PROVIDERS: PCP Internal Medicine; Visit Provider Surgery | DX: R22.2 Localized swelling, mass and lump, trunk (principal) | CPT/HCPCS: 99202 ==

== ENCOUNTER 2024-10-31 12:58 | Outpatient (REF) | payer MEDICARE, BC, SELFPAY ==
--- OUTSIDE RECORDS SUMMARY | 2024-10-31 13:01 | XMS_ITS | Encounter Summary ---
Author Organization [facility] Address [address] [place] [address] Phone Care Team Providers Care Bpm Developer Name Role Phone Papito Dawn MD Primary Care Provider [phone] Encounter Details Date Type Department Care Team (Late st Contact Info) Description 10/25/2023 Prep for Surgery [facility] [address] [place] [address] Romie Waller MD [address] [place] [address]-[facility] [place] [address] [email or web address] Nuclear sclerotic cataract, right (Primary Dx) Social History Tobacco Use Types Packs/Day Years Used Date Smoking Tobacco: Former Cigarettes 1 23.6 0 03/27/1977 - 10/25/2000 Smokeless Tobacco: Never Comments:Menthol cigarettes Alcohol Use Standard Drinks/Week Comments Yes 6 (1 standard drink = 0.6 oz pur e alcohol) Beer Education Answer Date Recorded Are you interested in more education? Not on marino e 10/26/2022 Are you concerned about learning? Not on file 10/26/2022 No 10/26/2022 No 10/26/2022 Digital Access Answer Date Recorded No 10/26/2022 No 10/26/2022 Reliable internet access at home? Not on file 10/26/2022 Device with a working camera? Not on file Sex and Gender Information Value Date Recorded Sex Assigned at Male 01/25/2023 12:28 PM EDT Legal Sex Male 11:15 AM EDT Gender Identity Male 01/25/2023 12:28 PM EDT Sexual Orientation Straight 01/25/2023 12 :28 PM EDT documented as of this encounter Plan of Treatment Upcoming Encounters Date Type Department Care Team (Late st Contact Info) Description 11/13/2024 2:40 PM EDT Office Visit [facility] [address] [facility] [address] [place] [address] Romie Waller MD [address] [place] [id number] [email or web address] documented as of this encounter Visit Diagnoses Diagnosis Nuclear sclerotic cataract, right- Primary documented in this encounter Care Teams Bpm Developer Relationship Specialty Start Date End Date Papito Dawn MD [address] [place] [address] PCP - General Internal Medicine 10/26/22 documented as of this encounter Additional Source Comments The information contained in this document represents components of the legal health record. It is not the complete legal health record.[facility]
--- OUTSIDE RECORDS SUMMARY | 2024-10-31 13:01 | XMS_ITS | Patient Health Record ---
Author Organization [facility] Address [address] [place] [address] Care Team Providers Care Pediatrics Physician Name Role Phone López FLOWER, [facility] Primary Care Provider Nino Sy Unavailable [phone] Allergies Allergen (clinical drug ingredient) Drug/Non Drug Allergy documented on EMR Reaction Allergy Type Onset Date Status Shellfish (FN) Shellfish-derived Products Unknown Drug Allergy Active amoxicillin / clavulanate Augmentin Unknown Drug Allergy Active aspirin Aspirin Unknown Drug Allergy Active Reason For Referral Referring Provider First Name Papito Referring Provider Last Name López Referring Provider Speciality Internal M edicine Referred Organization [facility] Referred Provider Nino Jewell Referred Address [address] [place] [address],[address],[place], [place],[phone], Referred Provider Specialty Gastroentero logy Referral Priority [...] Problem Status W/U Status Risk Notes Problem 281853470 Encounter for screening for malignant neoplasm of colon (Z12.11) Active confirmed Problem 555041617077891 Preprocedural examination (Z01.818) Active confirmed Problem 785851732 Family history o f colon cancer (Z80.0) Active confirmed Problem 648276770 Hx of adenomatou s colonic polyps (Z86.010) Active confirmed Problem Diverticulosis of colon (566185036) Diverticulosis of colon (K57.30) Active confirmed Vital Signs Temperature 96.8 degrees Fahrenheit 08/28/2024 Blood pressure diastolic 01 mm Hg 08/28/2024 Height 70 in 08/28/2024 Blood pressure systolic 001 mm Hg 08/28/2024 Weight 256.8 lbs 08/28/2024 BMI 36.84 kg/m2 08/28/2024 Procedures Procedure Date Ordered Date Performed Result Body Sit e COLONOSCOPY 08/28/2024 N/A Encounters Encounter Location Date Provider Diagnosis [facility] [address] [place] [address] 08/28/2024 Nino Jewell Hx of adenomatous colonic [...] Name:Nino Sharma Fanta , 02/03/2025 08:30:00 AM, [address] [place] [address], [phone], Insurance Providers Payer Name Payer Address Payer Phone Subscriber Number Group Number Insured Name Patient Relationship to Insured Coverage Start Date Coverage End Date [facility] [employer] PROFESSIONAL CLAIMS [address] [place] [address] [id number] MANINDER MONTES Self - patient is [...] well as a small tubular adenoma Denies [place],CVA,renal disease Asthma---inhaler prn Rheumatoid arthritis--had to stop [...]
--- OUTSIDE RECORDS SUMMARY | 2024-10-31 13:01 | XMS_ITS | Clinical Summary ---
Author Organization [facility] Address [address] [place] [address] Care Team Providers Care Polysilicon Preparation Worker Name Role Phone Papito Dawn MD Primary Care Provider [phone] Panda Balderrama MD Unavailable [phone] Allergies Active Allergy Reactions Criticality Noted Date Comments Amoxicillin Hives Medium 04/22/2024 Aspirin Anaphylaxis High 04/22/2024 Medications ibuprofen (MOTRIN) 800 mg tabletIndication s:Old peripheral tear of medial meniscus of right knee Take 1 tablet (800 mg total) by mouth 3 times daily (every 8 hours) as needed for mild pain. 60 tablet 04/22/2024 Active Social History Tobacco Use Types Packs/Day Years [...] [facility] [address] [place] [address] 2nd [address] [place] [phone] Rebecca Malave PAIta [address] [place] [address] [address] [place] [address] 12/23/2024 1:00 PM EDT [facility] [address] [phone] Daniel Telles PA-C [address] [place] [phone] 12/31/2024 12:15 PM EDT Hospital Encounter [facility] [place] at [address] [phone] Panda Balderrama MD [address] [place], [place] [phone] 12/31/2024 12:15 PM EDT - 12/31/2024 2:45 PM EDT Surgery [facility] [place] at [address] [phone] Panda Balderrama MD [address] [place] [id number] ARTHROPLASTY TOTAL KNEE Scheduled Procedures Name Priority Associated Diagnoses Date/Ti me ARTHROPLASTY TOTAL KNEE Primary osteoarthritis of right knee 12/31/2024 12:15 PM EDT Health Maintenance Due Date Last Done Comments Hepatitis C Virus Screening 1960 HIV Screening 10/29/1975 DTaP/Tdap/Td Vaccines (1 - Tdap) 1981 Colonoscopy 10/29/2007 Pneumococcal Vaccines 50+ (1 of 1 - PCV) 2012 Zoster (Shingles) Vaccine (1 of 2) 2012 RSV Vaccine 60 years and old er and Patients (1 - Risk 60-74 years 1-dose series) 2022 COVID-19 Vaccine (1 - 2023-2 5 season) 2023 Influenza Vaccine 10/25/2024 Hepatitis B Vaccines Aged Out No long er eligible based on patient's age to complete this topic Goals Goal Patient Goal Type Associated Problems Recent Progress Patient-Stated? Author Autogenerat ed Goal Care Plan Autogenerated Problem No Niesha Zamudio MA Additional Health Concerns Active Problems Noted Date Diagnosed Date Autogenerated Problem 09/24/2024 Insurance - [facility] Care Teams Polysilicon Preparation Worker Relationship Specialty Start Date End Date Papito Dawn MD [address] [place] [address] PCP - General Internal Medicine 01/18/24 Panda Balderrama MD [address] [facility] [address] [place] [address] Surgery, Orthopedic 07/23/24
[2024-10-31 13:11] VITALS: BP 125/73; PULSE 95; RESP 20; TEMP 36.1; O2SAT 95; BMI 40.2
--- NOTE | 2024-10-31 14:20 | P.OP_ITS ---
Operative Note Operative Note Date of Service: 10/31/24 Narrative: Preoperative diagnosis: Mass right buttock Postoperative diagnosis: Same Procedure: Excision mass right buttock Surgeon: Elmo Petty MD Insecticide Maker: JUDIE Bolaños Anesthesia: Local lidocaine 1% with epinephrine Indications for procedure: 64-year-old male presenting with a soft tissue mass in the right buttock measuring approximately 3 cm in diameter. Operative findings: Epidermal inclusion cyst right buttock, 3 cm in diameter Specimen: Epidermal inclusion cyst right buttock Estimated blood loss: Less than 3 mL Complications: None Procedure details: Patient was brought to the minor surgery suite and placed in a prone position. The site of surgery was confirmed by the patient in the right buttock. After assuring informed consent the skin was prepped with Betadine and draped in a sterile fashion. Local anesthesia was then infiltrated in a transverse fashion directly over the palpable lump. Incision was then made with a scalpel and carried out through subcutaneous tissue up to the cyst wall. The cyst was then sharply excised from the surrounding subcutaneous tissue using a Metzenbaum scissors. Hemostasis was assured at all times. The cyst was completely dissected and sent to pathology for further examination. After assuring adequate hemostasis the deep subcutaneous tissue and dermis were reapproximated using interrupted 3-0 Polysorb sutures. Skin was then closed us ing interrupted 3-0 nylon sutures. Sterile dressings consisting of 2 x 2 gauze and Tegaderm were then applied. The patient tolerated the procedure well. The patient was discharged to home in stable condition.
== END 2024-10-31 12:59 | disposition home or self-care (01) ==
LOC: HO.MS 12:58
PROVIDERS: PCP Internal Medicine; Visit Provider Surgery
PROC: (CPT 11403; principal; 2024-10-31 13:30)
DX: R22.2 Localized swelling, mass and lump, trunk (principal)
CPT/HCPCS: 11403; 88304; J2004

== ENCOUNTER → 2024-10-31 12:58 | Outpatient (BNV) | payer MEDICARE, BC, SELFPAY | PROVIDERS: PCP Internal Medicine; Visit Provider Surgery | DX: L72.0 Epidermal cyst (principal) | CPT/HCPCS: 11404 ==

== ENCOUNTER 2024-11-14 13:18 | Outpatient (AMB) | payer MEDICARE, BC, SELFPAY ==
--- NOTE | 2024-11-14 13:21 | A.OFFVIS_ITS ---
Vital Signs 11/14/24 13:27 Height 5 ft 10 in Weight 279 lb BMI 40.0 BP 128/71 Blood Pressure Location Rt brachial Position Sitting Pulse 94 Intake Visit Reasons: s/p exc right buttock mass Intake Note: Patient here s/p 2wk excision on Rt buttock. Patient c/o: itch along sutures. Denies pain, oozing. 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 Meat Required: No Accompanied by: Self / Same As Patient Allergies amoxicillin (Augmentin) Allergy (Intermediate, Verified 11/14/24 13:26) rash aspirin (ASPIRIN) Allergy (Intermediate, Verified 11/14/24 13:26) WHEEZING clavulanic acid (Augmentin) Allergy (Intermediate, Verified 11/14/24 13:26) rash Iodinated Contrast Media (IODINATED CONTRAST MEDIA - IV DYE) Allergy (Intermediate, Verified 11/14/24 13:26) NAUSEA shellfish dye Allergy (Intermediate, Uncoded 11/14/24 13:26) nausea, wheezing HPI Comments Details: Patient returns 1 week following excision of a epidermal inclusion cyst of the right breast. He tolerated the procedure well and returns today for suture removal. He reports itchiness in the incision. He denies any bleeding or discharge. [facility] Medical History COLETTE (obstructive sleep apnea) COVID-19 vaccine series completed Snores Rheumatoid arthritis Fuchs' syndrome II Raynauds disease Osteoarthritis of both knees Asthma HTN (hypertension) Primary osteoarthritis of left knee Surgical History Hx of total knee replacement History of removal of testicle History of knee surgery History of colonoscopy History of trigger finger History of lipoma Family History Father Colon cancer Myocardial infarction Mother Colon cancer HTN (hypertension) Diabetes mellitus Sister Breast cancer Crohn's disease Sister Breast cancer Crohn's disease Brother CHF (congestive heart failure) Smoker Rheumatic fever Maternal Grandmother No problems noted. Maternal Grandfather No problems noted. Paternal Grandmother No problems noted. Paternal Grandfather Emphysema, unspecified Brother No problems noted. Sister No problems noted. Daughter No problems noted. Daughter No problems noted. Daughter No problems noted. Daughter No problems noted. 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 Sutures removed and wounds found to be well healed. Neuro General: patient oriented x3 Assessment & Plan Assessment & Plan (1) Epidermal cyst: Code(s): L72.0 - Epidermal cyst Category: Medical Plan 64-year-old male status post excision of a sebaceous cyst of the right buttock. Tolerated the procedure well in his wounds are healing nicely. Pathology confirmed an epidermal inclusion cyst. He should follow up as needed. Coding Level of Care Code Global (68355) Diagnoses Epidermal cyst L72.0
[2024-11-14 13:27] VITALS: BP 128/71; PULSE 94; BMI 40.0
--- OUTSIDE RECORDS SUMMARY | 2024-11-14 13:30 | XMS_ITS | Encounter Summary ---
Author Organization [facility] Address [address] [facility] [address] [place] [address] Phone Care Team Providers Care Retort Load Expediter Name Role Phone Papito Dawn MD Primary Care Provider [phone] Encounter Details Date Type Department Care Team (Late st Contact Info) Description 10/25/2023 Prep for Surgery [facility] [address] [place] [address] Romie Waller MD [address] [place] [address] [address] [email or web address] Nuclear sclerotic cataract, right (Primary Dx) Social [...] Care Team (Late st Contact Info) Description 02/12/2025 10:50 AM EST Office Visit [facility] [address] [facility] [address] [place] [address] Romie Waller MD [address] [place] [address] [email or web address] documented as of this encounter Visit Diagnoses Diagnosis Nuclear sclerotic cataract, right- Primary documented in this encounter Care Teams Retort Load Expediter Relationship Specialty Start Date End Date Papito Dawn MD [address] [place] [address] PCP - General Internal Medicine 10/26/22 documented as of this encounter Additional Source Comments The information contained in this document represents components of the legal health record. It is not the complete legal health record.[facility]
--- OUTSIDE RECORDS SUMMARY | 2024-11-14 13:30 | XMS_ITS | Clinical Summary ---
Author Organization [facility] Address [address] [place] [address] Care Team Providers Care Parts Cleaner Name Role Phone Papito Dawn MD Primary Care Provider [phone] Panda Balderrama MD Unavailable [phone] Allergies Active Allergy Reactions Criticality Noted [...] [facility] [place] [address] [place] [address] 2nd [address] [place] [phone] Rebecca Malave PAIta [address] [place] [address] [address] [place] [address] 12/23/2024 1:00 PM EDT [facility] [address] [address] Daniel Telles PA-C [address] [place] [phone] 12/31/2024 12:15 PM EDT Hospital Encounter [facility] [place] at [address] [phone] Panda Balderrama MD [address] [place], [place] [address] 12/31/2024 12:15 PM EDT - 12/31/2024 2:45 PM EDT Surgery [facility] [place] at [address] [address] Panda Balderrama MD [address] [place] [phone] ARTHROPLASTY TOTAL KNEE Scheduled Procedures Name Priority [...] Diagnosed Date Autogenerated Problem 09/24/2024 Insurance - [facility] [place] [facility] Care Teams Parts Cleaner Relationship Specialty Start Date End Date Papito Dawn MD [address] [place] [address] PCP - General Internal Medicine 01/18/24 Panda Balderrama MD [address] [place] [address] Surgery, Orthopedic 07/23/24
--- OUTSIDE RECORDS SUMMARY | 2024-11-14 13:31 | XMS_ITS | Patient Health Record ---
Author Organization [facility] Address [address] [place] [address] Care Team Providers Care Phys Ther Name Role Phone López FLOWER, [facility] Primary Care Provider Nino Sy Unavailable [phone] Allergies Allergen (clinical drug ingredient) Drug/Non Drug Allergy documented on EMR Reaction Allergy Type Onset Date Status Shellfish (FN) Shellfish-derived Products Unknown Drug Allergy Active amoxicillin / clavulanate Augmentin Unknown Drug Allergy Active aspirin Aspirin Unknown Drug Allergy Active Reason For Referral Referring Provider First Name Papito Referring Provider Last Name López Referring Provider Speciality Internal M edicine Referred Organization [facility] Referred Provider Nino Jewell Referred Address [address] [place] [address],[address],[place], [place],[address], Referred Provider Specialty Gastroentero logy Referral Priority [...] Problem Status W/U Status Risk Notes Problem [id number] Encounter for screening for malignant neoplasm of colon (Z12.11) Active confirmed Problem [id number] Preprocedural examination (Z01.818) Active confirmed Problem 105921428 Family history o f colon cancer (Z80.0) Active confirmed Problem 119712365 Hx of adenomatou s colonic polyps (Z86.010) Active confirmed Problem Diverticulosis of colon (623284076) Diverticulosis of colon (K57.30) Active confirmed Vital Signs Temperature 96.8 degrees Fahrenheit 08/28/2024 Blood pressure diastolic 01 mm Hg 08/28/2024 Height 70 in 08/28/2024 Blood pressure systolic 001 mm Hg 08/28/2024 Weight 256.8 lbs 08/28/2024 BMI 36.84 kg/m2 08/28/2024 Procedures Procedure Date Ordered Date Performed Result Body Sit e COLONOSCOPY 08/28/2024 N/A Encounters Encounter Location Date Provider Diagnosis [facility] [address] [place] [address] 08/28/2024 Nino Jewell Hx of adenomatous colonic [...] Name:Nino Sharma Fanta , 02/03/2025 08:30:00 AM, [address] [place] [address], [phone], Insurance Providers Payer Name Payer Address Payer Phone Subscriber Number Group Number Insured Name Patient Relationship to Insured Coverage Start Date Coverage End Date [facility] [employer] PROFESSIONAL CLAIMS [address] [place] [address] [id number] MANINDER MONTES Self - patient is [...] well as a small tubular adenoma Denies [place],CVA,renal disease Asthma---inhaler prn Rheumatoid arthritis--had to stop [...]
== END 2024-11-14 13:28 | disposition home or self-care (01) ==
LOC: HO.HGS 13:19
PROVIDERS: PCP Internal Medicine; Visit Provider Surgery
DX: L72.0 Epidermal cyst (principal)
CPT/HCPCS: 99024

== ENCOUNTER → 2024-11-14 13:18 | Outpatient (BNVA) | payer MEDICARE, BC, SELFPAY | PROVIDERS: PCP Internal Medicine; Visit Provider Surgery | DX: Z48.817 Encounter for surgical aftercare following surgery on the skin and subcutaneous tissue (principal); Z98.890 Other specified postprocedural states | CPT/HCPCS: 99212 ==

== ENCOUNTER 2024-12-23 08:35 | Outpatient (REF) | payer MEDICARE, BC, SELFPAY ==
--- OUTSIDE RECORDS SUMMARY | 2024-12-23 09:02 | XMS_ITS | Encounter Summary ---
Author Organization [facility] Address [address] [place] [address] [place] [address] Phone Care Team Providers Care Grease Packer Name Role Phone Papito Dawn MD Primary Care Provider [phone] Encounter Details Date Type Department Care Team (Late st Contact Info) Description 10/25/2023 Prep for Surgery [facility] [address] [place] [address] Romie Waller MD [address] [place] [address] [email or web address] Nuclear sclerotic cataract, right (Primary Dx) [...] Office Visit [facility] [address] [facility] [address] [place] [address] Romie Waller MD [address] [place] [address] [email or web address]. [facility] documented as of this encounter Visit Diagnoses Diagnosis Nuclear sclerotic cataract, right- Primary documented in this encounter Care Teams Grease Packer Relationship Specialty Start Date End Date Papito Dawn MD [address] [facility] [place] [address] PCP - General Internal Medicine 10/26/22 documented as of this encounter Additional Source Comments The information contained in this document represents components of the legal health record. It is not the complete legal health record.[facility]
--- OUTSIDE RECORDS SUMMARY | 2024-12-23 09:02 | XMS_ITS | Encounter Summary ---
Author Organization [facility] Address [address] [place] [address] Care Team Providers Care Camp Assistant Name Role Phone Papito Dawn MD Primary Care Provider [phone] Panda Balderrama MD Unavailable [phone] System, Provider Not In Unavailable Unavaila ble Daniel Telles PA-C Unavailable [phone] System, Provider Not In Unavailable Unavaila ble Encounter Details Date Type Department Care Team ([facility] Contact Info) Description 12/05/2024 Telephone [facility] [place] [address] [place] [address] 2nd [address], [place] [phone] Kat Michel, RN [address] [facility] [address], [place] [phone] Social History Tobacco Use Types Packs/Day Years Used Date Smoking Tobacco: Former Cigarettes Q uit: 2000 Smokeless Tobacco: Never Alcohol Use Standard Drinks/Week Comments Yes 12 (1 standard drink = 0.6 oz pure alcohol) Advised to stop 2 weeks before surgery AUDIT-C Answer Date Recorded Q1: How often do you have a drink containing alcohol? 4 or more times a week 12/05/2024 Q2: How many drinks containi ng alcohol do you have on a typical day when you are drinking? 1 or 2 Q3: How often do you have si x or more drinks on one occasion? Less than monthly 12/05/2024 Sex and Gender Information Value Date Recorded Sex Assigned at Male 04/02/2024 3:34 PM EST Legal Sex Male 4:19 PM EDT Gender Identity Male 04/02/2024 3:34 PM EST Sexual Orientation Heterosexual (straight) 05/29 12:11 PM EST documented as of this encounter Functional Status * Audit-C Score Answer Date of Assessment Author 5 12/05/2024 11:17 AM Leidy Connell RN * Question Answer Date of Assessment Author Q1: How often do you have a drink containing alcohol? 4 or more times a week 12/05/2024 11:17 AM Shawna Connell RN Q2: How many drinks containing alcohol do you have on a typical day when you are drinking? 1 or 2 12/05/2024 11:17 AM Shawna Connell RN Q3: How often do you have six or more drinks on one occasion? Less than monthly 12/05/2024 11:17 AM Shawna Connell RN documented as of this encounter Miscellaneous Notes * Telephone Encounter - Kat Michel RN - 12/05/2024 1:08 PM EDTSummary: PREPARE opened in error Error documented in this encounter Plan of Treatment Upcoming Encounters Date Type Department Care Team (Late st Contact Info) Description 12/23/2024 1:00 PM EDT [facility] [address] [phone] Daniel Telles PA-C [address] [place] [address] 12/31/2024 11:45 AM EDT Hospital Encounter [facility] [place] at [address] [address] Panda Balderrama MD [address] [facility] [address] [place] [phone] 12/31/2024 11:45 AM EDT - 12/31/2024 2:15 PM EDT Surgery [facility] [place] at [address] [address] Panda Balderrama MD [address] [place] [address] ARTHROPLASTY TOTAL KNEE Scheduled Procedures Name Priority Associated Diagnoses Date/Ti me ARTHROPLASTY TOTAL KNEE Primary osteoarthritis of right knee 12/31/2024 11:45 AM EDT documented as of this encounter Goals Goal Patient Goal Type Associated Problems Recent Progress Patient-Stated? Author Autogenerat ed Goal Care Plan Autogenerated Problem Niesha Melara MA documented as of this encounter Visit Diagnoses Not on filedocumented in this encounter Additional Health Concerns Active Problems Noted Date Diagnosed Date Autogenerated Problem 09/24/2024 documented as of this encounter Care Teams Camp Assistant Relationship Specialty Start Date End Date Papito Dawn MD [address] [place] [address] PCP - General Internal Medicine 01/18/24 Panda Balderrama MD [address] [place] [address] Surgery, Orthopedic 07/23/24 System, Provider Not In Ophthalmology 12/05/24 Daniel Telles PA-C [address] [place] [address] Physician Wrapper Dipper Surgery, Orthopedic 12/05/24 System, Provider Not In Urology 12/05/24 documented as of this encounter
--- OUTSIDE RECORDS SUMMARY | 2024-12-23 09:02 | XMS_ITS | Encounter Summary ---
Author Organization [facility] Address [address] [place] [address] Phone Care Team Providers Care Safety And Health Consultant Name Role Phone Papito Dawn MD Primary Care Provider [phone] Encounter Details Date Type Department Care Team (Late st Contact Info) Description 10/17/2023 Procedure Pass [facility] [address] [place] [address] Social History Tobacco Use Types Packs/Day Years [...] Department Care Team (Late Contact Info) Description 02/12/2025 10:50 AM EST Office Visit [facility] [address] [place] [address] Romie Waller MD [address] [place] [address] [email or web address] documented as of this encounter Visit Diagnoses Not on filedocumented in this encounter Care Teams Safety And Health Consultant Relationship Specialty Start Date End Date Papito Dawn MD [address] [place] [address] PCP - General Internal Medicine 10/26/22 documented as of this encounter Additional Source Comments The information contained in this document represents components of the legal health record. It is not the complete legal health record.[facility]
--- OUTSIDE RECORDS SUMMARY | 2024-12-23 09:02 | XMS_ITS | Encounter Summary ---
Author Organization [facility] Address [address] [place] [address] Phone Care Team Providers Care Turn Down Attendant Name Role Phone Papito Dawn MD Primary Care Provider [phone] Encounter Details Date Type Department Care Team (Late st Contact Info) Description 09/17/2024 Procedure Pass [facility] [address] [place] [phone] Social History Tobacco Use Types Packs/Day Years [...] with a working camera? Not on file Intimate Partner Violence Answer Date R ecorded Are you denied basic needs s uch as food, clothing, or medical care? No 09/17/2024 In the past 12 months have y ou been in a relationship with a person who hurts, threatens, or tries to control you? No 09/17/2024 Are you denied basic needs s uch as food, clothing, or medical care? No 09/17/2024 In the past 12 months have y ou been in a relationship with a person who hurts, threatens, or tries to control you? No 09/17/2024 Sex and Gender Information Value Date Recorded [...] Office Visit [facility] [address] [facility] [address] [place] [address] Romie Waller MD [address] [place] [address] [email or web address]. [facility] documented as of this encounter Visit Diagnoses Not on filedocumented in this encounter Care Teams Turn Down Attendant Relationship Specialty Start Date End Date Papito Dawn MD [facility] [place] [address] PCP - General Internal Medicine 10/26/22 documented as of this encounter Additional Source Comments The information contained in this document represents components of the legal health record. It is not the complete legal health record.[facility]
--- OUTSIDE RECORDS SUMMARY | 2024-12-23 09:02 | XMS_ITS | Encounter Summary ---
Author Organization [facility] Address [address] [place] [address] Care Team Providers Care Cans Vacuum Tester Name Role Phone Papito Dawn MD Primary Care Provider Panda Balderrama MD Unavailable [phone] System, Provider Not In Unavailable Unavaila ble Daniel Telles PA-C Unavailable [phone] System, Provider Not In Unavailable Unavaila ble Encounter Details Date Type Department Care Team (Late st Contact Info) Description 07/11/2024 Scanned Document [facility] [address] [place] [address] Fer Sanchez MD [address] [facility] [address] [place] [address] Social History Tobacco Use Types Packs/Day Years [...] 12/23/2024 1:00 PM EDT Office Visit [facility] [address] [place] [phone] Daniel Telles PA-C [address] [facility] [address] [place] [address] 12/31/2024 11:45 AM EDT Hospital Encounter [facility] [place] at [address] [address] Panda Balderrama MD [address] [place] [address] 12/31/2024 11:45 AM EDT - 12/31/2024 2:15 PM EDT Surgery [facility] [place] at [address] [address] Panda Balderrama MD [address] [place] [phone] ARTHROPLASTY TOTAL KNEE Scheduled Procedures Name Priority Associated Diagnoses Date/Ti me ARTHROPLASTY TOTAL KNEE Primary osteoarthritis of right knee 12/31/2024 11:45 AM EDT documented as of this encounter Visit Diagnoses Not on filedocumented in this encounter Care Teams Cans Vacuum Tester Relationship Specialty Start Date End Date Papito Dawn [place] [address] PCP - General Internal Medicine 01/18/24 Panda Balderrama MD [address] [place], [place] [phone] Surgery, Orthopedic 07/23/24 System, Provider Not In Ophthalmology 12/05/24 Daniel Telles PA-C [address] [place] [address] Physician Balancer Surgery, Orthopedic 12/05/24 System, Provider Not In Urology 12/05/24 documented as of this encounter
--- OUTSIDE RECORDS SUMMARY | 2024-12-23 09:02 | XMS_ITS | Encounter Summary ---
Author Organization [facility] Address [address] [place] [address] Care Team Providers Care Aviation Consultant Name Role Phone Papito Dawn MD Primary Care Provider Panda Balderrama MD Unavailable [phone] System, Provider Not In Unavailable Unavaila ble Dnaiel Telles PA-C Unavailable [phone] System, Provider Not In Unavailable Unavaila ble Encounter Details Date Type Department Care Team (Late st Contact Info) Description 04/24/2024 Scanned Document [facility] 31 [facility] 100 [place] [address] Fer Sanchez MD [address] [address] Social History Tobacco Use Types Packs/Day Years [...] 1:00 PM EDT [facility] [address] [phone] Daniel Telles PA-C [address] [place] [address] [address] [place] [address] 12/31/2024 11:45 AM EDT Hospital Encounter [facility] at [address] [place] [phone] Panda Balderrama MD [address] [facility] [address] [place] [address] 12/31/2024 11:45 AM EDT - 12/31/2024 2:15 PM EDT Surgery [facility] at [address] [phone] Panda Balderrama MD [address] [facility] [address] [place] [address] [phone] ARTHROPLASTY TOTAL KNEE Scheduled Procedures Name Priority Associated Diagnoses Date/Ti me ARTHROPLASTY TOTAL KNEE Primary osteoarthritis of right knee 12/31/2024 11:45 AM EDT documented as of this encounter Visit Diagnoses Not on filedocumented in this encounter Care Teams Aviation Consultant Relationship Specialty Start Date End Date Papito Dawn MD [address] [place] [address] PCP - General Internal Medicine 01/18/24 Panda Balderrama MD [address] [place] [address] [address] [place] [address] Surgery, Orthopedic 07/23/24 System, Provider Not In Ophthalmology 12/05/24 Daniel Telles PA-C [address] [place] [address] Physician Electrical Subcontractor Surgery, Orthopedic 12/05/24 System, Provider Not In Urology 12/05/24 documented as of this encounter
--- OUTSIDE RECORDS SUMMARY | 2024-12-23 09:02 | XMS_ITS | Clinical Summary ---
Author Organization [facility] Address [address] [place] [address] Phone Care Team Providers Care Boy'S Adviser Name Role Phone Papito Dawn MD Primary Care Provider [phone] Allergies Active Allergy Reactions Criticality Noted Date Comments Amoxicillin-Pot Clavulanate Rash High 06/13/2023 Animal Dander Low 07/19/2023 Aspirin Shortness Of Breath,Wheezing High 01/31/2023 Shellfish Containing Products Unknown 06/13/2023 Accidental ferrous sulfate poisoning Sulfa (Sulfonamide Antibiotics) 06/13/2023 Puffiness/ wheezing Medications atorvastatin (LIPITOR) 20 MG tablet Take 20 mg by mouth daily. Active cetirizine HCl (ZYRTEC ORAL) Take 10 mg by mouth daily. Active fluticasone propionate (FLONASE) 50 mcg/actuation nasal spray PRN Active losartan-hydroCH LOROthiazide (HYZAAR) 100-12.5 mg per tablet Take 1 tablet by mouth daily. Active albuterol 90 mcg/actuation inhaler INHALE 1 PUFF 4 TIMES A DAY NEEDED FOR SHORTNESS OF BREATH WHEEZING 05/26/19 Active ibuprofen (ADVIL) 200 MG tablet Active clindamycin (CLEOCIN) 300 MG capsule For dental procedures (TKR) PRN 04/24/19 24 Active sodium chloride (CANDIDO 128) 5 % ophthalmic solution Place 1 drop into the left eye as needed. 15 mL 12 06/20/19 24 Active Additional Information Patient not taking.Reported on 10/16/2024 ALPRAZolam (XANAX) 0.25 MG tablet Take 1 tablet (0.25 mg total) by mouth nightly at bedtime as needed. 2 tablet 01/15/20 Active Additional Information Patient not taking.Reported on 09/17/2024 prednisoLONE acetate (PRED FORTE) 1 % ophthalmic suspension Place 1 drop into the right eye 4 (four) times a day. 10 mL 1 01/16/20 Active moxifloxacin (VIGAMOX) 0.5 % ophthalmic solution Place 1 drop into the right eye 4 (four) times a day. 3 mL 1 01/16/20 Active Additional Information Patient not taking.Reported on 10/16/2024 folic acid (FOLVITE) 1 MG tablet Take 1 tablet by mouth every morning. 07/13/19 25 Active glipiZIDE (GLUCOTROL) 5 MG tablet 1 tablet 30 minutes before breakfast Orally Once a day 08/29/19 25 Active leflunomide (ARAVA) 10 MG tablet Active ZEPBOUND 5 mg/0.5 mL subcutaneous pen 0.5 mL Subcutaneous weekly 05/28/19 25 Active testosterone cypionate (DEPO-TESTOTERON E) 200 mg/mL injection 1 mL Intramuscular Active moxifloxacin (VIGAMOX) 0.5 % ophthalmic solution Place 1 drop into the right eye 4 (four) times a day. 3 mL 3 09/18/19 Active Additional Information Patient not taking.Reported on 10/16/2024 prednisoLONE acetate (PRED FORTE) 1 % ophthalmic suspension Place 1 drop into the right eye 4 (four) times a day. 5 mL 12 09/18/19 25 Active Additional Information Patient taking differently:1 drop Right Eye 4 times daily,Left eye qD, Reported on 11/13/2024 erythromycin (ROMYCIN) ophthalmic ointment Place 0.5 inches into the right eye 3 (three) times a day. 7 g 3 09/19/19 25 Active sodium chloride (CANDIDO 128) 5 % ophthalmic solution Place 1 drop into the right eye 4 (four) times a day. 15 mL 12 09/19/19 Active Additional Information Patient not taking.Reported on 10/16/2024 Active Problems No known active problems Encounters Date Type Department Care Team Description 11/13/2024 2:40 PM EDT [facility] [address] [facility] [address] [place] [address] Romie Waller MD Pseudophakia (Primary Dx); Fuchs endothelial corneal dystrophy type 1; Fuchs' corneal dystrophy of right eye 10/16/2024 12:40 PM EDT Office Visit [facility] [address] [place] [phone] Charley Benavidez MD Ciolino, Joseph B, MD Fuchs' corneal dystrophy of right eye (Primary Dx); Cornea replaced by transplant 09/25/2024 12:40 PM EDT Office Visit [facility] [address] [place] [address] Charley Benavidez MD Ciolino, Joseph B, MD Fuchs' corneal dystrophy of right eye (Primary Dx) from Last 3 Months Family History Medical History Relation Comments Glaucoma Neg Hx Macular degeneration Neg Hx Social History Tobacco Use Types Packs/Day Years Used Date Smoking Tobacco: Former Cigarettes 1 23.6 0 03/27/1977 - 10/25/2000 Smokeless Tobacco: Never Tobacco Cessation:Counseling Given: Not Answered Comments:Menthol cigarettes Alcohol Use Standard Drinks/Week Comments [...] Orientation Straight 01/25/2023 12 :28 PM EDT Last Filed Vital Signs Vital Sign Reading Time Taken Comments Blood Pressure 130/78 09/17/2024 3:30 PM EDT Pulse 81 09/17/2024 3:15 PM EDT Temperature 37 C (98.6 F) 09/17/2024 11:10 AM EDT Respiratory Rate 15 09/17/2024 11:45 AM EDT Oxygen Saturation 90% 09/17/2024 1:45 PM EDT Inhaled Oxygen Concentration - - Weight 129.7 kg (286 lb) 09/17/2024 11:10 AM EDT Height 180.3 cm (5' 11 ) 09/17/2024 11:10 AM EDT Body Mass Index 39.89 09/17/2024 11:10 AM EDT Plan of Treatment Upcoming Encounters Date Type Department Care Team (Late st Contact Info) Description 02/12/2025 10:50 AM EST Office Visit [facility] [address] [facility] [address] [place] [address] Romie Waller MD [address] [place] [address] [email or web address] Health Maintenance Due Date Last Done Comments CREATININE LEVEL 1962 LIPID PANEL 1962 POTASSIUM LEVEL 1962 DEPRESSION SCREENING 1974 HEPATITIS C SCREENING 1980 HIV ONE-TIME SCREENING (18-65 YEARS) 1980 SCREENING FOR DIABETES 1997 COLOGUARD 10/29/2007 COLONOSCOPY 10/29/2007 COLORECTAL CANCER SCREENING 10/29/2007 FIT TEST 10/29/2007 FOBT 10/29/2007 SIGMOIDOSCOPY 10/29/2007 VIRTUAL COLONOSCOPY 10/29/2007 PNEUMOCOCCAL VACCINES (50+ years) (2 of 2 - PCV) 03/03/2018 03/03/2017 RSV VACCINE (1 - Risk 60-74 years 1-dose series) 2022 INFLUENZA VACCINE (#1) 2024 , 02/03/2023, 01/10/2022, Additional history exists COVID-19 VACCINE (2024- season) 2024 01/18/2021, 06/23/2020, 06/02/2020 Adult Td,Tdap Booster 09/02/2030 09/02/2020 ZOSTER VACCINES Completed 04/12/2022, 01/10/2022 SMOKING STATUS SCREENING (Once After 26 Yrs) Completed 11/13/2024 HEPATITIS A VACCINES Aged Out No long er eligible based on patient's age to complete this topic HIB VACCINES Aged Out No longer eligi ble based on patient's age to complete this topic MENINGOCOCCAL VACCINES (ACWY) Aged Out No longer eligible based on patient's age to complete this topic MENINGOCOCCAL VACCINES (B) Aged Out N o longer eligible based on patient's age to complete this topic Medical Devices Implanted Type Area Spinner Hand Device Identifier Shelf Expiration Date Model / Serial / Lot Lens Intraocular Clareon [id number] 24.5d - [id number] Implanted:Qty: 1 on 01/16/2024 by Romie Waller MD at [facility] Lens Right: Eye [employer] 02/11/2027 SY60WF.245 / [id number] / Left Tkr Testicle Implant Tissue Corneal - Sdin: [id number] Pc: [id number] Implanted:Qty: 1 on 06/20/2023 by Romie Waller MD at [facility] Left: Eye TISSUE [employer] [facility] 06/27/2023 / DIN: [id number] 24 [id number] PC: [id number] / Tissue Corneal - Sdin: [id number] Pc: [id number] Implanted:Qty: 1 on 07/18/2023 by Romie Waller MD at [facility] Left: Eye [employer] [facility] 07/27/2023 / DIN: [id number] PC: [id number] / Lens Intraocular Clareon Toric [id number] 24.0d - [id number] Implanted:Qty: 1 on 10/17/2023 by Romie Waller MD at [facility] Left: Eye [employer] 09/28/2024 [id number]. 240 / [id number] / Tissue Corneal - [id number] Implanted:Qty: 1 on 09/17/2024 by Romie Waller MD at [facility] Right: Eye [employer] [facility] [facility] 09/24/2024 / [id number] / Procedures Procedure Name Priority Date/Time Associated Diagnosis Comments CORNEAL TOPOGRAPHY - OD - RIGHT EYE Routine 10/16/2024 1:30 PM EDT Fuchs' corneal dystrophy of right eye OCT, ANTERIOR SEGMENT - OU - BOTH EYES Routine 09/25/2024 1:44 PM EDT Fuchs' corneal dystrophy of right eye from Last 3 Months Results * Corneal Topography - OD - Right Eye (10/16/2024 1:30 PM EDT) Anatomical Region Laterality Modality Head Optical Coherenc e Tomography Other Narrative 10/16/2024 1:30 PM EDT Irregular astigmatism Romie Waller MD OPHTHALMOLOGY IMAGING Edited Result - Final * OCT, Anterior Segment - OU - Both Eyes - Cirrus (09/25/2024 1:44 PM EDT) Anatomical Region Laterality Modality Head Optical Coherenc e Tomography Other Narrative 09/25/2024 1:44 PM EDT DMEK attached Romie Waller MD OPHTHALMOLOGY IMAGING Final Result from Last 3 Months Insurance [facility] MEDIC[facility] PART A & B [facility] MED[facility] & [facility] PART A & B [facility] MED[facility]ARE PART A & B [facility] MEDIC[facility] PART A & B [facility] MEDICARE PART A & B Care Teams Boy'S Adviser Relationship Specialty Start Date End Date Papito Dawn MD [address] [place] [address] PCP - General Internal Medicine 10/26/22 Additional Source Comments The information contained in this document represents components of the legal health record. It is not the complete legal health record.[facility]
--- OUTSIDE RECORDS SUMMARY | 2024-12-23 09:02 | XMS_ITS | Encounter Summary ---
Author Organization [facility] Address [address] [place] [address] Care Team Providers Care Certified Breastfeeding Educator Name Role Phone Papito Dawn MD Primary Care Provider [phone] Panda Balderrama MD Unavailable [phone] System, Provider Not In Unavailable Unavaila ble Daniel Telles PA-C Unavailable [phone] System, Provider Not In Unavailable Unavaila ble Encounter Details Date Type Department Care Team (Late st Contact Info) Description 07/08/2024 Scanned Document Orthopedic [address] [phone] Panda Balderrama MD [address] [facility] [address] [place], [place] 78[address] Social History Tobacco Use Types Packs/Day Years [...] 12/23/2024 1:00 PM EDT Office Visit Orthopedic [address] [phone] Daniel Telles PA-C [address] [facility] [address] [place], [place] [address] 12/31/2024 11:45 AM EDT Hospital Encounter [facility] [place] at [address] [address] Panda Balderrama MD [address] [place] [address] 12/31/2024 11:45 AM EDT - 12/31/2024 2:15 PM EDT Surgery [facility] at [address] [phone] Panda Balderrama MD [address] [place] [address] [phone] ARTHROPLASTY TOTAL KNEE Scheduled Procedures Name Priority Associated Diagnoses Date/Ti me ARTHROPLASTY TOTAL KNEE Primary osteoarthritis of right knee 12/31/2024 11:45 AM EDT documented as of this encounter Visit Diagnoses Not on filedocumented in this encounter Care Teams Certified Breastfeeding Educator Relationship Specialty Start Date End Date Papito Dawn MD [facility] [place] [address] PCP - General Internal Medicine 01/18/24 Panda Balderrama MD [address] [place], [place] [phone] Surgery, Orthopedic 07/23/24 System, Provider Not In Ophthalmology 12/05/24 Daniel Telles PA-C [address] [place] [address] Physician Mail Opener Surgery, Orthopedic 12/05/24 System, Provider Not In Urology 12/05/24 documented as of this encounter
--- OUTSIDE RECORDS SUMMARY | 2024-12-23 09:02 | XMS_ITS | Encounter Summary ---
Author Organization [facility] Address [address] [place] [address] Phone Care Team Providers Care Oral Hygienist Name Role Phone Papito Dawn MD Primary Care Provider [phone] Encounter Details Date Type Department Care Team ([facility] st Contact Info) Description 01/11/2024 Prep for Surgery [address] [place] [address] Romie Waller MD [address] [place] [address] [email or web address] Nuclear sclerotic cataract, right (Primary Dx) [...] 110 [facility] [address] [place] [address] Romie Waller MD [address] [place] [address] [email or web address] documented as of this encounter Visit Diagnoses Diagnosis Nuclear sclerotic cataract, right- Primary documented in this encounter Care Teams Oral Hygienist Relationship Specialty Start Date End Date Papito Dawn MD [address] [facility] [place] [address] PCP - General Internal Medicine 10/26/22 documented as of this encounter Additional Source Comments The information contained in this document represents components of the legal health record. It is not the complete legal health record.[facility]
--- OUTSIDE RECORDS SUMMARY | 2024-12-23 09:02 | XMS_ITS | Encounter Summary ---
Author Organization [facility] Address [address] [place] [address] Care Team Providers Care Food Processing Plant Manager Name Role Phone Papito Dawn MD Primary Care Provider Panda Balderrama MD Unavailable [phone] System, Provider Not In Unavailable Unavaila ble Daniel Telles PA-C Unavailable [phone] System, Provider Not In Unavailable Unavaila ble Encounter Details Date Type Department Care Team (Late st Contact Info) Description 05/08/2024 Scanned Document [facility] 499 [place] [address] Fer Sanchez MD 31 [facility] 100 [place] [address] Social History Tobacco Use Types Packs/Day Years [...] 12/23/2024 1:00 PM EDT Office Visit Orthopedic [facility] 150 [place] [phone] Daniel Telles PA-C [address] [facility] [address] [place] [address] 12/31/2024 11:45 AM EDT Hospital Encounter [facility] at [address] [address] Panda Balderrama MD [address] [place] [address] 12/31/2024 11:45 AM EDT - 12/31/2024 2:15 PM EDT Surgery [facility] at [address] [phone] Panda Balderrama MD [address] [place] [address]702 ARTHROPLASTY TOTAL KNEE Scheduled Procedures Name Priority Associated Diagnoses Date/Ti me ARTHROPLASTY TOTAL KNEE Primary osteoarthritis of right knee 12/31/2024 11:45 AM EDT documented as of this encounter Visit Diagnoses Not on filedocumented in this encounter Care Teams Food Processing Plant Manager Relationship Specialty Start Date End Date Papito Dawn MD [facility] [address] PCP - General Internal Medicine 01/18/24 Panda Balderrama MD [address] [place], [place] [phone] Surgery, Orthopedic 07/23/24 System, Provider Not In Ophthalmology 12/05/24 Daniel Telles PA-C [address] [place] [address] Physician Neuropsychology Director Surgery, Orthopedic 12/05/24 System, Provider Not In Urology 12/05/24 documented as of this encounter
--- OUTSIDE RECORDS SUMMARY | 2024-12-23 09:02 | XMS_ITS | Encounter Summary ---
Author Organization [facility] Address [address] [place] [address] Care Team Providers Care Local Telephone Operator Name Role Phone Papito Dawn MD Primary Care Provider [phone] Panda Balderrama MD Unavailable [phone] System, Provider Not In Unavailable Unavaila ble Daniel Telles PA-C Unavailable [phone] System, Provider Not In Unavailable Unavaila ble Encounter Details Date Type Department Care Team (Late st Contact Info) Description 04/10/2024 Scanned Document [facility] 499 [place] [address] Fer Sanchez MD 31 [facility] 100 [place] [address] Social History Tobacco Use Types Packs/Day Years [...] 12/23/2024 1:00 PM EDT Office Visit [facility] 150 [place] [address] Daniel Telles PA-C 499 [facility] [address] [place] [address] 12/31/2024 11:45 AM EDT Hospital Encounter [facility] [place] at [address] [phone] Panda Balderrama MD [address] [place] [address] 12/31/2024 11:45 AM EDT - 12/31/2024 2:15 PM EDT Surgery [facility] [place] at [address] [phone] Panda Balderrama MD [address] [place] [address] [phone] ARTHROPLASTY TOTAL KNEE Scheduled Procedures Name Priority Associated Diagnoses Date/Ti me ARTHROPLASTY TOTAL KNEE Primary osteoarthritis of right knee 12/31/2024 11:45 AM EDT documented as of this encounter Visit Diagnoses Not on filedocumented in this encounter Care Teams Local Telephone Operator Relationship Specialty Start Date End Date Papito Dawn MD [place] [address] PCP - General Internal Medicine 01/18/24 Panda Balderrama MD [address] [place], [place] [phone] Surgery, Orthopedic 07/23/24 System, Provider Not In Ophthalmology 12/05/24 Daniel Telles PA-C [address] [place] [address] Physician It Professional Surgery, Orthopedic 12/05/24 System, Provider Not In Urology 12/05/24 documented as of this encounter
--- OUTSIDE RECORDS SUMMARY | 2024-12-23 09:02 | XMS_ITS | Clinical Summary ---
Author Organization [facility] Address [address] [place] [address] Care Team Providers Care Systems Administration Analyst Name Role Phone Papito Dawn MD Primary Care Provider [phone] Panda Balderrama MD Unavailable [phone] System, Provider Not In Unavailable Unavaila ble Daniel Telles PA-C Unavailable [phone] System, Provider Not In Unavailable Unavaila ble Allergies Active Allergy Reactions Criticality Noted Date Comments Amoxicillin Hives Medium 04/22/2024 Aspirin Anaphylaxis High 04/22/2024 Wheezing Sulfa Antibiotics Shortness Of Breath Medium 5 Sulfites Other (See Comments) Low 12/05/2024 Wheezing, puffy face Medications tirzepatide (Zepbound) 7.5 mg/0.5 mL subcutaneous injection 0.5 mL (7.5 mg total) every 7 days. Saturdays Active TESTOSTERONE ENANTHATE IJ Inject 0.5 mg as directed every 14 days (2 weeks). Active glipiZIDE (GLUCOTROL) 5 MG tablet Take by mouth every morning before breakfast. 1/4 tablet every morning Active atorvastatin (LIPITOR) 20 MG tablet Take 1 tablet (20 mg total) by mouth every morning. Active losartan 100 MG TABS 100 mg, hydroCHLOROthiazide 12.5 MG TABS 12.5 mg per dose Take 1 tablet by mouth every morning. Active leflunomide (ARAVA) 20 MG tabletIndications:Rheu matoid Arthritis Take 1 tablet (20 mg total) by mouth every morning. Active cetirizine (ZyrTEC) 10 MG tablet Take 1 tablet (10 mg total) by mouth every morning. Active Fluticasone Propionate, Inhal, (Fluticasone Propionate Diskus) 50 MCG/ACT Aerosol Powder, Breath Activtivatede Inhale 1 spray every morning. Active albuterol (PROAIR RESPICLICK) 108 (90 Base) MCG/ACT inhaler Inhale 1 puff 4 times daily (every 6 hours) as needed for wheezing. Active prednisoLONE acetate (PRED FORTE) 1 % ophthalmic suspension 1 drop. 1 drop in left eye every morning, 3 drops in right eye every 8 hrs Active folic acid (FOLVITE) 1 MG tablet Take 1 tablet (1 mg total) by mouth daily. Active ibuprofen (MOTRIN) 800 mg tabletIndications:Old peripheral tear of medial meniscus of right knee Take 1 tablet (800 mg total) by mouth 3 times daily (every 8 hours) as needed for mild pain. 60 tablet 04/22/19 25 025 Disconti nued(Med List Clean-up /Old Med - No E-Cancel /No AVS) Active Problems Problem Noted Date Diagnosed Date Suspected sleep apnea 12/10/2024 Assessment & Plan (12/10/2024 10:58 AM EDT): STOP BANG score of 6. Had an outpatient sleep test done- needed to go for further testing in sleep lab but never went. Perioperative COLETTE protocols. Primary osteoarthritis of right knee 12/07/2024 Assessment & Plan (12/07/2024 3:32 PM EDT): Planned surgical intervention of right total knee arthroplasty on 12/31/[address] Balderrama. Testosterone deficiency in male 12/07/2024 Assessment & Plan (12/07/2024 3:35 PM EDT): Continue testosterone as directed. Type 2 diabetes mellitus 06/30/2024 Assessment & Plan (12/07/2024 3:34 PM EDT): Preop Hgb A1C Hold glipizide the morning of surgery. Continue tirzepatide as directed- will need a 24 hour clear liquid diet prior to surgery. Asthma Assessment & Plan (12/07/2024 3:33 PM EDT): Well controlled with no recent exacerbation. Take fluticasone the morning of surgery. Has albuterol to use as needed. Rheumatoid arthritis Assessment & Plan (12/07/2024 3:34 PM EDT): Followed by rheumatology Currently on arava Hypertension Assessment & Plan (12/07/2024 3:32 PM EDT): Well controlled on current medication.Hold losartan-hydrochlorothiazide the morning of surgery. Hyperlipidemia Assessment & Plan (12/07/2024 3:34 PM EDT): Managed on atorvastatin Corneal transplant failure, left eye Assessment & Plan (12/07/2024 3:36 PM EDT): Continue eye drops as prescribed. Encounters Date Type Department Care Team Description 12/10/2024 10:45 AM EDT Pre-Admission Testing [facility] [address] [place] [address] Rebecca Malave PA-C Preop examination (Primary Dx); Primary osteoarthritis of right knee; Type 2 diabetes mellitus without complication, without long-term current use of insulin (HCC); Mild persistent asthma without complication ; Rheumatoid arthritis, involving unspecified site, unspecified whether rheumatoid factor present (HCC); Primary hypertension ; Mixed hyperlipidemia ; Testosterone deficiency in male; Corneal transplant failure, left eye; Suspected sleep apnea 12/10/2024 Travel 12/05/2024 Telephone [facility] [address] [place] [address] Kat Michel RN 12/04/2024 Orders Only [facility] [address] [address] Panda Balderrama MD Status post total right knee replacement (Primary Dx) from Last 3 Months Social History Tobacco Use Types Packs/Day Years Used Date Smoking Tobacco: Former Cigarettes Q uit: 2000 Smokeless Tobacco: Never Tobacco Cessation:Counseling Given: Not Answered Alcohol Use Standard Drinks/Week Comments Yes 12 [...] Orientation Heterosexual (straight) 05/29 12:11 PM EST Last Filed Vital Signs Vital Sign Reading Time Taken Comments Blood Pressure 123/69 12/10/2024 10:37 AM EDT Pulse 98 12/10/2024 10:37 AM EDT Temperature 36.1 C (97 F) 12/10/2024 10:37 AM EDT Respiratory Rate 14 12/10/2024 10:37 AM EDT Oxygen Saturation 98% 12/10/2024 10:37 AM EDT Inhaled Oxygen Concentration - - Weight 122 kg (269 lb 12.8 oz) 12/10/2024 10:37 AM EDT Actual Height 175.3 cm (5' 9 ) 12/10/2024 10:37 AM EDT Actual Body Mass Index 39.84 12/10/2024 10:37 AM EDT Plan of Treatment Upcoming Encounters Date Type Department Care Team (Late st Contact Info) Description 12/23/2024 1:00 PM EDT Office Visit [facility] [address] [phone] Daniel Telles PA-C [address] [facility] [address] [place] [address] 12/31/2024 11:45 AM EDT Hospital Encounter [facility] at [address] [phone] Panda Balderrama MD [address] [facility] [address] [place] [address] 12/31/2024 11:45 AM EDT - 12/31/2024 2:15 PM EDT Surgery [facility] at [address] [address] Panda Balderrama MD [address] [facility] [address] [place] [address] ARTHROPLASTY TOTAL KNEE Scheduled Procedures Name Priority Associated Diagnoses Date/Ti me ARTHROPLASTY TOTAL KNEE Primary osteoarthritis of right knee 12/31/2024 11:45 AM EDT Health Maintenance Due Date Last Done Comments Hepatitis C Virus Screening 1962 COVID-19 Vaccine (#1) 10/29/1967 Foot Exam 1972 Lipid Panel 1972 Ophthalmology Exam 1972 HIV Screening 10/29/1975 Microalbumin/Creatinine Rati o Urine 1980 DTaP/Tdap/Td Vaccines (1 - Tdap) 1981 Pneumococcal Vaccines 50+ (1 of 2 - PCV) 1981 Zoster (Shingles) Vaccine (1 of 2) 1981 Colonoscopy 10/29/2007 RSV Vaccine 60 years and old er and Patients (1 - Risk 60-74 years 1-dose series) 2022 Influenza Vaccine 10/25/2024 Hemoglobin A1C 06/09/2025 12/10/2024 Creatinine with GFR 12/10/2025 12/10/2024 Hepatitis B Vaccines Aged Out No long er eligible based on patient's age to complete this topic Goals Goal Patient Goal Type Associated Problems Recent Progress Patient-Stated? Author Autogenerat ed Goal Care Plan Autogenerated Problem No Niesha Zamudio MA Procedures Procedure Name Priority Date/Time Associated Diagnosis Comments ECG 12-LEAD Routine 12/10/2024 10:40 AM EDT Preop examination Primary osteoarthritis of right knee Type 2 diabetes mellitus without complication, without long-term current use of insulin (HCC) Mild persistent asthma without complication Rheumatoid arthritis, involving unspecified site, unspecified whether rheumatoid factor present (HCC) Primary hypertension Mixed hyperlipidemia Testosterone deficiency in male Corneal transplant failure, left eye TRANSFERRIN Routine 12/10/2024 10:15 AM EDT Preop examination Primary osteoarthritis of right knee Type 2 diabetes mellitus without complication, without long-term current use of insulin (HCC) Mild persistent asthma without complication Rheumatoid arthritis, involving unspecified site, unspecified whether rheumatoid factor present (HCC) Primary hypertension Mixed hyperlipidemia Testosterone deficiency in male Corneal transplant failure, left eye PREALBUMIN Routine 12/10/2024 10:15 AM EDT Preop examination Primary osteoarthritis of right knee Type 2 diabetes mellitus without complication, without long-term current use of insulin (HCC) Mild persistent asthma without complication Rheumatoid arthritis, involving unspecified site, unspecified whether rheumatoid factor present (HCC) Primary hypertension Mixed hyperlipidemia Testosterone deficiency in male Corneal transplant failure, left eye HEMOGLOBIN A1C WITH ESTIMATED AVERAGE GLUCOSE Routine 12/10/2024 10:15 AM EDT Preop examination Primary osteoarthritis of right knee Type 2 diabetes mellitus without complication, without long-term current use of insulin (HCC) Mild persistent asthma without complication Rheumatoid arthritis, involving unspecified site, unspecified whether rheumatoid factor present (HCC) Primary hypertension Mixed hyperlipidemia Testosterone deficiency in male Corneal transplant failure, left eye BASIC METABOLIC PANEL Routine 12/10/2024 10:15 AM EDT Preop examination Primary osteoarthritis of right knee Type 2 diabetes mellitus without complication, without long-term current use of insulin (HCC) Mild persistent asthma without complication Rheumatoid arthritis, involving unspecified site, unspecified whether rheumatoid factor present (HCC) Primary hypertension Mixed hyperlipidemia Testosterone deficiency in male Corneal transplant failure, left eye COMPLETE BLOOD COUNT, WITH DIFFERENTIAL Routine 12/10/2024 10:15 AM EDT Preop examination Primary osteoarthritis of right knee Type 2 diabetes mellitus without complication, without long-term current use of insulin (HCC) Mild persistent asthma without complication Rheumatoid arthritis, involving unspecified site, unspecified whether rheumatoid factor present (HCC) Primary hypertension Mixed hyperlipidemia Testosterone deficiency in male Corneal transplant failure, left eye NASAL MRSA SCREEN, PCR Routine 12/10/2024 10:15 AM EDT Preop examination Primary osteoarthritis of right knee Type 2 diabetes mellitus without complication, without long-term current use of insulin (HCC) Mild persistent asthma without complication Rheumatoid arthritis, involving unspecified site, unspecified whether rheumatoid factor present (HCC) Primary hypertension Mixed hyperlipidemia Testosterone deficiency in male Corneal transplant failure, left eye from Last 3 Months Results * Electrocardiogram, 12-lead (12/10/2024 10:40 AM EDT) Ventricular rate 103 BPM EKG [facility] Atrial rate 103 BPM EKG [facility] P-R interval 138 ms EKG [facility] QRS duration 98 ms EKG [facility] Q-T interval 356 ms EKG [facility] QTC calculation (Bazett) 466 ms EKG [facility] P axis 37 degrees EKG [facility] R axis 2 degrees EKG [facility] T axis 96 degrees [facility] 12/10/2024 10:4 0 AM EDT Narrative EKG [facility] - 12/10/2024 5:17 PM EDT Sinus tachycardia Nonspecific T wave abnormality Abnormal ECG No previous ECGs available Confirmed by MD Jean William ([id number]) on 12/10/2024 5:17:50 PM Procedure Note Michael Jean MD - 12/10/2024 Sinus tachycardia Nonspecific T wave abnormality Abnormal ECG No previous ECGs available Confirmed by MD Jean William ([id number]) on 12/10/2024 5:17:50 PM us Rebecca Malave PA-C ECG ORDERABLES Final Resul t [facility] * (ABNORMAL) Hemoglobin A1c with Estimated Average Glucose (12/10/2024 10:15 AM EDT) Hemoglobin A1C 5.7(H) <5.7 % 12/10/2024 2:45 PM EDT [facility] Comment: A1c% Interpretation 5.7 - 6.0 Increase risk of diabetes 6.1 - 6.4 Higher risk of diabetes > or = 6.5 Consistent with diabetes Diabetes Care, 33(Supp 1):S1-S61, 2009 Estimated Average Glucose 117 mg/dL 12/10/2024 2:45 PM EDT [facility] Blood Blood specimen / Unknown 12/10/2024 10:15 AM EDT 12/10/2024 2:04 PM EDT Rebecca Malave PA-C LAB BLOOD ORDERABLES Final Result [address] [address], [address] [address] * (ABNORMAL) Complete Blood Count, with Differential (12/10/2024 10:15 AM EDT) White Blood Cell Count 5.9 4.0 - 11.0 Thou/uL 12/10/2024 2:23 PM [facility] Platelet Count 254 150 - 450 Thou/uL 12/10/2024 2:23 PM [facility] Hemoglobin 17.7 13.0 - 17.7 g/dL 12/10/2024 2:23 PM [facility] Hematocrit 52.6 39.0 - 54.0 % 12/10/2024 2:23 PM [facility] Red Blood Cell Count 5.93 4.50 - 6.20 Mil/uL 12/10/2024 2:23 PM [facility] MCV 89 80 - 100 fL 12/10/2024 2:23 PM [facility] MCH 29.8 27.0 - 31.0 pg 12/10/2024 2:23 PM [facility] MCHC 33.7 30.0 - 36.0 g/dL 12/10[facility]2024 [facility] RDW 14.0 11.5 - 14.5 % 12/10/2024 2:23 PM [facility] MPV 10.1 7.5 - 12.5 fL 12/10[facility]24 [facility] Neutrophils Auto 60.9 % 12/11[facility] Immature Granulocytes 0.3 % 12/10/2024 [facility] Lymphocytes Auto 22.9 % 12/11/19 2:23 PM EDT [facility] Monocytes Auto 13.1 % 12/10/2024 2:23 PM EDT [facility] Eosinophils Auto 2.0 % 12/11/19 2:23 PM EDT [facility] Basophils Auto 0.8 % 12/10/2024 2:23 PM EDT [facility] Abs Neutrophils Auto 3.61 2.00 - 7.50 Thou/uL 12/10/2024 2:23 PM EDT [facility] Abs Immature Granulocytes 0.02 0.00 - 0.10 Thou/uL 12/10/2024 2:23 PM EDT [facility] Abs Lymphocytes Auto 1.36(L) 1.50 - 4.50 Thou/uL 12/10/2024 2:23 PM EDT [facility] Abs Monocytes Auto 0.78 0.20 - 1.50 Thou/uL 12/10/2024 2:23 PM EDT [facility] Abs Eosinophils Auto 0.12 0.00 - 0.70 Thou/uL 12/10/2024 2:23 PM EDT [facility] Abs Basophils Auto 0.05 0.00 - 0.20 Thou/uL 12/10/2024 2:23 PM EDT [facility] Blood Blood specimen / Unknown 12/10/2024 10:15 AM EDT 12/10/2024 2:04 PM EDT us Rebecca Malave PA-C LAB BLOOD ORDERABLES Final Result [address] [address], [address] [address] * MRSA PCR Screen, Qualitative: (12/10/2024 10:15 AM EDT) MRSA Result Not Detected Not Detected 3:42 PM EDT [facility] Comment:Performed by the Xpe rt MRSA NxG Assay Swab, Anterior Nares Specimen from nose / Unknown 12/10/2024 10:15 AM EDT 12/10/2024 2:03 PM EDT us Rebecca Malave PA-C MICROBIOLOGY - GENERAL ORDE LUCINDA Final Result Performing Organization Address City/[facility]/ZIP Co de Phone Number [address] [address], [address] [address] * Transferrin (12/10/2024 10:15 AM EDT) Transferrin 261 200 - 360 mg/dL 12/10/2024 2:51 PM EDT [facility] Blood Blood specimen / Unknown 12/10/2024 10:15 AM EDT 12/10/2024 2:04 PM EDT Rebecca Malave PA-C LAB BLOOD ORDERABLES Final Result Performing Organization Address [facility]/[place] [address], [address] [address] * Prealbumin (12/10/2024 10:15 AM EDT) Prealbumin 27 20 - 40 mg/dL 12/10/2024 2:51 PM EDT [facility] Blood Blood specimen / Unknown 12/10/2024 10:15 AM EDT 12/10/2024 2:04 PM EDT Rebecca Malave PA-C LAB BLOOD ORDERABLES Final Result Performing Organization Address City/[facility]/[place] [address], [address] [address] * (ABNORMAL) Basic Metabolic Panel (12/10/2024 10:15 AM EDT) Glucose 118(H) 65 - 99 mg/dL 12/10/2024 2:51 PM EDT [facility] Comment:Fasting: <100 mg/dL, Non-Fasting: <200 mg/dL (ADA 2005) Blood Urea Nitrogen (BUN) 12 8 - 21 mg/dL 12/10/2024 2:51 PM EDT [facility] Creatinine 0.95 0.50 - 1.30 mg/dL 12/10/2024 2:51 PM EDT [facility] eGFR >90 >59 12/10/2024 2:51 PM EDT [facility] Comment:CKD-EPI (2020) in mL /min/1.73 sq meters. Sodium 138 136 - 145 mmol/L 12/10/2024 2:51 PM EDT [facility] Potassium 3.6 3.4 - 5.3 mmol/L 12/10/2024 2:51 PM EDT [facility] Chloride 100 98 - 107 mmol/L 12/10/2024 2:51 PM EDT [facility] CO2 25 22 - 33 mmol/L 12/10/2024 2:51 PM EDT [facility] Anion Gap 13 7 - 17 12/10/2024 2:51 PM EDT [facility] Calcium 9.4 8.7 - 10.5 mg/dL 12/10/2024 2:51 PM EDT [facility] BUN/Creatinine Ratio 13 10.0 - 25.0 Ratio 12/10/2024 2:51 PM EDT [facility] Blood Blood specimen / Unknown 12/10/2024 10:15 AM EDT 12/10/2024 2:04 PM EDT Rebecca Malave PA-C LAB BLOOD ORDERABLES Final Result [address] [address], [address] [address] from Last 3 Months Additional Health Concerns Active Problems Noted Date Diagnosed Date Autogenerated Problem 09/24/2024 Insurance - HMO MEDICARE PART A & B MEDICARE PART A & B Care Teams Systems Administration Analyst Relationship Specialty Start Date End Date Papito Dawn MD [address] [place] [address] PCP - General Internal Medicine 01/18/24 Panda Balderrama MD [address] [place] [address] [address] [place] [address] Surgery, Orthopedic 07/23/24 System, Provider Not In Ophthalmology 12/05/24 Daniel Telles PA-C [address] [place] [phone] Physician Orientor Surgery, Orthopedic 12/05/24 System, Provider Not In Urology 12/05/24
--- OUTSIDE RECORDS SUMMARY | 2024-12-23 09:02 | XMS_ITS | Encounter Summary ---
Author Organization [facility] Address [address] [place] [phone] Phone Care Team Providers Care Retinal Angiographer Name Role Phone Papito Dawn MD Primary Care Provider [phone] Encounter Details Date Type Department Care Team ([facility] st Contact Info) Description 08/15/2023 Prep for Surgery [facility] Care - Ophthalmology @ [address] [address] Romie Waller MD [address] [place] [phone] [email or web address] Social History Tobacco Use Types Packs/Day Years [...] Office Visit [facility] [address] [facility] [address] [place] [address] Romie Waller MD [address] [place] [phone] [email or web address] documented as of this encounter Visit Diagnoses Not on filedocumented in this encounter Care Teams Retinal Angiographer Relationship Specialty Start Date End Date Papito Dawn MD [address] [place] [address] PCP - General Internal Medicine 10/26/22 documented as of this encounter Additional Source Comments The information contained in this document represents components of the legal health record. It is not the complete legal health record.[facility]
--- OUTSIDE RECORDS SUMMARY | 2024-12-23 09:02 | XMS_ITS | Encounter Summary ---
Author Organization [facility] Address [address] [place] [address] [place] [address] Phone Care Team Providers Care Manager Of Distribution Name Role Phone Papito Dawn MD Primary Care Provider [phone] Encounter Details Date Type Department Care Team (Late st Contact Info) Description 09/20/2023 Prep for Surgery [facility] [address] [place] [address] Romie Waller MD [address] [place] [phone] [email or web address] Nuclear sclerotic cataract, left (Primary Dx) Social History Tobacco Use Types [...] Office Visit [facility] [address] [facility] [address] [place] [address] Romie Waller MD [address] [place] [phone] [email or web address] documented as of this encounter Visit Diagnoses Diagnosis Nuclear sclerotic cataract, left- Primary documented in this encounter Care Teams Manager Of Distribution Relationship Specialty Start Date End Date Papito Dawn MD [address] [facility] [place] [address] PCP - General Internal Medicine 10/26/22 documented as of this encounter Additional Source Comments The information contained in this document represents components of the legal health record. It is not the complete legal health record.[facility]
--- OUTSIDE RECORDS SUMMARY | 2024-12-23 09:03 | XMS_ITS | Encounter Summary ---
Author Organization [facility] Address [address] [place] [address] [place] [address] Phone Care Team Providers Care Mapping Pilot Name Role Phone Papito Dawn MD Primary Care Provider [phone] Encounter Details Date Type Department Care Team (Latest Contact Info) Description 03/13/2024 Prep for Surgery [facility] [place] [address] [facility] [address] [place] [address] Romie Waller MD [address] [place] [phone] [email or web address] Fuchs endothelial corneal dystrophy type 1 (Primary Dx) Social History Tobacco Use Types [...] as food, clothing, or medical care? No 01/16/2024 In the past 12 months have y ou been in a relationship with a person who hurts, threatens, or tries to control you? No 01/16/2024 Are you denied basic needs s uch as food, clothing, or medical care? No 01/16/2024 In the past 12 months have y ou been in a relationship with a person who hurts, threatens, or tries to control you? No 01/16/2024 Sex and Gender Information Value Date Recorded [...] Office Visit [facility] [address] [facility] [address] [place] [address] Romie Waller MD [address] [place] [phone] [email or web address] documented as of this encounter Visit Diagnoses Diagnosis Fuchs endothelial corneal dystrophy type 1- Primary documented in this encounter Care Teams Mapping Pilot Relationship Specialty Start Date End Date Papito Dawn MD [address] [facility] [place] [address] PCP - General Internal Medicine 10/26/22 documented as of this encounter Additional Source Comments The information contained in this document represents components of the legal health record. It is not the complete legal health record.[facility]
--- OUTSIDE RECORDS SUMMARY | 2024-12-23 09:03 | XMS_ITS | Encounter Summary ---
Author Organization [facility] Address [address] [place] [address] Care Team Providers Care Operations Support Representative Name Role Phone Papito Dawn MD Primary Care Provider Panda Balderrama MD Unavailable System, Provider Not In Unavailable Unavaila ble Daniel Telles PA-C Unavailable [phone] System, Provider Not In Unavailable Unavaila ble Encounter Details Date Type Department Care Team (Late st Contact Info) Description 04/25/2024 Scanned Document Orthopedic [address] [phone] Fer Sanchez MD 31 [facility] 100 [place] [address] Social History Tobacco Use Types Packs/Day Years [...] 12/23/2024 1:00 PM EDT Office Visit Orthopedic [address] [phone] Daniel Telles PA-C 499 [facility] [address] [place] [address] 12/31/2024 11:45 AM EDT Hospital Encounter [facility] [place] at [address] [place] [phone] Panda Balderrama MD [address] [place] [address] 12/31/2024 11:45 AM EDT - 12/31/2024 2:15 PM EDT Surgery [facility] [place] at [address] [phone] Panda Balderrama MD [address] [place] [address] 038602 ARTHROPLASTY TOTAL KNEE Scheduled Procedures Name Priority Associated Diagnoses Date/Ti me ARTHROPLASTY TOTAL KNEE Primary osteoarthritis of right knee 12/31/2024 11:45 AM EDT documented as of this encounter Visit Diagnoses Not on filedocumented in this encounter Care Teams Operations Support Representative Relationship Specialty Start Date End Date Papito Dawn MD [facility] [place] [address] PCP - General Internal Medicine 01/18/24 Panda Balderrama MD [address] [place] [address] [address] [place] [address] Surgery, Orthopedic 07/23/24 System, Provider Not In Ophthalmology 12/05/24 Daniel Telles PA-C [address] [place] [address] Physician Inshore Undersea Warfare Officer Surgery, Orthopedic 12/05/24 System, Provider Not In Urology 12/05/24 documented as of this encounter
--- OUTSIDE RECORDS SUMMARY | 2024-12-23 09:03 | XMS_ITS | Encounter Summary ---
Author Organization [facility] Address [address] [place] [address] Phone Care Team Providers Care Pst Specialist Name Role Phone Papito Dawn MD Primary Care Provider [phone] Encounter Details Date Type Department Care Team ([facility] st Contact Info) Description 06/13/2023 Prep for Surgery [address] [place] [address] Romie Waller MD [address] [place] [address] [email or web address] Social History Tobacco Use Types Packs/Day Years [...] Office Visit [facility] [address] [facility] [address] [place] [address] Romie Waller MD [address] [place] [address] [email or web address] documented as of this encounter Visit Diagnoses Not on filedocumented in this encounter Care Teams Pst Specialist Relationship Specialty Start Date End Date Papito Dawn MD [facility] [place] [address] PCP - General Internal Medicine 10/26/22 documented as of this encounter Additional Source Comments The information contained in this document represents components of the legal health record. It is not the complete legal health record.[facility]
--- OUTSIDE RECORDS SUMMARY | 2024-12-23 09:03 | XMS_ITS | Encounter Summary ---
Author Organization [facility] Address [address] [place] [address] Phone Care Team Providers Care Cryogenic Transport Driver Name Role Phone Papito Dawn MD Primary Care Provider [phone] Encounter Details Date Type Department Care Team ([facility] st Contact Info) Description 07/18/2023 Procedure Pass [facility] PERIOP DEPT [address] [place] [address] Social History Tobacco Use Types Packs/Day Years [...] PM EDT documented as of this encounter Functional Status * Calculated C-SSRS Risk Score (Lifetime/Recent) Answer Date of Assessment Author No Risk Indicated 07/18/2023 8:05 PM EDT Day, Ed frye, RN * [place] Suicide Severity Rating Scale (Screener/Recent Self-Report) Question Answer Date of Assessment Author 1. Wish to be (Past 1 Month) No 024 8:05 PM EDT Day, ALEN Hdz 2. Non-Specific Active Suici casey Thoughts (Past 1 Month) No 07/18/2023 8:05 PM EDT Day, ALEN Hdz 6. Suicidal Behavior (Lifetime) No 8:05 PM EDT Day, ALEN Hdz documented as of this encounter Plan of Treatment Upcoming Encounters Date Type Department Care Team (Late st Contact Info) Description 02/12/2025 10:50 AM EST Office Visit [facility] [address] [facility] [address] [place] [address] Romie Waller MD [address] [place] [address] [email or web address]. [facility] documented as of this encounter Visit Diagnoses Not on filedocumented in this encounter Care Teams Cryogenic Transport Driver Relationship Specialty Start Date End Date Papito Dawn MD [address] [facility] [address] PCP - General Internal Medicine 10/26/22 documented as of this encounter Additional Source Comments The information contained in this document represents components of the legal health record. It is not the complete legal health record.[facility]
--- OUTSIDE RECORDS SUMMARY | 2024-12-23 09:03 | XMS_ITS | Encounter Summary ---
Author Organization [facility] Address [address] [place] [address] Phone Care Team Providers Care Safety Instructor Name Role Phone Papito Dawn MD Primary Care Provider [phone] Encounter Details Date Type Department Care Team ([facility] st Contact Info) Description 01/16/2024 Procedure Pass [facility] PERIOP DEPT [address] [place] [address] Social History Tobacco Use Types Packs/Day Years [...] Office Visit [facility] MIG[facility] [address] [facility] [address] [place] [address] Romie Waller MD [address] [place] [address] [email or web address]. [facility] documented as of this encounter Visit Diagnoses Not on filedocumented in this encounter Care Teams Safety Instructor Relationship Specialty Start Date End Date Papito Dawn MD [facility] [place] [address] PCP - General Internal Medicine 10/26/22 documented as of this encounter Additional Source Comments The information contained in this document represents components of the legal health record. It is not the complete legal health record.[facility]
--- OUTSIDE RECORDS SUMMARY | 2024-12-23 09:03 | XMS_ITS | Encounter Summary ---
Author Organization [facility] Address [address] [place] [address] [place] [address] Phone Care Team Providers Care Window Decorator Name Role Phone Papito Dawn MD Primary Care Provider [phone] Encounter Details Date Type Department Care Team (Late st Contact Info) Description 07/18/2023 Ophth Exam [facility] Emergency Department [address] [place] [address] Alessio Henderson MD [address] [place] [address] [email or web address] Social History Tobacco Use Types Packs/Day [...] Risk Indicated 07/18/2023 8:05 PM EDT Day, Shane frye RN * [place] Suicide Severity Rating Scale (Screener/Recent Self-Report) Question [...] Description 02/12/2025 10:50 AM EST Office Visit [facility] 110 [facility] [address] [place] [address] Romie Waller MD [address] [place] [address] [email or web address]. [facility] documented as of this encounter Visit Diagnoses Not on filedocumented in this encounter Care Teams Window Decorator Relationship Specialty Start Date End Date Papito Dawn MD [address] [place] [address] PCP - General Internal Medicine 10/26/22 documented as of this encounter Additional Source Comments The information contained in this document represents components of the legal health record. It is not the complete legal health record.[facility]
--- OUTSIDE RECORDS SUMMARY | 2024-12-23 09:03 | XMS_ITS | Encounter Summary ---
Author Organization [facility] Address [address] [place] [address] Phone Care Team Providers Care Caustic Liquor Maker Name Role Phone Papito Dawn MD Primary Care Provider [phone] Reason for Visit * Reason Comments Medication Refill Encounter Details Date Type Department Care Team (Late st Contact Info) Description 04/24/2023 Refill [facility] Op[facility] Laser 1st [address] [place] [address] Romie Waller MD [address] [place] [address] [email or web address] Medication Refill Social History Tobacco Use Types Packs/Day Years Used Date Smoking Tobacco: Never Assessed Education Answer Date Recorded Are you interested [...] Office Visit [facility] [address] [facility] [address] [place] [address] Romie Waller MD [address] [place] [address] [email or web address] [email or web address] documented as of this encounter Visit Diagnoses Not on filedocumented in this encounter Care Teams Caustic Liquor Maker Relationship Specialty Start Date End Date Papito Dawn MD 1961 [facility] [place] [address] PCP - General Internal Medicine 10/26/22 documented as of this encounter Additional Source Comments The information contained in this document represents components of the legal health record. It is not the complete legal health record.[facility]
--- OUTSIDE RECORDS SUMMARY | 2024-12-23 09:03 | XMS_ITS | Encounter Summary ---
Author Organization [facility] Address [address] [place] [address] Care Team Providers Care Vb Developer Name Role Phone Papito Dawn MD Primary Care Provider Panda Balderrama MD Unavailable System, Provider Not In Unavailable Unavaila ble Daniel Telles PA-C Unavailable [phone] System, Provider Not In Unavailable Unavaila ble Encounter Details Date Type Department Care Team (Late st Contact Info) Description 04/25/2024 Scanned Document Orthopedic [address] [phone] Fer Sanchez MD 31 [facility] 100 [place] [address] Social History Tobacco Use Types Packs/Day Years [...] 12/23/2024 1:00 PM EDT Office Visit Orthopedic [address] [phone] Daniel Telles PA-C 499 [facility] [address] [place] [address] 12/31/2024 11:45 AM EDT Hospital Encounter [facility] [place] at [address] [place] [phone] Panda Balderrama MD [address] [place] [address] 12/31/2024 11:45 AM EDT - 12/31/2024 2:15 PM EDT Surgery [facility] [place] at [address] [phone] Panda Balderrama MD [address] [place] [address] 339182 ARTHROPLASTY TOTAL KNEE Scheduled Procedures Name Priority Associated Diagnoses Date/Ti me ARTHROPLASTY TOTAL KNEE Primary osteoarthritis of right knee 12/31/2024 11:45 AM EDT documented as of this encounter Visit Diagnoses Not on filedocumented in this encounter Care Teams Vb Developer Relationship Specialty Start Date End Date Papito Dawn MD [facility] [place] [address] PCP - General Internal Medicine 01/18/24 Panda Balderrama MD [address] [place] [address] [address] [place] [address] Surgery, Orthopedic 07/23/24 System, Provider Not In Ophthalmology 12/05/24 Daniel Telles PA-C [address] [place] [address] Physician Pearl Digger Surgery, Orthopedic 12/05/24 System, Provider Not In Urology 12/05/24 documented as of this encounter
--- OUTSIDE RECORDS SUMMARY | 2024-12-23 09:03 | XMS_ITS | Encounter Summary ---
Author Organization [facility] Address [address] [place] [address] Phone Care Team Providers Care Divorce Lawyer Name Role Phone Papito Dawn MD Primary Care Provider [phone] Encounter Details Date Type Department Care Team (Late st Contact Info) Description 07/13/2023 Prep for Surgery [facility] [address] [place] [address] Romie Waller MD [address] [place] [address] [email or web address] Fuchs endothelial corneal dystrophy type 1 (Primary [...] Office Visit JOSÉ MIGUEL [facility] [address] [facility] [address] [place] [address] Romie Waller MD [address] [place] [address] [email or web address]. 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 It is not the complete legal health record.[facility]
--- OUTSIDE RECORDS SUMMARY | 2024-12-23 09:03 | XMS_ITS | Encounter Summary ---
Author Organization [facility] Address [address] [place] [address] Phone Care Team Providers Care Collections Manager Name Role Phone Papito Dawn MD Primary Care Provider [phone] Encounter Details Date Type Department Care Team (Late st Contact Info) Description 06/20/2023 Procedure Pass [facility] 6TH FL PERIOP DEPT [address] [place] [address] Social History Tobacco Use Types Packs/Day Years [...] [facility]NEA [facility] [address] [place] [address] Romie Waller MD [address] [place] [address] [email or web address] documented as of this encounter Visit Diagnoses Not on filedocumented in this encounter Care Teams Collections Manager Relationship Specialty Start Date End Date Papito Dawn MD [address] [facility] [place] [address] PCP - General Internal Medicine 10/26/22 documented as of this encounter Additional Source Comments The information contained in this document represents components of the legal health record. It is not the complete legal health record.[facility]
--- OUTSIDE RECORDS SUMMARY | 2024-12-23 09:03 | XMS_ITS | Patient Health Record ---
Author Organization [facility] Address [address] [facility] [address] [place] [address] Care Team Providers Care Investment Associate Name Role Phone López FLOWER[facility] Primary Care Provider Nino Sy Unavailable [phone] Allergies Allergen (clinical drug ingredient) Drug/Non Drug [...] PC Referred Provider Nino Jewell Referred Address [address] [place] [address],[address],[place], [place],[address], Referred Provider Specialty Gastroentero logy Referral Priority [...] Problem Status W/U Status Risk Notes Problem [id number] Encounter for screening for malignant neoplasm of colon (Z12.11) Active confirmed Problem [id number] Preprocedural examination (Z01.818) Active confirmed Problem 042672002 Family history o f colon cancer (Z80.0) Active confirmed Problem 341716015 Hx of adenomatou s colonic polyps (Z86.010) Active confirmed Problem Diverticulosis of colon (337543913) Diverticulosis of colon (K57.30) Active confirmed Vital Signs Temperature 96.8 degrees Fahrenheit 08/28/2024 Blood pressure diastolic 01 mm Hg 08/28/2024 Height 70 in 08/28/2024 Blood pressure systolic 001 mm Hg 08/28/2024 Weight 256.8 lbs 08/28/2024 BMI 36.84 kg/m2 08/28/2024 Procedures Procedure Date Ordered Date Performed Result Body Sit e COLONOSCOPY 08/28/2024 N/A Encounters Encounter Location Date Provider Diagnosis [facility] [address] [place] [address] 08/28/2024 Nino Jewell Hx of adenomatous colonic [...] Appt Details Provider Name:Nino Sharma Jewell , 02/03/2025 08:30:00 AM, [address] [place] [address], [phone], Insurance Providers Payer Name Payer Address Payer Phone Subscriber Number Group Number Insured Name Patient Relationship to Insured Coverage Start Date Coverage End Date MEDICARE OF [place] [address] [place] [address] [id number] MANINDER MONTES Self - patient is the insured HMO BLUE [employer] PROFESSIONAL CLAIMS [address] [place] [address] [id number] MANINDER MONTES Self - patient is [...]
[2024-12-23 10:00] LABS: MANUAL DIFF FLAG NO
[2024-12-23 10:08] LABS: Hematocrit 49.1 % (42.0-52.0); Hemoglobin 17.0 g/dl (14.0-18.0); Imm Gran Abs Auto 0.02 X10*3/uL (0.00-0.03); Imm Gran Pct Auto 0.3 % (0.0-0.4); Lymphocytes Absolute Auto 1.4 X10*3/uL (1.2-4.9); Mean Corpuscular HGB Conc 34.6 g/dl (31.0-36.0); Mean Corpuscular Hemoglobin 30.6 pg (27.0-33.0); Mean Corpuscular Volume 88.3 fL (80.0-98.0); NRBC Abs Auto 0.000 X10*3/uL (0.0-0.012); NRBC Pct Auto 0.0 /100WBC (0.0-0.2); Platelet Count 263 X10*3/uL (160-400); Red Blood Count 5.56 X10*6/uL (4.60-5.80); White Blood Count 5.8 X10*3/uL (4.8-10.8)
[2024-12-23 10:27] LABS: Hemoglobin A1C 151.9596 umol/L
[2024-12-23 10:40] LABS: Alanine Aminotransferase 31 U/L (0-40); Albumin Level 4.4 g/dL (3.5-5.0); Alkaline Phosphatase 60 U/L (39-117); Anion Gap 11 (12-20); Aspartate Amino Transferase 38 U/L (5-37); Blood Urea Nitrogen 14 mg/dL (9-16); Calcium 9.3 mg/dL (8.4-10.2); Carbon Dioxide 27 mmol/L (22-29); Chloride 105 mmol/L (96-108); Cholesterol 136 mg/dL (<200); Estimated Glomerular Filt Rate > 60; HDL Cholesterol 39 mg/dL (>40); Potassium 3.5 mmol/L (3.3-5.1); Sodium 139 mmol/L (135-145); Total Protein 6.8 g/dL (6.5-8.0); Triglycerides 134 mg/dL (<150)
[2024-12-23 11:03] LABS: Microalbum/Creatinine Ratio Ur 5.0 ug/mg cr (<30)
== END 2024-12-23 08:36 | disposition home or self-care (01) ==
LOC: HO.HMGCLDS 08:35
PROVIDERS: PCP Internal Medicine; Visit Provider Internal Medicine
DX: E11.69 Type 2 diabetes mellitus with other specified complication (principal); I10 Essential (primary) hypertension; E78.9 Disorder of lipoprotein metabolism, unspecified; E66.9 Obesity, unspecified
CPT/HCPCS: 36415; 80053; 80061; 82043; 82570; 83036; 85025

== ENCOUNTER 2024-12-25 09:20 | Outpatient (AMB) | payer MEDICARE, BC, SELFPAY ==
--- OUTSIDE RECORDS SUMMARY | 2024-12-23 13:05 | XMS_ITS | Encounter Summary ---
Author Organization [facility] Address [address] [place] [address] Care Team Providers Care Cook Helper Vegetable Name Role Phone Papito Dawn MD Primary Care Provider [phone] Panda Balderrama MD Unavailable [phone] System, Provider Not In Unavailable Unavaila ble Daniel Telles PA-C Unavailable [phone] System, Provider Not In Unavailable Unavaila ble Encounter Details Date Type Department Care Team (Late st Contact Info) Description 12/23/2024 1:05 PM EDT Ancillary Procedure [facility] [address] [address] Arrived Social History Tobacco Use Types Packs/Day Years [...] Care Team (Late st Contact Info) Description 12/31/2024 11:45 AM EDT Hospital Encounter [facility] [place] at [address] [place] [phone] Panda Balderrama MD [address] [place] [address] 12/31/2024 11:45 AM EDT - 12/31/2024 2:15 PM EDT Surgery [facility] [place] at [address] [phone] Panda Balderrama MD [address] [place] [address] ARTHROPLASTY TOTAL KNEE 01/13/2025 3:30 PM EDT [facility] Visit [facility] [address] [phone] Panda Balderrama MD [address] [place] [address] Scheduled Procedures Name Priority Associated Diagnoses Date/Ti me ARTHROPLASTY TOTAL KNEE Primary osteoarthritis of right knee 12/31/2024 11:45 AM EDT documented as of this encounter Goals Goal Patient Goal Type Associated Problems Recent Progress Patient-Stated? Author Autogenerat ed Goal Care Plan Autogenerated Problem No Niesha Zamudio [place] documented as of this encounter Procedures Procedure Name Priority Date/Time Associated Diagnosis Comments XR LUMBAR SPINE 2 OR 3 VIEWS Routine 12/23/2024 1:11 PM EDT Primary osteoarthritis of right knee XR KNEE 4+ VIEWS-RIGHT Routine 12/23/2024 1:11 PM EDT Primary osteoarthritis of right knee documented in this encounter Results * XR Lumbar spine 2 or 3 views (12/23/2024 1:11 PM EDT) Narrative OAH - 12/23/2024 1:11 PM EDT This exam was performed in office at [facility] and images reviewed by orthopedic provider. Any findings are documented within ambulatory encounter note on date of service. Daniel Telles PA-C IMG DIAGNOSTIC IMAGING ORD ERABLES Final Result Performing Organization Address City/[facility] Co de Phone Number OAH * XR Knee 4+ views-Right (12/23/2024 1:11 PM EDT) Narrative OAH - 12/23/2024 1:11 PM EDT This exam was performed in office at [facility] and images reviewed by orthopedic provider. Any findings are documented within ambulatory encounter note on date of service. Daniel Telles PA-C IMG DIAGNOSTIC IMAGING ORD ERABLES Final Result Performing Organization Address [facility] Co de Phone Number OAH documented in this encounter Visit Diagnoses Not on filedocumented in this encounter Additional Health Concerns Active Problems Noted Date Diagnosed Date Autogenerated Problem 09/24/2024 documented as of this encounter Care Teams Cook Helper Vegetable Relationship Specialty Start Date End Date Papito Dawn [place] [address] PCP - General Internal Medicine 01/18/24 Panda Balderrama MD [address] [place] [address] Surgery, Orthopedic 07/23/24 System, Provider Not In Ophthalmology 12/05/24 Daniel Telles PA-C [address] [place] [address] Physician Host/Hostess Surgery, Orthopedic 12/05/24 System, Provider Not In Urology 12/05/24 documented as of this encounter
--- NOTE | 2024-12-25 09:23 | A.OFFPC_ITS ---
Vital Signs 12/25/24 09:24 Height 5 ft 10 in Weight 266 lb BMI 38.2 BP 130/72 Blood Pressure Location Lt brachial Position Sitting Pulse 110 H Pulse Source Pulse Oximeter Pulse Oximetry (%) 99 Oxygen Delivery Method Room Air Intake Visit Reasons: Annual PE Allergies amoxicillin (Augmentin) Allergy (Intermediate, Verified 12/25/24 09:24) rash aspirin (ASPIRIN) Allergy (Intermediate, Verified 12/25/24 09:24) WHEEZING clavulanic acid (Augmentin) Allergy (Intermediate, Verified 12/25/24 09:24) rash Iodinated Contrast Media (IODINATED CONTRAST MEDIA - IV DYE) Allergy (Intermediate, Verified 12/25/24 09:24) NAUSEA shellfish dye Allergy (Intermediate, Uncoded 11/14/24 13:26) nausea, wheezing Medication List - Last Reconciled 12/25/24 by Papito Dawn MD albuterol sulfate 90 mcg/actuation 2 puffs inhalation Q6-8H PRN atorvastatin 20 mg PO DAILY 90 days blood sugar diagnostic (FreeStyle Lite Strips) Check blood sugar once daily as directed blood-glucose meter (FreeStyle Lite Meter kit) Check blood sugar once daily as directed budesonide-formoterol 80-4.5 mcg/actuation 1 inh inhalation BID cetirizine (Zyrtec) 10 mg PO DAILY fluticasone propionate 50 mcg/actuation (Flonase Allergy Relief) 1 spray intranasal BID 30 days ipratropium-albuterol 0.5 mg-3 mg(2.5 mg base)/3 mL 3 mL inhalation BID PRN 30 days lancets (FreeStyle Lancets) Check blood sugar once daily as directed losartan-hydrochlorothiazide 100-12.5 mg 1 tab PO DAILY 90 days needle (disp) 18 G (BD Regular [place]) As directed - draw up testosterone needle (disp) 23 gauge (BD Regular [place]) Inject testosterone subcutaneous prednisolone acetate 1% 1 drp ophthalmic-Right QID syringe (disposable) (BD Luer-Rocky Syringe) Testosterone injection weekly testosterone cypionate (Depo-Testosterone) 200 mg IM QWEEK 4 weeks tirzepatide (weight loss) 7.5 mg (0.5 mL) subcut QWEEK 30 days Tobacco use date assessed: 09/10/24 Dental Screening Dental Screen Date: 09/10/24 HPI Annual PE HPI Details History of Present Illness The patient is a 64 year old male presenting with physical examination and follow-up on chronic conditions. Lipid disorder (Hyperlipidemia): - Patient is currently taking atorvastat in 20 mg daily. - Recent LDL level was 71. Asthma: - Managed with a maintenance inhaler. - Patient reports improved condition wit h decreased inhaler use. Essential Hypertension: - Blood pressure recorded at 130/72 mmHg . - Managed with losartan hydrochlorothiaz nasima. Testosterone deficiency: - Currently being followed by urology fo r this condition. Obesity: - On Zepbound injections for weight loss . - Weight reduced from 279 pounds on to 266 pounds currently. - Reports appetite suppression and consc iously limiting portions. Rheumatoid Arthritis: - [facility] - Experienced prolonged swelling after a previous left knee replacement. 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 - Actively engaging in weight management and losing weight successfully with Zepbound since November 14. - Reports improved agility and energy. Health Maintenance - Recent hemoglobin A1c is 5.4, demonstr ating good glucose control and removal from diabetic medication. - Scheduled for knee replacement surgery on January 31. - Scheduled for colonoscopy on February 04. - Recommended flu vaccination was admini stered. [place] of Care - Urology for testosterone deficiency camille fuller - [facility] for rheumat oid [facility] management - Orthopedic Surgeon for knee replacemen t Medications - Atorvastatin 20 mg for Hyperlipidemia - Asthma maintenance inhaler for asthma - Zyrtec and Flonase nasal spray for all ergies - Losartan hydrochlorothiazide for Essen tial Hypertension - Rheumatoid arthritis medication (not s pecified) - Zepbound injections for weight loss Diagnostic results - Labs: Recent LDL level of 71. Hemoglob in A1c at 5.4. Previous A1c was 5.7. - Echocardiogram in March showed left ventricular systolic function normal, ejection fraction 53%. Patient Instructions - Continue current medications as prescr ibed. - Remain active and maintain healthy por tions as it assists with weight management. - Patient is going in for right knee rep lacement on January 31 and colonoscopy on February 04. - Continue RA medication as advised thro [facility] surgery to prevent inflammation. - Monitor weight and blood pressure; not manny if any significant changes occur. - Get a flu vaccine which was administer ed today. f/u early Apr Review of Systems - General: No fever no chills - Neurological: No headaches no dizzin ess - Ear nose throat: No sore throat no hearing difficulty no ear pain - Cardiovascular: No syncope, no chest pain, no palpitations - Gastrointestinal: No nausea vomiting or diarrhea - Endocrine: No polyuria polydipsia no heat intolerance - Genitourinary: No dysuria - Skin: No new complaints Physical Exam General: Cooperative, healthy appearing, comfortable, no acute distress Orientation: Patient oriented x3 Head: Normal to inspection Ears: Within normal limit visually Nose: Normal external nose present Face and sinus: Normal facial exam Eyes: Appearance normal, extraocular movement intact pupils reactive Neck: Normal visual inspection and supple Respiratory: Normal respiratory effort and able to speak in complete sentences. Clear to auscultation, no stridor Cardiovascular: S1 and S2 RRR GI: Normal to inspection. Soft to palpation and nontender, slight nausea reported Skin: Turgor normal, no acute findings Neuro: Patient oriented x3, motor sensory intact Extremities: Normal to inspection, right knee tender to mobility . [facility] Medical History COLETTE (obstructive sleep apnea) COVID-19 vaccine series completed Snores Rheumatoid arthritis Fuchs' syndrome II Raynauds disease Osteoarthritis of both knees Asthma HTN (hypertension) Primary osteoarthritis of left knee Surgical History Hx of total knee replacement History of removal of testicle History of knee surgery History of colonoscopy History of trigger finger History of lipoma Family History Father Colon cancer Myocardial infarction Mother Colon cancer HTN (hypertension) Diabetes mellitus Sister Breast cancer Crohn's disease Sister Breast cancer Crohn's disease Brother CHF (congestive heart failure) Smoker Rheumatic fever Maternal Grandmother No problems noted. Maternal Grandfather No problems noted. Paternal Grandmother No problems noted. Paternal Grandfather Emphysema, unspecified Brother No problems noted. Sister No problems noted. Daughter No problems noted. Daughter No problems noted. Daughter No problems noted. Daughter No problems noted. 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 1. Little interest or pleasure in doing things: not at all 2. Feeling down, depressed, or hopeless: not at all 3. Trouble falling or staying asleep, or sleeping too much: not at all 4. Feeling tired or having little energy: not at all 5. Poor appetite or overeating: not at all 6. Feeling bad about yourself - or that you are a failure or have let yourself or your family down: not at all 7. Trouble concentrating on things, such as reading the newspaper or watching television: not at all 8. Moving or speaking so slowly that other people could have noticed. Or the opposite - being so fidgety or restless that you have been moving around a lot more than usual: not at all 9. Thoughts that you would be better off or of hurting yourself in some way: not at all Total score: 0 Depression Screening Interpretation: Negative Depression Screening Done: Yes 04708 - PHQ-9 Billing: Yes Source: Developed by Drs. Nino Delatorre, Leena Espinosa, Bogdan Flores and colleagues, with an educational lalito from [employer]. Thrive Questionnaire Date Thrive assessed: 04/09/24 I am a: Patient What is your living situation today?: I have a steady place to live Within the past 12 months, did the food you bought not last and you didn't have the money to get more?: Never true Within the past 12 months, did you worry whether your food would run out before you got money to buy more?: Never true Do you have trouble paying for medicines?: No Do you have trouble getting transportation to medical appointments?: No Do you have trouble paying your heating and electricity bill?: No Do you have trouble taking care of your child, family member or friend?: No Do you have trouble with day-to-day activities such as bathing, preparing meals, shopping, managing finances, etc.?: Yes Are you currently unemployed and looking for a job?: No Are you interested in more education?: No Please select the resources that you would like help with: None Currently or been in a relationship where the following occur: No concerns reported THRIVE Score: 0 AUDIT C Alcohol Use Questionnaire (AUDIT-C) 1. How often do you have a drink containing alcohol?: 2-3 times a week 2. How many drinks containing alcohol do you have on a typical day when you are drinking?: 3 or 4 3. How often do you have six or more drinks on one occasion?: Monthly Total Score: 6 JETT-7 AMB Questionnaire JETT-7 Date JETT - 7 assessed: 06/14/24 Feeling nervous, anxious, or on edge: 0 = Not at all Not being able to stop or control worryin = Not at all Worrying too much about different things: 0 = Not at all Trouble relaxin = Not at all Being so restless that it is hard to sit still: 0 = Not at all Becoming easily annoyed or irritable: 0 = Not at all Feeling afraid as if something awful might happen: 0 = Not at all Total JETT-7 score (0-4 normal; 5-9 mild; 10-14 moderate; 15-21 severe): 0 Source: Developed by Drs. Nino Delatorre, Leena Espinosa, Bogdan Flores and colleagues, with an educational lalito from [employer]. JETT-7 Assessment Billing JETT-7 Assessment Tool: JETT-7 Assessment 18794 Physical exam (Primary Care) Vital Signs: Last Vital Signs Pulse 110 H 12/25/24 09:24 BP 130/72 12/25/24 09:24 Pulse Ox 99 12/25/24 09:24 Oxygen Delivery Method Room Air 12/25/24 09:24 BMI result Body Mass Index 38.2 Tobacco/Smoking Status: Tobacco use Status Tobacco use date assessed 09/10/24 12/25/24 09:25 Patient Tobacco Use Status Former Tobacco user 12/25/24 09:25 Tobacco use type Cigarette 12/25/24 09:25 e-Cigarette/Vaping Use Never Used 12/25/24 09:25 PHQ-9: PHQ-9 Score PHQ-9: Total score 0 12/25/24 10:37 Depression Screening Interpretation: Negative Thrive Assessment: Date of Thrive Assessment Date Thrive assessed 04/09/24 12/25/24 09:25 Currently or been in a relationship where the following occur: No concerns reported Office Procedures Flu Questionnaire Does the patient have a severe egg allergy?: No Does the patient have severe life threatening allergies?: No Does the patient have a fever or illness today?: No Has the patient ever had Guillain-[place] Syndrome?: No Has the patient ever had any past reaction to a flu shot?: No Immunizations Fluarix [id number] (PF) 45 mcg (15 mcg x 3)/0.5 mL IM syringe Performing Provider: Papito Dawn MD Performing Location: [facility] Administered by: Jairo Mei CMA on 12/25/24 10:37 Dose Route Admin Location Dispensed Lot Number Expiration Date NDC Firer Portable Boiler 0.5 mL IM Left Deltoid 0.5 mL [id number] 09/23/25 [id number] [employer] VIS Given Date VIS Provided VIS Publication Date 12/25/24 Single Vaccine 24 Eligibility Eligibility Date Funding Source Not [facility] Eligible 12/25/24 Private Coding Level of Care Code Est Pt Level 3 (65279) New Pt Prev Care 40-64y(05885) Diagnoses Encounter for general adult medical examination with abnormal findings Z00.01 Diabetes mellitus type 2 in obese E11.69; E66.9 Hypertension, essential I10 Moderate persistent asthma without complication J45.40 Asthma complication type: uncomplicated Rheumatoid arthritis involving both knees with positive rheumatoid factor M05.761; M05.762 Laterality: bilateral Rheumatoid arthritis location: knee Rheumatoid factor presence: with rheumatoid factor Long-term current use of testosterone replacement therapy Z79.890 Class 2 severe obesity due to excess calories with serious comorbidity and body mass index (BMI) of 38.0 to 38.9 in adult E66.812; Z68.38 Body mass index: BMI 38.0-38.9 Obesity classification: adult class 2 (BMI 35 - 39.9) Serious obesity comorbidity presence: with serious comorbidity Lipid disorder E78.9 Environmental allergies Z91.09 Additional Codes JETT-7 Assessment Billing - JETT-7 Assessment Tool: JETT-7 Assessment 06660 ([id number]) PHQ-9 - 56069 - PHQ-9 Billing: Yes ([id number]) Assessment & Plan Assessment & Plan (1) Encounter for general adult medical examination with abnormal findings: Code(s): Z00.01 - Encounter for general adult medical examination with abnormal findings Category: Medical (2) Diabetes mellitus type 2 in obese: Code(s): E11.69 - Type 2 diabetes mellitus with other specified complication; E66.9 - Obesity, unspecified Category: Medical (3) Hypertension, essential: Code(s): I10 - Essential (primary) hypertension Category: Medical (4) Asthma, moderate persistent: Code(s): J45.40 - Moderate persistent asthma, uncomplicated Category: Medical Qualifiers: Asthma complication type: uncomplicated Qualified Code(s): J45.40 - Moderate persistent asthma, uncomplicated (5) Rheumatoid arthritis: Code(s): M06.9 - Rheumatoid arthritis, unspecified Category: Medical Qualifiers: Laterality: bilateral Rheumatoid arthritis location: knee Rheumatoid factor presence: with rheumatoid factor Qualified Code(s): M05.761 - Rheumatoid arthritis with rheumatoid factor of right knee without organ or systems involvement; M05.762 - Rheumatoid arthritis with rheumatoid factor of left knee without organ or systems involvement (6) Long-term current use of testosterone replacement therapy: Code(s): Z79.890 - Hormone replacement therapy Category: Medical (7) Obesity due to excess calories: Code(s): E66.09 - Other obesity due to excess calories Category: Medical Qualifiers: Body mass index: BMI 38.0-38.9 Obesity classification: adult class 2 (BMI 35 - 39.9) Serious obesity comorbidity presence: with serious comorbidity Qualified Code(s): E66.812 - Obesity, class 2; Z68.38 - Body mass index [BMI] 38.0-38.9, adult (8) Lipid disorder: Code(s): E78.9 - Disorder of lipoprotein metabolism, unspecified Category: Medical (9) Environmental allergies: Code(s): Z91.09 - Other allergy status, other than to drugs and biological substances Category: Medical Plan History of Present Illness The patient is a 64 year old male presenting with physical examination and follow-up on chronic conditions. Lipid disorder (Hyperlipidemia): - Patient is currently taking atorvastatin 20 mg daily. - Recent LDL level was 71. Asthma: - Managed with a maintenance inhaler. - Patient reports improved condition with decreased inhaler use. Essential Hypertension: - Blood pressure recorded at 130/72 mmHg. - Managed with losartan hydrochlorothiazide. Testosterone deficiency: - Currently being followed by urology for this condition. Obesity: - On Zepbound injections for weight loss. - Weight reduced from 279 pounds on November 14 to 266 pounds currently. - Reports appetite suppression and consciously limiting portions. Rheumatoid Arthritis: - [facility]. - Experienced prolonged swelling after a previous left knee replacement. 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 - Actively engaging in weight management and losing weight successfully with Zepbound since November 14. - Reports improved agility and energy. Health Maintenance - Recent hemoglobin A1c is 5.4, demonstrating good glucose control and removal from diabetic medication. - Scheduled for knee replacement surgery on January 31. - Scheduled for colonoscopy on February 04. - Recommended flu vaccination was administered. [place] of Care - Urology for testosterone deficiency management - [facility] for rheumatoid arthritis management - Orthopedic Surgeon for knee replacement Medications - Atorvastatin 20 mg for Hyperlipidemia - Asthma maintenance inhaler for asthma - Zyrtec and Flonase nasal spray for allergies - Losartan hydrochlorothiazide for Essential Hypertension - Rheumatoid arthritis medication (not specified) - Zepbound injections for weight loss Diagnostic results - Labs: Recent LDL level of 71. Hemoglobin A1c at 5.4. Previous A1c was 5.7. - Echocardiogram in March showed left ventricular systolic function normal, ejection fraction 53%. Patient Instructions - Continue current medications as prescribed. - Remain active and maintain healthy portions as it assists with weight management. - Patient is going in for right knee replacement on January 31 and colonoscopy on February 04. - Continue RA medication as advised through surgery to prevent inflammation. - Monitor weight and blood pressure; notify if any significant changes occur. - Get a flu vaccine which was administered today. f/u early Apr . Orders: Orders Influenza [id number] Immunization Today Z23 - Encounter for immunization
[2024-12-25 09:24] VITALS: BP 130/72; PULSE 110; O2SAT 99; BMI 38.2
--- OUTSIDE RECORDS SUMMARY | 2024-12-25 10:07 | XMS_ITS | Encounter Summary ---
Author Organization [facility] Address [address] [place] [address] Care Team Providers Care Computer Operations Analyst Name Role Phone Papito Dawn MD Primary Care Provider [phone] Panda Balderrama MD Unavailable [phone] System, Provider Not In Unavailable Unavaila ble Daniel Telles PA-C Unavailable [phone] System, Provider Not In Unavailable Unavaila ble Encounter Details Date Type Department Care Team ([facility] Contact Info) Description 12/05/2024 Telephone [facility] [address] [place] [address] [address], [place] [phone] Kat Michel, RN [address] [facility] [address], [place] [id number] Social History Tobacco Use Types Packs/Day Years [...] Description 12/31/2024 11:45 AM EDT Hospital Encounter [facility] at [address] [phone] Panda Balderrama MD [address] [place] [address] 12/31/2024 11:45 AM EDT - 12/31/2024 2:15 PM EDT Surgery [facility] [place] at [address] [phone] Panda Balderrama MD [address] [place] [address] ARTHROPLASTY TOTAL KNEE 01/13/2025 3:30 PM EDT Office Visit [facility] [address] [phone] Panda Balderrama MD [address] [place] [address] Scheduled Procedures Name Priority Associated Diagnoses Date/Ti me ARTHROPLASTY TOTAL KNEE Primary osteoarthritis of right knee 12/31/2024 11:45 AM EDT documented as of this encounter Goals Goal Patient Goal Type Associated Problems Recent Progress Patient-Stated? Author Autogenerat ed Goal Care Plan Autogenerated Problem No Niesha Zamudio MA documented as of this encounter Visit Diagnoses Not on filedocumented in this encounter Additional Health Concerns Active Problems Noted Date Diagnosed Date Autogenerated Problem 09/24/2024 documented as of this encounter Care Teams Computer Operations Analyst Relationship Specialty Start Date End Date Papito Dawn MD [place] [address] PCP - General Internal Medicine 01/18/24 Panda Balderrama MD [address] [place] [address] Surgery, Orthopedic 07/23/24 System, Provider Not In Ophthalmology 12/05/24 Daniel Telles PA-C [address] [place] [address] Physician Ultrasonic Tester Surgery, Orthopedic 12/05/24 System, Provider Not In Urology 12/05/24 documented as of this encounter
--- OUTSIDE RECORDS SUMMARY | 2024-12-25 10:07 | XMS_ITS | Encounter Summary ---
Author Organization [facility] Address [address] [place] [address] [place] [phone] Phone Care Team Providers Care Director Clinical Information Services Name Role Phone Papito Dawn MD Primary Care Provider [phone] Encounter Details Date Type Department Care Team (Late st Contact Info) Description 10/25/2023 Prep for Surgery [facility] [address] [place] [address] Romie Waller MD [address] [place] [phone] [email or web address] Nuclear sclerotic cataract, right (Primary [...] Office Visit [facility] [address] [facility] [address] [place] [address] Romie Waller MD [address] [place] [phone] [email or web address]. [facility] documented as of this encounter Visit Diagnoses Diagnosis Nuclear sclerotic cataract, right- Primary documented in this encounter Care Teams Director Clinical Information Services Relationship Specialty Start Date End Date Papito Dawn MD [address] [place] [address] PCP - General Internal Medicine 10/26/22 documented as of this encounter Additional Source Comments The information contained in this document represents components of the legal health record. It is not the complete legal health record.[facility]
--- OUTSIDE RECORDS SUMMARY | 2024-12-25 10:07 | XMS_ITS | Clinical Summary ---
Author Organization [facility] Address [address] [place] [address] Phone Care Team Providers Care Rail Doweling Machine Operator Name Role Phone Papito Dawn MD Primary Care Provider [phone] Allergies Active Allergy Reactions Criticality Noted Date [...] PM EDT Office Visit JOSÉ MIGUEL CORNEA [facility] [address] [facility] [place] [address] Romie Waller MD Pseudophakia (Primary Dx); Fuchs endothelial corneal dystrophy type 1; Fuchs' corneal dystrophy of right eye 10/16/2024 12:40 PM EDT Office Visit JOS[facility] MIGUEL [facility]NEA [facility] [address] [place] [phone] Charley Benavidez MD Ciolino, Joseph B, MD Fuchs' corneal dystrophy of right eye (Primary Dx); Cornea replaced by transplant 09/25/2024 12:40 PM EDT Office Visit J[facility] MIG[facility]EL [facility] [address] [place] [address] Charley Benavidez MD Ciolino, Joseph B, MD [...] Office Visit J[facility]É MIGUEL [facility] [address] [facility] [place] [address] Romie Waller MD [address] [place] [address] [email or web address]. [facility] Health Maintenance Due Date Last Done Comments [...] this topic Medical Devices Implanted Type Area Briquette Operator Device Identifier Shelf Expiration Date Model / Serial / Lot Lens Intraocular Clareon Sy60wf 24.5d - [id number] Implanted:Qty: 1 on 01/16/2024 by Romie Waller MD at [facility] Lens Right: Eye [employer] 02/11/2027 SY60WF.245 / [id number] / Left Tkr Testicle Implant Tissue Corneal - Sdin: [id number] 24 [id number] Pc: [id number] Implanted:Qty: 1 on 06/20/2023 by Romie Waller MD at [facility] Left: Eye [facility] 06/27/2023 / DIN: [id number] PC: [id number] / Tissue Corneal - Sdin: [id number] 24 [id number] Pc: [id number] Implanted:Qty: 1 on 07/18/2023 by Romie Waller MD at [facility] Left: Eye [facility] [facility] 07/27/2023 / DIN: [id number] PC: [id number] / Lens Intraocular Clareon Toric Cnw0t3 24.0d - [id number] Implanted:Qty: 1 on 10/17/2023 by Romie Waller MD at [facility] Left: Eye [employer] 09/28/2024 CNW0T3. 240 / [id number] / Tissue Corneal - [id number] Implanted:Qty: 1 on 09/17/2024 by Romie Waller MD at [facility] Right: Eye [facility] [facility] 09/24/2024 / [id number] / Procedures Procedure Name Priority Date/Time Associated [...] Final Result from Last 3 Months Insurance [facility] MEDICARE PART A & B Member Subscriber Plan / Payer (Ef fective 2024-Present) Name:Maninder Foley Member ID:[id number] Relation to Subscriber:Self Name:Maninder Foley Subscriber ID:[id number] Payer ID:[id number] Group ID:Not on file Type:Medicare Address: [employer] [address] [place], [place] [id number] [facility] MEDICARE PART A & B [facility] MEDICARE PART A & B [facility] MEDICARE PART A & B [facility] MEDICARE PART A & B [facility] MEDICARE PART A & B Care Teams Rail Doweling Machine Operator Relationship Specialty Start Date End Date Papito Dawn MD [address] [place] [address] PCP - General Internal Medicine 10/26/22 Additional Source Comments The information contained in this document represents components of the legal health record. It is not the complete legal health record.[facility]
--- OUTSIDE RECORDS SUMMARY | 2024-12-25 10:08 | XMS_ITS | Encounter Summary ---
Author Organization [facility] Address [address] [place] [address] [place] [address] Phone Care Team Providers Care Cement And Concrete Plant Worker Name Role Phone Papito Dawn MD Primary Care Provider [phone] Encounter Details Date Type Department Care Team (Latest Contact Info) Description 03/13/2024 Prep for Surgery [facility] [address] [facility] [address] [place] [address] Romie Waller MD [address] [place] [id number] [email or web address] Fuchs endothelial corneal dystrophy type 1 (Primary [...] Office Visit JOSÉ MIGUEL CORNEA [facility] [address] [facility] [address] [place] [address] Romie Waller MD [address] [place] [address] [email or web address]. [facility] documented as of this encounter Visit Diagnoses Diagnosis Fuchs endothelial corneal dystrophy type 1- Primary documented in this encounter Care Teams Cement And Concrete Plant Worker Relationship Specialty Start Date End Date Papito Dawn MD [address] [facility] [place] [address] PCP - General Internal Medicine 10/26/22 documented as of this encounter Additional Source Comments The information contained in this document represents components of the legal health record. It is not the complete legal health record.[facility]
--- OUTSIDE RECORDS SUMMARY | 2024-12-25 10:08 | XMS_ITS | Encounter Summary ---
Author Organization [facility] Address [address] [place] [address] Care Team Providers Care Sales And Leasing Consultant Name Role Phone Papito Dawn MD Primary Care Provider [phone] Panda Balderrama MD Unavailable [phone] System, Provider Not In Unavailable Unavaila ble Daniel Telles PA-C Unavailable [phone] System, Provider Not In Unavailable Unavaila ble Encounter Details Date Type Department Care Team (Late st Contact Info) Description 04/10/2024 Scanned Document [facility] [address] [place] [address] Fer Sanchez MD 31 [facility] [place] 100 [place] [address] Social History Tobacco Use Types Packs/Day Years [...] Description 12/31/2024 11:45 AM EDT Hospital Encounter [facility] [place] at [address] [phone] Panda Balderrama MD [address] [place] [address] [address] [place] [address] 12/31/2024 11:45 AM EDT - 12/31/2024 2:15 PM EDT Surgery [facility] [place] at [address] [phone] Panda Balderrama MD [address] [facility] [address] [place] [address] ARTHROPLASTY TOTAL KNEE 01/13/2025 3:30 PM EDT [facility] Visit [facility] [address] [phone] Panda Balderrama MD 499 [facility] [address] [place] [address] Scheduled Procedures Name Priority Associated Diagnoses Date/Ti me ARTHROPLASTY TOTAL KNEE Primary osteoarthritis of right knee 12/31/2024 11:45 AM EDT documented as of this encounter Visit Diagnoses Not on filedocumented in this encounter Care Teams Sales And Leasing Consultant Relationship Specialty Start Date End Date Papito Dawn MD [address] [place] [address] PCP - General Internal Medicine 01/18/24 Panda Balderrama MD [address] [place], [place] [address] [address] [place] [address] Surgery, Orthopedic 07/23/24 System, Provider Not In Ophthalmology 12/05/24 Daniel Telles PA-C [address] [place] [address] Physician Assembler Mechanical Ordnance Surgery, Orthopedic 12/05/24 System, Provider Not In Urology 12/05/24 documented as of this encounter
--- OUTSIDE RECORDS SUMMARY | 2024-12-25 10:08 | XMS_ITS | Encounter Summary ---
Author Organization [facility] Address [address] [place] [address] Phone Care Team Providers Care Leather Roller Name Role Phone Papito Dawn MD Primary Care Provider [phone] Encounter Details Date Type Department Care Team ([facility] st Contact Info) Description 01/11/2024 Prep for Surgery [address] [place] [address] Romie Waller MD [address] [place] [address] [email or web address] Nuclear sclerotic cataract, right (Primary Dx) Social [...] Office Visit JOS[facility] MIGUEL COR[facility]A [facility] [address] [facility] [address] [place] [address] Romie Waller MD [address] [place] [address] [email or web address]. [facility] documented as of this encounter Visit Diagnoses Diagnosis Nuclear sclerotic cataract, right- Primary documented in this encounter Care Teams Leather Roller Relationship Specialty Start Date End Date Papito Dawn MD [address] [facility] [place] [address] PCP - General Internal Medicine 10/26/22 documented as of this encounter Additional Source Comments The information contained in this document represents components of the legal health record. It is not the complete legal health record.[facility]
--- OUTSIDE RECORDS SUMMARY | 2024-12-25 10:08 | XMS_ITS | Encounter Summary ---
Author Organization [facility] Address [address] [place] [address] Phone Care Team Providers Care Electronic Warfare Operator Name Role Phone Papito Dawn MD Primary Care Provider [phone] Encounter Details Date Type Department Care Team (Late st Contact Info) Description 06/20/2023 Procedure Pass JOSÉ MIGUEL 6TH [facility] PERIOP DEPT [address] [place] [address] Social History Tobacco Use Types Packs/Day Years [...] Office Visit JOSÉ MIGUEL CORNEA [facility] [address] [place] [address] Romie Waller MD [address] [place] [address] [email or web address] [facility] documented as of this encounter Visit Diagnoses Not on filedocumented in this encounter Care Teams Electronic Warfare Operator Relationship Specialty Start Date End Date Papito Dawn MD [address] [facility] [place] [address] PCP - General Internal Medicine 10/26/22 documented as of this encounter Additional Source Comments The information contained in this document represents components of the legal health record. It is not the complete legal health record.[facility]
--- OUTSIDE RECORDS SUMMARY | 2024-12-25 10:08 | XMS_ITS | Encounter Summary ---
Author Organization [facility] Address [address] [place] [address] Care Team Providers Care Banquet Cook Name Role Phone Papito Dawn MD Primary Care Provider Panda Balderrama MD Unavailable [phone] System, Provider Not In Unavailable Unavaila ble Daniel Telles PA-C Unavailable [phone] System, Provider Not In Unavailable Unavaila ble Encounter Details Date Type Department Care Team (Late st Contact Info) Description 05/08/2024 Scanned Document [facility] [address] [place] [address] Fer Sanchez MD 31 [facility] 100 [place] [address] Social History Tobacco Use Types Packs/Day Years [...] Description 12/31/2024 11:45 AM EDT Hospital Encounter [facility] [place] at [address] [phone] Panda Balderrama MD [address] [place] [address] [address] [place] [address] 12/31/2024 11:45 AM EDT - 12/31/2024 2:15 PM EDT Surgery [facility] [place] at [address] [phone] Panda Balderrama MD [address] [facility] [address] [place] [address] ARTHROPLASTY TOTAL KNEE 01/13/2025 3:30 PM EDT [facility] Visit [facility] [address] [phone] Panda Balderrama MD 499 [facility] [address] [place] [address] Scheduled Procedures Name Priority Associated Diagnoses Date/Ti me ARTHROPLASTY TOTAL KNEE Primary osteoarthritis of right knee 12/31/2024 11:45 AM EDT documented as of this encounter Visit Diagnoses Not on filedocumented in this encounter Care Teams Banquet Cook Relationship Specialty Start Date End Date Papito Dawn MD [address] [place] [address] PCP - General Internal Medicine 01/18/24 Panda Balderrama MD [address] [place], [place] [address] [address] [place] [address] Surgery, Orthopedic 07/23/24 System, Provider Not In Ophthalmology 12/05/24 Daniel Telles PA-C [address] [place] [address] Physician Pipe Insulator Helper Surgery, Orthopedic 12/05/24 System, Provider Not In Urology 12/05/24 documented as of this encounter
--- OUTSIDE RECORDS SUMMARY | 2024-12-25 10:08 | XMS_ITS | Encounter Summary ---
Author Organization [facility] Address [address] [place] [address] Phone Care Team Providers Care Women'S Soccer Coach Name Role Phone Papito Dawn MD Primary Care Provider [phone] Encounter Details Date Type Department Care Team ([facility] st Contact Info) Description 01/16/2024 Procedure Pass JOSÉ MIGUEL 6TH FL PERIOP DEPT [address] [place] [address] Social History Tobacco Use Types Packs/Day Years [...] Visit JOSÉ MIGUEL CORNEA [facility] [address] [facility] [address] [place] [address] Romie Waller MD [address] [place] [address] [email or web address] documented as of this encounter Visit Diagnoses Not on filedocumented in this encounter Care Teams Women'S Soccer Coach Relationship Specialty Start Date End Date Papito Dawn MD [facility] [place] [address] PCP - General Internal Medicine 10/26/22 documented as of this encounter Additional Source Comments The information contained in this document represents components of the legal health record. It is not the complete legal health record.[facility]
--- OUTSIDE RECORDS SUMMARY | 2024-12-25 10:08 | XMS_ITS | Encounter Summary ---
Author Organization [facility] Address [address] [place] [address] Phone Care Team Providers Care Bank Appraiser Name Role Phone Papito Dawn MD Primary Care Provider [phone] Encounter Details Date Type Department Care Team ([facility] st Contact Info) Description 08/15/2023 Prep for Surgery [facility] Care - Ophthalmology @ [address] [address] Romie Waller MD [address] [place] [address] [email or web address] Social History Tobacco Use Types Packs/Day [...] Office Visit JOSÉ MIGUEL CORNEA [facility] 110 [facility] [address] [place] [address] Romie Waller MD [address] [place] [address] [email or web address] documented as of this encounter Visit Diagnoses Not on filedocumented in this encounter Care Teams Bank Appraiser Relationship Specialty Start Date End Date Papito Dawn MD [address] [facility] [address] PCP - General Internal Medicine 10/26/22 documented as of this encounter Additional Source Comments The information contained in this document represents components of the legal health record. It is not the complete legal health record.[facility]
--- OUTSIDE RECORDS SUMMARY | 2024-12-25 10:08 | XMS_ITS | Encounter Summary ---
Author Organization [facility] Address [address] [place] [address] Care Team Providers Care Pump Rebuilder Name Role Phone Papito Dawn MD Primary Care Provider [phone] Panda Balderrama MD Unavailable [phone] System, Provider Not In Unavailable Unavaila ble Daniel Telles PA-C Unavailable [phone] System, Provider Not In Unavailable Unavaila ble Encounter Details Date Type Department Care Team (Late st Contact Info) Description 04/25/2024 Scanned Document [facility] [address] [phone] Fer Sanchez MD 31 [facility] 100 [place] [address] Social History Tobacco Use Types Packs/Day Years [...] [facility] [place] [facility] 32 [place] [phone] Panda Balderrama MD [address] [facility] [address] [place] [address] 12/31/2024 11:45 AM EDT - 12/31/2024 2:15 PM EDT Surgery [facility] [place] at [address] [phone] Panda Balderrama MD [address] [place] [address] ARTHROPLASTY TOTAL KNEE 01/13/2025 3:30 PM EDT Office Visit [facility] [address] [phone] Panda Balderrama MD 499 [facility] [address] [place] [address] Scheduled Procedures Name Priority Associated Diagnoses Date/Ti me ARTHROPLASTY TOTAL KNEE Primary osteoarthritis of right knee 12/31/2024 11:45 AM EDT documented as of this encounter Visit Diagnoses Not on filedocumented in this encounter Care Teams Pump Rebuilder Relationship Specialty Start Date End Date Papito Dawn MD [address] [place] [address] PCP - General Internal Medicine 01/18/24 Panda Balderrama MD [address] [place], [place] [address] [address] [place] [address] Surgery, Orthopedic 07/23/24 System, Provider Not In Ophthalmology 12/05/24 Daniel Telles PA-C [address] [place] [address] Physician Heating And Ventilating Drafter Surgery, Orthopedic 12/05/24 System, Provider Not In Urology 12/05/24 documented as of this encounter
--- OUTSIDE RECORDS SUMMARY | 2024-12-25 10:08 | XMS_ITS | Encounter Summary ---
Author Organization [facility] Address [address] [place] [address] Care Team Providers Care Transport Medic Name Role Phone Papito Dawn MD Primary Care Provider Padna Balderrama MD Unavailable [phone] System, Provider Not In Unavailable Unavaila ble Daniel Telles PA-C Unavailable [phone] System, Provider Not In Unavailable Unavaila ble Encounter Details Date Type Department Care Team (Late st Contact Info) Description 04/25/2024 Scanned Document [facility] [address] [phone] Fer Sanchez MD 31 [facility] 100 [place] [address] Social History Tobacco Use Types Packs/Day Years [...] 11:45 AM EDT Hospital Encounter [facility] [place] at [facility] 32 [place] [phone] Panda Balderrama MD 499 [facility] [address] [place] [address] 12/31/2024 11:45 AM EDT - 12/31/2024 2:15 PM EDT Surgery [facility] [place] at [address] [phone] Panda Balderrama MD [address] [place] [address] ARTHROPLASTY TOTAL KNEE 01/13/2025 3:30 PM EDT [facility] Visit [facility] [address] [phone] Panda Balderrama MD [facility] [address] [place] [address] Scheduled Procedures Name Priority Associated Diagnoses Date/Ti me ARTHROPLASTY TOTAL KNEE Primary osteoarthritis of right knee 12/31/2024 11:45 AM EDT documented as of this encounter Visit Diagnoses Not on filedocumented in this encounter Care Teams Transport Medic Relationship Specialty Start Date End Date Papito Dawn MD [address] [place] [address] PCP - General Internal Medicine 01/18/24 Panda Balderrama MD [address] [place], [place] [address] [address] [place] [address] Surgery, Orthopedic 07/23/24 System, Provider Not In Ophthalmology 12/05/24 Daniel Telles PA-C [address] [place] [address] Physician Aerial Applicator Pilot Surgery, Orthopedic 12/05/24 System, Provider Not In Urology 12/05/24 documented as of this encounter
--- OUTSIDE RECORDS SUMMARY | 2024-12-25 10:08 | XMS_ITS | Clinical Summary ---
Author Organization [facility] Address [address] [place] [address] Care Team Providers Care Bedspread Inspector Name Role Phone Papito Dawn MD Primary Care Provider [phone] Panda Balderrama MD Unavailable [phone] System, Provider Not In Unavailable Unavaila ble Daniel Telles PA-C Unavailable [phone] System, Provider Not In Unavailable Unavaila ble [...] Encounters Date Type Department Care Team Description 12/23/2024 1:05 PM EDT Ancillary Procedure [facility] [address] [phone] Arrived 12/10/2024 10:45 AM EDT Pre-Admission [facility] [address] 2nd [address] [place] [address] Rebecca Malave PA-C Preop examination [...] Travel 12/05/2024 Telephone [facility] [address] 2nd [address] [place] [address] Kat Michel RN 12/04/2024 Orders Only [facility] [address] [phone] Panda Balderrama MD Status post total right knee replacement (Primary Dx) from Last 3 Months Social History Tobacco Use Types Packs/Day Years Used Date Smoking Tobacco: Former Cigarettes Q uit: 2001 Smokeless Tobacco: Never Tobacco Cessation:Counseling Given: Not [...] Description 12/31/2024 11:45 AM EDT Hospital Encounter [facility] [address] [address] Panda Balderrama MD [address] [place] [address] [address] [place] [address] 12/31/2024 11:45 AM EDT - 12/31/2024 2:15 PM EDT Surgery [facility] [place] [facility] [address] [place] [address] Panda Balderrama MD [address] [place], [place] [address] ARTHROPLASTY TOTAL KNEE 01/13/2025 3:30 PM EDT [facility] Visit [facility] [address] [address] Panda Balderrama MD [address] [place], [place] [address] Scheduled Procedures Name Priority Associated Diagnoses Date/Ti [...] PM EDT Primary osteoarthritis of right knee ECG 12-LEAD Routine 12/10/2024 10:40 AM EDT [...] eye from Last 3 Months Results * XR Knee 4+ views-Right (12/23/2024 1:11 PM EDT) Narrative [facility] - 12/23/2024 1:11 PM EDT This exam was performed in office at [facility] and images reviewed by orthopedic provider. Any findings are documented within ambulatory encounter note on date of service. Daniel Telles PA-C IMG DIAGNOSTIC IMAGING ORD ERABLES Final Result Performing Organization Address [facility] Co de Phone Number OA * XR Lumbar spine 2 or 3 views (12/23/2024 1:11 PM EDT) Narrative [facility] - 12/23/2024 1:11 PM EDT This exam was performed in office at [facility] and images reviewed by orthopedic provider. Any findings are documented within ambulatory encounter note on date of service. Daniel Telles PA-C IMG DIAGNOSTIC IMAGING ORD ERABLES Final Result Performing Organization Address [facility]/State/ZIP Co de Phone Number OA * Electrocardiogram, 12-lead (12/10/2024 10:40 AM EDT) Ventricular rate 103 BPM EKG [facility] Atrial rate 103 BPM EKG [facility] P-R interval 138 ms EKG [facility] QRS duration 98 ms EKG [facility] Q-T interval 356 ms EKG [facility] QTC calculation (Bazett) 466 ms EKG [facility] P axis 37 degrees EKG [facility] R axis 2 degrees EKG [facility] T axis 96 degrees EKG [facility] 12/10/2024 10:4 0 AM EDT Narrative EKG [facility] - 12/10/2024 5:17 PM EDT Sinus tachycardia Nonspecific T wave abnormality Abnormal ECG No previous ECGs available Confirmed by MD Jean William ([id number]) on 12/10/2024 5:17:50 PM Procedure Note Michael Jean MD - 12/10/2024 Sinus tachycardia Nonspecific T wave abnormality Abnormal ECG No previous ECGs available Confirmed by MD Jean William ([id number]) on 12/10/2024 5:17:50 PM Rebecca Malave PA-C ECG ORDERABLES Final Resul t [facility] * (ABNORMAL) Hemoglobin A1c with Estimated Average Glucose (12/10/2024 10:15 AM EDT) Hemoglobin A1C 5.7(H) <5.7 % 12/10/2024 2:45 PM EDT [facility] Comment: A1c% Interpretation 5.7 - 6.0 Increase risk of diabetes 6.1 - 6.4 Higher risk of diabetes > or = 6.5 Consistent with diabetes Diabetes Care, 33(Supp 1):S1-S61, 2009 Estimated Average Glucose 117 mg/dL 12/10/2024 2:45 PM EDT [facility] Blood Blood specimen / Unknown 12/10/2024 10:15 AM EDT 12/10/2024 2:04 PM EDT Rebecca Malave PA-C LAB BLOOD ORDERABLES Final Result [address] [address], [address] [address] * (ABNORMAL) Complete Blood Count, with Differential (12/10/2024 10:15 AM EDT) White Blood Cell Count 5.9 4.0 - 11.0 Thou/uL 12/10/2024 2:23 PM [facility] Platelet Count 254 150 - 450 Thou/uL 12/10/2024 2:23 PM [facility] Hemoglobin 17.7 13.0 - 17.7 g/dL 12/10/2024 2:23 PM [facility] Hematocrit 52.6 39.0 - 54.0 % 12/10/2024 2:23 PM [facility] Red Blood Cell Count 5.93 4.50 - 6.20 Mil/uL 12/10/2024 2:23 PM [facility] MCV 89 80 - 100 fL 12/10/2024 2:23 PM [facility] MCH 29.8 27.0 - 31.0 pg 12/10/2024 2:23 PM [facility] MCHC 33.7 30.0 - 36.0 g/dL 12/10/2024 2:23 PM [facility] RDW 14.0 11.5 - 14.5 % 12/10/2024 2:23 PM [facility] MPV 10.1 7.5 - 12.5 fL 12/10/2024 2:23 PM [facility] Neutrophils Auto 60.9 % 12/11/19 2:23 PM [facility] Immature Granulocytes 0.3 % 12/10/2024 2:23 PM [facility] Lymphocytes Auto 22.9 % 12/11/19 2:23 PM [facility] Monocytes Auto 13.1 % 12/10/2024 2:23 PM [facility] Eosinophils Auto 2.0 % 12/11/19 2:23 PM [facility] Basophils Auto 0.8 % 12/10/2024 2:23 PM [facility] Abs Neutrophils Auto 3.61 2.00 - 7.50 Thou/uL 12/10/2024 2:23 PM [facility] Abs Immature Granulocytes 0.02 0.00 - 0.10 Thou/uL 12/10/2024 2:23 PM EDT [facility] Abs Lymphocytes Auto 1.36(L) 1.50 - 4.50 Thou/uL 12/10/2024 2:23 PM EDT [facility] Abs Monocytes Auto 0.78 0.20 - 1.50 Thou/uL 12/10/2024 2:23 PM EDT [facility] Abs Eosinophils Auto 0.12 0.00 - 0.70 Thou/uL 12/10/2024 2:23 PM EDT [facility] Abs Basophils Auto 0.05 0.00 - 0.20 Thou/uL 12/10/2024 2:23 PM EDT [facility] Blood Blood specimen / Unknown 12/10/2024 10:15 AM EDT 12/10/2024 2:04 PM EDT Rebecca Malave PA-C LAB BLOOD ORDERABLES Final Result Performing Organization Address [facility]/[place] [address], [address] [address] * MRSA PCR Screen, Qualitative: (12/10/2024 10:15 AM EDT) MRSA Result Not Detected Not Detected 3:42 PM EDT [facility] Comment:Performed by the Xpe rt MRSA NxG Assay Swab, Anterior Nares Specimen from nose / Unknown 12/10/2024 10:15 AM EDT 12/10/2024 2:03 PM EDT Rebecca Malave PA-C MICROBIOLOGY - GENERAL ORDE RABLES Final Result Performing Organization Address City/[facility]/ZIP Co de Phone Number [address] [address], [address] [address] * Transferrin (12/10/2024 10:15 AM EDT) Transferrin 261 200 - 360 mg/dL 12/10/2024 2:51 PM EDT [facility] Blood Blood specimen / Unknown 12/10/2024 10:15 AM EDT 12/10/2024 2:04 PM EDT us Rebecca Lawsondron PA-C LAB [place] [address], [address] [address] * Prealbumin (12/10/2024 10:15 AM EDT) Prealbumin 27 20 - 40 mg/dL 12/10/2024 2:51 PM EDT [facility] Blood Blood specimen / Unknown 12/10/2024 10:15 AM EDT 12/10/2024 2:04 PM EDT us Rebecca Lawsondron PA-C LAB BLOOD ORDERABLES Final Result Performing Organization Address City/[facility] [place] [address], [address] [address] * (ABNORMAL) Basic Metabolic Panel (12/10/2024 10:15 AM EDT) Glucose 118(H) 65 - 99 mg/dL 12/10/2024 2:51 PM T [facility] Comment:Fasting: <100 mg/dL, Non-Fasting: <200 mg/dL (ADA 2004) Blood Urea Nitrogen (BUN) 12 8 - 21 mg/dL 12/10/2024 2:51 PM EDT [facility] Creatinine 0.95 0.50 - 1.30 mg/dL 12/10/2024 2:51 PM T [facility] eGFR >90 >59 12/10/2024 2:51 PM T [facility] Comment:CKD-EPI (2020) in mL /min/1.73 sq meters. Sodium 138 136 - 145 mmol/L 12/10/2024 2:51 PM EDT [facility] Potassium 3.6 3.4 - 5.3 mmol/L 12/10/2024 2:51 PM T [facility] Chloride 100 98 - 107 mmol/L 12/10/2024 2:51 PM EDT [facility] CO2 25 22 - 33 mmol/L 12/10/2024 2:51 PM EDT [facility] Anion Gap 13 7 - 17 12/10/2024 2:51 PM EDT [facility] Calcium 9.4 8.7 - 10.5 mg/dL 12/10/2024 2:51 PM EDT [facility] BUN/Creatinine Ratio 13 10.0 - 25.0 Ratio 12/10/2024 2:51 PM EDT [facility] Blood Blood specimen / Unknown 12/10/2024 10:15 AM EDT 12/10/2024 2:04 PM EDT us Rebecca Malave PA-C LAB BLOOD ORDERABLES Final Result Performing Organization Address City/State/[facility] Co de Phone Number [address] [address], [address] [address] from Last 3 Months Additional Health Concerns Active Problems Noted Date Diagnosed Date Autogenerated Problem 09/24/2024 Insurance - [facility] [place] [facility] [place] [facility] PART A & B Care Teams Bedspread Inspector Relationship Specialty Start Date End Date Papito Dawn MD [facility] [address] PCP - General Internal Medicine 01/18/24 Panda Balderrama MD [address] [place] [address] [address] [place] [address] Surgery, Orthopedic 07/23/24 System, Provider Not In Ophthalmology 12/05/24 Daniel Telles PA-C [address] [place] [address] Physician Manager Long Term Care Surgery, Orthopedic 12/05/24 System, Provider Not In Urology 12/05/24
--- OUTSIDE RECORDS SUMMARY | 2024-12-25 10:08 | XMS_ITS | Encounter Summary ---
Author Organization [facility] Address [address] [place] [address] Phone Care Team Providers Care Student Support Counselor Name Role Phone Papito Dawn MD Primary Care Provider [phone] Encounter Details Date Type Department Care Team ([facility] st Contact Info) Description 06/13/2023 Prep for Surgery [address] [place] [address] Romie Waller MD [address] [place] [phone] [email or web address] Social History Tobacco Use Types Packs/Day Years [...] Office Visit [facility] [address] [facility] [address] [place] [address] Romie Waller MD [address] [place] [address] [email or web address] documented as of this encounter Visit Diagnoses Not on filedocumented in this encounter Care Teams Student Support Counselor Relationship Specialty Start Date End Date Papito Dawn MD [facility] [place] [address] PCP - General Internal Medicine 10/26/22 documented as of this encounter Additional Source Comments The information contained in this document represents components of the legal health record. It is not the complete legal health record.[facility]
--- OUTSIDE RECORDS SUMMARY | 2024-12-25 10:08 | XMS_ITS | Encounter Summary ---
Author Organization [facility] Address [address] [place] [address] [place] [address] Phone Care Team Providers Care Laborer/Key Man Name Role Phone Papito Dawn MD Primary Care Provider [phone] Encounter Details Date Type Department Care Team (Late st Contact Info) Description 09/20/2023 Prep for Surgery [facility] [address] [place] [address] Romie Waller MD [address] [place] [address] [email or web address] Nuclear sclerotic cataract, left (Primary [...] Visit [facility] 110 [facility] [address] [place] [address] Romie Waller MD [address] [place] [address] [email or web address] documented as of this encounter Visit Diagnoses Diagnosis Nuclear sclerotic cataract, left- Primary documented in this encounter Care Teams Laborer/Key Man Relationship Specialty Start Date End Date Papito Dawn MD [address] [facility] [place] [address] PCP - General Internal Medicine 10/26/22 documented as of this encounter Additional Source Comments The information contained in this document represents components of the legal health record. It is not the complete legal health record.[facility]
--- OUTSIDE RECORDS SUMMARY | 2024-12-25 10:08 | XMS_ITS | Encounter Summary ---
Author Organization [facility] Address [address] [place] [address] Phone Care Team Providers Care Ornament Stitcher Name Role Phone Papito Dawn MD Primary Care Provider [phone] Encounter Details Date Type Department Care Team (Late st Contact Info) Description 09/17/2024 Procedure Pass [facility] 6TH [facility] PERIOP DEPT [address] [place] [address] Social History Tobacco Use Types Packs/Day Years [...] Visit [facility] 110 [facility] [address] [place] [address] Romie Waller MD [address] [place] [address] [email or web address] documented as of this encounter Visit Diagnoses Not on filedocumented in this encounter Care Teams Ornament Stitcher Relationship Specialty Start Date End Date Papito Dawn MD [facility] [place] [address] PCP - General Internal Medicine 10/26/22 documented as of this encounter Additional Source Comments The information contained in this document represents components of the legal health record. It is not the complete legal health record.[facility]
--- OUTSIDE RECORDS SUMMARY | 2024-12-25 10:08 | XMS_ITS | Encounter Summary ---
Author Organization [facility] Address [address] [place] [address] Care Team Providers Care Silver Holloware Assembler Name Role Phone Papito Dawn MD Primary Care Provider [phone] Panda Balderrama MD Unavailable [phone] System, Provider Not In Unavailable Unavaila ble Daniel Telles PA-C Unavailable [phone] System, Provider Not In Unavailable Unavaila ble Encounter Details Date Type Department Care Team (Late st Contact Info) Description 04/24/2024 Scanned Document [facility] 100 [place] [address] Fer Sanchez MD [address] [address] Social History Tobacco Use Types Packs/Day Years [...] Description 12/31/2024 11:45 AM EDT Hospital Encounter [facility] at [address] [phone] Panda Balderrama MD [address] [place] [address] [address] [place] [address] 12/31/2024 11:45 AM EDT - 12/31/2024 2:15 PM EDT Surgery [facility] at [address] [phone] Panda Balderrama MD [address] [facility] [address] [place] [address] ARTHROPLASTY TOTAL KNEE 01/13/2025 3:30 PM EDT Office Visit [facility] [address] [phone] Panda Balderrama MD 499 [facility] [address] [place] [address] Scheduled Procedures Name Priority Associated Diagnoses Date/Ti me ARTHROPLASTY TOTAL KNEE Primary osteoarthritis of right knee 12/31/2024 11:45 AM EDT documented as of this encounter Visit Diagnoses Not on filedocumented in this encounter Care Teams Silver Holloware Assembler Relationship Specialty Start Date End Date Papito Dawn MD [address] [place] [address] PCP - General Internal Medicine 01/18/24 Panda Balderrama MD [address] [place], [place] [address] [address] [address] Surgery, Orthopedic 07/23/24 System, Provider Not In Ophthalmology 12/05/24 Daniel Telles PA-C [address] [place] [address] Physician Enamel Buffer Surgery, Orthopedic 12/05/24 System, Provider Not In Urology 12/05/24 documented as of this encounter
--- OUTSIDE RECORDS SUMMARY | 2024-12-25 10:08 | XMS_ITS | Encounter Summary ---
Author Organization [facility] Address [address] [place] [address] Phone Care Team Providers Care Data Entry Coordinator Name Role Phone Papito Dawn MD Primary Care Provider [phone] Reason for Visit * Reason Comments Medication Refill Encounter Details Date Type Department Care Team (Late st Contact Info) Description 04/24/2023 Refill [facility] Laser 1st [address] [place] [address] Romie Waller MD [address] [place] [address] [email or web address] Medication Refill Social History Tobacco [...] Office Visit [facility] [address] [place] [address] Romie Waller MD [address] [place] [address] [email or web address] [facility] documented as of this encounter Visit Diagnoses Not on filedocumented in this encounter Care Teams Data Entry Coordinator Relationship Specialty Start Date End Date Papito Dawn MD [address] [facility] [place] [place] [address] PCP - General Internal Medicine 10/26/22 documented as of this encounter Additional Source Comments The information contained in this document represents components of the legal health record. It is not the complete legal health record.[facility]
--- OUTSIDE RECORDS SUMMARY | 2024-12-25 10:08 | XMS_ITS | Encounter Summary ---
Author Organization [facility] Address [address] [place] [address] Care Team Providers Care Editor Managing Newspaper Name Role Phone Papito Dawn MD Primary Care Provider Panda Balderrama MD Unavailable [phone] System, Provider Not In Unavailable Unavaila ble Daniel Telles PA-C Unavailable [phone] System, Provider Not In Unavailable Unavaila ble Encounter Details Date Type Department Care Team (Late st Contact Info) Description 07/11/2024 Scanned Document [facility] [address] [place] [address] Fer Sanchez MD 31 [facility] 100 [place] [address] Social History Tobacco Use Types Packs/Day Years [...] Description 12/31/2024 11:45 AM EDT Hospital Encounter [facility] [place] at [address] [phone] Panda Balderrama MD [address] [place] [address] [address] [place] [address] 12/31/2024 11:45 AM EDT - 12/31/2024 2:15 PM EDT Surgery [facility] [place] at [address] [phone] Panda Balderrama MD [address] [facility] [address] [place] [address] ARTHROPLASTY TOTAL KNEE 01/13/2025 3:30 PM EDT Office Visit [facility] [address] [phone] Panda Balderrama MD [address] [facility] [address] [place] [address] Scheduled Procedures Name Priority Associated Diagnoses Date/Ti me ARTHROPLASTY TOTAL KNEE Primary osteoarthritis of right knee 12/31/2024 11:45 AM EDT documented as of this encounter Visit Diagnoses Not on filedocumented in this encounter Care Teams Editor Managing Newspaper Relationship Specialty Start Date End Date Papito Dawn MD [address] [place] [address] PCP - General Internal Medicine 01/18/24 Panda Balderrama MD [address] [place], [place] [address] [address] [place] [address] Surgery, Orthopedic 07/23/24 System, Provider Not In Ophthalmology 12/05/24 Daniel Telles PA-C [address] [place] [address] Physician Clinical Care Leader Surgery, Orthopedic 12/05/24 System, Provider Not In Urology 12/05/24 documented as of this encounter
--- OUTSIDE RECORDS SUMMARY | 2024-12-25 10:08 | XMS_ITS | Encounter Summary ---
Author Organization [facility] Address [address] [place] [address] Phone Care Team Providers Care Ruby On Rails Consultant Name Role Phone Papito Dawn MD Primary Care Provider [phone] Encounter Details Date Type Department Care Team (Late st Contact Info) Description 07/18/2023 Ophth Exam [facility] Emergency Department [address] [place] [address] Alessio Henderson MD [address] [place] [place] [address] [email or web address] Social History Tobacco Use Types Packs/Day Years [...] PM EDT Day, Shane frye RN * [place] Suicide Severity Rating Scale (Screener/Recent Self-Report) Question [...] Description 02/12/2025 10:50 AM EST Office Visit [facility] 110 [facility] [address] [place] [address] Romie Waller MD [address] [place] [address] [email or web address] documented as of this encounter Visit Diagnoses Not on filedocumented in this encounter Care Teams Ruby On Rails Consultant Relationship Specialty Start Date End Date Papito Dawn MD [address] [facility] [place] [address] PCP - General Internal Medicine 10/26/22 documented as of this encounter Additional Source Comments The information contained in this document represents components of the legal health record. It is not the complete legal health record.[facility]
--- OUTSIDE RECORDS SUMMARY | 2024-12-25 10:08 | XMS_ITS | Encounter Summary ---
Author Organization [facility] Address [address] [place] [address] Care Team Providers Care Monitoring Engineer Name Role Phone Papito Dawn MD Primary Care Provider Panda Balderrama MD Unavailable [phone] System, Provider Not In Unavailable Unavaila ble Daniel Telles PA-C Unavailable [phone] System, Provider Not In Unavailable Unavaila ble Encounter Details Date Type Department Care Team (Late st Contact Info) Description 07/08/2024 Scanned Document [facility] [address] [phone] Panda Balderrama MD [address] [facility] [address] [place], [place] [id number] Social History Tobacco Use Types Packs/Day Years [...] Description 12/31/2024 11:45 AM EDT Hospital Encounter [facility] [address] [place] [phone] Panda Balderrama MD [address] [place], [place] [address] 12/31/2024 11:45 AM EDT - 12/31/2024 2:15 PM EDT Surgery [facility] at [address] [phone] aPnda Balderrama MD [address] [place] [address] ARTHROPLASTY TOTAL KNEE 01/13/2025 3:30 PM EDT Office Visit [facility] [address] [phone] Panda Balderrama MD [address] [facility] [address] [place] [address] Scheduled Procedures Name Priority Associated Diagnoses Date/Ti me ARTHROPLASTY TOTAL KNEE Primary osteoarthritis of right knee 12/31/2024 11:45 AM EDT documented as of this encounter Visit Diagnoses Not on filedocumented in this encounter Care Teams Monitoring Engineer Relationship Specialty Start Date End Date Papito Dawn MD [address] [place] [address] PCP - General Internal Medicine 01/18/24 Panda Balderrama MD [address] [place], [place] [address] [address] [place] [address] Surgery, Orthopedic 07/23/24 System, Provider Not In Ophthalmology 12/05/24 Daniel Telles PA-C [address] [place] [address] Physician Fur Blower Surgery, Orthopedic 12/05/24 System, Provider Not In Urology 12/05/24 documented as of this encounter
--- OUTSIDE RECORDS SUMMARY | 2024-12-25 10:08 | XMS_ITS | Encounter Summary ---
Author Organization [facility] Address [address] [place] [address] Phone Care Team Providers Care Pharmaceutical Sales Representative Name Role Phone Papito Dawn MD Primary Care Provider [phone] Encounter Details Date Type Department Care Team (Late st Contact Info) Description 10/17/2023 Procedure Pass [facility] [address] [place] [id number] Social History Tobacco Use Types Packs/Day Years [...] Office Visit [facility] [address] [place] [address] Romie Waller MD [address] [place] [address] [email or web address] documented as of this encounter Visit Diagnoses Not on filedocumented in this encounter Care Teams Pharmaceutical Sales Representative Relationship Specialty Start Date End Date Papito Dawn MD [address] [facility] [place] [address] PCP - General Internal Medicine 10/26/22 documented as of this encounter Additional Source Comments The information contained in this document represents components of the legal health record. It is not the complete legal health record.[facility]
--- OUTSIDE RECORDS SUMMARY | 2024-12-25 10:09 | XMS_ITS | Encounter Summary ---
Author Organization [facility] Address [address] [place] [address] Phone Care Team Providers Care Natural Science Curator Name Role Phone Papito Dawn MD Primary Care Provider [phone] Encounter Details Date Type Department Care Team ([facility] st Contact Info) Description 07/18/2023 Procedure Pass [facility] DEPT [address] [place] [address] Social History Tobacco Use Types Packs/Day Years [...] PM EDT Day, Ed frye, RN * [place] Suicide Severity Rating Scale (Screener/Recent Self-Report) Question [...] 10:50 AM EST Office Visit [facility] [address] [facility] [address] [place] [address] Romie Waller MD [address] [place] [address] [email or web address] documented as of this encounter Visit Diagnoses Not on filedocumented in this encounter Care Teams Natural Science Curator Relationship Specialty Start Date End Date Papito Dawn MD [address] [facility] [place] [address] PCP - General Internal Medicine 10/26/22 documented as of this encounter Additional Source Comments The information contained in this document represents components of the legal health record. It is not the complete legal health record.[facility]
--- OUTSIDE RECORDS SUMMARY | 2024-12-25 10:09 | XMS_ITS | Patient Health Record ---
Author Organization [facility] Address [address] [facility] [address] [place] [address] Care Team Providers Care Transport Assistant Name Role Phone López FLOWER, [facility] Primary Care Provider Nino Sy Unavailable [phone] Allergies Allergen (clinical drug ingredient) Drug/Non Drug Allergy documented on EMR Reaction Allergy Type Onset Date Status Shellfish (FN) Shellfish-derived Products Unknown Drug Allergy Active amoxicillin / clavulanate Augmentin Unknown Drug Allergy Active aspirin Aspirin Unknown Drug Allergy Active Reason For Referral Referring Provider First Name Papito Referring Provider Last Name López Referring Provider Speciality Internal M edicine Referred Organization [facility] Referred Provider Nino Jewell Referred Address [address] [place] [address],[address],[place], [place],[address], Referred Provider Specialty Gastroentero logy Referral Priority [...] Problem Status W/U Status Risk Notes Problem [id number] Encounter for screening for malignant neoplasm of colon (Z12.11) Active confirmed Problem [id number] Preprocedural examination (Z01.818) Active confirmed Problem [id number] Family history o f colon cancer (Z80.0) Active confirmed Problem [id number] Hx of adenomatou s colonic polyps (Z86.010) Active confirmed Problem Diverticulosis of colon (646312496) Diverticulosis of colon (K57.30) Active confirmed Vital Signs Temperature 96.8 degrees Fahrenheit 08/28/2024 Blood pressure diastolic 01 mm Hg 08/28/2024 Height 70 in 08/28/2024 Blood pressure systolic 001 mm Hg 08/28/2024 Weight 256.8 lbs 08/28/2024 BMI 36.84 kg/m2 08/28/2024 Procedures Procedure Date Ordered Date Performed Result Body Sit e COLONOSCOPY 08/28/2024 N/A Encounters Encounter Location Date Provider Diagnosis [facility] [address] [place] [address] 08/28/2024 Nino Jewell Hx of adenomatous colonic [...] Name:Nino Sharma Jewell , 02/03/2025 08:30:00 AM, [address] [place] [address], [phone], Insurance Providers Payer Name Payer Address Payer Phone Subscriber Number Group Number Insured Name Patient Relationship to Insured Coverage Start Date Coverage End Date MEDICARE OF [place] [address] [place] [address] [id number] MANINDER MONTES Self - patient is the insured HMO [employer] [address] [place] [address] [id number] MANINDER MONTES Self - patient is [...] well as a small tubular adenoma Denies NE,CVA,renal disease Asthma---inhaler prn Rheumatoid arthritis--had to stop [...]
--- OUTSIDE RECORDS SUMMARY | 2024-12-25 10:09 | XMS_ITS | Encounter Summary ---
Author Organization [facility] Address [address] [place] [address] Phone Care Team Providers Care Preschool Assistant Director Name Role Phone Papito Dawn MD Primary Care Provider [phone] Encounter Details Date Type Department Care Team (Late st Contact Info) Description 07/13/2023 Prep for Surgery [facility] [address] [place] [address] Romie Waller MD [address] [place] [address] [email or web address] Fuchs endothelial corneal dystrophy type 1 [...] Office Visit [facility] [address] [facility] [address] [place] [address] Romie Waller MD [address] [place] [phone] [email or web address]. [facility] documented as of this encounter Visit Diagnoses Diagnosis Fuchs endothelial corneal dystrophy type 1- Primary documented in this encounter Care Teams Preschool Assistant Director Relationship Specialty Start Date End Date Papito Dawn MD [address] [place] [address] PCP - General Internal Medicine 10/26/22 documented as of this encounter Additional Source Comments The information contained in this document represents components of the legal health record. It is not the complete legal health record.[facility]
== END 2024-12-25 09:57 | disposition home or self-care (01) ==
LOC: HO.HMCC 09:21
PROVIDERS: PCP Internal Medicine; Visit Provider Internal Medicine
DX: Z00.00 Encounter for general adult medical examination without abnormal findings (principal); E11.69 Type 2 diabetes mellitus with other specified complication; M05.761 Rheumatoid arthritis with rheumatoid factor of right knee without organ or systems involvement; M05.762 Rheumatoid arthritis with rheumatoid factor of left knee without organ or systems involvement; E66.812 Obesity, class 2; Z68.38 Body mass index [BMI] 38.0-38.9, adult; I10 Essential (primary) hypertension; J45.40 Moderate persistent asthma, uncomplicated; Z79.890 Hormone replacement therapy; E78.9 Disorder of lipoprotein metabolism, unspecified; Z23 Encounter for immunization

== ENCOUNTER → 2024-12-25 09:20 | Outpatient (BNVA) | payer MEDICARE, BC, SELFPAY | PROVIDERS: PCP Internal Medicine; Visit Provider Internal Medicine | DX: Z00.01 Encounter for general adult medical examination with abnormal findings (principal); E11.69 Type 2 diabetes mellitus with other specified complication; J45.909 Unspecified asthma, uncomplicated; I10 Essential (primary) hypertension; J45.40 Moderate persistent asthma, uncomplicated; M05.761 Rheumatoid arthritis with rheumatoid factor of right knee without organ or systems involvement; M05.762 Rheumatoid arthritis with rheumatoid factor of left knee without organ or systems involvement; E66.812 Obesity, class 2; E29.1 Testicular hypofunction; Z23 Encounter for immunization; Z68.38 Body mass index [BMI] 38.0-38.9, adult; Z91.09 Other allergy status, other than to drugs and biological substances; Z79.890 Hormone replacement therapy | CPT/HCPCS: 90471; 90656; 96127; 99396 ==

== ENCOUNTER → 2025-02-11 23:59 | Outpatient (BNV) | payer MEDICARE, BC, SELFPAY | PROVIDERS: PCP Internal Medicine; Visit Provider Internal Medicine | DX: E11.9 Type 2 diabetes mellitus without complications (principal); M06.9 Rheumatoid arthritis, unspecified; Z47.1 Aftercare following joint replacement surgery | CPT/HCPCS: G0180 ==

== ENCOUNTER 2025-03-12 08:48 | Outpatient (AMB) | payer MEDICARE, BC, SELFPAY ==
[2025-03-12 08:55] VITALS: BP 122/74; PULSE 106; O2SAT 97; BMI 34.6
--- NOTE | 2025-03-12 08:55 | MHC.PC.OV ---
Vital Signs 03/12/25 08:55 Height 5 ft 10 in Weight 241 lb BMI 34.6 BP 122/74 Blood Pressure Location Lt brachial Position Sitting Pulse 106 H Pulse Source Pulse Oximeter Pulse Oximetry (%) 97 Intake Visit Reasons: weight loss med increase Allergies amoxicillin (Augmentin) Allergy (Intermediate, Verified 03/12/25 08:55) rash aspirin (ASPIRIN) Allergy (Intermediate, Verified 03/12/25 08:55) WHEEZING clavulanic acid (Augmentin) Allergy (Intermediate, Verified 03/12/25 08:55) rash Iodinated Contrast Media (IODINATED CONTRAST MEDIA - IV DYE) Allergy (Intermediate, Verified 03/12/25 08:55) NAUSEA shellfish dye Allergy (Intermediate, Uncoded 11/14/24 13:26) nausea, wheezing Medication List - Last Reconciled 03/12/25 by Papito Dawn MD albuterol sulfate 90 mcg/actuation 2 puffs inhalation Q6-8H PRN atorvastatin 20 mg PO DAILY 90 days blood sugar diagnostic (FreeStyle Lite Strips) Check blood sugar once daily as directed blood-glucose meter (FreeStyle Lite Meter kit) Check blood sugar once daily as directed budesonide-formoterol 80-4.5 mcg/actuation 1 inh inhalation BID cetirizine (Zyrtec) 10 mg PO DAILY fluticasone propionate 50 mcg/actuation (Flonase Allergy Relief) 1 spray intranasal BID 30 days ipratropium-albuterol 0.5 mg-3 mg(2.5 mg base)/3 mL 3 mL inhalation BID PRN 30 days lancets (FreeStyle Lancets) Check blood sugar once daily as directed losartan-hydrochlorothiazide 100-12.5 mg 1 tab PO DAILY 90 days needle (disp) 18 G (BD Regular Bevel Rocky Face) As directed - draw up testosterone needle (disp) 23 gauge (BD Regular Bevel Rocky Face) Inject testosterone subcutaneous prednisolone acetate 1% 1 drp ophthalmic-Right QID syringe (disposable) (BD Luer-Rocky Syringe) Testosterone injection weekly testosterone cypionate (Depo-Testosterone) 200 mg IM QWEEK 4 weeks tirzepatide (weight loss) 7.5 mg (0.5 mL) subcut QWEEK 30 days Tobacco use date assessed: 09/10/24 Dental Screening Dental Screen Date: 09/10/24 HPI HPI Comments History of Present Illness Details History of Present Illness The patient is a 64 year old male presenting for follow-up and medication management. Obesity: - The patient is taking Zepbound 7.5 mg for weight loss and reports constant hunger, requesting an increase in dosage. - His insurance coverage for Zepbound is expected to end on March 27. - His weight has decreased from 279 lbs in October and 266 lbs in December to a current weight of 241 lbs, with his BMI decreasing from 40 to 34.6. - He expresses a desire to lose approximately 30 more pounds. Hypertension: - The patient is taking a combination tablet of losartan-hydrochlorothiazide for hypertension. - He reports frequent urination, which he believes is due to the diuretic component being too strong. - His blood pressure reading during the visit was 122/74 mmHg. Hypogonadism: - The patient discontinued testosterone injections due to side effects, including hair loss, acne, and oily skin, stating he felt worse on the medication. - He reported a negative experience with the previous prescribing provider, noting a lack of in-person visits and being provided with improper injection supplies, such as a large 18-gauge needle. - He has a history of losing a testicle during a surgery in the late and currently has an artificial testicle. Status post total knee arthroplasty: - The patient is 10 weeks post-operative from a total rt knee arthroplasty and is still in recovery. - He reports a very good range of motion of 127 degrees and has almost no limp. - The patient was prescribed meloxicam for significant swelling, possibly related to his rheumatoid arthritis, which has since improved. - He has not been fully consistent with home exercises but does perform quad sets and plans to join a gym to use a stationary bike for knee stiffness. Allergic Rhinitis: - The patient takes cetirizine for allergies and questions whether his recent symptoms are from allergies or a head cold. - He owns a dog despite having a known allergy to dogs. 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 - He plans to join a gym with his to use a stationary bike to address knee stiffness. Diagnostic Results: - In-office blood pressure: 122/74 mmHg. - Weight: 241 lbs with a BMI of 34.6. - Weight trend: Patient's weight was 266 lbs (BMI 38.4) in December and 279 lbs (BMI 40.0) in October. [facility] Medical History COLETTE (obstructive sleep apnea) COVID-19 vaccine series completed Snores Rheumatoid arthritis Fuchs' syndrome II Raynauds disease Osteoarthritis of both knees Asthma HTN (hypertension) Primary osteoarthritis of left knee Surgical History Hx of total knee replacement History of removal of testicle History of knee surgery History of colonoscopy History of trigger finger History of lipoma Family History Father Colon cancer Myocardial infarction Mother Colon cancer HTN (hypertension) Diabetes mellitus Sister Breast cancer Crohn's disease Sister Breast cancer Crohn's disease Brother CHF (congestive heart failure) Smoker Rheumatic fever Maternal Grandmother No problems noted. Maternal Grandfather No problems noted. Paternal Grandmother No problems noted. Paternal Grandfather Emphysema, unspecified Brother No problems noted. Sister No problems noted. Daughter No problems noted. Daughter No problems noted. Daughter No problems noted. Daughter No problems noted. 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 Cognitive needs: No Hearing needs: No Vision needs: Yes Questionnaire Thrive Questionnaire Date Thrive assessed: 04/09/24 I am a: Patient What is your living situation today?: I have a steady place to live Within the past 12 months, did the food you bought not last and you didn't have the money to get more?: Never true Within the past 12 months, did you worry whether your food would run out before you got money to buy more?: Never true Do you have trouble paying for medicines?: No Do you have trouble getting transportation to medical appointments?: No Do you have trouble paying your heating and electricity bill?: No Do you have trouble taking care of your child, family member or friend?: No Do you have trouble with day-to-day activities such as bathing, preparing meals, shopping, managing finances, etc.?: Yes Are you currently unemployed and looking for a job?: No Are you interested in more education?: No Please select the resources that you would like help with: None Currently or been in a relationship where the following occur: No concerns reported THRIVE Score: 0 JETT-7 AMB Questionnaire JETT-7 Date JETT - 7 assessed: 06/14/24 Trouble relaxin = Not at all Being so restless that it is hard to sit still: 0 = Not at all Becoming easily annoyed or irritable: 0 = Not at all Feeling afraid as if something awful might happen: 0 = Not at all Source: Developed by Drs. Nino Delatorre, Leena Espinosa, Bogdan Flores and colleagues, with an educational lalito from [employer]. Review of Systems Narrative Review of Systems - General: No fever no chills - Neurological: No headaches no dizziness - Ear nose throat: No sore throat no hearing difficulty no ear pain - Cardiovascular: No syncope, no chest pain, no palpitations - Gastrointestinal: No nausea vomiting or diarrhea - Endocrine: No polydipsia no heat intolerance - Genitourinary: No dysuria , no blood in urine Physical exam (Primary Care) Vital Signs: Last Vital Signs Pulse 106 H 03/12/25 08:55 BP 122/74 03/12/25 08:55 Pulse Ox 97 03/12/25 08:55 BMI result Body Mass Index 34.6 Tobacco/Smoking Status: Tobacco use Status Tobacco use date assessed 09/10/24 03/12/25 08:57 Patient Tobacco Use Status Former Tobacco user 03/12/25 08:57 Tobacco use type Cigarette 03/12/25 08:57 e-Cigarette/Vaping Use Never Used 03/12/25 08:57 Thrive Assessment: Date of Thrive Assessment Date Thrive assessed 04/09/24 03/12/25 08:57 Currently or been in a relationship where the following occur: No concerns reported Narrative Physical Exam - General: No acute distress - HEENT: No acute findings - Neck: Supple - Respiratory system: Able to talk in full sentences, no audible wheeze - Cardiovascular: S1-S2 regular in rate and rhythm - Gastrointestinal: No pain - Extremities: No new findings - BAR MACHINE OPERATOR MULTIPLE SPINDLE: Alert awake oriented x3 motor intact - Skin: Normal turgor Coding Level of Care Code Est Pt Level 5 (86598) Diagnoses Diabetes mellitus type 2 in obese E11.69; E66.9 Lipid disorder E78.9 Class 2 severe obesity due to excess calories with serious comorbidity and body mass index (BMI) of 38.0 to 38.9 in adult E66.812; Z68.38 Body mass index: BMI 38.0-38.9 Obesity classification: adult class 2 (BMI 35 - 39.9) Serious obesity comorbidity presence: with serious comorbidity Hypertension, essential I10 Low testosterone in male R79.89 Rheumatoid arthritis involving both knees with positive rheumatoid factor M05.761; M05.762 Laterality: bilateral Rheumatoid arthritis location: knee Rheumatoid factor presence: with rheumatoid factor Environmental allergies Z91.09 Time Spent (min) 40 Comment time spent in care of this patient Assessment & Plan Assessment & Plan (1) Diabetes mellitus type 2 in obese: Code(s): E11.69 - Type 2 diabetes mellitus with other specified complication; E66.9 - Obesity, unspecified Category: Medical (2) Lipid disorder: Code(s): E78.9 - Disorder of lipoprotein metabolism, unspecified Category: Medical (3) Obesity due to excess calories: Code(s): E66.09 - Other obesity due to excess calories Category: Medical Qualifiers: Body mass index: BMI 38.0-38.9 Obesity classification: adult class 2 (BMI 35 - 39.9) Serious obesity comorbidity presence: with serious comorbidity Qualified Code(s): E66.812 - Obesity, class 2; Z68.38 - Body mass index [BMI] 38.0-38.9, adult (4) Hypertension, essential: Code(s): I10 - Essential (primary) hypertension Category: Medical (5) Low testosterone in male: Code(s): R79.89 - Other specified abnormal findings of blood chemistry Category: Medical (6) Rheumatoid arthritis: Code(s): M06.9 - Rheumatoid arthritis, unspecified Category: Medical Qualifiers: Laterality: bilateral Rheumatoid arthritis location: knee Rheumatoid factor presence: with rheumatoid factor Qualified Code(s): M05.761 - Rheumatoid arthritis with rheumatoid factor of right knee without organ or systems involvement; M05.762 - Rheumatoid arthritis with rheumatoid factor of left knee without organ or systems involvement (7) Environmental allergies: Code(s): Z91.09 - Other allergy status, other than to drugs and biological substances Category: Medical Plan Problem List - Obesity - Essential Hypertension - Hyperlipidemia - Status post total knee arthroplasty - Hypogonadism - Rheumatoid arthritis - Allergic rhinitis - Preventative care: Colon cancer screening Plan - Discontinue losartan-hydrochlorothiazide combination therapy. - Prescribe losartan 50 mg twice daily for hypertension, with instructions to monitor blood pressure at home and reduce to once daily if readings are 120 or below; a 90-day supply was sent. - Prescribe Zepbound 10 mg for 30 days for weight management. - Order fasting labs for the next visit to check testosterone and blood sugar levels. - The patient has an upcoming colonoscopy on April 09. - Schedule a follow-up appointment in April, and the patient is instructed to bring his home blood pressure log. Orders: Orders Testosterone, Total Today - Type 2 diabetes mellitus with other specified complication, E66.9 - Obesity, unspecified, E78.9 - Disorder of lipoprotein metabolism, unspecified, I10 - Essential (primary) hypertension, R79.89 - Other specified abnormal findings of blood chemistry Complete Blood Count Auto Diff Today - Type 2 diabetes mellitus with other specified complication, E66.9 - Obesity, unspecified, E78.9 - Disorder of lipoprotein metabolism, unspecified, I10 - Essential (primary) hypertension, R79.89 - Other specified abnormal findings of blood chemistry Comprehensive [place]. Panel Fast Today - Type 2 diabetes mellitus with other specified complication, E66.9 - Obesity, unspecified, E78.9 - Disorder of lipoprotein metabolism, unspecified, I10 - Essential (primary) hypertension, R79.89 - Other specified abnormal findings of blood chemistry Lipid Panel Today E11.69 - Type 2 diabetes mellitus with other specified complication, E66.9 - Obesity, unspecified, E78.9 - Disorder of lipoprotein metabolism, unspecified, I10 - Essential (primary) hypertension, R79.89 - Other specified abnormal findings of blood chemistry Hemoglobin A1c Today E11.69 - Type 2 diabetes mellitus with other specified complication, E66.9 - Obesity, unspecified Medications: New losartan 50 mg PO BID 180 tabs 0RF 90 days Changed From tirzepatide (weight loss) for 4 weeks 7.5 mg (0.5 mL) subcut QWEEK 30 days 2.5 mL 2RF To tirzepatide (weight loss) for 4 weeks 10 mg (0.5 mL) subcut QWEEK 2.5 mL 2RF 30 days Discontinued losartan-hydrochlorothiazide 100-12.5 mg Discontinued Reason: Doctor's Order 1 tab PO DAILY 90 days 90 tabs 0RF I10 - Essential (primary) hypertension
--- OUTSIDE RECORDS SUMMARY | 2025-03-12 09:21 | XMS_ITS | Encounter Summary ---
Author Organization [facility] Address [address] [place] [address] Care Team Providers Care Branch Operations Manager Name Role Phone Papito Dawn MD Primary Care Provider Panda Balderrama MD Unavailable [phone] System, Provider Not In Unavailable Unavaila ble Daniel Telles PA-C Unavailable [phone] System, Provider Not In Unavailable Unavaila ble Encounter Details Date Type Department Care Team (Late st Contact Info) Description 05/08/2024 Scanned Document [facility] [address] [place] [address] Fer Sanchez MD 31 [facility] 100 [place] [address] Social History Tobacco Use Types Packs/Day Years [...] Care Team (Late st Contact Info) Description 04/07/2025 10:45 AM EST Office Visit Orthopedic [address] [phone] Daniel Telles PA-C [address] [place] [address] documented as of this encounter Visit Diagnoses Not on filedocumented in this encounter Care Teams Branch Operations Manager Relationship Specialty Start Date End Date Papito Dawn MD [facility] [place] [address] PCP - General Internal Medicine 01/18/24 Panda Balderrama MD 499 [facility] [address] [place] [address] Surgery, Orthopedic 07/23/24 System, Provider Not In [address] [place] [address] Ophthalmology 12/05/24 Daniel Telles PA-C [address] [place] [address] Physician Field Education Coordinator Surgery, Orthopedic 12/05/24 System, Provider Not In 499 [facility] [address] [place] [address] Urology 12/05/24 documented as of this encounter
--- OUTSIDE RECORDS SUMMARY | 2025-03-12 09:21 | XMS_ITS | Encounter Summary ---
Author Organization [facility] Address [address] [place] [address] Care Team Providers Care It Web Development Consultant Name Role Phone Papito Dawn MD Primary Care Provider Panda Balderrama MD Unavailable [phone] System, Provider Not In Unavailable Unavaila ble Daniel Telles PA-C Unavailable [phone] System, Provider Not In Unavailable Unavaila ble Encounter Details Date Type Department Care Team (Late st Contact Info) Description 04/25/2024 Scanned Document Orthopedic [address] [phone] Fer Sanchez MD 31 [facility] 100 [place] [address] Social History Tobacco Use Types Packs/Day Years [...] 04/07/2025 10:45 AM EST Office Visit Orthopedic [address] [phone] Daniel Telles PA-C 499 [facility] [address] [place] [address] documented as of this encounter Visit Diagnoses Not on filedocumented in this encounter Care Teams It Web Development Consultant Relationship Specialty Start Date End Date Papito Dawn [place] [address] PCP - General Internal Medicine 01/18/24 Panda Balderrama MD 499 [facility] [address] [place] [address] Surgery, Orthopedic 07/23/24 System, Provider Not In 499 [facility] [address] [place], [place] [id number] Ophthalmology 12/05/24 Daniel Telles PA-C [address] [place] [address] Physician Amusement Park Worker Surgery, Orthopedic 12/05/24 System, Provider Not In 499 [facility] [address] [place], [place] [address] Urology 12/05/24 documented as of this encounter
--- OUTSIDE RECORDS SUMMARY | 2025-03-12 09:21 | XMS_ITS | Encounter Summary ---
Author Organization [facility] Address [address] [place] [address] Care Team Providers Care Chronometer Adjuster Name Role Phone Papito Dawn MD Primary Care Provider [phone] Panda Balderrama MD Unavailable [phone] System, Provider Not In Unavailable Unavaila ble Daniel Telles PA-C Unavailable [phone] System, Provider Not In Unavailable Unavaila ble Encounter Details Date Type Department Care Team (Late st Contact Info) Description 04/10/2024 Scanned Document [facility] [address] [place] [address] Fer Sanchez MD 31 [facility] 100 [place] [address] Social History Tobacco Use Types Packs/Day Years [...] 04/07/2025 10:45 AM EST [facility] [address] [phone] Daniel Telles PA-C 499 [facility] [address] [place] [address] documented as of this encounter Visit Diagnoses Not on filedocumented in this encounter Care Teams Chronometer Adjuster Relationship Specialty Start Date End Date Papito Dawn MD [facility] [place] [address] PCP - General Internal Medicine 01/18/24 Panda Balderrama MD 499 [facility] [address] [place] [address] Surgery, Orthopedic 07/23/24 System, Provider Not In 499 [facility] [address] [place] [address] Ophthalmology 12/05/24 Daniel Telles PA-C [address] [place] [address] Physician Physician Primary Care Sports Medicine Surgery, Orthopedic 12/05/24 System, Provider Not In 499 [facility] [address] [place] [address] Urology 12/05/24 documented as of this encounter
--- OUTSIDE RECORDS SUMMARY | 2025-03-12 09:21 | XMS_ITS | Encounter Summary ---
Author Organization [facility] Address [address] [place] [address] Care Team Providers Care Airborne Weapons Technical Manager Name Role Phone Papito Dawn MD Primary Care Provider Panda Balderrama MD Unavailable [phone] System, Provider Not In Unavailable Unavaila ble Daniel Telles PA-C Unavailable [phone] System, Provider Not In Unavailable Unavaila ble Encounter Details Date Type Department Care Team (Late st Contact Info) Description 04/25/2024 Scanned Document Orthopedic [address] [phone] Fer Sanchez MD 31 [facility] 100 [place] [address] Social History Tobacco Use Types Packs/Day Years [...] 04/07/2025 10:45 AM EST Office Visit Orthopedic [address] [phone] Daniel Telles PA-C 499 [facility] [address] [place] [address] documented as of this encounter Visit Diagnoses Not on filedocumented in this encounter Care Teams Airborne Weapons Technical Manager Relationship Specialty Start Date End Date Papito Dawn MD [facility] [place] [address] PCP - General Internal Medicine 01/18/24 Panda Balderrama MD 499 [facility] [address] [place] [address] Surgery, Orthopedic 07/23/24 System, Provider Not In 499 [facility] [address] [place], [place] [address] Ophthalmology 12/05/24 Daniel Telles PA-C [address] [place] [address] Physician Icu Registered Nurse Surgery, Orthopedic 12/05/24 System, Provider Not In 499 [facility] [address] [place], [place] [address] Urology 12/05/24 documented as of this encounter
--- OUTSIDE RECORDS SUMMARY | 2025-03-12 09:22 | XMS_ITS | Encounter Summary ---
Author Organization [facility] Address [address] [place] [address] Care Team Providers Care Staple Cutter Name Role Phone Papito Dawn MD Primary Care Provider Panda Balderrama MD Unavailable [phone] System, Provider Not In Unavailable Unavaila ble Daniel Telles PA-C Unavailable [phone] System, Provider Not In Unavailable Unavaila ble Encounter Details Date Type Department Care Team (Late st Contact Info) Description 04/24/2024 Scanned Document [facility] 31 [facility] 100 [place] [address] Fer Sanchez MD [address] [address] Social History Tobacco Use Types Packs/Day Years [...] 10:45 AM EST [facility] [address] [phone] Daniel Telles PA-C [address] [place] [address] [place] [address] documented as of this encounter Visit Diagnoses Not on filedocumented in this encounter Care Teams Staple Cutter Relationship Specialty Start Date End Date Papito Dawn MD [address] [place] [address] PCP - General Internal Medicine 01/18/24 Panda Balderrama MD 499 [facility] [address] [place] [address] Surgery, Orthopedic 07/23/24 System, Provider Not In 499 [facility] [address] [place], [place] [address] Ophthalmology 12/05/24 Daniel Telles PA-C [address] [place] [address] Physician Patient Relations Director Surgery, Orthopedic 12/05/24 System, Provider Not In [address] [place] [address] Urology 12/05/24 documented as of this encounter
--- OUTSIDE RECORDS SUMMARY | 2025-03-12 09:22 | XMS_ITS | Patient Health Record ---
Author Organization [facility] Address [address] [facility] [address] [place] [address] Care Team Providers Care Brake Repairer Hydraulic Name Role Phone López FLOWER[facility] Primary Care Provider Nino Sy Unavailable [phone] Allergies Allergen (clinical drug ingredient) Drug/Non Drug Allergy documented on EMR Reaction Allergy Type Onset Date Status aspirin Aspirin Unknown Drug Allergy Active amoxicillin / clavulanate Augmentin Unknown Drug Allergy Active Shellfish (FN) Shellfish-derived Products Unknown Drug Allergy Active Reason For Referral Referring Provider First Name Papito Referring Provider Last Name López Referring Provider Speciality Internal M edicine Referred Organization [facility] Referred Provider Nino Jewell Referred Address [address] [place] [address],[address],[place], [place],[address], Referred Provider Specialty Gastroentero logy Referral Priority Routine Medications Medication SIG (Take, Route, Frequency, Duration) Notes Start Date End Date Status ProAir HFA 108 (90 Base) MCG/ACT Aerosol Solution 2 puffs as needed Inhalation every 4 hrs Active Advil 200 MG Tablet 1 tablet with food o r milk as needed Orally Three times a day/prn Active ZyrTEC 10 MG Tablet Chewable 1 tablet Orally Once a day A ctive Testosterone Cypionate 200 MG/ML Solution 1 mL Intramuscular Active Atorvastatin Calcium 20 MG Tablet TAKE 1 TABLET BY MOUTH EVERY DAY Oral; Duration: 90 Active Fluticasone Propionate 50 MCG/ACT Suspension USE 1 SPRAY IN EACH NOSTRIL TWICE DAILY Nasal; Duration: 30 Active Losartan Potassium-HCTZ 100-12.5 MG Tablet Oral; Duration: 90 Act heriberto glipiZIDE 5 MG Tablet 1 tablet 30 minute s before breakfast Orally Once a day 08/28/2024 Active Zepbound 5 MG/0.5ML Solution Auto-injector 0.5 mL Subcutaneous weekly 08/28/2024 Active Immunizations Vaccine Route Administration Date Status Comme nts Influenza Unknown 11/25/2020 Administered Social History Social History Drug/Alcohol: Social Info Question Answer Notes AUDIT-C (Standard) Did you have a drink containing alcohol in the past year? Yes How often did you have a drink containing alcohol in the past year? 2 to 4 times a month (2 points) How many drinks did you have on a typical day when you were drinking in the past year? 3 or 4 drinks (1 point) How often did you have six or more drinks on one occasion in the past year? 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 Section Notes: Nonsmoker since 2000; occasi onal beer Nonsmoker since 2000; occasi onal beer Nonsmoker since 2000; occasi onal beer Nonsmoker since 2000; occasi onal beer Problems Problem Type SNOMED Code ICD Code Onset Dates Problem Status W/U Status Risk Notes Problem Screening for malignant neoplasm of colon (727879619) Encounter for screening for malignant neoplasm of colon (Z12.11) Active confirmed Problem Preprocedural examination (785895834867920) Preprocedural examination (Z01.818) Active confirmed Problem Family History of Cancer of Colon (Situation) (483294349) Family history of colon cancer (Z80.0) Active confirmed Problem History of adenomatous polyp of colon (280331798) Hx of adenomatous colonic polyps (Z86.010) Active confirmed Problem Diverticulosis of colon (366928769) Diverticulosis of colon (K57.30) Active confirmed Vital Signs Temperature 96.8 degrees Fahrenheit 08/28/2024 Blood pressure diastolic 01 mm Hg 08/28/2024 Height 70 in 08/28/2024 Blood pressure systolic 001 mm Hg 08/28/2024 Weight 256.8 lbs 08/28/2024 BMI 36.84 kg/m2 08/28/2024 Procedures Procedure Date Ordered Date Performed Result Body Sit e COLONOSCOPY 08/28/2024 N/A Encounters Encounter Location Date Provider Diagnosis [facility] [address] [place] [address] 08/28/2024 Nino Jewell Hx of adenomatous colonic polyps Z86.010 ; Preprocedural examination Z01.818 ; Family history of colon cancer Z80.0 and Encounter for screening for malignant neoplasm of colon Z12.11 [facility] [address] [place] [address] 01/27/2025 Nino Jewell Assessments Encounter Date Diagnosis (ICD Code) Assessment [...] COLONOSCOPY 06/24/2021 Next Appt Details Provider Name:Nino Jewell , 04/09/2025 11:40:00 AM, [address] [place] [address] , [place], [place], [id number], Insurance Providers Payer Name Payer Address Payer Phone Subscriber Number Group Number Insured Name Patient Relationship to Insured Coverage Start Date Coverage End Date MEDICARE OF [place] [address] [place] [address] [id number] MANINDER MONTES Self - patient is the insured [employer] [employer] PROF[employer] CLAIMS [address] [place] [address] [id number] MANINDER MONTES Self - patient is [...] well as a small tubular adenoma Denies [place],CVA,renal disease Asthma---inhaler prn Rheumatoid arthritis--had to stop Methot rexate and Enbrel due to pneumonia Hypertension Negative colonoscopy in 03/2017 Fuch's disease--corneal dystrophy Diabetes Colonoscopy in June 2021 with removal o f small tubular adenomas Surgical History Surgery Date(Month/Year) 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
--- OUTSIDE RECORDS SUMMARY | 2025-03-12 09:22 | XMS_ITS | Encounter Summary ---
Author Organization [facility] Address [address] [place] [address] Care Team Providers Care Sail Maker Name Role Phone Papito Dawn MD Primary Care Provider [phone] Panda Balderrama MD Unavailable [phone] System, Provider Not In Unavailable Unavaila ble Daniel Telles PA-C Unavailable [phone] System, Provider Not In Unavailable Unavaila ble Encounter Details Date Type Department Care Team (Late st Contact Info) Description 07/08/2024 Scanned Document Orthopedic [address] [phone] Panda Balderrama MD 499 [facility] [address] [place], [place] [address] Social History Tobacco Use Types Packs/Day Years [...] 04/07/2025 10:45 AM EST Office Visit Orthopedic [address] [phone] Daniel Telles PA-C [address] [place], [place] [address] documented as of this encounter Visit Diagnoses Not on filedocumented in this encounter Care Teams Sail Maker Relationship Specialty Start Date End Date Papito Dawn MD [facility] [place] [address] PCP - General Internal Medicine 01/18/24 Panda Balderrama MD 499 [facility] [address] [place] [address] Surgery, Orthopedic 07/23/24 System, Provider Not In [address] [facility] [address] [place] [address] Ophthalmology 12/05/24 Daniel Telles PA-C [address] [place] [address] Physician Press And Blow Machine Tender Surgery, Orthopedic 12/05/24 System, Provider Not In 499 [facility] [address] [place] [address] Urology 12/05/24 documented as of this encounter
--- OUTSIDE RECORDS SUMMARY | 2025-03-12 09:22 | XMS_ITS | Encounter Summary ---
Author Organization [facility] Address [address] [place] [address] Care Team Providers Care Plasterer Foreman Name Role Phone Papito Dawn MD Primary Care Provider Panda Balderrama MD Unavailable [phone] System, Provider Not In Unavailable Unavaila ble Daniel Telles PA-C Unavailable [phone] System, Provider Not In Unavailable Unavaila ble Encounter Details Date Type Department Care Team (Late st Contact Info) Description 07/11/2024 Scanned Document [facility] 499 [place] [address] Fer Sanchez MD 31 [facility] 100 [place] [address] Social History Tobacco Use Types Packs/Day Years [...] 10:45 AM EST [facility] Visit [facility] [address] [phone] Daniel Telles PA-C 499 [facility] [address] [place] [address] documented as of this encounter Visit Diagnoses Not on filedocumented in this encounter Care Teams Plasterer Foreman Relationship Specialty Start Date End Date Papito Dawn MD [facility] [place] [address] PCP - General Internal Medicine 01/18/24 Panda Balderrama MD 499 [facility] [address] [place] [address] Surgery, Orthopedic 07/23/24 System, Provider Not In 499 [facility] [address] [place] [address] Ophthalmology 12/05/24 Daniel Telles PA-C [address] [place] [address] Physician Electrician'S Helper Surgery, Orthopedic 12/05/24 System, Provider Not In 499 [facility] [address] [place] [address] Urology 12/05/24 documented as of this encounter
--- OUTSIDE RECORDS SUMMARY | 2025-03-12 09:22 | XMS_ITS | Clinical Summary ---
Author Organization Formerly [facility] Address [address] [place] [address] Care Team Providers Care Registered Pharmacy Technician Name Role Phone Papito Dawn MD Primary Care Provider [phone] Panda Balderrama MD Unavailable [phone] System, Provider Not In Unavailable Unavaila ble Daniel Telles PA-C Unavailable [phone] System, Provider Not In Unavailable Unavaila ble Allergies Active Allergy Reactions Criticality Noted Date Comments Amoxicillin Hives Medium 04/22/2024 Aspirin Anaphylaxis High 04/22/2024 Wheezing Iodinated Contrast Media Rash/Dermatitis Low 12/31/2024 ? Shellfish containing products; pt eats shrimp/lobster Sulfa Antibiotics Shortness Of Breath Medium Sulfites Other (See Comments) Low 12/05/2024 Wheezing, puffy face Medications tirzepatide (Zepbound) 7.5 mg/0.5 mL subcutaneous injection 0.5 mL (7.5 mg total) every 7 days. Saturdays Active atorvastatin (LIPITOR) 20 MG tablet Take 1 tablet (20 mg total) by mouth every morning. Active losartan 100 MG TABS 100 mg, hydroCHLOROthiazide 12.5 MG TABS 12.5 mg per dose Take 1 tablet by mouth every morning. Active leflunomide (ARAVA) 20 MG tabletIndications:Rheum atoid Arthritis Take 1 tablet (20 mg total) [...] (1 mg total) by mouth daily. Active senna-docusate (SENNA-S) 8.6-50 MGIndications:Primary osteoarthritis of right knee Take 2 tablets by mouth nightly. 60 tablet 01/02/20 25 Active rivaroxaban (XARELTO) 10 MG tabletIndications:Prima ry osteoarthritis of right knee Take 1 tablet (10 mg total) by mouth daily. Do not start before January 02, 2025. 28 tablet 01/03/20 25 Active polyethylene glycol (miraLAx) 17 g packetIndications:Prima ry osteoarthritis of right knee Take 1 packet (17 g total) by mouth daily. 14 packet 01/02/20 25 Active oxyCODONE (ROXICODONE) 5 MG immediate release tabletIndications:Prima ry osteoarthritis of right knee Take 1-2 tablets (5-10 mg total) by mouth every 4 (four) hours as needed for moderate pain or severe pain. Max Daily Amount: 60 mg 42 tablet 01/30/20 25 Active methocarbamol (ROBAXIN) 750 MG tabletIndications:Prima ry osteoarthritis of right knee Take 1 tablet (750 mg total) by mouth 4 (four) times a day as needed for muscle spasms. 40 tablet 02/11/20 25 Active meloxicam (MOBIC) 15 MG tabletIndications:Statu s post total right knee replacement Take 1 tablet (15 mg total) by mouth daily. Take with food in the morning 90 tablet 02/11/20 25 Active Active Problems Problem Noted Date Diagnosed Date Primary localized osteoarthritis of right knee 1 Suspected sleep apnea 12/10/2024 Assessment & Plan [...] Encounters Date Type Department Care Team Description 02/10/2025 10:00 AM EST Office Visit Orthopedic [address] [phone] Panda Balderrama MD Status post total right knee replacement (Primary Dx); Primary osteoarthritis of right knee 01/13/2025 3:55 PM EDT Ancillary Procedure Orthopedic [address] [phone] 01/13/2025 3:30 PM EDT [facility] [address] [address] Panda Balderrama MD Status post total right knee replacement (Primary Dx); Primary osteoarthritis of right knee 12/31/2024 8:25 AM EDT Anesthesia Event [facility] [employer] at [address] [phone] Claudio Avelar MD Gordon, Jennifer L, PA-C 12/31/2024 8:15 AM EDT - 12/31/2024 10:45 AM EDT Surgery [facility] [employer] [address] [address] Panda Balderrama MD ARTHROPLASTY TOTAL KNEE 12/31/2024 5:54 AM EDT - 01/01/2025 1:27 PM EDT Hospital Encounter [facility] [address] [place] [phone] Panda Balderrama MD Primary osteoarthritis of right knee (Primary Dx) Discharge Disposition: Home with Health Care Services 12/23/2024 1:05 PM EDT Ancillary Procedure [facility] [address] [phone] 12/23/2024 1:00 PM EDT [facility] [address] [phone] Daniel Telles PA-C Primary osteoarthritis of right knee (Primary Dx) from Last 3 Months Social History Tobacco Use Types Packs/Day Years Used Date Smoking Tobacco: Former Cigarettes 0 Q uit: 2000 Smokeless Tobacco: Never Tobacco [...] Sign Reading Time Taken Comments Blood Pressure 123/73 01/01/2025 6:57 AM EDT Pulse 97 01/01/2025 6:57 AM EDT Temperature 36.8 C (98.2 F) 01/01/2025 6:57 AM EDT Respiratory Rate 18 01/01/2025 6:57 AM EDT Oxygen Saturation 94% 01/01/2025 6:57 AM EDT Inhaled Oxygen Concentration - - Weight 120 kg (265 lb) 12/31/2024 11:50 AM EDT Height 177.8 cm (5' 10 ) 12/31/2024 11:50 AM EDT Body Mass Index 38.02 12/31/2024 11:50 AM EDT Plan of Treatment Upcoming Encounters Date Type Department Care Team (Late st Contact Info) Description 04/07/2025 10:45 AM EST [facility] [address] [phone] Daniel Telles PA-C [address] [place] [address] [address] [place] [address] Health Maintenance Due Date Last Done Comments Hepatitis C Virus Screening 1960 COVID-19 Vaccine (#1) 04/30/1963 Foot Exam 1972 Lipid Panel 1972 Ophthalmology Exam 1972 HIV Screening 10/29/1975 Microalbumin/Creatinine Rati o Urine 1980 DTaP/Tdap/Td Vaccines (1 - Tdap) 1981 Pneumococcal Vaccines 50+ (1 of 2 - PCV) 1981 Zoster (Shingles) Vaccine (1 of 2) 1981 Colonoscopy 10/29/2007 RSV Vaccine 50 years and old er and Patients (1 - Risk 50-74 years 1-dose series) 2012 Influenza Vaccine 10/25/2024 11/25/2020 Hemoglobin A1C 06/09/2025 12/10/2024 Creatinine with GFR 01/01/2026 01/01/2025, 12/10/2024 Hepatitis B Vaccines Aged Out No long er eligible based on patient's age to complete this topic Medical Devices Implanted Type Area Quality Assurance Supervisor Trim Device Identifier Shelf Expiration Date Model / Serial / Lot [id number] 2 Component Femoral Persona Pps 8 Standard Knee Right Cruciate - [id number] Implanted:Qty : 1 on 12/31/2024 by Panda Balderrama MD at [facility] Prosthesis Right: Knee [employer] [id number] 07/31/2034 [id number] / / [id number] 2 Component Tibial Persona 0d G Knee Right Osseoti Keel - [id number] Implanted:Qty : 1 on 12/31/2024 by Panda Balderrama MD at [facility] Joint Prosthesis Right: Knee [employer] [id number] 08/13/2034 [id number] / / [id number] 5 Component Patellar 35mm 3 Peg Cemtls Persona Osseoti Tibia - [id number] Implanted:Qty : 1 on 12/31/2024 by Panda Balderrama MD at [facility] Joint Prosthesis Right: Knee [employer] [id number] 06/17/2029 [id number] / / [id number] Insert Articular 8-11 G-H 11mm Knee Right Vivacit-E Persona - [id number] Implanted:Qty : 1 on 12/31/2024 by Panda Balderrama MD at [facility] Joint Prosthesis Right: Knee [employer] [id number] 05/11/2029 [id number] / / [id number] Procedures Procedure Name Priority Date/Time Associated Diagnosis Comments XR KNEE 3 VIEWS-RIGHT Routine 01/13/2025 3:59 PM EDT Status post total right knee replacement POCT GLUCOSE, FINGERSTICK (CHARGE) Routine 01/01/2025 7:47 AM EDT BASIC METABOLIC PANEL Routine 01/01/2025 6:42 AM EDT POCT GLUCOSE, FINGERSTICK (CHARGE) Routine 12/31/2024 11:21 PM EDT POCT GLUCOSE, FINGERSTICK (CHARGE) Routine 12/31/2024 4:34 PM EDT POCT GLUCOSE, FINGERSTICK (CHARGE) Routine 12/31/2024 12:53 PM EDT ANES BLOCK - SPINAL Routine 12/31/2024 8:58 AM EDT ANES BLOCK - LOWER EXTREMITY Routine 12/31/2024 8:15 AM EDT MI ARTHRP KNE CONDYLE&PLATU MEDIAL&LAT COMPARTMENTS 12/31/2024 8:10 AM EDT Primary osteoarthritis of right knee Special Needs SPINAL , REGIONAL BLOCK , SOWMYA CEMENTLESS TKA, INTELLIJOINT POCT GLUCOSE, FINGERSTICK (CHARGE) Routine 12/31/2024 6:33 AM EDT XR LUMBAR SPINE 2 OR 3 VIEWS Routine 12/23/2024 1:11 PM EDT Primary osteoarthritis of right knee XR KNEE 4+ VIEWS-RIGHT Routine 12/23/2024 1:11 PM EDT Primary osteoarthritis of right knee HEMOGLOBIN A1C WITH ESTIMATED AVERAGE GLUCOSE Routine [...] failure, left eye from Last 3 Months or Most Recently Relevant to Health Maintenance Results * XR Knee 3 views-Right (01/13/2025 3:59 PM EDT) Narrative [facility] - 01/13/2025 3:59 PM EDT This exam was performed in office at [facility] and images reviewed by orthopedic provider. Any findings are documented within ambulatory encounter note on date of service. us Panda Balderrama MD IMG DIAGNOSTIC IMAGING ORDERA BLES Final Result Performing Organization Address City/[facility]/ZIP Co de Phone Number [facility] * (ABNORMAL) POCT Glucose, Fingerstick (01/01/2025 7:47 AM EDT) Only the most recent of5 resultswithin the time period is included. POC Glucose 150(H) 65 - 99 mg/dL 01/01/2025 7:47 AM EDT Blood specimen / Unknown 01/01/2025 7:47 AM EDT 01/01/2025 7:48 AM EDT us Panda Balderrama MD POINT OF CARE TEST ORDERABLES Final Result H[facility]PITAL [facility] See Below * (ABNORMAL) Basic Metabolic Panel (01/01/2025 6:42 AM EDT) Glucose 118(H) 65 - 99 mg/dL 01/01/2025 8:24 AM EDT [facility] Comment:Fasting: <100 mg/dL, Non-Fasting: <200 mg/dL (ADA 2005) Blood Urea Nitrogen (BUN) 12 8 - 21 mg/dL 01/01/2025 8:24 AM EDT [facility] Creatinine 0.88 0.50 - 1.30 mg/dL 01/01/2025 8:24 AM EDT [facility] eGFR >90 >59 01/01/2025 8:24 AM EDT [facility] Comment:CKD-EPI (2020) in mL /min/1.73 sq meters. Sodium 136 136 - 145 mmol/L 01/01/2025 8:24 AM EDT [facility] Potassium 3.6 3.4 - 5.3 mmol/L 01/01/2025 8:24 AM EDT [facility] Chloride 100 98 - 107 mmol/L 01/01/2025 8:24 AM EDT [facility] CO2 26 22 - 33 mmol/L 01/01/2025 8:24 AM EDT [facility] Anion Gap 10 7 - 17 01/01/2025 8:24 AM EDT [facility] Calcium 8.7 8.7 - 10.5 mg/dL 01/01/2025 8:24 AM EDT [facility] BUN/Creatinine Ratio 14 10.0 - 25.0 Ratio 01/01/2025 8:24 AM EDT [facility] Blood Blood specimen / Unknown 01/01/2025 6:42 AM EDT 01/01/2025 7:10 AM EDT Fabi Pulido PA-C LAB BLOOD ORDERABLES Final Resu lt Performing Organization Address City/State/[facility] Co de Phone Number [address] [address], [address] [address] * Block - Spinal (12/31/2024 8:58 AM EDT) Narrative Claudio Avelar MD - 12/31/2024 8:58 AM EDT Claudio Avelar MD 12/31/2024 8:59 AM Anesthesia Procedure Note - Spinal Block Patient Name: Maninder Foley : 1960 Patient location: OR Reason for block: primary anesthetic Procedure diagnosis: Osteoarthritis Spinal Procedure Start Time: 12/31/2024 8:30 AM Spinal Procedure End Time: 12/31/2024 8:34 AM Performed by: Anesthesiologist Claudio Avelar MD Chart Verification ID band applied and present Patient ID verified via arm band, verbally with patient. H&P verified: Yes Pre-op test results in chart Consents confirmed: operative and anesthesia Nursing assessment complete: yes Anesthesia questionnaire complete: yes Procedure Verification/TIMEOUT Correct procedure: yes Correct patient position: yes Correct laterality: yes Correct site: yes Site/side marked: yes Sterility reviewed: yes Safety precautions discussed with procedural staff: yes Preanesthetic Checklist monitors and equipment checked. Patient's pre-procedure mental status: awake The patient was sedated prior to procedure. Current level of sedation: moderate Procedure Preparation Skin prep: 2% chlorhexidine - completely dried prior to procedure Hand hygeine performed prior to needle/catheter insertion Sterile barriers in place: cap, gloves and mask Spinal Block Patient position: sitting Monitoring: continuous pulse ox and frequent blood pressure checks The skin was infiltrated with Lidocaine 1%. Level: L4-5 Injection technique: single-shot Needle: Quincke, 24 g, 5 in Number of attempts: 2 Additional Comments: Pre-block time out performed. Skin wheal placed with Lidocaine 1% (Plain) infiltration. Spinal needle advanced to clear CSF flow with good swirl on aspiration. NO Heme; NO Paresthesias. Easy aspiration at the end of injection. Patient tolerated the procedure well. Patient noted to be comfortable with surgical incision. [facility] Mena Avelar MD [place] ANESTHESIA Final Result * Block - Lower Extremity (12/31/2024 8:15 AM EDT) Caty Cook MD - 12/31/2024 8:15 AM EDT Caty Benítez MD 12/31/2024 8:21 AM Anesthesia Procedure Note - Lower Extremity Block Patient Name: Maninder Foley : 1960 Patient location: pre-op Reason for block: post-op pain management Procedure diagnosis: Osteoarthritis, knee Procedure Start Time: 12/31/2024 7:16 AM Procedure End Time: 12/31/2024 7:33 AM Performed by: Other anesthesia staff MD Cody Natarajan DO Chart Verification ID band applied and present Patient ID verified via arm band, verbally with patient. H&P verified: Yes Pre-op test results in chart Consents confirmed: operative, informed and anesthesia Nursing assessment complete: yes Anesthesia questionnaire complete: yes Procedure Verification/TIMEOUT Correct procedure: yes Correct patient position: yes Correct laterality: yes Correct site: yes Site/side marked: yes Sterility reviewed: yes Special equipment or implants: yes Safety precautions discussed with procedural staff: yes Preanesthetic Checklist Monitors and equipment checked Patient pre-procedure mental status: awake The patient was sedated prior to procedure. Patient state at time: moderate Patient Preprocedure Preparation Skin prep: 2% chlorhexidine-completely dried prior to procedure Hand hygeine performed prior to needle/catheter insertion Sterile barriers in place: Cap, gloves and mask Procedure Details Block A: iPACK (posterior capsule) - single-shot technique Short-bevel needle, 22 g, 80 mm Laterality right Block B: adductor canal - single-shot Short-bevel needle, 22 g, 80 mm Laterality right Block C: obturator nerve (anterior & posterior branch obturator) - single-shot Short-bevel needle,22 g, 80 mm Laterality right Block D: lateral femoral cutaneous nerve - single-shot short-bevel needle, 22 g, 80 mm Laterality right Technique(s): ultrasound guidance and nerve stimulator Outcomes Result: successful block Outcome: block complete Patient tolerated procedure well. Additional Comments: Nerve block requested by surgeon for post-op analgesia. Pre-block timeout performed. Meaningful patient verbal communication maintained throughout the procedure. Posterior capsule (IPACK) - USN guided medial to lateral approach, appropriate local anesthetic spread pattern between popliteal artery and femur. Needle tip visualized throughout and not advanced lateral to popliteal vasculature. No USN evidence of perineural spread. Adductor canal block - USN guided mid-thigh approach at the beginning of the adductor canal identified by the confluence of the sartorius and adductor longus muscles medial to the superficial femoral artery. USN transducer moved laterally to the superficial femoral artery while maintaining the same level on the thigh. Needle advanced in plane under continuous ultrasound guidance of needle and needle tip with nerve stimulation. Nerve to vastus medialis identified via ultrasound and needle advanced until a stimulation was elicited with a nerve stimulator to confirm its identity. Needle then withdrawn until stimulation no longer occurs and keeping needle proximal to nerve but not intraneuronal and local anesthetic injected with an appropriate subsartorial spread pattern. No nerve swelling noted post-injection, no pain or paresthesia reported by patient. Immediately after identifying and injecting local around the vastus medialis nerve, the needle withdrawn and then advanced more superficially while still stimulating to avoid penetration of the vastus medialis nerve under direct ultrasound visualization of the needle tip. Needle advanced lateral to artery and local anesthetic injected under low pressure avoiding intraneuronal injection of the saphenous nerve. No nerve swelling noted post-injection, no pain or paresthesia reported by patient. Obturator - USN guided block of both anterior & posterior division of the nerve in the planes between adductor longus/brevis and adductor brevis/jesi, respectively. Needle advanced under continuous in-plane ultrasound visualization, visualizing the needle tip at all times, low pressure injection with 10ml syringe, stayed proximal to nerves without penetrating them, nerve stimulation used to confirm the ultrasound image of the nerve, and needle withdrawn slightly to ensure that the needle was not intraneuronal and local injected. No nerve swelling noted post-injection, no pain or paresthesia reported by patient, who was communicative throughout the procedure. Lateral femoral cutaneous nerve block - USN guided identification of lateral femoral cutaneous nerve superficial to and lateral to sartorius muscle. Nerve confirmed with an twitch monitor eliciting a tapping sensation in the lateral thigh and then withdrawn to avoid an intraneuronal injection. Needle advanced under direct in plane ultrasound visualization, low pressure injection with 10ml syringe, stayed proximal to nerve without penetrating it, no paresthesias, no nerve swelling noted after injection. All blocks administered with low pressure, incremental injection with 10 mL syringe. Negative aspiration noted every 3-5mL. Cody Quinones DO [place] ANESTHESIA Final Result * XR Knee 4+ views-Right (12/23/2024 1:11 PM EDT) Narrative [facility] - 12/23/2024 1:11 PM EDT This exam was performed in office at [facility] and images reviewed by orthopedic provider. Any findings are documented within ambulatory encounter note on date of service. Daniel Telles PA-C [facility] DIAGNOSTIC IMAGING ORD ERABLES Final Result Performing Organization Address [facility] Co de Phone Number [facility] * XR Lumbar spine 2 or 3 views (12/23/2024 1:11 PM EDT) Narrative [facility] - 12/23/2024 1:11 PM EDT [facility] and images reviewed by orthopedic provider. Any findings are documented within ambulatory encounter note on date of service. Daniel Telles PA-C [facility] DIAGNOSTIC IMAGING ORD ERABLES Final Result Performing Organization Address [facility]/ZIP Co de Phone Number OA * (ABNORMAL) Hemoglobin A1c with Estimated Average Glucose (12/10/2024 10:15 AM EDT) Hemoglobin A1C 5.7(H) <5.7 % 12/10/2024 2:45 PM EDT [facility] Comment: A1c% Interpretation 5.7 - 6.0 Increase risk of diabetes 6.1 - 6.4 Higher risk of diabetes > or = 6.5 Consistent with diabetes Diabetes Care, 33(Supp 1):S1-S61, 2010 Estimated Average Glucose 117 mg/dL 12/10/2024 2:45 PM EDT [facility] Blood Blood specimen / Unknown 12/10/2024 10:15 AM EDT 12/10/2024 2:04 PM EDT Rebecca Malave PA-C LAB BLOOD ORDERABLES Final Result [address] [address], [address] [address] from Last 3 Months or Most Recently Relevant to Health Maintenance Insurance - [facility] MEDICARE PART A & B BLUE GREGORY OUT [facility] - HMO MEDICARE PART A & B Advance Directives * Full Code (Latest Code Status on File) Date Activated Date Inactivated Comments 12/31/2024 12:07 PM * Full Code Date Activated Date Inactivated Comments 12/31/2024 6:11 AM 12/31/2024 12:07 PM Care Teams Registered Pharmacy Technician Relationship Specialty Start Date End Date Papito Dawn MD 1959 [place] [address] PCP - General Internal Medicine 01/18/24 Panda Balderrama MD [address] [facility] [address] [place] [address] Surgery, Orthopedic 07/23/24 System, Provider Not In [address] [place] [address] [address] [place] [address] Ophthalmology 12/05/24 Daniel Telles PA-C [address] [place] [address] Physician Guard Driver Surgery, Orthopedic 12/05/24 System, Provider Not In [address] [place] [address] [address] [place] [address] Urology 12/05/24
== END 2025-03-12 09:25 | disposition home or self-care (01) ==
LOC: HO.HMCC 08:49
PROVIDERS: PCP Internal Medicine; Visit Provider Internal Medicine
DX: E11.69 Type 2 diabetes mellitus with other specified complication (principal); M05.761 Rheumatoid arthritis with rheumatoid factor of right knee without organ or systems involvement; M05.762 Rheumatoid arthritis with rheumatoid factor of left knee without organ or systems involvement; E66.812 Obesity, class 2; Z68.38 Body mass index [BMI] 38.0-38.9, adult; E78.9 Disorder of lipoprotein metabolism, unspecified; I10 Essential (primary) hypertension; R79.89 Other specified abnormal findings of blood chemistry; Z91.09 Other allergy status, other than to drugs and biological substances

== ENCOUNTER → 2025-03-12 08:48 | Outpatient (BNVA) | payer MEDICARE, BC, SELFPAY | PROVIDERS: PCP Internal Medicine; Visit Provider Internal Medicine | DX: E11.69 Type 2 diabetes mellitus with other specified complication (principal); E66.9 Obesity, unspecified; E78.9 Disorder of lipoprotein metabolism, unspecified; E66.812 Obesity, class 2; Z68.38 Body mass index [BMI] 38.0-38.9, adult; I10 Essential (primary) hypertension; R79.89 Other specified abnormal findings of blood chemistry; M05.761 Rheumatoid arthritis with rheumatoid factor of right knee without organ or systems involvement; M05.762 Rheumatoid arthritis with rheumatoid factor of left knee without organ or systems involvement; Z91.09 Other allergy status, other than to drugs and biological substances | CPT/HCPCS: 99212 ==